=== PATIENT | female | born 1985 | race Caucasian/White ===

== ENCOUNTER → 2019-06-02 12:37 | Outpatient (BNVA) | payer MEDICARE, MEDICAID, SELFPAY | PROVIDERS: Family Provider Nurse Practitioner Family; PCP Nurse Practitioner Family; Visit Provider Psychiatry & Neurology Psychiatry | DX: F31.32 Bipolar disorder, current episode depressed, moderate (principal); F43.12 Post-traumatic stress disorder, chronic; F17.200 Nicotine dependence, unspecified, uncomplicated | CPT/HCPCS: 99213 ==

== ENCOUNTER 2019-06-09 09:36 | Outpatient (CLI) | payer MEDICARE, MEDICAID, SELFPAY ==
--- NOTE | 2019-06-09 09:53 | USCV_ITS ---
Mare Cody Age: 34 Gender: F : 1985 Exam Date: 06/09/2019 10:10 Ordering Phys: Veda Owen MD Technologist: Samson Kumar Exam Location: [facility] – [place] Indication: OBSTRUCTIVE SLEEP APNEA BP: 110 / 73 HR: 85 Rhythm: Sinus Technical Quality: Adequate MEASUREMENTS (Male / Female) Normal Values 2D ECHO LV Diastolic Diameter PLAX 3.9 cm 4.2 - 5.9 / 3.9 - 5.3 cm LV Systolic Diameter PLAX 2.8 cm IVS Diastolic Thickness 0.9 cm 0.6 - 1.0 / 0.6 - 0.9 cm IVS Systolic Thickness 1.5 cm LVPW Diastolic Thickness 0.9 cm 0.6 - 1.0 / 0.6 - 0.9 cm LVPW Systolic Thickness 1.3 cm LVOT Diameter 2.0 cm LV Ejection Fraction 2D Teich 53.7 % LV Ejection Fraction MOD 2C 64.6 % LV Ejection Fraction 2C AL 65.0 % LA Diameter 4.0 cm LA Width 4.0 cm LA Height 4.4 cm RA Width 3.2 cm RA Height 3.8 cm Aorta at Sinotubular Diameter 2.4 cm M-MODE LV Diastolic Diameter MM 3.6 cm 4.2 - 5.9 / 3.9 - 5.3 cm LV Systolic Diameter MM 2.5 cm LV Ejection Fraction MM Teich 59.5 % IVS Diastolic Thickness MM 1.2 cm 0.6 - 1.0 / 0.6 - 0.9 cm IVS Systolic Thickness MM 1.3 cm LVPW Diastolic Thickness MM 1.1 cm 0.6 - 1.0 / 0.6 - 0.9 cm LVPW Systolic Thickness MM 1.6 cm RV Diastolic Diameter MM 1.8 cm Aortic Annulus Diameter 3.0 cm LA Ao Ratio MM 1.4 MV E Point Septal Separation 1.2 cm DOPPLER AV Peak Velocity 95.0 cm/s LVOT Peak Velocity 68.0 cm/s AV Area Cont Eq vti 2.1 cm squared AV Area Cont Eq pk 2.3 cm squared MV Area PHT 5.0 cm squared Mitral E to A Ratio 0.9 MV E' Velocity 8.0 cm/s Mitral E to MV E' Ratio 8.0 Mitral E to LV E' Lateral Ratio 7.7 Mitral E to LV E' Septal Ratio 8.4 TR Peak Velocity 149.0 cm/s TR Peak Gradient 8.8 mmHg TV Peak E Velocity 77.0 cm/s Right Atrial Pressure 3.0 mmHg Pulmonary Artery Systolic Pressu 11.9 mmHg FINDINGS Left Ventricle Normal left ventricular size, systolic function and wall thickness, with no regional wall motion abnormalities. Left ventricular ejection fraction is estimated at 60 %. No diagnostic regional wall motion abnormalities. Normal diastolic function. Right Ventricle Normal right ventricular size and systolic function. Tricuspid valve regurgitant jet is inadequate for estimation of right ventricular systolic pressure. Right Atrium Normal right atrial size. Left Atrium Normal left atrial size. Mitral Valve Structurally normal mitral valve. No mitral valve stenosis. No mitral valve regurgitation. Aortic Valve Aortic valve not well visualized. No aortic valve stenosis. No aortic valve regurgitation. Tricuspid Valve Structurally normal tricuspid valve. Trace tricuspid valve regurgitation. Pulmonic Valve Pulmonic valve not well visualized. No pulmonary valve stenosis. Trace pulmonary valve regurgitation. Pericardium No pericardial effusion. Aorta Normal size aortic root and proximal ascending aorta. CONCLUSIONS 1. Normal left ventricular size, systolic function and wall thickness, with no regional wall motion abnormalities. Left ventricular ejection fraction is estimated at 60 %. No diagnostic regional wall motion abnormalities. 2. Normal right ventricular size and systolic function. 3. No significant valvular abnormality. 4. No prior similar studies to compare. Francia Meneses MD (Electronically Signed) Final Date: 09 June 2019 18:35 S
== END 2019-06-09 09:37 | disposition home or self-care (01) ==
LOC: RAD 09:39
PROVIDERS: Family Provider Nurse Practitioner Family; PCP Nurse Practitioner Family; Visit Provider Internal Medicine Critical Care Medicine
DX: G47.33 Obstructive sleep apnea (adult) (pediatric) (principal); I37.1 Nonrheumatic pulmonary valve insufficiency; I07.1 Rheumatic tricuspid insufficiency
CPT/HCPCS: 93306

== ENCOUNTER 2019-06-17 20:00 | Outpatient (CLI) | payer MEDICARE, MEDICAID, SELFPAY | END 2019-06-17 20:01 | disposition home or self-care (01) | LOC: SLEEP 06-18 11:22 | PROVIDERS: Family Provider Nurse Practitioner Family; PCP Nurse Practitioner Family; Visit Provider Internal Medicine Critical Care Medicine | DX: G47.33 Obstructive sleep apnea (adult) (pediatric) (principal) | CPT/HCPCS: 95811 ==

== ENCOUNTER → 2019-06-24 15:27 | Outpatient (BNVA) | payer MEDICARE, MEDICAID, SELFPAY | PROVIDERS: Family Provider Nurse Practitioner Family; PCP Nurse Practitioner Family; Visit Provider Psychiatry & Neurology Psychiatry | DX: F31.32 Bipolar disorder, current episode depressed, moderate (principal); F43.10 Post-traumatic stress disorder, unspecified; F17.200 Nicotine dependence, unspecified, uncomplicated | CPT/HCPCS: 99213 ==

== ENCOUNTER 2019-06-25 12:59 | Outpatient (CLI) | payer MEDICARE, MEDICAID, SELFPAY ==
[2019-06-25 13:44] VITALS: O2SAT 87
== END 2019-06-25 13:00 | disposition home or self-care (01) ==
LOC: RT 12:59
PROVIDERS: Family Provider Nurse Practitioner Family; PCP Nurse Practitioner Family; Visit Provider Internal Medicine Critical Care Medicine
DX: J45.909 Unspecified asthma, uncomplicated (principal)
CPT/HCPCS: 94060; 99213

== ENCOUNTER → 2019-07-24 09:25 | Outpatient (BNVA) | payer MEDICARE, MEDICAID, SELFPAY | PROVIDERS: Family Provider Nurse Practitioner Family; PCP Nurse Practitioner Family; Visit Provider Social Worker Clinical | DX: F31.32 Bipolar disorder, current episode depressed, moderate (principal); F43.12 Post-traumatic stress disorder, chronic | CPT/HCPCS: 90834 ==

== ENCOUNTER → 2019-08-04 09:44 | Outpatient (BNVA) | payer MEDICARE, MEDICAID, SELFPAY | PROVIDERS: Family Provider Nurse Practitioner Family; PCP Nurse Practitioner Family; Visit Provider Otolaryngology | DX: H60.333 Swimmer's ear, bilateral (principal); J34.2 Deviated nasal septum; R47.02 Dysphasia; K21.9 Gastro-esophageal reflux disease without esophagitis; F17.210 Nicotine dependence, cigarettes, uncomplicated | CPT/HCPCS: 99204; 99214 ==

== ENCOUNTER → 2019-08-14 14:08 | Outpatient (BNVA) | payer MEDICARE, MEDICAID, SELFPAY | PROVIDERS: Family Provider Nurse Practitioner Family; PCP Nurse Practitioner Family; Visit Provider Nurse Practitioner Psychiatric/Mental Health | DX: F31.30 Bipolar disorder, current episode depressed, mild or moderate severity, unspecified; F43.12 Post-traumatic stress disorder, chronic; F17.200 Nicotine dependence, unspecified, uncomplicated; Z51.81 Encounter for therapeutic drug level monitoring | CPT/HCPCS: 80156; 99213 ==

== ENCOUNTER 2019-08-21 08:17 | Outpatient (CLI) | payer MEDICARE, MEDICAID, SELFPAY ==
--- NOTE | 2019-08-21 08:48 | IR_ITS ---
WS: [id number] Lumbar myelogram, 08/21/2019 Clinical Data: Low back pain Comparison: None. Fluoroscopy time: 3.4 minutes. Findings: With the usual technique, a 22 gauge spinal needle was inserted into the lumbar subarachnoid space at L4-L5. The contrast material was hand injected. Approximately 15 mL of 240 mg/mL Omnipaque entered the lumba r subarachnoid space. Some of the contrast was extradural. The patient is had a posterior lumbar fusi on at L5-S1 with bilateral pedicle screws and connecting rods. There is artificial disc material at L 5-S1 and a laminectomy on the left at S1. There are fusion screws of the right and left SI joints. No intramedullary intradural or extradural defects could be seen. Contrast material flowed normally i nto the lower thoracic subarachnoid space. Flexion, extension and neutral lateral views demonstrated no limitations of motion or increase in sub luxation. The lumbar fusion was stable. IR/IR myelogram sp lumbar [id number] Impression: 1. Negative for intramedullary intradural or extradural defects. 2. Intact posterior L5-S1 fusion. 3. Intact fusion of both SI joints. 4. Negative for limitation of motion, subluxation.
--- NOTE | 2019-08-21 08:48 | CT_ITS ---
WS: [id number] CT of the lumbar spine, additional two-dimensional coronal and sagittal imaging post myelogram was ob tained. 08/21/2019 Clinical Data: Low back pain Comparison: CT lumbar spine, 01/31/2019. DLP: 2200.[address] scans at [facility] use at least one of these dose optimization techniques: automat ed exposure control; mA and/or kV adjustment per patient size (includes targeted exams where dose is matched to clinical indication); or iterative reconstruction. Findings: The patient has had a posterior lumbar fusion with bilateral pedicle screws at L5-S1 connec javy with rods. There is also fusion of both SI joints with orthopedic screws. There is a left S1 lami nectomy. No compression fractures are seen. There is an interbody fusion at L5-S1. The transverse pr ocesses are unremarkable. No intramedullary, intradural or extradural defects are seen. T12-L1: No canal stenosis, disc bulge or foraminal narrowing is seen. L1-L2: No canal stenosis, disc bulge or foraminal narrowing is seen. L2-L3: No canal stenosis, disc bulge or foraminal narrowing is seen. L3-L4: No canal stenosis, disc bulge or foraminal narrowing is seen. L4-L5: No canal stenosis, disc bulge or foraminal narrowing is seen. L5-S1: There is an left S1 laminectomy defect with posterior disc bulging and mild left foraminal janak rowing. Impression: 1. Intact posterior lumbar fusion at L5-S1. 2. Intact fusion of both SI joints. 3. Laminectomy defect of the left S1 with foraminal encroachment.
[2019-08-21] MEDS: iohexol 240 mg/mL 50 mL Btl INTRATHECA (10:02)
== END 2019-08-21 08:18 | disposition home or self-care (01) ==
LOC: RADWPI 08:21
PROVIDERS: Family Provider Nurse Practitioner Family; PCP Nurse Practitioner Family; Visit Provider Licensed Practical Nurse
DX: M96.1 Postlaminectomy syndrome, not elsewhere classified (principal); M54.5 Low back pain; Z98.1 Arthrodesis status
CPT/HCPCS: 62304; 72120; 72132; J2001; Q9966

== ENCOUNTER → 2019-08-29 08:30 | Outpatient (BNVA) | payer MEDICARE, MEDICAID, SELFPAY | PROVIDERS: Family Provider Nurse Practitioner Family; PCP Nurse Practitioner Family; Visit Provider Social Worker Clinical | DX: F31.30 Bipolar disorder, current episode depressed, mild or moderate severity, unspecified (principal); F43.12 Post-traumatic stress disorder, chronic | CPT/HCPCS: 90834 ==

== ENCOUNTER → 2019-09-05 08:05 | Outpatient (BNVA) | payer MEDICARE, MEDICAID, SELFPAY | PROVIDERS: Family Provider Nurse Practitioner Family; PCP Nurse Practitioner Family; Visit Provider Social Worker Clinical | DX: F31.30 Bipolar disorder, current episode depressed, mild or moderate severity, unspecified (principal); F43.12 Post-traumatic stress disorder, chronic | CPT/HCPCS: 90834 ==

== ENCOUNTER → 2019-09-08 08:12 | Outpatient (BNVA) | payer MEDICARE, MEDICAID, SELFPAY | PROVIDERS: Family Provider Nurse Practitioner Family; PCP Nurse Practitioner Family; Visit Provider Nurse Practitioner Psychiatric/Mental Health | DX: F31.30 Bipolar disorder, current episode depressed, mild or moderate severity, unspecified (principal); F43.12 Post-traumatic stress disorder, chronic; Z51.81 Encounter for therapeutic drug level monitoring | CPT/HCPCS: 99212 ==

== ENCOUNTER → 2019-09-11 08:37 | Outpatient (BNVA) | payer MEDICAID, SELFPAY | PROVIDERS: Family Provider Nurse Practitioner Family; PCP Nurse Practitioner Family; Visit Provider Social Worker Clinical | DX: F31.30 Bipolar disorder, current episode depressed, mild or moderate severity, unspecified (principal); F43.12 Post-traumatic stress disorder, chronic | CPT/HCPCS: 90834 ==

== ENCOUNTER 2019-09-16 12:59 | Outpatient (CLI) | payer MEDICARE, MEDICAID, SELFPAY ==
--- NOTE | 2019-09-16 13:40 | XR_ITS ---
WS: [id number] THORACIC SPINE TECHNIQUE: AP and lateral views are performed. HISTORY: THORACIC BACK PAIN COMPARISON: None available. Very mild reverse S-shaped curvature thoracic spine. Small endplate osteophytes throughout the thorac ic spine. No fracture. No significant loss of disc. Pedicles are all identified. XR/XR thoracic spine 3V* [id number] IMPRESSION: Very mild thoracic spondylosis. No fracture.
--- NOTE | 2019-09-16 13:45 | MR_ITS ---
WS: [id number] MRI THORACIC SPINE HISTORY: Thoracic back pain COMPARISON: None available. TECHNIQUE: Multiplanar sequences are performed in sagittal and axial planes. Very slight increase in thoracic kyphosis. Benign hemangioma within T10. No marrow edema or fracture. Small endplate osteophytes and hypertrophic bone formation throughout the thoracic spine. Signal wit hin the cord is normal. No atrophy or enlargement of the cord. Cord tapers normally at L1. T1-2: Normal. T2-3: Normal. T3-4: Normal. T4-5: Normal. T5-6: Normal. T6-7: Normal. T7-8: Normal. T8-9: Mild facet arthropathy without stenosis. T9-10: Mild facet arthropathy without stenosis. T10-11: Moderate facet joint arthropathy. Mild narrowing of the foramen. T11-12: Mild facet joint arthritis. Paraspinal soft tissues are normal. MR/MR thoracic spin wo con* [id number] IMPRESSION: 1. No disc protrusions or significant stenosis within the thoracic spine. 2. Facet arthropathy from T9 through T12, most significant at the T10-11 area with only mild foraminal stenosis.
== END 2019-09-16 13:00 | disposition home or self-care (01) ==
LOC: RADWPI 13:04
PROVIDERS: Family Provider Nurse Practitioner Family; PCP Nurse Practitioner Family; Visit Provider Licensed Practical Nurse
DX: M54.6 Pain in thoracic spine (principal); M47.814 Spondylosis without myelopathy or radiculopathy, thoracic region; M48.04 Spinal stenosis, thoracic region
CPT/HCPCS: 72072; 72146; 90834

== ENCOUNTER 2020-03-10 09:45 | Outpatient (CLI) | payer MEDICARE, MEDICAID, SELFPAY ==
--- NOTE | 2020-03-10 09:52 | XRR_ITS ---
PROCEDURE INFORMATION: Exam: XR Chest, 2 Views Exam date and time: 03/10/2020 10:05 AM Age: 34 years old Clinical indication: Pneumonia TECHNIQUE: Imaging protocol: XR of the chest Views: 2 views. COMPARISON: CT CHEST 03/31/2019 9:57 AM FINDINGS: Lungs: Discoid atelectasis in the lingular segment of the left upper lobe. The nodules demonstrated on the prior comparison CT CHEST are not radiographically evident. Follow-up would be best performed with CT scan. Pleural space: No pleural effusion or pneumothorax. Heart/Mediastinum: The cardiac silhouette is not enlarged. The mediastinal contours are normal. Bones/joints: No acute osseous abnormality. XR/XR chest 2V* [id number] IMPRESSION: Lingular atelectasis.
== END 2020-03-10 09:46 | disposition home or self-care (01) ==
LOC: RAD 09:50
PROVIDERS: PCP Nurse Practitioner Family; Visit Provider Internal Medicine Critical Care Medicine
DX: J18.9 Pneumonia, unspecified organism (principal); J98.11 Atelectasis
CPT/HCPCS: 71046

== ENCOUNTER 2020-03-26 07:26 | Outpatient (CLI) | payer MEDICARE, MEDICAID, SELFPAY ==
[2020-03-29 16:24] LABS: Alternaria Alternata (M6) Ige <0.10 kU/L; Alternaria Class 0; Bermuda Class 0; Bermuda Grass (G2) Ige <0.10 kU/L; Cat Dander (E1) Ige <0.10 kU/L; Cat Dander Class 0; Common Ragweed (Short) (W1) Ig <0.10 kU/L; D. Farinae Class 0; Dermatophagoides Class 0; Dermatophagoides Farinae (D2) <0.10 kU/L; Dermatophagoides Pteronyssinus <0.10 kU/L; Dog Dander (E5) Ige <0.10 kU/L; Dog Dander Class 0; Elm (T8) Ige <0.10 kU/L; Elm Class 0; English Plantain (W9) Ige <0.10 kU/L; English Plantain Class 0; House Dust (Greer) (H1) Ige <0.10 kU/L; House Dust (Hollister- Stier) <0.10 kU/L; House Dust Class 0; Immunoglobulin E 47 kU/L (<OR=114); Johnson Grass (G10) Ige <0.10 kU/L; Johnson Grass Cl 0; June Grass Class 0; June Grass(Kentucky Blue) (G8) <0.10 kU/L; Lamb'S Quarters (Goose Foot) <0.10 kU/L; Lamb'S Quarters Class 0; Maple (Box Elder) (T1) Ige <0.10 kU/L; Maple Class 0; Meadow Fescue (G4) Ige <0.10 kU/L; Meadow Fescue Class 0; Mucor Racemosus Class 0; Oak (T7) Ige <0.10 kU/L; Oak Class 0; Orchard Grass (Cocksfoot) (G3) <0.10 kU/L; Penicillium Class 0; Penicillium Notatum (M1) Ige <0.10 kU/L; Perennial Rye Grass (G5) Ige <0.10 kU/L; Perennial Rye Grass Class 0; Ragweeed Class 0; Rough Marsh Elder (W16) Ige <0.10 kU/L; Rough Marsh Elder Class 0; Sweet Vernal Class 0; Sweet Vernal Grass (G1) Ige <0.10 kU/L; Timothy Grass (G6) Ige <0.10 kU/L; Timothy Grass Class 0
[2020-03-29 17:52] LABS: Immunoglobulin E 41 kU/L (<OR=114)
[2020-03-31 15:08] LABS: Aspergillus Fumigatus, Igg Ab, 26.9 mg/L (<=102)
== END 2020-03-26 07:27 | disposition home or self-care (01) ==
LOC: LAB 07:31
PROVIDERS: PCP Nurse Practitioner Family; Visit Provider Internal Medicine Critical Care Medicine
DX: J45.909 Unspecified asthma, uncomplicated (principal)
CPT/HCPCS: 36415; 82785; 86003

== ENCOUNTER 2020-12-05 05:42 | Emergency (ER) | payer MEDICARE, MEDICAID, SELFPAY ==
[2020-12-05 05:49] VITALS: BP 126/78; PULSE 97; RESP 18; TEMP 36.9; O2SAT 96; BMI 38.8
--- NOTE | 2020-12-05 06:31 | W.ED.BACK ---
HPI - Back Pain/Injury General: Chief Complaint: Back Pain/Injury Stated Complaint: r sided abd and back pain Time Seen by Provider: 12/05/20 06:14 Limitations: other History of Present Illness: HPI Narrative: Patient presents with left-sided flank pain. Seen in ER yesterday and noted to have a 4 mm kidney stone. Discharged home with hydrocodone but has not actually had a chance to fill it yet. MD elicited complaint: back pain Location: left flank Associated symptoms: Reports abdominal pain (Left flank pain) and nausea; Deny dysuria Review of Systems General: Reports: 10 or more systems reviewed and unremarkable except in HPI and below Eyes: Denies: change in vision ENMT: Denies: throat pain Card: Denies: chest pain Resp: Denies: dyspnea or productive cough GI: Reports: abdominal pain (Left flank pain) and nausea : Reports: flank pain; Denies: difficulty voiding or dysuria Musc: Denies: neck pain Skin/Breast: Denies: rash PFSH ED PFSH: Medical History Asthmatic bronchitis Back pain Bipolar disorder, most recent episode depressed Chronic bronchitis Chronic otitis externa Chronic post-traumatic stress disorder (PTSD) chronic nightmares; anniversary date of accident coming up; able to wake up and go back to sleep afterward. She expresses no reports of hypervigilance, avoidance behavior, or intrusive thought process. Depression Dysphasia Falls GERD (gastroesophageal reflux disease) Hyperlipemia Lumbar post-laminectomy syndrome Nasal septal deformity Nicotine dependence with current use Obesity Otalgia Otitis externa Right hip joint effusion Sebaceous cyst Sleep apnea Sleep apnea Thoracic degenerative disc disease Tobacco abuse Tobacco abuse Surgical History H/O spinal fusion 07/15/2015 Dr. Kwame Torres [place]: L5-S1 posterior laminectomy/fusion/fixation History of cholecystectomy History of hysterectomy History of tonsillectomy and adenoidectomy Status post arthrodesis 01/18/2019 Dr. Kwame Torres Right SI joint. 05/05/2016 Left SI joint Family History Mother Diabetes Heart attack Lung disease Grandmother Diabetes Hypertension Lung disease Sister Diabetes Hypertension Father Heart attack Family/Other Heart attack Brother Hypertension Social History Smoking and tobacco status: current every day smoker cigarettes Packs smoked per day: 1 Years cigarettes smoked: 25 [ Other cigarette details: Hx of 2.5 PPD x 8 Years ] Quit status (tobacco): considering quitting Second hand smoke exposure: Yes Smoking risk assessment/counseling performed?: Yes Alcohol intake: former Year of sobriety/quit date alcohol: 2018 Counseling given: No Counseling given: No Lives independently: Yes Household members: none Marital status: Single Current occupational status: disabled History of recent travel: No Current gender identity: Female Physical Exam Const: COMMON NORMALS: no acute distress GENERAL APPEARANCE: cooperative Neck/C-Spine: COMMON NORMALS: no JVD Chest: COMMONS NORMALS: normal inspection of the chest and normal palpation of entire chest wall Resp: COMMON NORMALS: normal respiratory effort, No retractions, No use of accessory muscles, clear to auscultation bilaterally and percussion normal AUSCULTATION: clear to auscultation bilaterally PERCUSSION: percussion normal Cardio: COMMON NORMALS: no JVD, regular rate, regular rhythm, S1 normal heart sound present, S2 normal heart sound present, No gallops present (Cardio), No clicks present (Cardio), No murmurs present (Cardio), No rub (Cardio) and Peripheral pulses 2+ throughout RATE: regular rate RHYTHM: regular rhythm HEART SOUNDS: S1 normal heart sound present and S2 normal heart sound present PERIPHERAL PULSES: Peripheral pulses 2+ throughout GI: COMMON NORMALS: Normal to inspection, nondistended, normoactive bowel sounds present, Soft to palpation, non-tender, No hepatosplenomegaly present, no masses and no bruits PALPATION: Yes Soft to palpation and Yes No hepatosplenomegaly present : BLADDER/KIDNEY EXAM: Yes CVA tenderness Back/Pelvis: GENERAL BACK: Yes CVA tenderness CVA tenderness: left Course Vital Signs: Vital signs: Vital Signs Temperature 98.4 F 12/05/20 05:49 Pulse Rate 97 12/05/20 05:49 Respiratory Rate 18 12/05/20 05:49 Blood Pressure 126/78 12/05/20 05:49 Pulse Oximetry 96 12/05/20 05:49 MDM - Back Pain/Injury MDM Narrative: Medical decision making narrative: Patient given IM Toradol and [place] and Zofran. Discussed with patient that she needs to drink lots of fluids. Will give patient referral to see urology if needed. Already has prescription for [place] at home. Discharge Plan Discharge Condition: Stable Prescriptions: No Action Invega Sustenna 234 mg/1.5 mL syringe 234 mg IM Q30D Qty: 1.5 RF: 4 propranolol 20 mg tablet 20 mg PO BID Qty: 60 RF: 2 glyburide 5 mg tablet 10 mg PO DAILY RF: 0 benztropine 0.5 mg tablet 0.5 mg PO BID Qty: 60 RF: 1 bupropion HCl 300 mg tablet extended release 24 hr 300 mg PO QAM Qty: 30 RF: 1 carbamazepine 200 mg capsule, ER multiphase 12 hr 200 mg PO BID Qty: 60 RF: 1 doxepin 50 mg capsule 50 mg PO .qhs PRN (Reason: insomnia) Qty: 30 RF: 1 escitalopram oxalate [Lexapro] 20 mg tablet 20 mg PO ONCE Qty: 30 RF: 1 hydroxyzine HCl 50 mg tablet 50 mg PO BID PRN (Reason: anxiety) Qty: 60 RF: 1 quetiapine [Seroquel XR] 400 mg tablet extended release 24 hr 400 mg PO .qhs Qty: 30 RF: 1 hydrocodone-acetaminophen [[place]] 5-325 mg tablet 1 tab PO Q6H PRNRF: 0 fluticasone propionate [Children's Flonase Allergy Rlf] 50 mcg/actuation spray,suspension 1 spray intranasal BID Qty: 16 RF: 3 Spiriva Respimat 1.25 mcg/actuation mist 2 puff inhalation DAILY Qty: 4 RF: 3 aspirin [Adult Aspirin Regimen] 81 mg tablet,delayed release (DR/EC) 81 mg PO ONCE RF: 0 gabapentin 400 mg capsule 400 mg PO QID RF: 0 sucralfate 1 gram tablet 1 gm PO BID RF: 0 atorvastatin 20 mg tablet 20 mg PO QDAY RF: 0 isosorbide mononitrate 30 mg tablet extended release 24 hr 30 mg PO QAM RF: 0 pantoprazole 40 mg tablet,delayed release (DR/EC) 40 mg PO BID RF: 0 glipizide 10 mg tablet 10 mg PO DAILY RF: 0 Perforomist 20 mcg/2 mL solution for nebulization 2 ml inhalation BID Qty: 120 RF: 3 loratadine [Allergy Relief (loratadine)] 10 mg tablet 10 mg PO DAILY RF: 0 budesonide 0.5 mg/2 mL suspension for nebulization 0.5 mg inhalation BID RF: 0 ipratropium bromide 42 mcg (0.06 %) spray,non-aerosol 2 spray intranasal TID 30 Days Qty: 15 RF: 3 naproxen 500 mg tablet See Rx Instructions .ROUTE .COMPLEX Qty: 10 RF: 0 ipratropium-albuterol 0.5 mg-3 mg(2.5 mg base)/3 mL solution for nebulization 3 ml inhalation DAILY Qty: 360 RF: 3 Referrals: Paul Barriga MD [Physician] - Discharge Diet: Advance as tolerated Discharge Activity: Resume usual activity Activity Restrictions/Additional Instructions: Take medications as prescribed by ER visit yesterday. Coding Level of Care Code ED Load Blocker for Mario Santiago
[2020-12-05 06:33] VITALS: BP 114/64; PULSE 99; RESP 18; O2SAT 96
[2020-12-05] MEDS: HYDROcodone-acetaminophen 10-325 mg Tablet 1 TAB PO (06:40)
[2020-12-05] MEDS: ketorolac 60 mg/2 mL INJ IM (06:41)
[2020-12-05] MEDS: ondansetron 4 MG Tablet PO (06:41)
[2020-12-05 06:51] VITALS: BP 111/57; PULSE 98; RESP 18; O2SAT 94
== END 2020-12-05 06:50 | disposition home or self-care (01) ==
PROVIDERS: Emergency Provider Emergency Medicine
DX: R10.9 Unspecified abdominal pain (principal); Z79.84 Long term (current) use of oral hypoglycemic drugs; Z79.82 Long term (current) use of aspirin; E78.5 Hyperlipidemia, unspecified; F17.210 Nicotine dependence, cigarettes, uncomplicated
CPT/HCPCS: 96372; 99283; J1885; Q0162

== ENCOUNTER 2020-12-07 13:44 | Outpatient (CLI) | payer MEDICARE, MEDICAID, SELFPAY ==
--- NOTE | 2020-12-07 14:30 | XRR_ITS ---
PROCEDURE INFORMATION: Exam: XR Abdomen Exam date and time: 12/07/2020 2:30 PM Age: 35 years old Clinical indication: Ureteral stone. Prior back surgery and pelvic screws. Prior cholecystectomy and hysterectomy. Kidney stone follow up. Right-sided back pain. TECHNIQUE: Imaging protocol: XR of the abdomen. Views: Frontal supine view of the abdomen. 1 View. COMPARISON: CR XR chest 2V* [id number] 03/10/2020 10:02 AM FINDINGS: Possible punctate stones in the right kidney. The left renal shadow is obscured by overlying bowel gas. Bilateral sacroiliac screws are seen. There has been prior posterior lumbosacral fusion extending from L5-S1. Probable phleboliths in the pelvis. Distal ureteral stones are impossible to exclude. Nonobstructive bowel gas pattern. Probable hepatomegaly. Probable splenomegaly. XR/XR KUB [id number] IMPRESSION: 1. Possible punctate stones in the right kidney. 2. Probable hepatosplenomegaly. 3. Probable phleboliths in the pelvis. Distal ureteral stones are impossible to exclude. 4. Consider CT of the abdomen and pelvis to further assess for ureteral stone if clinically warranted.
== END 2020-12-07 13:45 | disposition home or self-care (01) ==
LOC: RAD 13:50
PROVIDERS: PCP Urology; Visit Provider Urology
DX: N20.0 Calculus of kidney (principal); Z20.828 Contact with and (suspected) exposure to other viral communicable diseases
CPT/HCPCS: 74018; 81003; 87635

== ENCOUNTER 2020-12-09 11:18 | Day surgery (SDC) | payer MEDICARE, MEDICAID, SELFPAY ==
[2020-12-08 14:54] VITALS: BMI 38.8
[2020-12-09] VITALS (8 sets, daily range): BP systolic 105–141; BP diastolic 58–87; PULSE 93–110; RESP 16–26; TEMP 36.6–37.5; O2SAT 92–96
--- NOTE | 2020-12-09 | SCC_ITS ---
Procedure Done: 1. Cystoscopy, left retrograde ureteropyelogram 2. LEFT: Ureteroscopy, stone manipulation, stent (6 [place] by 28 cm no string) 22.6 seconds of fluoroscopic guidance, for a cumulative dose of 11.28 mGy, was provided to Dr. Barriga by the radiology department. C-arm images of the abdomen were saved for the patient's permanent record. [facility]
--- NOTE | 2020-12-09 11:25 | XR_ITS ---
WS: [id number] KUB, AP view, 12/09/2020 Clinical Data: Preop left ureteroscopy Comparison: KUB, 12/07/2020. Findings: No abnormal intraabdominal masses or calcifications are seen. There is no dilatated small bowel or ev idence of obstruction. The left kidney is partly obscured by fecal material. There are phleboliths in the true pelvis. There are bilateral sacroiliac orthopedic screws. There are bilateral pedicle screws at L5-S1 with an artificial disc at L5-S1. There is been a L5 laminectomy. XR/XR KUB [id number] Impression: Negative KUB.
--- NOTE | 2020-12-09 11:25 | SC_ITS ---
WS: [id number] C-arm fluoroscopy for ureteral stent placement Clinical Data: Left ureteroscopy Comparison: KUB, 12/09/2020 Findings: The proximal portion of the left ureteral stent is entering the left renal pelvis. SC/C-arm FL for Urology Impression: Left ureteral stent placement.
[2020-12-09 12:01] LABS: Glucose Point of Care 134 mg/dL (70-110)
[2020-12-09] MEDS: sodium chloride 0.9% 1,000 ML 30 ML IV (12:02)
[2020-12-09] MEDS: scopolamine 1.5 Patch 1 PATCH TRANSDERMA (12:02)
--- NOTE | 2020-12-09 13:07 | ANES.PREANE2 ---
Pre-Anesthetic Assessment Pre-Anesthetic Assessment: Height/Weight: Height 1.75 m Weight 119.295 kg Temp Pulse Resp BP Pulse Ox 97.9 F 102 H 20 H 131/87 93 12/09/20 11:35 12/09/20 11:35 12/09/20 11:35 12/09/20 11:35 12/09/20 11:35 Preop Diagnosis: Refractory left distal ureteral stone Proposed Procedure: Operation Date: 12/09/20 13:00 Proposed Procedures p Laser Lithotripsy [id number] n20.1(Not Applicable) - Paul Barriga MD s Retrograde Pyelogram(Left) - Paul Barriga MD s Ureteroscopy(Not Applicable) - MD kane Lopez Cystoscopy(Not Applicable) - Paul Barriga MD s Ureteral Stent Placement(Not Applicable) - Paul Barriga MD Was Beta Lacie taken within 24 hours: N/A Was Clonidine taken within 24 hours: N/A Last intake: Intake Last Liquid Date 12/09/20 Last Liquid Time 05:00 Last Solid Date 12/08/20 Last Solid Time 16:30 Social: Social History: Tobacco and No alcohol Exam: Pre-Anes Outpt Exam: alert, oriented x 3 and regular rate & rhythm Airway: Submandibular: WNL Cervical ROM: WNL MP: 2 Dentition: Full Pulmonary: Pulmonary: Sleep apnea CV/HEM: CV/HEM: HTN GI: GI: GERD Metabolic: Metabolic: DM, Hyperlipidemia and Morbid obesity Musc/skel: Musc/skel: Lower Back Pain Neuropsych: Neuropsych: Anxiety and Depression Anesthetic Plan: ASA status: 3 Anesthesia: General Risk of > 500 ml blood loss (7ml/kg in children): No Meds/Allergies Current Medications: Current Medications Generic Name Dose Route Start Last Admin Trade Name Freq PRN Reason Stop Dose Admin Sodium Chloride 1,000 mls @ 30 ml s/hr 12/09/20 11:30 12/09/20 12:02 Sodium Chloride 0.9% IV 12/10/20 11:29 30 mls/hr .Q24H VA Administration PFSH Anesthesia PFSH: Medical History Asthmatic bronchitis Back pain Bipolar disorder, most recent episode depressed Calculus of distal left ureter Chronic bronchitis Chronic otitis externa Chronic post-traumatic stress disorder (PTSD) chronic nightmares; anniversary date of accident coming up; able to wake up and go back to sleep afterward. She expresses no reports of hypervigilance, avoidance behavior, or intrusive thought process. Depression Dysphasia Falls GERD (gastroesophageal reflux disease) Hyperlipemia Lumbar post-laminectomy syndrome Nasal septal deformity Nicotine dependence with current use Obesity Otalgia Otitis externa Right hip joint effusion Sebaceous cyst Sleep apnea Sleep apnea Thoracic degenerative disc disease Tobacco abuse Tobacco abuse Surgical History H/O spinal fusion 07/15/2015 Dr. Kwame Torres [place]: L5-S1 posterior laminectomy/fusion/fixation History of cholecystectomy History of hysterectomy History of tonsillectomy and adenoidectomy Status post arthrodesis 01/18/2019 Dr. Kwame Torres Right SI joint. 05/05/2016 Left SI joint Family History Mother Diabetes Heart attack Lung disease Grandmother Diabetes Hypertension Lung disease Sister Diabetes Hypertension Father Heart attack Family/Other Heart attack Brother Hypertension Social History Smoking and tobacco status: current every day smoker cigarettes Packs smoked per day: 1 Years cigarettes smoked: 25 [ Other cigarette details: Hx of 2.5 PPD x 8 Years ] Quit status (tobacco): considering quitting Second hand smoke exposure: Yes Smoking risk assessment/counseling performed?: Yes Alcohol intake: former Year of sobriety/quit date alcohol: 2017 Counseling given: No Counseling given: No Lives independently: Yes Household members: none Marital status: Single Current occupational status: disabled History of recent travel: No Current gender identity: Female Data Anesthesia Other Labs: Laboratory Results - last 48 hr 12/09/20 11:57 POC Glucose 134 H Cardiac Studies: No Data to Display
--- NOTE | 2020-12-09 13:12 | P.OP_ITS ---
Operative Report Date of procedure: December 09, 2020 Pre-op Diagnosis: Refractory left distal ureteral stone Post-op diagnosis: same Procedure Done: 1. Cystoscopy, left retrograde ureteropyelogram 2. LEFT: Ureteroscopy, stone manipulation, stent (6 Mauritian by 28 cm no string) Pathology: Stone fragments Anesthesia: General Urine output: Minimal Complications: None Findings: Stone in the expected position Condition: stable Disposition: PACU Brief History: Mare is a very pleasant 35-year-old white female recently diagnosed with a left distal ureteral stone with significant obstructive changes and periureteral/intramural edema associated with the stone. The stone was felt to be small enough to pass. Obviously in the timeframe in which she had symptoms and based on the CT scan findings it was unsuccessful. Most likely related to the distal ureteral edema. She is admitted now for endoscopic treatment of the stone. Procedure: After routine preoperative evaluation examination and obtaining of informed consent she was taken to the operating suite on 12/09/2020 where general anesthesia was administered without difficulty after appropriate timeout was performed, SCDs confirmed to be functioning, preoperative antibiotics administered, beta-brian protocol confirmed. Prepped and draped in usual sterile fashion in dorsolithotomy position paying careful attention to avoiding pressure points. 21 Mauritian cystoscope with 30 degree lens was introduced into the urethra meatus and advanced into the bladder to videoscopy. Bladder was systematically examined. No stone was seen. There was significant edema of the left ureteral orifice and intramural tunnel. An 8 Mauritian cone-tip catheter was intubated to the left ureteral orifice for a left retrograde ureteropyelogram with findings as follows: There was significant narrowing of the distal ureter associated with edema. The filling defect consistent with a stone was identified. The ureter proximal to that was dilated. A flexible tip guidewire was then advanced into the ureteral orifice but could not be easily passed beyond the stone. An open-ended ureteral catheter was then passed over the guidewire which help facilitate passage of the wire beyond the stone and up into the area of the renal pelvis where it curled. The distal ureter was then dilated with a 15 Mauritian 4 cm balloon to a total of 4 rae of pressure with no waist. The balloon was removed bladder drained the wire secured to the drapes as a safety wire. A 7 Mauritian offset semirigid ureteroscope was then advanced into the distal ureter where the stone was encountered about a centimeter proximal to the orifice. It appeared to have been somewhat impacted. Grasping forceps repassed through the scope the stone was secured with grasping forceps and manipulated out of the distal ureter without difficulty. The scope was repassed and additional stone was identified proximal to the first stone. This was also secured in grasping forceps and withdrawn without tension. Scope was then passed proximal to these areas and the ureter proximal to that was very dilated without any additional stones noted. The area where the stones have been located was severely inflamed. It was decided because of that to leave a stent indwelling. These findings were predictable based on the previous CT scan review. The cystoscope was then backloaded over the safety wire and a 6 Mauritian by 28 cm double-pigtail stent was advanced over the guidewire through the cystoscope into appropriate position as confirmed via fluoroscopy and cystoscopy. The bladder was drained. The stent was shown to be draining. She tolerated procedure well without complications and was awakened in the operating room and returned to the recovery room in stable condition. PLANS: 1. Anticipate discharge from outpatient surgery 2. Follow-up in about 2 weeks for cystoscopy and stent removal in the office. Given the degree of inflammatory changes noted I think it would take longer than usual for the distal ureter to heal.
--- NOTE | 2020-12-09 13:18 | P.HPUD_ITS ---
Surgery/Procedure H&P Update DATE OF PROCEDURE: December 09, 2020 DATE H&P PERFORMED: 12/07/20 H&P UPDATE INFORMATION: I have reviewed H&P completed within last 30 days, I have examined patient prior to procedure, No changes to prior documentation and H&P is in [facility] [place] [facility] EMR on date indicated PREOP DIAGNOSIS: Refractory left distal ureteral stone PLANNED PROCEDURE: Operation Date: 12/09/20 13:00 Proposed Procedures p Laser Lithotripsy [id number] n20.1(Not Applicable) - Paul Barriga MD s Retrograde Pyelogram(Left) - Paul Barriga MD s Ureteroscopy(Not Applicable) - MD kane Lopez Cystoscopy(Not Applicable) - Paul Barriga MD s Ureteral Stent Placement(Not Applicable) - Paul Barriga MD
[2020-12-09] MEDS: levofloxacin-dextrose 5 % 500 MG/100 ML PREMIX 100 MG IV (13:27)
[2020-12-09] MEDS: iohexol 300 mg/mL 50 mL Btl (OR ONLY) XX (13:55)
--- NOTE | 2020-12-09 14:32 | SUR.PHASEI ---
PT SLEEPS IF NOT DISTURBED ON 8LMASK. WITH GOOD RESP NOTED, VSS IV PATENT ,
--- NOTE | 2020-12-09 14:58 | SUR.PHASEI ---
1445 PT AWAKE ALERT REQUESTS TO GET UP TO BR, PT TO OPS AND ASSISTED UP PT WALKED TO BR WITH MINIMAL ASSIST, PT AWAKE ALERT DENIES PAIN AND NAUSEA, PT REQUESTS DR SALAZAR TO SIP ON , HANDOFF TO [facility].
--- NOTE | 2020-12-09 16:35 | ANE.PACU2 ---
Inpatient post-anesthesia follow up: Airway intact: Yes Vital signs: Temperature 98.1 F Pulse Rate 98 Respiratory Rate 18 Blood Pressure 141/78 Pulse Oximetry 92 Oxygen Delivery Me thod Room Air Oxygen Flow Rate 8 Fraction of Inspir ed Oxygen Hydration adequate: Yes Nausea and vomiting: No Pain level: 2 Mental status: Baseline
[2020-12-15 15:58] LABS: Stone Source LEFT URETERAL STONE
== END 2020-12-09 15:29 | disposition home or self-care (01) ==
PROVIDERS: Visit Provider Urology
PROC: (CPT 74420; 2020-12-09 12:50)
PROC: 0TJ98ZZ Inspection of Ureter, Via Natural or Artificial Opening Endoscopic (ICD-10-PCS; CPT 52351; 2020-12-09 12:50)
PROC: 0TJB8ZZ Inspection of Bladder, Via Natural or Artificial Opening Endoscopic (ICD-10-PCS; CPT 52000; 2020-12-09 12:50)
PROC: (CPT 50605; 2020-12-09 12:50)
PROC: (CPT 52332; 2020-12-09 12:50)
DX: N20.1 Calculus of ureter (principal); G47.30 Sleep apnea, unspecified; I10 Essential (primary) hypertension; K21.9 Gastro-esophageal reflux disease without esophagitis; E11.9 Type 2 diabetes mellitus without complications; E78.5 Hyperlipidemia, unspecified; E66.01 Morbid (severe) obesity due to excess calories; Z68.38 Body mass index [BMI] 38.0-38.9, adult; F41.9 Anxiety disorder, unspecified; F32.9 Major depressive disorder, single episode, unspecified; F17.210 Nicotine dependence, cigarettes, uncomplicated; Z98.1 Arthrodesis status; Z82.49 Family history of ischemic heart disease and other diseases of the circulatory system; Z83.3 Family history of diabetes mellitus
CPT/HCPCS: 52332; 52352; 36416; 74018; 76000; 82365; 82962; 88300; C2625; J1100; J1956; J2250; J2405; J2550; J2704; J2710; J3010; J3490; J7030

== ENCOUNTER → 2020-12-24 08:23 | Outpatient (BNVA) | payer MEDICARE, MEDICAID, SELFPAY | PROVIDERS: Visit Provider Urology | DX: N20.1 Calculus of ureter (principal); Z96.0 Presence of urogenital implants | CPT/HCPCS: 81003 ==

== ENCOUNTER 2023-03-21 02:34 | Emergency (ER) | payer MEDICARE, MEDICAID, SELFPAY ==
[2023-03-21 02:38] VITALS: BP 140/77; PULSE 108; RESP 18; TEMP 37.1; O2SAT 88; BMI 36.0
--- NOTE | 2023-03-21 02:58 | ED_ITS ---
HPI - Skin/Abscess/Foreign Bdy General: Chief complaint: Skin/Abscess/Foreign Body Stated complaint: abcess on left side under arm Time Seen by Provider: 03/21/23 02:36 History of Present Illness: Patient presents to the ER with complaints of left-sided mid axillary chest wall abscess. This area is red irritated and has intermittent draining purulent fluid. Patient has had multiple ones of these before. Patient has had this 1 approximately 3 days. Patient taking some doxycycline at home for the last 3 days she has had left and it has not done any improvement. Patient has hidradenitis suppurative. She gets these frequent. Review of Systems General: Reports: 10 or more systems reviewed and unremarkable except in HPI and below PFSH ED PFSH: Medical History Asthmatic bronchitis Back pain Bipolar disorder, most recent episode depressed Calculus of distal left ureter November 2020 4 mm stone required endoscopic removal. Temporary stented. Did well Chronic bronchitis Chronic otitis externa Chronic post-traumatic stress disorder (PTSD) chronic nightmares; anniversary date of accident coming up; able to wake up and go back to sleep afterward. She expresses no reports of hypervigilance, avoidance behavior, or intrusive thought process. Depression Dysphasia Falls GERD (gastroesophageal reflux disease) Hyperlipemia Lumbar post-laminectomy syndrome Nasal septal deformity Nicotine dependence with current use Obesity Otalgia Otitis externa Right hip joint effusion Sebaceous cyst Sleep apnea Sleep apnea Thoracic degenerative disc disease Tobacco abuse Tobacco abuse Urolithiasis Small left distal ureteral stone that required endoscopic stone manipulation for removal November 2020. Surgical History H/O spinal fusion 07/15/2015 Dr. Kwame Torres [place]: L5-S1 posterior laminectomy/fusion/fixation History of cholecystectomy History of hysterectomy History of tonsillectomy and adenoidectomy Status post arthrodesis 01/18/2019 Dr. Kwame Torres Right SI joint. 05/05/2016 Left SI joint Family History Mother Diabetes Heart attack Lung disease Grandmother Diabetes Hypertension Lung disease Sister Diabetes Hypertension Father Heart attack Family/Other Heart attack Brother Hypertension Social History Quit status (tobacco/nicotine): considering quitting Second hand smoke exposure: Yes Alcohol intake: former Year of sobriety/quit date alcohol: 2018 Substance/Drug Use: never Lives independently: Yes Household members: none Marital status: Single Current occupational status: disabled Do you think of yourself as: Straight/Heterosexual Current gender identity: Female Physical Exam Const: COMMON NORMALS: no acute distress, average body habitus, patient oriented x3, no limitations, healthy appearing, alert and well nourished HENMT: COMMON NORMALS: normocephalic, atraumatic, hearing grossly normal bilaterally, external ears normal, Normal external nose present and moist oral mucous membranes HEAD & SCALP: normocephalic and atraumatic NOSE: Normal external nose present EXTERNAL EAR: Yes external ears normal Neck/C-Spine: COMMON NORMALS: no JVD Chest: COMMONS NORMALS: negative for normal inspection of the chest (Red raised irritated fluctuant mass on the left lateral chest wall consiste) Resp: COMMON NORMALS: normal respiratory effort, No retractions, No use of accessory muscles and clear to auscultation bilaterally AUSCULTATION: clear to auscultation bilaterally Cardio: COMMON NORMALS: no JVD, regular rate, regular rhythm, S1 normal heart sound present, S2 normal heart sound present, No gallops present (Cardio), No clicks present (Cardio), No murmurs present (Cardio) and No rub (Cardio) RATE: regular rate RHYTHM: regular rhythm HEART SOUNDS: S1 normal heart sound present and S2 normal heart sound present GI: COMMON NORMALS: Normal to inspection, nondistended, normoactive bowel sounds present, Soft to palpation, non-tender and No hepatosplenomegaly present PALPATION: Yes Soft to palpation and Yes No hepatosplenomegaly present Neuro: COMMON NORMALS: patient oriented x3 SENSORIUM/ORIENTATION: Yes alert Procedures Abscess I/D Site: chest (Left lateral chest wall) Side (if applicable): left Local Anesthetic: lidocaine 1% Amount of anesthesia used (mL): 3 Technique: incised with #11 blade Amount of fluid expressed (mL): 1 Irrigation: No Packing used?: none Complications: other (None) Course Vital Signs: Vital signs: Vital Signs Temperature 98.7 F 03/21/23 02:38 Pulse Rate 108 H 03/21/23 02:38 Respiratory Rate 18 03/21/23 02:38 Blood Pressure 140/77 03/21/23 02:38 Pulse Oximetry 88 L 03/21/23 02:38 Oxygen Delivery Me thod Room Air 03/21/23 02:38 MDM - Skin/Abscess/Foreign Bdy Medicial Decision Making Patient wanted her abscess on her left lateral chest wall drained. It was anesthetized with approximately 3 mils 1% lidocaine incised with a stab incision with 11 blade expressed approximately 1 cc of purulent bloody material. 1 Bactrim DS to take nowCulture was obtained and wound was bandaged. Placement was given and a prescription to go home on. Patient should follow-up with her PCP in approximately 7 days or sooner as needed. Differential Diagnosis Likely abscess of skin or subcutaneous tissue; Unlikely viral exanthem, dermatophytosis, urticaria, herpes zoster, allergic reaction to drug, cellulitis, eczema, insect bites, impetigo or contact dermatitis Medical Records I reviewed the patient's medical records. Lab Data I reviewed the patient's lab results. No radiology studies performed this visit Discharge Plan Discharge Patient Disposition: Home Clinical Impression: Abscess Condition: Stable Prescriptions: New Bactrim DS 800-160 mg tablet 1 tab PO DAILY 7 Days Qty: 14 0RF No Action Invega Sustenna 234 mg/1.5 mL syringe 234 mg IM Q30D Qty: 1.5 4RF propranolol 20 mg tablet 20 mg PO BID Qty: 60 2RF glyburide 5 mg tablet 10 mg PO DAILY benztropine 0.5 mg tablet 0.5 mg PO BID Qty: 60 1RF Rx Instructions: take one tablet by mouth twice daily bupropion HCl 300 mg tablet extended release 24 hr 300 mg PO QAM Qty: 30 1RF Rx Instructions: take one tablet by mouth every morning carbamazepine 200 mg capsule, ER multiphase 12 hr 200 mg PO BID Qty: 60 1RF Rx Instructions: take one capsule by mouth twice daily doxepin 50 mg capsule 50 mg PO .qhs PRN (Reason: insomnia) Qty: 30 1RF Rx Instructions: take one capsule daily at bedtime, if needed for insomnia escitalopram oxalate [Lexapro] 20 mg tablet 20 mg PO ONCE Qty: 30 1RF Rx Instructions: take one tablet by mouth every morning hydroxyzine HCl 50 mg tablet 50 mg PO BID PRN (Reason: anxiety) Qty: 60 1RF Rx Instructions: take one tablet twice daily, if needed for anxiety quetiapine [Seroquel XR] 400 mg tablet extended release 24 hr 400 mg PO .qhs Qty: 30 1RF Rx Instructions: take one tablet by mouth daily at bedtime hydrocodone-acetaminophen [[place]] 5-325 mg tablet 1 tab PO Q6H PRN (Reason: Pain) Spiriva Respimat 1.25 mcg/actuation mist 2 puff inhalation DAILY Qty: 4 3RF aspirin [Adult Aspirin Regimen] 81 mg tablet,delayed release (DR/EC) 81 mg PO ONCE gabapentin 400 mg capsule 400 mg PO QID atorvastatin 20 mg tablet 20 mg PO QDAY pantoprazole 40 mg tablet,delayed release (DR/EC) 40 mg PO BID glipizide 10 mg tablet 10 mg PO DAILY Perforomist 20 mcg/2 mL solution for nebulization 2 ml inhalation BID Qty: 120 3RF loratadine [Allergy Relief (loratadine)] 10 mg tablet 10 mg PO DAILY budesonide 0.5 mg/2 mL suspension for nebulization 0.5 mg inhalation BID lisinopril 2.5 mg tablet 2.5 mg PO DAILY naproxen 500 mg tablet See Rx Instructions .ROUTE .COMPLEX Qty: 10 0RF Dose Instruction: Take 1 tablet by mouth twice daily for 5 days Rx Instructions: Take 1 tablet by mouth twice daily for 5 days ipratropium-albuterol 0.5 mg-3 mg(2.5 mg base)/3 mL solution for nebulization 3 ml inhalation DAILY Qty: 360 3RF Discharge Orders: Discharge ED (Routine); Ordered 03/21/23 Ordered By: Handy Patton Referrals: Teddy Regan MD [Primary Care Provider] - 7-10 days Patient Instructions: Abscess (ED), Incision and Drainage (ED) Activity Restrictions/Additional Instructions: Please change dressing as needed. Please keep wound clean and dry. Please take all the antibiotics as directed. Please follow-up with family practice doctor in approximately 7 to 10 days or sooner as needed for further evaluation and treatment. Coding Level of Care Code ED Car Dropper for Mario Santiago
[2023-03-21] MEDS: lidocaine 1% INJ 10 mL (per mL) INJECTION (03:01)
[2023-03-21] MEDS: sulfamethoxazole-trimeth DS 160-800 mg Tablet 1 TAB PO (03:06)
[2023-03-21 03:08] VITALS: BP 140/77; PULSE 108; RESP 18; TEMP 37.1; O2SAT 88
== END 2023-03-21 03:10 | disposition home or self-care (01) ==
PROVIDERS: Emergency Provider Emergency Medicine; PCP Family Medicine
DX: L02.412 Cutaneous abscess of left axilla (principal); Z79.84 Long term (current) use of oral hypoglycemic drugs; E78.5 Hyperlipidemia, unspecified
CPT/HCPCS: 10060; 87070; 87077; 87186; 99283

== ENCOUNTER 2023-04-15 18:38 | Emergency (ER) | payer MEDICARE, MEDICAID, SELFPAY ==
[2023-04-15 18:51] VITALS: BP 119/68; PULSE 95; TEMP 37.3; O2SAT 90; BMI 37.5
--- NOTE | 2023-04-15 18:53 | ECG_ITS ---
[facility] Test Date: 2023-04-15 Pat Name: Mare Cody Department: Room: Gender: Female [employer]: : 1985 Requested By: Ranjan Gallegos Order Number: [id number] Mel[place] MD: Melissa Dunham M.D. Measurements Intervals [place] Rate: 82 P: 44 NH: 172 QRS: -61 QRSD: 88 T: 53 QT: 362 QTc: 424 Interpretive Statements SINUS RHYTHM PATTERN CONSISTENT WITH PULMONARY DISEASE LEFT ANTERIOR FASCICULAR BLOCK [QRS AXIS <= -45, QR IN I, RS IN II] No previous ECG available for comparison Electronically Signed On 04-15-2023 22:11:06 [employer] by Melissa Dunham M.D. [email or web address]
--- NOTE | 2023-04-15 18:53 | XRR_ITS ---
PROCEDURE INFORMATION: Exam: XR Chest Exam date and time: 04/15/2023 6:58 PM Age: 38 years old Clinical indication: Pain; Chest pressure; Additional info: Cp TECHNIQUE: Imaging protocol: Radiologic exam of the chest. Views: 1 view. COMPARISON: CR XR chest 2V* [id number] 03/10/2020 10:02 AM FINDINGS: Lungs: No consolidative pulmonary infiltrate noted. 1.2 cm right upper lobe nodule. This appears new when compared to XR chest dated 03/10/2020. Pleural spaces: No pleural effusion. No pneumothorax. Heart/Mediastinum: No cardiomegaly. Bones/joints: Unremarkable. XR/XR chest 1V portable [id number] IMPRESSION: 1. No consolidative pulmonary infiltrate noted. 2. 1.2 cm right upper lobe nodule. This appears new when compared to XR chest dated 03/10/2020. Consider CT chest to further evaluate.
[2023-04-15 19:17] VITALS: BP 122/68; PULSE 85; RESP 19; O2SAT 93
[2023-04-15 19:24] LABS: Basophils # 0.1 10^3/uL (0.0-0.1); Basophils % 0.6 %; Eosinophils # 0.2 10^3/uL (0.0-0.8); Eosinophils % 1.5 %; Hematocrit 44.1 % (36-47); Lymphocytes # 2.8 10^3/uL (0.8-4.8); Lymphocytes % 25.4 %; Mean Corpuscular HGB Conc 31.7 g/dL (30-55); Mean Corpuscular Volume 88.2 fl (85-98); Monocytes # 0.6 10^3/uL (0.2-0.9); Neutrophils # 7.32 10^3/uL (1.8-7.7); Neutrophils % 66.7 %; Nucleated Red Blood Cells % 0 %; Platelet Count 189 10^3/cmm (157-399); Red Cell Distribution Width 15.4 % (12.1-15.1); White Blood Count 10.99 10^3/uL (3.29-11.43)
[2023-04-15 19:44] LABS: INR 1.01 (0.8-1.2)
[2023-04-15 19:45] LABS: Partial Thromboplastin Time 25.7 SECONDS (23.9-36.7)
[2023-04-15 19:56] LABS: Troponin(5th) Baseline < 6 ng/L (0-10)
[2023-04-15 20:05] LABS: Alanine Aminotransferase 83 U/L (0-33); Albumin Level 4.1 g/dL (3.5-5.2); Alkaline Phosphatase 78 U/L (35-105); Aspartate Amino Transferase 56 U/L (0-32); Blood Urea Nitrogen 11 mg/dL (6-20); Calcium 9.3 mg/dL (8.5-10.5); Carbon Dioxide 25 mmol/L (22-29); Chloride 97 mmol/L (98-107); Glomerular Filtration Rate 111.3 mL/min (90-130); Glucose 166 mg/dL (65-115); NT Pro B Type Natriuretic Pept 48 pg/mL (0-125); Osmolality Calculated 285 mOsm/kg (285-295); Sodium 136 mmol/L (136-145); Total Bilirubin 0.3 mg/dL (0.15-1.2); Total Protein 7.1 g/dL (6.6-8.7)
--- NOTE | 2023-04-15 20:05 | ED_ITS ---
HPI - Chest Pain General: Chief Complaint: Chest Pain Stated Complaint: CHEST PAIN Time Seen by Provider: 04/15/23 18:53 History of Present Illness: 38-year-old female with a history of restrictive airway disease. She tells me she supposed to be on oxygen all the time. She does not wear it as much as she is supposed to. She has had some chest pressure and tightness today, as well as worsening shortness of breath. She states that she went to the urgent care today with the symptoms, and had a low oxygen saturation. She was given nebulizer treatment with some improvement. Ambulance was called from there to bring her here. She notes the pressure in her chest is much less so now. She says that before it was like her 50 pound dog was sitting on her chest, but now may be a smaller dog. Associated symptoms: Reports dyspnea, nausea and vomiting (3 times today); Deny abdominal pain or fever(s) Review of Systems Const: Denies: fever(s) ENMT: Denies: throat pain Card: Reports: chest pain; Denies: irregular heart rhythm or edema Resp: Reports: dyspnea, non-productive cough and wheezing; Denies: productive cough GI: Reports: nausea and vomiting (3 times today); Denies: abdominal pain or diarrhea : Denies: flank pain Skin/Breast: Denies: rash PFSH ED PFSH: Medical History Asthmatic bronchitis Back pain Bipolar disorder, most recent episode depressed Calculus of distal left ureter November 2020 4 mm stone required endoscopic removal. Temporary stented. Did well Chronic bronchitis Chronic otitis externa Chronic post-traumatic stress disorder (PTSD) chronic nightmares; anniversary date of accident coming up; able to wake up and go back to sleep afterward. She expresses no reports of hypervigilance, avoidance behavior, or intrusive thought process. Depression Dysphasia Falls GERD (gastroesophageal reflux disease) Hyperlipemia Lumbar post-laminectomy syndrome Nasal septal deformity Nicotine dependence with current use Obesity Otalgia Otitis externa Right hip joint effusion Sebaceous cyst Sleep apnea Sleep apnea Thoracic degenerative disc disease Tobacco abuse Tobacco abuse Urolithiasis Small left distal ureteral stone that required endoscopic stone manipulation for removal November 2020. Surgical History H/O spinal fusion 07/15/2015 Dr. Kwame Torres [place]: L5-S1 posterior laminectomy/fusion/fixation History of cholecystectomy History of hysterectomy History of tonsillectomy and adenoidectomy Status post arthrodesis 01/18/2019 Dr. Kwame Torres Right SI joint. 05/05/2016 Left SI joint Family History Mother Diabetes Heart attack Lung disease Grandmother Diabetes Hypertension Lung disease Sister Diabetes Hypertension Father Heart attack Family/Other Heart attack Brother Hypertension Social History Quit status (tobacco/nicotine): considering quitting Second hand smoke exposure: Yes Alcohol intake: former Year of sobriety/quit date alcohol: 2017 Substance/Drug Use: never Lives independently: Yes Household members: none Marital status: Single Current occupational status: disabled Do you think of yourself as: Straight/Heterosexual Current gender identity: Female Physical Exam Const: COMMON NORMALS: no acute distress GENERAL APPEARANCE: cooperative; not ill appearing and not frail appearing HENMT: COMMON NORMALS: normocephalic, atraumatic and Normal external nose present HEAD & SCALP: normocephalic and atraumatic FACE & SINUS: normal facial exam and face symmetric NOSE: Normal external nose present Eye: COMMON NORMALS: Equal, round and reactive pupils present and EOMs intact bilaterally PUPIL: Yes Equal, round and reactive pupils present Neck/C-Spine: GENERAL: Yes trachea midline Chest: CHEST: Yes Symmetrical chest wall rise Resp: COMMON NORMALS: normal respiratory effort, No retractions, No use of accessory muscles and clear to auscultation bilaterally AUSCULTATION: clear to auscultation bilaterally Cardio: COMMON NORMALS: regular rate and regular rhythm RATE: regular rate RHYTHM: regular rhythm GI: COMMON NORMALS: Normal to inspection, nondistended, normoactive bowel sounds present Extremity: COMMON NORMALS: no pedal edema Neuro: ROBBIE COMA SCALE: document GCS findings Robbie coma scale eye opening: Spontaneous Jemison coma scale verbal response: Orientated Robbie coma scale motor response: Obey commands Robbie coma scale total score: 15 SENSORY EXAM: Yes extremities (intact) Psych: COMMON NORMALS: speech normal SPEECH: Yes normal speech Skin: COMMON NORMALS: no rashes or lesions noted GENERAL SKIN EXAM: no rashes or lesions noted Course Vital Signs: Vital signs: Vital Signs Temperature 99.2 F 04/15/23 18:51 Pulse Rate 80 04/15/23 21:08 Respiratory Rate 12 04/15/23 20:43 Blood Pressure 136/78 04/15/23 21:08 Pulse Oximetry 90 04/15/23 21:08 Oxygen Delivery Me thod Nasal Cannula 04/15/23 21:08 Oxygen Flow Rate 2 04/15/23 21:08 MDM - Chest Pain Medical Decision Making Patient presents hypoxic. She is placed on oxygen. She is on 2 L of oxygen satting 93% currently. She is comfortable. CBC is normal. BMP shows a mildly elevated blood sugar. Laboratory is otherwise not remarkable including a troponin less than 6 and BNP of 48. Chest x-ray does not reveal infiltrate. EKG shows a sinus rhythm with normal axis. Rate of 80. No acute ST wave changes. The patient has oxygen at home. She will be treated for an exacerbation of asthmatic bronchitis. Lab Data 04/15/23 19:15 04/15/23 19:15 Radiology Impressions Chest X-Ray 04/15/23 18:53 IMPRESSION: 1. No consolidative pulmonary infiltrate noted. 2. 1.2 cm right upper lobe nodule. This appears new when compared to XR chest dated 03/10/2020. Consider CT chest to further evaluate. Laboratory Results WBC 10.99 10^3/uL (3.29-11.43) 04/15/23 19:15 RBC 5.00 10^6/uL (3.85-5.65) 04/15/23 19:15 Hgb 14.00 g/dL (11.27-16.99) 04/15/23 19:15 Hct 44.1 % (36-47) 04/15/23 19:15 MCV 88.2 fl (85-98) 04/15/23 19:15 MCH 28.0 pg (27-33) 04/15/23 19:15 MCHC 31.7 g/dL (30-55) 04/15/23 19:15 RDW 15.4 % (12.1-15.1) H 04/15/23 19:15 Plt Count 189 10^3/cmm (157-399) 04/15/23 19:15 MPV 11.0 fL (7.4-10.4) H 04/15/23 19:15 Neut % (Auto) 66.7 % 04/15/23 19:15 Lymph % (Auto) 25.4 % 04/15/23 19:15 Franklin % (Auto) 5.0 % 04/15/23 19:15 Eos % (Auto) 1.5 % 04/15/23 19:15 Baso % (Auto) 0.6 % 04/15/23 19:15 Neut # (Auto) 7.32 10^3/uL (1.8-7.7) 04/15/23 19:15 Lymph # (Auto) 2.8 10^3/uL (0.8-4.8) 04/15/23 19:15 Franklin # (Auto) 0.6 10^3/uL (0.2-0.9) 04/15/23 19:15 Eos # (Auto) 0.2 10^3/uL (0.0-0.8) 04/15/23 19:15 Baso # (Auto) 0.1 10^3/uL (0.0-0.1) 04/15/23 19:15 Nucleated RBC % (auto) 0 % 04/15/23 19:15 Nucleated RBCs # 0.0 /100WBC 04/15/23 19:15 PT 13.60 SECONDS (12.1-14.9) 04/15/23 19:15 INR 1.01 (0.8-1.2) 04/15/23 19:15 APTT 25.7 SECONDS (23.9-36.7) 04/15/23 19:15 Sodium 136 mmol/L (136-145) 04/15/23 19:15 Potassium 4.0 mmol/L (3.5-5.1) 04/15/23 19:15 Chloride 97 mmol/L (98-107) L 04/15/23 19:15 Carbon Dioxide 25 mmol/L (22-29) 04/15/23 19:15 Anion Gap 18.0 (5-19) 04/15/23 19:15 BUN 11 mg/dL (6-20) 04/15/23 19:15 Creatinine 0.6 mg/dL (0.5-0.9) 04/15/23 19:15 GFR Calculation 111.3 mL/min (90-130) 04/15/23 19:15 Glucose 166 mg/dL (65-115) H 04/15/23 19:15 Calculated Osmolality 285 mOsm/kg (285-295) 04/15/23 19:15 Calcium 9.3 mg/dL (8.5-10.5) 04/15/23 19:15 Total Bilirubin 0.3 mg/dL (0.15-1.2) 04/15/23 19:15 AST 56 U/L (0-32) H 04/15/23 19:15 ALT 83 U/L (0-33) H 04/15/23 19:15 Alkaline Phosphatase 78 U/L (35-105) 04/15/23 19:15 Troponin T Baseline < 6 ng/L (0-10) 04/15/23 19:15 Troponin T 120 Minute 6.00 ng/L (0-10) 04/15/23 21:06 Delta Troponin T 0.46109 ABS# (0-10) 04/15/23 21:06 NT-Pro-B Natriuret Pep 48 pg/mL (0-125) 04/15/23 19:15 Total Protein 7.1 g/dL (6.6-8.7) 04/15/23 19:15 Albumin 4.1 g/dL (3.5-5.2) 04/15/23 19:15 Globulin 3.0 g/dL (1.3-4.6) 04/15/23 19:15 Nasal Influ A H1 2008 PCR Not detected (NOT DETECT) 04/15/23 20:43 Adenovirus (PCR) Not detected (NOT DETECT) 04/15/23 20:43 C. pneumoniae DNA (PCR) Not detected (NOT DETECT) 04/15/23 20:43 Coronavirus 229E (PCR) Not detected (NOT DETECT) 04/15/23 20:43 Human Metapneumovir PCR Not detected (NOT DETECT) 04/15/23 20:43 Influenza A (H1) PCR Not detected (NOT DETECT) 04/15/23 20:43 Influenza A (H3) PCR Not detected (NOT DETECT) 04/15/23 20:43 Influenza Type A (PCR) Not detected (NOT DETECT) 04/15/23 20:43 Influenza Type B (PCR) Not detected (NOT DETECT) 04/15/23 20:43 M. pneumoniae (PCR) Not detected (NOT DETECT) 04/15/23 20:43 Parainfluenza 1 (PCR) Not detected (NOT DETECT) 04/15/23 20:43 Parainfluenza 2 (PCR) Not detected (NOT DETECT) 04/15/23 20:43 Parainfluenza 3 (PCR) Not detected (NOT DETECT) 04/15/23 20:43 Parainfluenza 4 (PCR) Not detected (NOT DETECT) 04/15/23 20:43 RSV Type A (PCR) Not detected (NOT DETECT) 04/15/23 20:43 RSV Type B (PCR) Not detected (NOT DETECT) 04/15/23 20:43 Entero/Rhino (PCR) Not detected (NOT DETECT) 04/15/23 20:43 SARS-CoV-2 (PCR) Not detected (NOT DETECT) 04/15/23 20:43 All radiology interpretation(s) finalized by discharge Discharge Plan Discharge Patient Disposition: Home Clinical Impression: Chest pain, Bronchitis Condition: Stable Prescriptions: New Medrol (Marcelino) 4 mg tablets,dose pack See Rx Instructions .ROUTE .COMPLEX Qty: 21 0RF Rx Instructions: orally per package directions ondansetron 4 mg film 4 mg PO DAILY PRN (Reason: nausea and vomiting) Qty: 10 0RF No Action Invega Sustenna 234 mg/1.5 mL syringe 234 mg IM Q30D Qty: 1.5 4RF propranolol 20 mg tablet 20 mg PO BID Qty: 60 2RF glyburide 5 mg tablet 10 mg PO DAILY benztropine 0.5 mg tablet 0.5 mg PO BID Qty: 60 1RF Rx Instructions: take one tablet by mouth twice daily bupropion HCl 300 mg tablet extended release 24 hr 300 mg PO QAM Qty: 30 1RF Rx Instructions: take one tablet by mouth every morning carbamazepine 200 mg capsule, ER multiphase 12 hr 200 mg PO BID Qty: 60 1RF Rx Instructions: take one capsule by mouth twice daily doxepin 50 mg capsule 50 mg PO .qhs PRN (Reason: insomnia) Qty: 30 1RF Rx Instructions: take one capsule daily at bedtime, if needed for insomnia escitalopram oxalate [Lexapro] 20 mg tablet 20 mg PO ONCE Qty: 30 1RF Rx Instructions: take one tablet by mouth every morning hydroxyzine HCl 50 mg tablet 50 mg PO BID PRN (Reason: anxiety) Qty: 60 1RF Rx Instructions: take one tablet twice daily, if needed for anxiety quetiapine [Seroquel XR] 400 mg tablet extended release 24 hr 400 mg PO .qhs Qty: 30 1RF Rx Instructions: take one tablet by mouth daily at bedtime hydrocodone-acetaminophen [[place]] 5-325 mg tablet 1 tab PO Q6H PRN (Reason: Pain) Spiriva Respimat 1.25 mcg/actuation mist 2 puff inhalation DAILY Qty: 4 3RF aspirin [Adult Aspirin Regimen] 81 mg tablet,delayed release (DR/EC) 81 mg PO ONCE gabapentin 400 mg capsule 400 mg PO QID atorvastatin 20 mg tablet 20 mg PO QDAY pantoprazole 40 mg tablet,delayed release (DR/EC) 40 mg PO BID glipizide 10 mg tablet 10 mg PO DAILY Perforomist 20 mcg/2 mL solution for nebulization 2 ml inhalation BID Qty: 120 3RF loratadine [Allergy Relief (loratadine)] 10 mg tablet 10 mg PO DAILY budesonide 0.5 mg/2 mL suspension for nebulization 0.5 mg inhalation BID lisinopril 2.5 mg tablet 2.5 mg PO DAILY naproxen 500 mg tablet See Rx Instructions .ROUTE .COMPLEX Qty: 10 0RF Dose Instruction: Take 1 tablet by mouth twice daily for 5 days Rx Instructions: Take 1 tablet by mouth twice daily for 5 days ipratropium-albuterol 0.5 mg-3 mg(2.5 mg base)/3 mL solution for nebulization 3 ml inhalation DAILY Qty: 360 3RF Discharge Orders: Discharge ED (Routine); Ordered 04/15/23 Ordered By: Ranjan Gallegos Referrals: Teddy Regan MD [Primary Care Provider] - 4-7 days Patient Instructions: Acute Bronchitis (ED), Opioid Safety, Pain Management Activity Restrictions/Additional Instructions: Medications as directed. Take nausea medication scheduled every 4 hours while awake for the first 24 hours, then as needed following. Use your nebulizer medication and machine every 4 hours while awake for the first 24 hours, then as needed following. Return for new or worsening symptoms. You may call back in the morning for results of your viral panel. 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
[2023-04-15] MEDS: ondansetron 2 mg/ML SDV 2 mL 4 MG IVP (20:40)
[2023-04-15] MEDS: ipratropium-albuterol 3 mL Neb INHALATION (20:40)
[2023-04-15 20:41] VITALS: PULSE 82; RESP 18; O2SAT 92
[2023-04-15 20:43] VITALS: BP 122/73; PULSE 78; RESP 12; O2SAT 92
[2023-04-15 20:47] VITALS: PULSE 83; O2SAT 95
[2023-04-15] MEDS: methylPREDNISolone sod succ 125 MG in water for injection-sterile 2 ML 24 MG IVP (21:04)
[2023-04-15 21:08] VITALS: BP 136/78; PULSE 80; O2SAT 90
--- NOTE | 2023-04-15 21:23 | ECG_ITS ---
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 Measurements Intervals [place] Rate: 77 P: 51 SC: 183 QRS: -5 QRSD: 84 T: 43 QT: 372 QTc: 423 Interpretive Statements SINUS RHYTHM POSSIBLE RIGHT VENTRICULAR CONDUCTION DELAY [RSR (QR) IN V1/V2] Compared to ECG 04/15/2023 19:00:35 Left anterior fascicular block no longer present Electronically Signed On 04-15-2023 22:23:19 [employer] ARCHITECT by Melissa Dunham M.D. [id number]
[2023-04-15 21:38] LABS: Troponin 5 2HR Delta 0.00001 ABS# (0-10)
[2023-04-15] MEDS: metoclopramide 5 mg/mL SDV 2 mL 10 MG IVP (22:18)
[2023-04-15 22:59] LABS: Adenovirus Not Detected (NOT DETECT); Chlamydia Pneumoniae Not Detected (NOT DETECT); Coronavirus 229E,HKU1,NL63,OC4 Not Detected (NOT DETECT); Human Metapneumovirus Not Detected (NOT DETECT); Human Rhinovirus/Enterovirus Not Detected (NOT DETECT); Influenza A Not Detected (NOT DETECT); Influenza A H1 Not Detected (NOT DETECT); Influenza A H1-2009 Not Detected (NOT DETECT); Influenza A H3 Not Detected (NOT DETECT); Influenza B Not Detected (NOT DETECT); Mycoplasma Pneumoniae Not Detected (NOT DETECT); Parainfluenza Virus Type 1 Not Detected (NOT DETECT); Parainfluenza Virus Type 2 Not Detected (NOT DETECT); Parainfluenza Virus Type 3 Not Detected (NOT DETECT); Parainfluenza Virus Type 4 Not Detected (NOT DETECT); Respiratory Syncytial Virus A Not Detected (NOT DETECT); Respiratory Syncytial Virus B Not Detected (NOT DETECT); SARS-COV-2 Not Detected (NOT DETECT)
== END 2023-04-15 22:43 | disposition home or self-care (01) ==
PROVIDERS: Emergency Provider Emergency Medicine; PCP Family Medicine
DX: R07.9 Chest pain, unspecified (principal); J40 Bronchitis, not specified as acute or chronic; Z79.82 Long term (current) use of aspirin; Z79.84 Long term (current) use of oral hypoglycemic drugs; Z11.52 Encounter for screening for COVID-19; Z77.22 Contact with and (suspected) exposure to environmental tobacco smoke (acute) (chronic); E78.5 Hyperlipidemia, unspecified
CPT/HCPCS: 36415; 71045; 80053; 83880; 84484; 85025; 85610; 85730; 87426; 87486; 87581; 87633; 93005; 94640; 96374; 96375; 99285; J2405; J2765; J2930

== ENCOUNTER 2023-06-25 21:54 | Observation (INO) | payer MEDICARE, OTHER, SELFPAY ==
--- NOTE | 2023-06-25 21:55 | XRR_ITS ---
PROCEDURE INFORMATION: Exam: XR Chest Exam date and time: 06/25/2023 10:12 PM Age: 38 years old Clinical indication: Cough and shortness of breath; Additional info: SOB TECHNIQUE: Imaging protocol: Radiologic exam of the chest. Views: 1 view. COMPARISON: CR (CHEST, ) 06/23/2023 11:14 PM FINDINGS: Lungs: Left mid to lower lung field and right hilar to lower lobe airspace infiltrates. Mild pulmonary vascular congestion. Right upper lobe 14 mm nodule demonstrating increased prominence compared to prior exam, dedicated chest CT advised for further evaluation. Pleural spaces: Unremarkable. No pleural effusion. No pneumothorax. Heart/Mediastinum: Cardiomegaly. Bones/joints: Unremarkable. XR/XR chest 1V portable [id number] IMPRESSION: 1. Left mid to lower lung field and right hilar to lower lobe airspace infiltrates. 2. Cardiomegaly. 3. Mild pulmonary vascular congestion. 4. Right upper lobe 14 mm nodule demonstrating increased prominence compared to prior exam, dedicated chest CT advised for further evaluation.
[2023-06-25 22:06] VITALS: BP 129/87; PULSE 76; RESP 20; TEMP 36.3; O2SAT 92
[2023-06-25 22:45] LABS: Glucose Point of Care > 600 mg/dL (70-110)
[2023-06-25 22:52] LABS: Basophils % 0.3 %; Hematocrit 46.4 % (36-47); Lymphocytes # 1.6 10^3/uL (0.8-4.8); Mean Corpuscular HGB Conc 31.7 g/dL (30-55); Mean Corpuscular Hemoglobin 27.6 pg (27-33); Mean Corpuscular Volume 87.2 fl (85-98); Mean Platelet Volume 11.4 fL (7.4-10.4); Monocytes # 0.4 10^3/uL (0.2-0.9); Monocytes % 4.9 %; Neutrophils # 6.45 10^3/uL (1.8-7.7); Neutrophils % 75.1 %; Nucleated Red Blood Cells % 0 %; Platelet Count 221 10^3/cmm (157-399); Red Blood Count 5.32 10^6/uL (3.85-5.65); Red Cell Distribution Width 13.9 % (12.1-15.1)
[2023-06-25 23:00] LABS: Base Excess VBG -0.7 mmol/L (-3.0-3.0); Blood Gas Sample Site Not specified; Blood Gas Sample Type Venous; HCO3 VBG 23.7 mmol/L (24-28); PCO2 VBG 37.7 mmHg (41-51); Venous Blood Gas Hematocrit 46.1 % (37-47); pH VBG 7.41 (7.32-7.42)
[2023-06-25 23:02] LABS: Ketone (Acetest) Serum Negative (Negative)
[2023-06-25 23:09] LABS: Alanine Aminotransferase 40 U/L (0-33); Albumin Level 4.2 g/dL (3.5-5.2); Alkaline Phosphatase 86 U/L (35-105); Anion Gap 20.4 (5-19); Aspartate Amino Transferase 12 U/L (0-32); Blood Urea Nitrogen 17 mg/dL (6-20); Calcium 9.8 mg/dL (8.5-10.5); Carbon Dioxide 22 mmol/L (22-29); Chloride 90 mmol/L (98-107); Globulin 3.5 g/dL (1.3-4.6); Glomerular Filtration Rate 93.2 mL/min (90-130); Osmolality Calculated 298 mOsm/kg (285-295); Potassium 4.4 mmol/L (3.5-5.1); Sodium 128 mmol/L (136-145); Total Bilirubin 0.2 mg/dL (0.15-1.2); Total Protein 7.7 g/dL (6.6-8.7)
[2023-06-25] MEDS: insulin regular-human 100 units/1 mL 15 UNIT IVP (23:13)
[2023-06-25] MEDS: sodium chloride 0.9% 1,000 ML 999 ML IV (23:14)
[2023-06-25 23:20] LABS: Glucose 646 mg/dL (65-115)
[2023-06-25 23:37] VITALS: BP 172/75; O2SAT 95
[2023-06-25 23:39] LABS: Add Urine Microscopic? NO; Charge for UA Resulting for Rev
[2023-06-25 23:42] LABS: Bilirubin Urine Neg (Negative); Blood Urine Neg (Negative); Glucose Urine UA 4+ (Normal); Ketones Urine Negative (Negative); Leukocyte Esterase Urine Negative (Negative); Nitrate Urine Negative (Negative); Protein Urine Neg (Negative); Specific Gravity, Urine 1.005 (1.005-1.030); Urine Appearance Clear (CLEAR); Urine Color Light yellow (Yellow); Urobilinogen Urine Norm (Negative); pH Urine 5 (5-7)
--- NOTE | 2023-06-25 23:42 | W.ED.SOB ---
HPI - SOB/Dyspnea General: Chief Complaint: Shortness of Breath/Dyspnea Stated Complaint: Covid + sob Time Seen by Provider: 06/25/23 23:04 History of Present Illness: HPI Narrative: Patient presents to the ER with complaints of worsening shortness of breath just not feeling well and blood sugar 536 at home. Patient was in ER yesterday for COVID positive cough shortness of breath. Patient required 3 L of oxygen then instead of her normal 2 L at home. Patient was going to be admitted but she decided she wanted to go home. Patient was placed on Paxlovid and dexamethasone. Patient states she just continued to feel worse. Patient saw Dr. Regan today approximately at 4 PM and he told her if she continued to feel worse to go back to the ER to be admitted. Patient is on glyburide and glipizide at home for diabetes control she said her sugar normally runs in the 2-3 100s. Not 5-600. Review of Systems General: Reports: 10 or more systems reviewed and unremarkable except in HPI and below PFSH ED PFSH: Medical History Urolithiasis Small left distal ureteral stone that required endoscopic stone manipulation for removal November 2020. Calculus of distal left ureter November 2020 4 mm stone required endoscopic removal. Temporary stented. Did well Thoracic degenerative disc disease Nicotine dependence with current use Chronic post-traumatic stress disorder (PTSD) chronic nightmares; anniversary date of accident coming up; able to wake up and go back to sleep afterward. She expresses no reports of hypervigilance, avoidance behavior, or intrusive thought process. Bipolar disorder, most recent episode depressed GERD (gastroesophageal reflux disease) Dysphasia Nasal septal deformity Chronic otitis externa Lumbar post-laminectomy syndrome Chronic bronchitis Tobacco abuse Sleep apnea Sebaceous cyst Asthmatic bronchitis Falls Right hip joint effusion Back pain Obesity Depression Otalgia Otitis externa Hyperlipemia Sleep apnea Tobacco abuse Surgical History Status post arthrodesis 01/18/2019 Dr. Kwame Torres Right SI joint. 05/05/2016 Left SI joint History of tonsillectomy and adenoidectomy History of cholecystectomy History of hysterectomy H/O spinal fusion 07/15/2015 Dr. Kwame Torres [place]: L5-S1 posterior laminectomy/fusion/fixation Family History Mother Diabetes Heart attack Lung disease Grandmother Diabetes Hypertension Lung disease Sister Diabetes Hypertension Father Heart attack Family/Other Heart attack Brother Hypertension Social History Quit status (tobacco/nicotine): considering quitting Second hand smoke exposure: Yes Alcohol intake: former Year of sobriety/quit date alcohol: 2018 Substance/Drug Use: never Lives independently: Yes Household members: none Marital status: Single Current occupational status: disabled Do you think of yourself as: Straight/Heterosexual Current gender identity: Female Physical Exam Const: COMMON NORMALS: no acute distress, average body habitus, patient oriented x3, no limitations, healthy appearing, alert and well nourished HENMT: COMMON NORMALS: normocephalic, atraumatic, hearing grossly normal bilaterally, external ears normal, Normal external nose present, moist oral mucous membranes and oropharynx normal HEAD & SCALP: normocephalic and atraumatic NOSE: Normal external nose present EXTERNAL EAR: Yes external ears normal Neck/C-Spine: COMMON NORMALS: full ROM, no lymphadenopathy, supple, no meningeal signs, no JVD and Thyroid normal THYROID: Thyroid normal Chest: COMMONS NORMALS: normal inspection of the chest and normal palpation of entire chest wall Resp: COMMON NORMALS: normal respiratory effort, No retractions and No use of accessory muscles; negative for clear to auscultation bilaterally (Occasional diffuse wheeze) AUSCULTATION: not clear to auscultation bilaterally (Occasional diffuse wheeze) Cardio: COMMON NORMALS: no JVD, regular rate, regular rhythm, S1 normal heart sound present, S2 normal heart sound present, No gallops present (Cardio), No clicks present (Cardio), No murmurs present (Cardio) and No rub (Cardio) RATE: regular rate RHYTHM: regular rhythm HEART SOUNDS: S1 normal heart sound present and S2 normal heart sound present GI: COMMON NORMALS: Normal to inspection, nondistended, normoactive bowel sounds present, Soft to palpation, non-tender and No hepatosplenomegaly present PALPATION: Yes Soft to palpation and Yes No hepatosplenomegaly present Neuro: COMMON NORMALS: patient oriented x3 SENSORIUM/ORIENTATION: Yes alert MENINGEAL SIGNS: Yes no meningeal signs Course Vital Signs: Vital signs: Vital Signs Temperature 97.3 F L 06/25/23 22:06 Pulse Rate 76 06/25/23 22:06 Respiratory Rate 20 H 06/25/23 22:06 Blood Pressure 172/75 06/25/23 23:37 Pulse Oximetry 95 06/25/23 23:37 Oxygen Delivery Me thod Room Air 06/25/23 23:37 MDM - SOB/Dyspnea Medical Decision Making Patient came back today to be admitted secondary to feeling worse with COVID. Patient is been taking Decadron and she said her blood sugar was high. Upon arrival her blood sugar was 646. Patient was given 15 units of IV insulin which lowered her to 500 at the next check. Patient's white count was 14.7, patient's chest x-ray was unchanged showed left mid to lower lobe infiltrate, CTA was obtained which was negative for pulmonary embolus and infiltrate. Showed bibasilar atelectasis. Dr. Earl was again consulted and agreed to place the patient in [facility] [place] [place] secondary to hyperglycemia and COVID. Differential Diagnosis Unlikely acute exacerbation of chronic obstructive airways disease, congestive heart failure, community acquired pneumonia, asthma with exacerbation or pulmonary embolism Medical Records I reviewed the patient's medical records. Lab Data I reviewed the patient's lab results. 06/25/23 22:38 06/25/23 22:38 Labs/Radiology: Radiology Impressions Chest X-Ray 06/25/23 21:55 IMPRESSION: 1. Left mid to lower lung field and right hilar to lower lobe airspace infiltrates. 2. Cardiomegaly. 3. Mild pulmonary vascular congestion. 4. Right upper lobe 14 mm nodule demonstrating increased prominence compared to prior exam, dedicated chest CT advised for further evaluation. Chest CTA 06/25/23 23:43 IMPRESSION: 1. Negative for pulmonary embolus. 2. Minimal coronary artery atherosclerotic calcifications. 3. Several subcentimeter short axis nonspecific mediastinal lymph nodes. 4. Spleen enlarged to 16 cm. 5. Right upper lobe 14 mm pulmonary nodule, increased compared to prior exam when this measured approximately 6.5 mm, series 7, image 155. Consider non-emergent PET/CT, or tissue sampling.(Reference: [place]). Two adjacent right upper lobe pulmonary nodules similar to prior exam measuring 2.3 and 7 mm, series 7, image 250. Right lower lobe 6.8 mm pulmonary nodule, series 7, image 291, similar to prior exam. 6. Bibasilar atelectasis. REFERENCES: [place] Cesar et al. Guidelines for Management of Incidental Pulmonary Nodules Detected on CT Images: From the Fleischner Society 2017. Radiology. 2017;284(1):228-243. Laboratory Results WBC 8.60 10^3/uL (3.29-11.43) 06/25/23 22:38 RBC 5.32 10^6/uL (3.85-5.65) 06/25/23 22:38 Hgb 14.70 g/dL (11.27-16.99) 06/25/23 22:38 Hct 46.4 % (36-47) 06/25/23 22:38 MCV 87.2 fl (85-98) 06/25/23 22:38 MCH 27.6 pg (27-33) 06/25/23 22:38 MCHC 31.7 g/dL (30-55) 06/25/23 22:38 RDW 13.9 % (12.1-15.1) 06/25/23 22:38 Plt Count 221 10^3/cmm (157-399) 06/25/23 22:38 MPV 11.4 fL (7.4-10.4) H 06/25/23 22:38 Neut % (Auto) 75.1 % 06/25/23 22:38 Lymph % (Auto) 18.0 % 06/25/23 22:38 [place] % (Auto) 4.9 % 06/25/23 22:38 Eos % (Auto) 0.0 % 06/25/23 22:38 Baso % (Auto) 0.3 % 06/25/23 22:38 Neut # (Auto) 6.45 10^3/uL (1.8-7.7) 06/25/23 22:38 Lymph # (Auto) 1.6 10^3/uL (0.8-4.8) 06/25/23 22:38 [place] # (Auto) 0.4 10^3/uL (0.2-0.9) 06/25/23 22:38 Eos # (Auto) 0.0 10^3/uL (0.0-0.8) 06/25/23 22:38 Baso # (Auto) 0.0 10^3/uL (0.0-0.1) 06/25/23 22:38 Nucleated RBC % (auto) 0 % 06/25/23 22:38 Nucleated RBCs # 0.0 /100WBC 06/25/23 22:38 Specimen Type Venous 06/25/23 22:38 Sample Site Not specified 06/25/23 22:38 Sunny Test N/a 06/25/23 22:38 VBG pH 7.41 (7.32-7.42) 06/25/23 22:38 VBG pCO2 37.7 mmHg (41-51) L 06/25/23 22:38 VBG pO2 120.0 mmHg (25-40) H 06/25/23 22:38 VBG HCO3 23.7 mmol/L (24-28) L 06/25/23 22:38 VBG Base Excess -0.7 mmol/L (-3.0-3.0) 06/25/23 22:38 VBG Hematocrit 46.1 % (37-47) 06/25/23 22:38 O2 Delivery Device None 06/25/23 22:38 FiO2 21.0 % 06/25/23 22:38 Director [employer] [email or web address] 06/25/23 22:38 Sodium 128 mmol/L (136-145) L 06/25/23 22:38 Potassium 4.4 mmol/L (3.5-5.1) 06/25/23 22:38 Chloride 90 mmol/L (98-107) L 06/25/23 22:38 Carbon Dioxide 22 mmol/L (22-29) 06/25/23 22:38 Anion Gap 20.4 (5-19) H 06/25/23 22:38 BUN 17 mg/dL (6-20) 06/25/23 22:38 Creatinine 0.7 mg/dL (0.5-0.9) 06/25/23 22:38 GFR Calculation 93.2 mL/min (90-130) 06/25/23 22:38 Glucose 646 mg/dL (65-115) H* 06/25/23 22:38 POC Glucose 501 mg/dL (70-110) H 06/26/23 00:33 Calculated Osmolality 298 mOsm/kg (285-295) H 06/25/23 22:38 Lactic Acid 4.7 mmol/L (0.5-2.2) H* 06/25/23 22:38 Calcium 9.8 mg/dL (8.5-10.5) 06/25/23 22:38 Magnesium 1.9 mg/dL (1.7-2.3) 06/25/23 22:38 Total Bilirubin 0.2 mg/dL (0.15-1.2) 06/25/23 22:38 AST 12 U/L (0-32) 06/25/23 22:38 ALT 40 U/L (0-33) H 06/25/23 22:38 Alkaline Phosphatase 86 U/L (35-105) 06/25/23 22:38 C-Reactive Protein 9.2 mg/L (0.0-4.9) H 06/25/23 22:38 Total Protein 7.7 g/dL (6.6-8.7) 06/25/23 22:38 Albumin 4.2 g/dL (3.5-5.2) 06/25/23 22:38 Globulin 3.5 g/dL (1.3-4.6) 06/25/23 22:38 Procalcitonin 0.07 ng/mL (0-0.5) 06/25/23 22:38 Urine Color Light yellow (Yellow) 06/25/23 23:30 Urine Appearance Clear (CLEAR) 06/25/23 23:30 Urine pH 5 (5-7) 06/25/23 23:30 Ur Specific [place] 1.005 (1.005-1.030) 06/25/23 23:30 Urine Protein Neg (Negative) 06/25/23 23:30 Urine Glucose (UA) 4+ (Normal) H 06/25/23 23:30 Urine Ketones Negative (Negative) 06/25/23 23:30 Urine Blood Neg (Negative) 06/25/23 23:30 Urine Nitrate Negative (Negative) 06/25/23 23:30 Urine Bilirubin Neg (Negative) 06/25/23 23:30 Urine Urobilinogen Norm mg/dL (Negative) 06/25/23 23:30 Ur Leukocyte Esterase Negative (Negative) 06/25/23 23:30 Serum Ketones Negative (Negative) 01/29/24 22:38 All radiology interpretation(s) finalized by discharge Discharge Plan Discharge Patient Disposition: Admitted As Inpatient Admit Provider: David Mendes Clinical Impression: Hyperglycemia due to diabetes mellitus, COVID, Elevated lactic acid level Condition: Stable Coding Level of Care Code ED Insurance Processor for Mario Santiago
--- NOTE | 2023-06-25 23:43 | CTR_ITS ---
PROCEDURE INFORMATION: Exam: CTA Chest With Contrast Exam date and time: 06/26/2023 12:14 AM Age: 38 years old Clinical indication: Cough and dyspnea; Patient HX: Iv equipment failure on first attempt; Additional info: Covid positive dyspnea hypoxia, TECHNIQUE: Imaging protocol: Computed tomographic angiography of the chest with contrast. Exam focused on the arteries. 3D rendering (Not supervised by radiologist): MIP and/or 3D reconstructed images were created by the technologist. Radiation optimization: All CT scans at this facility use at least one of these dose optimization techniques: automated exposure control; mA and/or kV adjustment per patient size (includes targeted exams where dose is matched to clinical indication); or iterative reconstruction. Contrast material: OMNI 350; Contrast volume: 100 ml; Contrast route: INTRAVENOUS (IV); COMPARISON: CR (CHEST, ) 06/25/2023 10:12 PM RADIATION DOSE METRICS: Total DLP (mGy-cm): 602.67 FINDINGS: Pulmonary arteries: Normal. No pulmonary emboli. Aorta: Unremarkable. No aortic aneurysm. No aortic dissection. Lungs: Right upper lobe 14 mm pulmonary nodule, increased compared to prior exam when this measured approximately 6.5 mm, series 7, image 155. Two adjacent right upper lobe pulmonary nodules similar to prior exam measuring 2.3 and 7 mm, series 7, image 250. Right lower lobe 6.8 mm pulmonary nodule, series 7, image 291, similar to prior exam. Bibasilar atelectasis. Pleural spaces: Unremarkable. No pneumothorax. No pleural effusion. Heart: Unremarkable. No cardiomegaly. No pericardial effusion. Coronary arteries: Minimal coronary artery atherosclerotic calcifications. Lymph nodes: Several subcentimeter short axis nonspecific mediastinal lymph nodes. Spleen: Spleen enlarged to 16 cm. Bones/joints: Unremarkable. No acute fracture. Soft tissues: Unremarkable. CT/CT angio chest PE protcl [id number] IMPRESSION: 1. Negative for pulmonary embolus. 2. Minimal coronary artery atherosclerotic calcifications. 3. Several subcentimeter short axis nonspecific mediastinal lymph nodes. 4. Spleen enlarged to 16 cm. 5. Right upper lobe 14 mm pulmonary nodule, increased compared to prior exam when this measured approximately 6.5 mm, series 7, image 155. Consider non-emergent PET/CT, or tissue sampling.(Reference: [place]). Two adjacent right upper lobe pulmonary nodules similar to prior exam measuring 2.3 and 7 mm, series 7, image 250. Right lower lobe 6.8 mm pulmonary nodule, series 7, image 291, similar to prior exam. 6. Bibasilar atelectasis. REFERENCES: [place] Cesar, et al. Guidelines for Management of Incidental Pulmonary Nodules Detected on CT Images: From the Fleischner Society 2017. Radiology. 2017;284(1):228-243.
[2023-06-26] VITALS (8 sets, daily range): BP systolic 101–131; BP diastolic 68–84; PULSE 61–92; RESP 16–20; TEMP 36.3–37; O2SAT 90–97; BMI 37.0
[2023-06-26 00:18] LABS: C Reactive Protein 9.2 mg/L (0.0-4.9); Magnesium 1.9 mg/dL (1.7-2.3)
[2023-06-26 00:20] LABS: Lactic Sepsis W/Reflex 4.7 mmol/L (0.5-2.2)
[2023-06-26 00:25] LABS: Procalcitonin 0.07 ng/mL (0-0.5)
[2023-06-26] MEDS: iohexol 350 mg/mL 500 mL Btl (per mL) IV (00:35)
[2023-06-26 00:36] LABS: Glucose Point of Care 501 mg/dL (70-110)
[2023-06-26 01:34] LABS: Reflex Lactate Order REFLEX LACTIC ORDERD
--- NOTE | 2023-06-26 01:54 | P.HP_ITS ---
Providers/Chief Complaint 2 Admitting Physician: David Mendes MD Primary Care Provider: Teddy Regan MD Chief Complaint: Covid + sob History of Present Illness Mare Cody is a 38 year old female active smoker, history of chronic bronchitis, history obstructive sleep apnea, depression, bipolar disorder, obesity, [id number]-rkivtuysz type 2 diabetes mellitus, who presents to [facility] for shortness of breath, fatigue, malaise. 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, she went home she tells me she continues to feel short of breath, with fatigue, malaise, nonproductive cough, she has been using Paxlovid, Decadron, when she checked her blood sugar at home it was over 500 Review of Systems 2 Const: Reports: chills, fatigue and malaise Card: Denies: chest pain Resp: Reports: dyspnea GI: Denies: abdominal pain Medications/Allergies Home Medications Medication Instructions Recorded Confirmed Last Taken Type aspirin 81 mg tablet,delayed 81 mg PO ONCE 05/29/19 06/03/23 12/07/20 08:00 History release (Adult Aspirin Regimen) gabapentin 400 mg capsule 400 mg PO QID 05/29/19 06/03/23 12/08/20 12:00 History paliperidone palmitate 234 mg/1.5 234 mg (1.5 mL) IM Q30D #1.5 mL 06/02/19 06/03/23 12/02/20 Rx mL intramuscular syringe (Invega Sustenna) propranolol 20 mg tablet 20 mg PO BID #60 tabs 06/02/19 06/03/23 12/08/20 08:00 Rx atorvastatin 20 mg tablet 20 mg PO QDAY 06/24/19 06/03/23 12/07/20 22:00 History glyburide 5 mg tablet 10 mg PO DAILY 08/04/19 06/03/23 12/07/20 History glipizide 10 mg tablet 10 mg PO DAILY 08/14/19 06/03/23 12/08/20 08:00 History benztropine 0.5 mg tablet 0.5 mg PO BID #60 tabs 09/08/19 06/03/23 12/08/20 22:00 Rx bupropion HCl 300 mg 24 hr tablet, 300 mg PO QAM #30 tabs 09/08/19 06/03/23 12/08/20 08:00 Rx extended release carbamazepine 200 mg 200 mg PO BID #60 caps 09/08/19 06/03/23 12/08/20 22:00 Rx capsule,extended release [id number] doxepin 50 mg capsule 50 mg PO .qhs PRN insomnia #30 caps 09/08/19 06/03/23 12/07/20 22:00 Rx escitalopram oxalate 20 mg tablet 20 mg PO ONCE #30 tabs 09/08/19 06/03/23 12/08/20 08:00 Rx (Lexapro) hydroxyzine HCl 50 mg tablet 50 mg PO BID PRN anxiety #60 tabs 09/08/19 06/03/23 12/08/20 22:00 Rx quetiapine 400 mg tablet,extended 400 mg PO .qhs #30 tabs 09/08/19 06/03/23 12/07/20 22:00 Rx release 24 hr (Seroquel XR) hydrocodone 5 mg-acetaminophen 325 1 tab PO Q6H PRN Pain 07/08/20 06/03/23 12/08/20 22:00 History mg tablet ([place]) naproxen 500 mg tablet See Rx Instructions .Route 07/08/20 06/03/23 12/08/20 08:00 Rx .COMPLEX #10 tabs tiotropium bromide 1.25 2 puff inhalation DAILY #4 grams 07/08/20 06/03/23 12/07/20 08:00 Rx mcg/actuation mist for inhalation (Spiriva Respimat) budesonide 0.5 mg/2 mL suspension 0.5 mg inhalation BID 09/15/20 06/03/23 Unknown History for nebulization formoterol fumarate 20 mcg/2 mL 2 ml inhalation BID #120 mL 09/15/20 06/03/23 Unknown Rx solution for nebulization (Perforomist) loratadine 10 mg tablet (Allergy 10 mg PO DAILY 09/15/20 06/03/23 12/07/20 22:00 History Relief (loratadine)) pantoprazole 40 mg tablet,delayed 40 mg PO BID 09/15/20 06/03/23 12/08/20 08:00 History release ipratropium 0.5 mg-albuterol 3 mg 3 ml inhalation DAILY wheezing 09/21/20 06/03/23 Unknown Rx (2.5 mg base)/3 mL nebulization #360 mL soln lisinopril 2.5 mg tablet 2.5 mg PO DAILY 12/07/20 06/03/23 12/08/20 History ondansetron 4 mg oral soluble film 4 mg PO DAILY PRN nausea and 04/15/23 06/03/23 Unknown Rx vomiting #10 ea amoxicillin 500 mg capsule 1,000 mg (2 x 500 mg) PO BID 10 06/03/23 06/03/23 Unknown Rx days #40 caps dexamethasone 6 mg tablet 6 mg PO DAILY #5 tabs 06/24/23 Unknown Rx nirmatrelvir 300 mg (150 mg See Rx Instructions PO .COMPLEX 06/24/23 Unknown Rx x2)-ritonavir 100 mg tablet,dose #30 ea pack (Paxlovid) Allergies Allergy/AdvReac Type Severity Reaction Status Date / Time azithromycin Allergy Severe ALGY-Hives Verified 06/25/23 22:12 milk AdvReac Mild ADR-Diarrhe Verified 06/25/23 22:12 a clindamycin AdvReac Unknown ALGY-Hives Verified 06/25/23 22:12 hydromorphone [From Dilaudid] AdvReac Unknown ALGY-Difficulty Verified 06/25/23 22:12 Breathing venom-wasp AdvReac Unknown ALGY-Hives Verified 06/25/23 22:12 PFSH Acute 2 PFSH: Medical History Urolithiasis Small left distal ureteral stone that required endoscopic stone manipulation for removal November 2020. Calculus of distal left ureter November 2020 4 mm stone required endoscopic removal. Temporary stented. Did well Thoracic degenerative disc disease Nicotine dependence with current use Chronic post-traumatic stress disorder (PTSD) chronic nightmares; anniversary date of accident coming up; able to wake up and go back to sleep afterward. She expresses no reports of hypervigilance, avoidance behavior, or intrusive thought process. Bipolar disorder, most recent episode depressed GERD (gastroesophageal reflux disease) Dysphasia Nasal septal deformity Chronic otitis externa Lumbar post-laminectomy syndrome Chronic bronchitis Tobacco abuse Sleep apnea Sebaceous cyst Asthmatic bronchitis Falls Right hip joint effusion Back pain Obesity Depression Otalgia Otitis externa Hyperlipemia Sleep apnea Tobacco abuse Surgical History Status post arthrodesis 01/18/2019 Dr. Kwame Torres Right SI joint. 05/05/2016 Left SI joint History of tonsillectomy and adenoidectomy History of cholecystectomy History of hysterectomy H/O spinal fusion 07/15/2015 Dr. Kwame Torres [place]: L5-S1 posterior laminectomy/fusion/fixation Family History Mother Diabetes Heart attack Lung disease Grandmother Diabetes Hypertension Lung disease Sister Diabetes Hypertension Father Heart attack Family/Other Heart attack Brother Hypertension Social History Quit status (tobacco/nicotine): considering quitting Second hand smoke exposure: Yes Alcohol intake: former Year of sobriety/quit date alcohol: 2018 Substance/Drug Use: never Lives independently: Yes Household members: none Marital status: Single Current occupational status: disabled Do you think of yourself as: Straight/Heterosexual Current gender identity: Female Vitals/I&O/Wt Last Vital Signs Temp 97.3 F L 06/25/23 22:06 Pulse 76 06/25/23 22:06 Resp 20 H 06/25/23 22:06 BP 172/75 06/25/23 23:37 Pulse Ox 95 06/25/23 23:37 O2 Del Method Room Air 06/25/23 23:37 Weight last 48 hrs Weight 111.13 kg Physical Exam 2 Const: COMMON NORMALS: no acute distress and patient oriented x3 HENMT: COMMON NORMALS: normocephalic HEAD & SCALP: normocephalic Eye: COMMON NORMALS: Equal, round and reactive pupils present and EOMs intact bilaterally Neck/C-Spine: COMMON NORMALS: no JVD Lymph: LYMPHATIC: no lymphadenopathy noted Resp: COMMON NORMALS: normal respiratory effort, No retractions and No use of accessory muscles AUSCULTATION: wheezes Cardio: COMMON NORMALS: regular rate, regular rhythm, S1 normal heart sound present and S2 normal heart sound present RATE: regular rate RHYTHM: r egular rhythm HEART SOUNDS: S1 normal heart sound present and S2 normal heart sound present GI: COMMON NORMALS: Normal to inspection, nondistended, normoactive bowel sounds present, Soft to palpation and non-tender PALPATION: Yes No hepatosplenomegaly present Extremity: COMMON NORMALS: no calf tenderness and no pedal edema Neuro: COMMON NORMALS: patient oriented x3, CN's II-XII intact bilaterally, moves all extremities and no focal motor deficits Psych: COMMON NORMALS: mental status grossly normal Data 06/25/23 22:38 06/25/23 22:38 A&P Assessment and plan (1) Hyperglycemia due to diabetes mellitus: (2) 2019 novel coronavirus-infected pneumonia (NCIP): (3) Obstructive Sleep Apnea-Hypopnea Syndrome: (4) Elevated lactic acid level: (5) Tobacco abuse: Plan COVID-19 pneumonia -Failure of outpatient Paxlovid, Decadron Plan -Admit to medical floors -Start remdesivir 200 mg IV every 24 hours started by 100 mg daily -Given her hyperglycemia we will hold off on Decadron, once blood sugars are more controlled will dose steroids -DuoNeb -Budesonide -Monitor respiratory status closely -Full code -Lovenox for DVT prophylaxis Tvf-lbdztme-ahevngitk type 2 diabetes mellitus, with hyperglycemia -Ketones within normal limits, anion gap 20.4, bicarb 22 -Has received IV insulin in the emergency room, will give her 10 units of Lantus -Start her on a moderate dose sliding scale -Acute lower blood sugars -Once blood sugars are reasonable will daily dose Lantus, and insulin sliding scale -Patient takes glipizide and glyburide at home? Will need to clarify Elevated lactic acid -CT angiogram negative for PE -Serial EKGs, serial troponins, telemetry monitoring -Possibly related to hyperglycemia, dehydration -IV fluids Pseudohyponatremia Attestations 2 Medical Necessity Statement*: Patient requires hospitalization, inpatient, greater than 2 midnights, for COVID-19 pneumonia, hyperglycemia, elevated lactic acid Diagnoses Hyperglycemia due to diabetes mellitus E11.65 2019 novel coronavirus-infected pneumonia (NCIP) U07.1; J12.82 Obstructive Sleep Apnea-Hypopnea Syndrome G47.33 Elevated lactic acid level R79.89 Tobacco abuse Z72.0
[2023-06-26 02:18] LABS: Estmated Average Glucose 246; Hemoglobin A1C 10.2 % (4.0-6.0)
[2023-06-26 02:19] LABS: HCG, Serum Qual Negative (Negative); Lactic Acid level (Lactate) 2.4 mmol/L (0.5-2.2)
[2023-06-26 02:21] LABS: Troponin(5th) Baseline 7 ng/L (0-10)
[2023-06-26 02:27] LABS: Glucose Point of Care 455 mg/dL (70-110)
[2023-06-26 02:29] LABS: Thyroid Stimulating Hormone 0.79 uIU/mL (0.27-4.20)
[2023-06-26] MEDS: enoxaparin 40 mg/0.4 mL Syringe SUBCUT (02:35)
[2023-06-26] MEDS: pantoprazole 40 mg SDV IVP (02:35)
[2023-06-26] MEDS: sodium chloride 0.9% 1,000 ML 75 ML IV (02:35)
[2023-06-26 02:49] LABS: NT Pro B Type Natriuretic Pept 577 pg/mL (0-125)
[2023-06-26] MEDS: remdesivir 200 MG in sodium chloride 0.9% (100 ml) 60 ML 100 MG IV (03:13)
[2023-06-26] MEDS: sodium chloride 0.9% 250 ML 100 ML (03:14)
[2023-06-26] MEDS: insulin glargine 100 units/1 mL 10 UNIT SUBCUT (03:15)
[2023-06-26] MEDS: water for injection-sterile SDV 10 mL 20 ML IVP (03:42)
--- NOTE | 2023-06-26 03:47 | ECG_ITS ---
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 Measurements Intervals [place] Rate: 58 P: 51 SC: 179 QRS: 11 QRSD: 94 T: 42 QT: 433 QTc: 427 Interpretive Statements SINUS BRADYCARDIA Compared to ECG 06/23/2023 21:49:28 Sinus rhythm no longer present Right-axis deviation no longer present Electronically Signed On 06-26-2023 18:34:11 TOTER by Naldo Danielle M.D. [id number]
[2023-06-26 05:22] LABS: Glucose Point of Care 446 mg/dL (70-110)
[2023-06-26] MEDS: insulin lispro 100 unit/1 mL SUBCUT ×2 (08:28→12:18)
[2023-06-26] MEDS: gabapentin 400 mg Capsule PO ×2 (08:29→12:18)
[2023-06-26] MEDS: benztropine 1 mg Tablet 0.5 MG PO (08:29)
[2023-06-26] MEDS: buPROPion XL (24 HR) 300 mg Tablet PO (08:29)
[2023-06-26] MEDS: carBAMazepine 200 mg Tablet PO (08:29)
[2023-06-26] MEDS: lisinopril 2.5 mg Tablet PO (08:29)
[2023-06-26] MEDS: atorvastatin 40 mg Tablet 20 MG PO (08:30)
[2023-06-26] MEDS: propranolol 20 mg Tablet PO (08:30)
[2023-06-26] MEDS: escitalopram 10 mg Tablet 20 MG PO (08:30)
[2023-06-26] MEDS: aspirin 81 mg EC Tablet PO (08:30)
[2023-06-26] MEDS: budesonide 0.5 mg/2 mL Neb INHALATION (09:21)
[2023-06-26] MEDS: ipratropium-albuterol 3 mL Neb INHALATION (09:21)
[2023-06-26 09:37] LABS: Glucose Point of Care 434 mg/dL (70-110)
[2023-06-26] MEDS: HYDROcodone-acetaminophen 5-325 mg Tablet 1 TAB PO (10:56)
[2023-06-26 11:16] LABS: Glucose Point of Care 338 mg/dL (70-110)
--- NOTE | 2023-06-26 12:01 | PM.DCS ---
Discharge Providers Date of Admission: 06/26/23 01:39 Date of Discharge: June 26, 2023 Attending Provider at Admission: David Mendes MD Attending Provider at Discharge: Xiomara Kellogg MD Primary Care Provider: Teddy Regan MD Diagnoses at Discharge Discharge Diagnosis (1) Hyperglycemia due to diabetes mellitus: Status: Acute (2) 2018 novel coronavirus-infected pneumonia (NCIP): Status: Acute (3) Obstructive Sleep Apnea-Hypopnea Syndrome: Status: Acute (4) Elevated lactic acid level: Status: Acute (5) Tobacco abuse: Status: Acute Reason for Visit Reason for Visit: Covid + sob Hospital Course Hospital Course 38 female who was diagnosed with COVID-19 pneumonia 06/23, presented to hospital for chief plaint of worsening of hypoxia and hyperglycemia. Patient has not taken insulin, her hemoglobin A1c is 10.2 and now she will be starting insulin Lantus 25 units along sliding scale moderate intensity, on CTA chest there is no PE but she does have splenomegaly with mediastinal lymphadenopathy, 14 mm right upper lobe she does have history of COPD uses 2 L of oxygen at baseline no active chest pain or shortness of breath, patient is stating that she would not do well in the hospital wanted to go home it is best interest the patient that I discharged her with appropriate medications at this point Her oxygen requirement has not worsened significantly. Patient is an active smoker, lung imaging consistent with pneumonia. Physical Exam Narrative: Currently on 2 to 3 L Awake and alert Coughing History of Nonfocal neuroexam Pleasant and cooperative Discharge Data Studies Completed and Pending Completed Studies During Hospitalization Category Date Time Status CTA chest [CT angio chest PE protcl [id number]] Stat Cat Scan 06/25/23 23:43 Completed CXRP [XR chest 1V portable 12520] Stat Exams 06/25/23 21:55 Completed Radiology Impressions Chest X-Ray 06/25/23 21:55 IMPRESSION: 1. Left mid to lower lung field and right hilar to lower lobe airspace infiltrates. 2. Cardiomegaly. 3. Mild pulmonary vascular congestion. 4. Right upper lobe 14 mm nodule demonstrating increased prominence compared to prior exam, dedicated chest CT advised for further evaluation. Chest CTA 06/25/23 23:43 IMPRESSION: 1. Negative for pulmonary embolus. 2. Minimal coronary artery atherosclerotic calcifications. 3. Several subcentimeter short axis nonspecific mediastinal lymph nodes. 4. Spleen enlarged to 16 cm. 5. Right upper lobe 14 mm pulmonary nodule, increased compared to prior exam when this measured approximately 6.5 mm, series 7, image 155. Consider non-emergent PET/CT, or tissue sampling.(Reference: [place]). Two adjacent right upper lobe pulmonary nodules similar to prior exam measuring 2.3 and 7 mm, series 7, image 250. Right lower lobe 6.8 mm pulmonary nodule, series 7, image 291, similar to prior exam. 6. Bibasilar atelectasis. REFERENCES: [place] Cesar et al. Guidelines for Management of Incidental Pulmonary Nodules Detected on CT Images: From the Fleischner Society 2017. Radiology. 2017;284(1):228-243. Laboratory Results WBC 8.60 10^3/uL (3.29-11.43) 06/25/23 22:38 RBC 5.32 10^6/uL (3.85-5.65) 06/25/23 22:38 Hgb 14.70 g/dL (11.27-16.99) 06/25/23 22:38 Hct 46.4 % (36-47) 06/25/23 22:38 MCV 87.2 fl (85-98) 06/25/23 22:38 MCH 27.6 pg (27-33) 06/25/23 22:38 MCHC 31.7 g/dL (30-55) 06/25/23 22:38 RDW 13.9 % (12.1-15.1) 06/25/23 22:38 Plt Count 221 10^3/cmm (157-399) 06/25/23 22:38 MPV 11.4 fL (7.4-10.4) H 06/25/23 22:38 Neut % (Auto) 75.1 % 06/25/23 22:38 Lymph % (Auto) 18.0 % 06/25/23 22:38 [place] % (Auto) 4.9 % 06/25/23 22:38 Eos % (Auto) 0.0 % 06/25/23 22:38 Baso % (Auto) 0.3 % 06/25/23 22:38 Neut # (Auto) 6.45 10^3/uL (1.8-7.7) 06/25/23 22:38 Lymph # (Auto) 1.6 10^3/uL (0.8-4.8) 06/25/23 22:38 [place] # (Auto) 0.4 10^3/uL (0.2-0.9) 06/25/23 22:38 Eos # (Auto) 0.0 10^3/uL (0.0-0.8) 06/25/23 22:38 Baso # (Auto) 0.0 10^3/uL (0.0-0.1) 06/25/23 22:38 Nucleated RBC % (auto) 0 % 06/25/23 22:38 Nucleated RBCs # 0.0 /100WBC 06/25/23 22:38 Specimen Type Venous 06/25/23 22:38 Sample Site Not specified 06/25/23 22:38 Sunny Test N/a 06/25/23 22:38 VBG pH 7.41 (7.32-7.42) 06/25/23 22:38 VBG pCO2 37.7 mmHg (41-51) L 06/25/23 22:38 VBG pO2 120.0 mmHg (25-40) H 06/25/23 22:38 VBG HCO3 23.7 mmol/L (24-28) L 06/25/23 22:38 VBG Base Excess -0.7 mmol/L (-3.0-3.0) 06/25/23 22:38 VBG Hematocrit 46.1 % (37-47) 06/25/23 22:38 O2 Delivery Device None 06/25/23 22:38 FiO2 21.0 % 06/25/23 22:38 Pediatrician Managing Partner ID [email or web address] 06/25/23 22:38 Sodium 128 mmol/L (136-145) L 06/25/23 22:38 Potassium 4.4 mmol/L (3.5-5.1) 06/25/23 22:38 Chloride 90 mmol/L (98-107) L 06/25/23 22:38 Carbon Dioxide 22 mmol/L (22-29) 06/25/23 22:38 Anion Gap 20.4 (5-19) H 06/25/23 22:38 BUN 17 mg/dL (6-20) 06/25/23 22:38 Creatinine 0.7 mg/dL (0.5-0.9) 06/25/23 22:38 GFR Calculation 93.2 mL/min (90-130) 06/25/23 22:38 Glucose 646 mg/dL (65-115) H* 06/25/23 22:38 POC Glucose 338 mg/dL (70-110) H 06/26/23 11:11 Estimat Average Glucose 246 06/26/23 01:58 Hemoglobin A1c 10.2 % (4.0-6.0) H 06/26/23 01:58 Calculated Osmolality 298 mOsm/kg (285-295) H 06/25/23 22:38 Lactic Acid 4.7 mmol/L (0.5-2.2) H* 06/25/23 22:38 Lactic Acid (Sepsis) 2.4 mmol/L (0.5-2.2) H 06/26/23 01:58 Calcium 9.8 mg/dL (8.5-10.5) 06/25/23 22:38 Magnesium 1.9 mg/dL (1.7-2.3) 06/25/23 22:38 Total Bilirubin 0.2 mg/dL (0.15-1.2) 06/25/23 22:38 AST 12 U/L (0-32) 06/25/23 22:38 ALT 40 U/L (0-33) H 06/25/23 22:38 Alkaline Phosphatase 86 U/L (35-105) 06/25/23 22:38 Troponin T Baseline 7 ng/L (0-10) 06/26/23 01:58 Troponin T 120 Minute 6.00 ng/L (0-10) 06/26/23 03:55 Delta Troponin T -1.00 ABS# (0-10) L 06/26/23 03:55 Troponin T Hi Sens 6Hr 6.0 ng/L (0-10) 06/26/23 08:07 Troponin T Hi Sens 6Hr Delta -1.0 ng/L (0-12) L 06/26/23 08:07 C-Reactive Protein 9.2 mg/L (0.0-4.9) H 06/25/23 22:38 NT-Pro-B Natriuret Pep 577 pg/mL (0-125) H 06/26/23 01:58 Total Protein 7.7 g/dL (6.6-8.7) 06/25/23 22:38 Albumin 4.2 g/dL (3.5-5.2) 06/25/23 22:38 Globulin 3.5 g/dL (1.3-4.6) 06/25/23 22:38 Procalcitonin 0.07 ng/mL (0-0.5) 06/25/23 22:38 TSH 0.79 uIU/mL (0.27-4.20) 06/26/23 01:58 HCG, Qual Negative (Negative) 06/26/23 01:58 Urine Color Light yellow (Yellow) 06/25/23 23:30 Urine Appearance Clear (CLEAR) 06/25/23 23:30 Urine pH 5 (5-7) 06/25/23 23:30 Ur Specific [place] 1.005 (1.005-1.030) 06/25/23 23:30 Urine Protein Neg (Negative) 06/25/23 23:30 Urine Glucose (UA) 4+ (Normal) H 06/25/23 23:30 Urine Ketones Negative (Negative) 06/25/23 23:30 Urine Blood Neg (Negative) 06/25/23 23:30 Urine Nitrate Negative (Negative) 06/25/23 23:30 Urine Bilirubin Neg (Negative) 06/25/23 23:30 Urine Urobilinogen Norm mg/dL (Negative) 06/25/23 23:30 Ur Leukocyte Esterase Negative (Negative) 06/25/23 23:30 Serum Ketones Negative (Negative) 06/25/23 22:38 Vitals Last Vital Signs Temp 98.6 F 06/26/23 08:53 Pulse 69 06/26/23 09:15 Resp 18 06/26/23 09:15 BP 131/84 06/26/23 08:53 Pulse Ox 97 06/26/23 09:15 O2 Del Method Nasal Cannula 06/26/23 09:15 O2 Flow Rate 2 06/26/23 09:15 Discharge Plan Discharge Patient Disposition: Home Condition: Stable Prescriptions: New insulin lispro [Humalog KwikPen Insulin] 100 unit/mL insulin pen See Rx Instructions .ROUTE .COMPLEX Qty: 15 6RF Rx Instructions: Blood sugar 1 41-180 please take 4 units Blood sugar 181 220 please take 6 units Blood sugar 221-260 please take 8 units 261-300 please take 10 units 301-350 please take 12 units 350-400 please take 14units Greater 400 than 16 units doxycycline hyclate 100 mg tablet 100 mg PO BID 3 Days Qty: 6 0RF insulin glargine [Lantus Solostar U-100 Insulin] 100 unit/mL (3 mL) insulin pen 25 unit SUBCUT QPM Qty: 15 6RF metformin 1,000 mg tablet 500 mg PO BID Qty: 60 3RF Continued Invega Sustenna 234 mg/1.5 mL syringe 234 mg IM Q30D Qty: 1.5 4RF propranolol 20 mg tablet 20 mg PO BID Qty: 60 2RF glyburide 5 mg tablet 10 mg PO DAILY bupropion HCl 300 mg tablet extended release 24 hr 300 mg PO QAM Qty: 30 1RF carbamazepine 200 mg capsule, ER multiphase 12 hr 200 mg PO BID Qty: 60 1RF hydroxyzine HCl 50 mg tablet 50 mg PO BID PRN (Reason: anxiety) Qty: 60 1RF aspirin [Adult Aspirin Regimen] 81 mg tablet,delayed release (DR/EC) 81 mg PO ONCE gabapentin 400 mg capsule 400 mg PO QID atorvastatin 20 mg tablet 20 mg PO QDAY pantoprazole 40 mg tablet,delayed release (DR/EC) 40 mg PO BID glipizide 10 mg tablet 10 mg PO DAILY loratadine [Allergy Relief (loratadine)] 10 mg tablet 10 mg PO DAILY budesonide 0.5 mg/2 mL suspension for nebulization 0.5 mg inhalation BID lisinopril 2.5 mg tablet 2.5 mg PO DAILY ipratropium-albuterol 0.5 mg-3 mg(2.5 mg base)/3 mL solution for nebulization 3 ml inhalation DAILY Qty: 360 3RF dexamethasone 6 mg tablet 6 mg PO DAILY Qty: 5 0RF Paxlovid 300 mg (150 mg x 2)-100 mg tablets,dose pack See Rx Instructions .ROUTE .COMPLEX Qty: 30 0RF Rx Instructions: take TWO 150 mg tablets of nirmatrelvir with ONE 100 mg tablet of ritonavir twice daily for 5 days doxepin 50 mg capsule 50 mg PO QPM benztropine 0.5 mg tablet 0.5 mg PO BID hydrocodone-acetaminophen 7.5-325 mg tablet 1 tab PO Q6H PRN (Reason: Pain) montelukast 10 mg tablet 10 mg PO QPM ondansetron 4 mg tablet,disintegrating 4 mg PO DAILY PRN (Reason: Nausea And Vomiting) escitalopram oxalate 20 mg tablet 20 mg PO DAILY quetiapine 400 mg tablet 400 mg PO QPM Linzess 145 mcg capsule 145 mcg PO EVERY OTHER DAY Breztri Aerosphere 160-9-4.8 mcg/actuation HFA aerosol inhaler 2 inh INHALATION BID Discontinued amoxicillin 500 mg capsule 1,000 mg PO BID 10 Days Qty: 40 0RF Discharge Orders: Discharge Order (Routine); Ordered 06/26/23 Ordered By: Xiomara Kellogg Referrals: Teddy Regan MD [Primary Care Provider] - 07/03/23 1:30 pm Patient Instructions: Opioid Safety Activity Restrictions/Additional Instructions: Blood sugar 1 41-180 please take 4 units Blood sugar 181 220 please take 6 units Blood sugar 221-260 please take 8 units 261-300 please take 10 units 301-350 please take 12 units 350-400 please take 14units Greater 400 than 16 units You will need Lantus 25 units daily ,......for hemoglobin A1c 10.2 now you will need insulin Discharge Attestations Time Spent in Discharge Care*: greater than 30 min Quality Metrics Clinical Quality Measures [ No reported AMI, CVA or VTE this stay] Coding Level of Care Code Acute Code for Chg Fwd Diagnoses Hyperglycemia due to diabetes mellitus E11.65 2019 novel coronavirus-infected pneumonia (NCIP) U07.1; J12.82 Obstructive Sleep Apnea-Hypopnea Syndrome G47.33 Elevated lactic acid level R79.89 Tobacco abuse Z72.0
== END 2023-06-26 13:44 | disposition home or self-care (01) ==
LOC: ER 06-26 01:36 → ER IP 06-26 02:08 → MEDSURG 06-26 08:00
PROVIDERS: Physician Assistant; Admitting Provider Family Medicine; Emergency Provider Emergency Medicine; PCP Family Medicine; Visit Provider Internal Medicine
DX: U07.1 COVID-19 (principal); J12.82 Pneumonia due to coronavirus disease 2019; E11.65 Type 2 diabetes mellitus with hyperglycemia; Z79.4 Long term (current) use of insulin; Z91.148 Patient's other noncompliance with medication regimen for other reason; J44.9 Chronic obstructive pulmonary disease, unspecified; Z99.81 Dependence on supplemental oxygen; G47.33 Obstructive sleep apnea (adult) (pediatric); R79.89 Other specified abnormal findings of blood chemistry; Z72.0 Tobacco use; Z79.82 Long term (current) use of aspirin; K21.9 Gastro-esophageal reflux disease without esophagitis; E66.9 Obesity, unspecified; Z68.37 Body mass index [BMI] 37.0-37.9, adult
CPT/HCPCS: 36415; 36416; 71045; 71275; 80053; 81003; 82009; 82803; 82962; 83036; 83605; 83735; 83880; 84145; 84443; 84484; 84703; 85025; 86140; 87040; 93005; 94640; 94664; 96361; 96365; 96372; 96374; 96375; 99285; C9113; G0378; J0248; J1100; J1650; J1815; J7030; J7040; J7050; J7626; Q9967

== ENCOUNTER 2023-08-03 16:01 | Outpatient (CLI) | payer MEDICARE, OTHER, SELFPAY ==
--- NOTE | 2023-08-03 16:07 | XRR_ITS ---
PROCEDURE INFORMATION: Exam: XR Left Hip Exam date and time: 08/03/2023 4:09 PM Age: 38 years old Clinical indication: Hip pain; Left hip; Additional info: Left hip pain TECHNIQUE: Imaging protocol: Radiologic exam of the left hip. Views: 2 or 3 views hip with pelvis when performed. COMPARISON: CT pelvis wo con [id number] 01/31/2019 3:20 PM FINDINGS: Bones/joints: No acute fracture or dislocation. Mineralization is normal. Joint spacing and alignment are maintained. Lower lumbar spine and bilateral sacroiliac joint postsurgical hardware. Soft tissues: Unremarkable. XR/XR hip LT 2-3V wo/w pel* [id number] IMPRESSION: No acute findings.
== END 2023-08-03 16:02 | disposition home or self-care (01) ==
LOC: RAD 16:04
PROVIDERS: PCP Family Medicine; Visit Provider Nurse Practitioner Family
DX: M25.552 Pain in left hip (principal)
CPT/HCPCS: 73502

== ENCOUNTER 2023-09-21 09:50 | Emergency (ER) | payer MEDICARE, SELFPAY ==
--- NOTE | 2023-09-21 09:51 | ECG_ITS ---
[facility] Test Date: 2023-09-21 Pat Name: Mare Cody Department: Room: Gender: [facility] Director: : 1985 Requested By: Jackie Marshall Order Number: [id number] Mel[place] MD: Melissa Dunham M.D. Measurements Intervals [place] Rate: 91 P: 52 VT: 160 QRS: -76 QRSD: 89 T: 59 QT: 352 QTc: 433 Interpretive Statements SINUS RHYTHM PATTERN CONSISTENT WITH PULMONARY DISEASE LEFT ANTERIOR FASCICULAR BLOCK [QRS AXIS <= -45, QR IN I, RS IN II] Compared to ECG 06/26/2023 03:50:46 Left anterior fascicular block now present Sinus bradycardia no longer present Electronically Signed On 09-22-2023 19:21:50 CDT by Melissa Dunham M.D. [email or web address]
--- NOTE | 2023-09-21 09:51 | XRR_ITS ---
PROCEDURE INFORMATION: Exam: XR Chest Exam date and time: 09/21/2023 10:17 AM Age: 38 years old Clinical indication: Pain; Angina pectoris; Additional info: Chest pain TECHNIQUE: Imaging protocol: Radiologic exam of the chest. Views: 1 view. COMPARISON: CT angio chest PE protcl [id number] 06/26/2023 12:14 AM FINDINGS: Lungs: Unchanged right upper lobe nodule. Otherwise, unremarkable. Pleural spaces: Unremarkable. No pleural effusion. No pneumothorax. Heart/Mediastinum: Unremarkable. No cardiomegaly. Bones/joints: Unremarkable. XR/XR chest 1V portable [id number] IMPRESSION: Unchanged right upper lobe nodule. No superimposed acute disease.
[2023-09-21 09:57] VITALS: BP 116/68; PULSE 96; RESP 17; TEMP 36.7; O2SAT 91
--- NOTE | 2023-09-21 10:07 | W.ED.CHESTPA ---
HPI - Chest Pain General: Chief Complaint: Chest Pain Stated Complaint: Chest pains Time Seen by Provider: 09/21/23 09:50 Source: patient Mode of arrival: ambulatory Limitations: no limitations History of Present Illness: Patient is a 38-year-old female presents to ED today with a complaint of chest pain that began yesterday. She states most of her pain seems to be brought on with deep inhalation. She does feel like her pain radiates into her back. Patient states she does not feel short of breath. She reports a chronic cough that she relates to her smoker's cough . She has not noticed any lower extremity swelling or calf pain. Patient has a quite extensive PMH given her age including chronic smoking, obesity, COPD, PTSD/depression/anxiety, diabetes, hypertension, hyperlipidemia. She states over the past three days she has felt very fatigued. She reports a known lung nodule that is reportedly growing in size and states her PCP has recommended a PET/CT for further evaluation. MD complaint: chest pain Onset (ago): day(s) (yesterday) Timing of current episode: episodic Prior episodes: No Onset: during rest Pain location: substernal Pain radiation: back Relieving factors: nothing Exacerbating factors: inspiration Associated symptoms: Deny abdominal pain, dyspnea, fever(s), nausea, palpitations, syncope or vomiting Treatment prior to arrival: none Risk Factors: Coronary artery disease risk factors: diabetes, smoking history, hyperlipidemia and hypertension Thoracic aortic dissection risk factors: none Related Data: On Oral Contraceptives: No Review of Systems Const: Reports: fatigue; Denies: fever(s), chills, body aches or malaise Eyes: Denies: change in vision, blurry vision, photophobia, floaters or seeing flashes ENMT: Denies: throat pain, odynophagia, nasal discharge, nasal congestion or sinus pain Card: Reports: chest pain and dyspnea on exertion (chronic with her COPD); Denies: palpitations, irregular heart rhythm, edema, swelling of feet/ankles, lightheadedness, syncope, pre-syncope, orthopnea, leg pain with exertion or acrocyanosis Resp: Reports: productive cough (chronic-states her normal smoker's cough ); Denies: dyspnea, wheezing, change in phlegm color or hemoptysis GI: Denies: abdominal pain, nausea, vomiting or diarrhea : Denies: flank pain, difficulty voiding, dysuria, urinary frequency, urinary urgency or urinary hesitancy Musc: Reports: back pain (states pain radiates to her back); Denies: neck pain, extremity pain, extremity swelling, joint pain, joint swelling, joint redness, joint warmth or limited range of motion Skin/Breast: Denies: rash Neuro: Denies: headache(s), numbness in extremities, weakness in extremities or sensory changes PFSH ED PFSH: Medical History Elevated lactic acid level COVID Hyperglycemia due to diabetes mellitus 2018 novel coronavirus-infected pneumonia (NCIP) Obstructive Sleep Apnea-Hypopnea Syndrome Urolithiasis Small left distal ureteral stone that required endoscopic stone manipulation for removal November 2020. Calculus of distal left ureter November 2020 4 mm stone required endoscopic removal. Temporary stented. Did well Thoracic degenerative disc disease Nicotine dependence with current use Chronic post-traumatic stress disorder (PTSD) chronic nightmares; anniversary date of accident coming up; able to wake up and go back to sleep afterward. She expresses no reports of hypervigilance, avoidance behavior, or intrusive thought process. Bipolar disorder, most recent episode depressed GERD (gastroesophageal reflux disease) Dysphasia Nasal septal deformity Chronic otitis externa Lumbar post-laminectomy syndrome Chronic bronchitis Tobacco abuse Sleep apnea Sebaceous cyst Asthmatic bronchitis [place] Right hip joint effusion Back pain Obesity Depression Otalgia Otitis externa Hyperlipemia Sleep apnea Tobacco abuse Surgical History Status post arthrodesis 01/18/2019 Dr. Kwame Torres Right SI joint. 05/05/2016 Left SI joint History of tonsillectomy and adenoidectomy History of cholecystectomy History of hysterectomy H/O spinal fusion 07/15/2015 Dr. Kwame Torres [place]: L5-S1 posterior laminectomy/fusion/fixation Family History Mother Diabetes Heart attack Lung disease Grandmother Diabetes Hypertension Lung disease Sister Diabetes Hypertension Father Heart attack Family/Other Heart attack Brother Hypertension Social History Quit status (tobacco/nicotine): considering quitting Second hand smoke exposure: Yes Alcohol intake: former Year of sobriety/quit date alcohol: 2018 Substance/Drug Use: never Lives independently: Yes Household members: none Marital status: Single Current occupational status: disabled Do you think of yourself as: Straight/Heterosexual Current gender identity: Female Physical Exam Const: COMMON NORMALS: no acute distress, patient oriented x3, no limitations, alert and well nourished GENERAL APPEARANCE: cooperative NUTRITIONAL APPEARANCE: obese ORIENTATION/CONSCIOUSNESS: Yes awake, Yes oriented to person, Yes oriented to place and Yes oriented to time HENMT: COMMON NORMALS: normocephalic and atraumatic HEAD & SCALP: normal to inspection, normocephalic and atraumatic FACE & SINUS: normal facial exam Neck/C-Spine: COMMON NORMALS: full ROM, no lymphadenopathy, no meningeal signs, no JVD and No carotid bruits GENERAL: Yes normal visual inspection Chest: COMMONS NORMALS: normal inspection of the chest and normal palpation of entire chest wall Resp: COMMON NORMALS: normal respiratory effort and clear to auscultation bilaterally AUSCULTATION: clear to auscultation bilaterally Cardio: COMMON NORMALS: no JVD, regular rate and regular rhythm RATE: regular rate RHYTHM: regular rhythm GI: INSPECTION: No Anasarca : COMMON NORMALS: Yes no CVA tenderness BLADDER/KIDNEY EXAM: Yes no CVA tenderness Back/Pelvis: COMMON NORMALS: no CVA tenderness, thoracic and lumbar spine normal to inspection and no thoracic nor lumbar tenderness Extremity: COMMON NORMALS: no clubbing, cyanosis or edema, no calf tenderness and no pedal edema GENERAL: Yes normal exam except as noted Neuro: ROBBIE COMA SCALE: document GCS findings Robbie coma scale eye opening: Spontaneous [place] coma scale verbal response: Orientated [place] coma scale motor response: Obey commands Robbie coma scale total score: 15 COMMON NORMALS: patient oriented x3, moves all extremities, no focal motor deficits, no sensory deficits noted and gait normal SENSORIUM/ORIENTATION: Yes alert, Yes oriented to person, Yes oriented to place and Yes oriented to time MENINGEAL SIGNS: Yes no meningeal signs Skin: COMMON NORMALS: no rashes or lesions noted GENERAL SKIN EXAM: no rashes or lesions noted Course Vital Signs: Vital signs: Vital Signs Temperature 98.0 F 09/21/23 09:57 Pulse Rate 96 09/21/23 09:57 Respiratory Rate 17 09/21/23 09:57 Blood Pressure 116/68 04/26/24 09:57 Pulse Oximetry 91 09/21/23 09:57 Oxygen Delivery Me thod Room Air 09/21/23 09:57 MDM - Chest Pain Medical Decision Making Patient is a 38-year-old female here for complaints of chest pain. She arrives in no acute distress with stable vital signs. Her workup today including a troponin, ddimer, EKG, and CXR unremarkable. Her baseline troponin is normal. Chest pain starting yesterday so we do not need to obtain delta. Her EKG is nonischemic. CXR showing an unchanged right upper lobe nodule that she is aware of and has plans to obtain further imaging with PET/CT through her primary care provider. Ddimer normal. Patient feels better upon reassessment. HEART score is 2 for her risk factor/comorbidities. Recommend follow-up with her primary care provider. If chest pain persists would recommend outpatient stress test. Return to ED precautions given. Lab Data 09/21/23 10:18 09/21/23 10:18 Radiology Impressions Chest X-Ray 09/21/23 09:51 IMPRESSION: Unchanged right upper lobe nodule. No superimposed acute disease. Laboratory Results WBC 10.43 10^3/uL (3.29-11.43) 09/21/23 10:18 RBC 5.97 10^6/uL (3.85-5.65) H 09/21/23 10:18 Hgb 15.20 g/dL (11.27-16.99) 09/21/23 10:18 Hct 50.4 % (36-47) H 09/21/23 10:18 MCV 84.4 fl (85-98) L 09/21/23 10:18 MCH 25.5 pg (27-33) L 09/21/23 10:18 MCHC 30.2 g/dL (30-55) 09/21/23 10:18 RDW 15.9 % (12.1-15.1) H 09/21/23 10:18 Plt Count 186 10^3/cmm (157-399) 09/21/23 10:18 MPV 11.8 fL (7.4-10.4) H 09/21/23 10:18 Neut % (Auto) 72.1 % 09/21/23 10:18 Lymph % (Auto) 21.4 % 09/21/23 10:18 [place] % (Auto) 3.6 % 09/21/23 10:18 Eos % (Auto) 1.6 % 09/21/23 10:18 Baso % (Auto) 0.5 % 09/21/23 10:18 Neut # (Auto) 7.52 10^3/uL (1.8-7.7) 09/21/23 10:18 Lymph # (Auto) 2.2 10^3/uL (0.8-4.8) 09/21/23 10:18 [place] # (Auto) 0.4 10^3/uL (0.2-0.9) 09/21/23 10:18 Eos # (Auto) 0.2 10^3/uL (0.0-0.8) 09/21/23 10:18 Baso # (Auto) 0.1 10^3/uL (0.0-0.1) 09/21/23 10:18 Nucleated RBC % (auto) 0 % 09/21/23 10:18 Nucleated RBCs # 0.0 /100WBC 09/21/23 10:18 D-Dimer 0.48 ug/mLFEU (0-0.59) 09/21/23 10:18 Sodium 134 mmol/L (136-145) L 09/21/23 10:18 Potassium 4.4 mmol/L (3.5-5.1) 09/21/23 10:18 Chloride 95 mmol/L (98-107) L 09/21/23 10:18 Carbon Dioxide 22 mmol/L (22-29) 09/21/23 10:18 Anion Gap 21.4 (5-19) H 09/21/23 10:18 BUN 10 mg/dL (6-20) 09/21/23 10:18 Creatinine 0.6 mg/dL (0.5-0.9) 09/21/23 10:18 GFR Calculation 111.3 mL/min (90-130) 09/21/23 10:18 Glucose 414 mg/dL (65-115) H 09/21/23 10:18 Calculated Osmolality 295 mOsm/kg (285-295) 09/21/23 10:18 Calcium 9.5 mg/dL (8.5-10.5) 09/21/23 10:18 Total Bilirubin 0.3 mg/dL (0.15-1.2) 09/21/23 10:18 AST 35 U/L (0-32) H 09/21/23 10:18 ALT 48 U/L (0-33) H 09/21/23 10:18 Alkaline Phosphatase 95 U/L (35-105) 09/21/23 10:18 Troponin T Baseline < 6 ng/L (0-10) 09/21/23 10:18 Total Protein 7.1 g/dL (6.6-8.7) 09/21/23 10:18 Albumin 4.2 g/dL (3.5-5.2) 09/21/23 10:18 Globulin 2.9 g/dL (1.3-4.6) 09/21/23 10:18 HCG, Qual Negative (Negative) 09/21/23 10:18 All radiology interpretation(s) finalized by discharge Discharge Plan Discharge Patient Disposition: Home Clinical Impression: Atypical chest pain Condition: Stable Prescriptions: No Action Invega Sustenna 234 mg/1.5 mL syringe 234 mg IM Q30D Qty: 1.5 4RF bupropion HCl 300 mg tablet extended release 24 hr 300 mg PO QAM Qty: 30 1RF carbamazepine 200 mg capsule, ER multiphase 12 hr 200 mg PO BID Qty: 60 1RF hydroxyzine HCl 50 mg tablet 50 mg PO BID PRN (Reason: anxiety) Qty: 60 1RF glipizide 10 mg tablet 10 mg PO DAILY lisinopril 2.5 mg tablet 2.5 mg PO DAILY cyclobenzaprine 5 mg tablet 5 mg PO TID PRN (Reason: muscle spasm) Qty: 20 0RF doxepin 50 mg capsule 50 mg PO QPM benztropine 0.5 mg tablet 0.5 mg PO BID montelukast 10 mg tablet 10 mg PO QPM ondansetron 4 mg tablet,disintegrating 4 mg PO DAILY PRN (Reason: Nausea And Vomiting) escitalopram oxalate 20 mg tablet 20 mg PO DAILY quetiapine 400 mg tablet 400 mg PO QPM Linzess 145 mcg capsule 145 mcg PO EVERY OTHER DAY Breztri Aerosphere 160-9-4.8 mcg/actuation HFA aerosol inhaler 2 inh INHALATION BID insulin lispro [Humalog KwikPen Insulin] 100 unit/mL insulin pen See Rx Instructions .ROUTE .COMPLEX Qty: 15 6RF Rx Instructions: Blood sugar 1 41-180 please take 4 units Blood sugar 181 220 please take 6 units Blood sugar 221-260 please take 8 units 261-300 please take 10 units 301-350 please take 12 units 350-400 please take 14units Greater 400 than 16 units atorvastatin 40 mg tablet 40 mg PO DAILY gabapentin 800 mg tablet 800 mg PO TID metformin 1,000 mg tablet 1,000 mg PO BID Lantus Solostar U-100 Insulin 100 unit/mL (3 mL) insulin pen 35 unit SUBCUT QPM propranolol 20 mg tablet 20 mg PO BID levocetirizine 5 mg tablet 5 mg PO DAILY Ozempic 2 mg/dose (8 mg/3 mL) pen injector 2 mg SUBCUT Q7D Discharge Orders: Discharge ED (Routine); Ordered 09/21/23 Ordered By: Jackie Marshall Referrals: Teddy Regan MD [Primary Care Provider] - Activity Restrictions/Additional Instructions: As we discussed please follow-up with your primary care provider. You may return to the emergency department for worsening or severe chest pain, lightheadedness, dizziness, passing out episodes, severe shortness of breath or difficulty breathing, or any other concerns you may have. Coding Level of Care Code ED Accounts Payable Payroll Coordinator for Mario Santiago
[2023-09-21 10:25] LABS: Basophils # 0.1 10^3/uL (0.0-0.1); Basophils % 0.5 %; Eosinophils # 0.2 10^3/uL (0.0-0.8); Eosinophils % 1.6 %; Hematocrit 50.4 % (36-47); Lymphocytes # 2.2 10^3/uL (0.8-4.8); Lymphocytes % 21.4 %; Mean Corpuscular HGB Conc 30.2 g/dL (30-55); Mean Corpuscular Hemoglobin 25.5 pg (27-33); Mean Corpuscular Volume 84.4 fl (85-98); Mean Platelet Volume 11.8 fL (7.4-10.4); Monocytes # 0.4 10^3/uL (0.2-0.9); Monocytes % 3.6 %; Neutrophils # 7.52 10^3/uL (1.8-7.7); Neutrophils % 72.1 %; Nucleated Red Blood Cells % 0 %; Platelet Count 186 10^3/cmm (157-399); Red Blood Count 5.97 10^6/uL (3.85-5.65); Red Cell Distribution Width 15.9 % (12.1-15.1); White Blood Count 10.43 10^3/uL (3.29-11.43)
[2023-09-21 10:41] LABS: D Dimer 0.48 ug/mLFEU (0-0.59)
[2023-09-21 10:42] LABS: Alanine Aminotransferase 48 U/L (0-33); Albumin Level 4.2 g/dL (3.5-5.2); Alkaline Phosphatase 95 U/L (35-105); Anion Gap 21.4 (5-19); Aspartate Amino Transferase 35 U/L (0-32); Blood Urea Nitrogen 10 mg/dL (6-20); Calcium 9.5 mg/dL (8.5-10.5); Carbon Dioxide 22 mmol/L (22-29); Chloride 95 mmol/L (98-107); Creatinine Clr Calc Pharmacy 160.2033; Globulin 2.9 g/dL (1.3-4.6); Glomerular Filtration Rate 111.3 mL/min (90-130); Glucose 414 mg/dL (65-115); Osmolality Calculated 295 mOsm/kg (285-295); Potassium 4.4 mmol/L (3.5-5.1); Sodium 134 mmol/L (136-145); Total Bilirubin 0.3 mg/dL (0.15-1.2); Total Protein 7.1 g/dL (6.6-8.7)
[2023-09-21 10:44] LABS: Troponin(5th) Baseline < 6 ng/L (0-10)
[2023-09-21 10:54] LABS: HCG, Serum Qual Negative (Negative)
== END 2023-09-21 11:27 | disposition home or self-care (01) ==
PROVIDERS: Emergency Provider Physician Assistant; PCP Family Medicine
DX: R07.89 Other chest pain (principal); Z79.84 Long term (current) use of oral hypoglycemic drugs; Z79.4 Long term (current) use of insulin; Z77.22 Contact with and (suspected) exposure to environmental tobacco smoke (acute) (chronic); E78.5 Hyperlipidemia, unspecified; E11.9 Type 2 diabetes mellitus without complications
CPT/HCPCS: 36415; 71045; 80053; 84484; 84703; 85025; 85378; 93005; 99285

== ENCOUNTER 2023-10-04 20:00 | Outpatient (CLI) | payer MEDICARE, OTHER, SELFPAY | END 2023-10-04 20:01 | disposition home or self-care (01) | LOC: SLEEP 10-05 05:48 | PROVIDERS: PCP Family Medicine; Visit Provider Family Medicine | DX: G47.33 Obstructive sleep apnea (adult) (pediatric) (principal) | CPT/HCPCS: 95810 ==

== ENCOUNTER 2023-10-09 14:57 | Outpatient (CLI) | payer MEDICARE, OTHER, SELFPAY ==
--- NOTE | 2023-10-09 | PETR_ITS ---
PROCEDURE INFORMATION: Exam: PET/CT Skull Base to Mid-thigh Exam date and time: 10/09/2023 3:53 PM Age: 38 years old Clinical indication: Abnormal findings; 5. Right upper lobe 14 mm pulmonary nodule, increased compared to prior exam when this measured approximately 6.5 mm, series 7, image 155. Consider non-emergent pet/ct, or tissue sampling. (reference: Malgorzata). Two adjacent right upper lobe pulmonary nodules similar to prior exam measuring 2.3 and 7 mm, series 7, image 250. Right lower lobe 6.8 mm pulmonary nodule, series 7, image 291, similar to prior exam. ; Additional info: Lung nodule LABS AND CLINICAL REPORTS: Glucose: 136 mg/dl Treatment strategy for malignancy (PET staging): Initial Staging (PI) TECHNIQUE: Imaging protocol: Following at least four-hour fasting and following the injection of radiopharmaceutical, low dose CT images were obtained. Then, PET images were obtained. Attenuation corrected images were constructed using the CT scan. Fused images of PET and CT were reviewed. The standardized uptake values (SUV) reported below are maximum values within a region of interest, expressed in gm/ml. Exam includes orbital meatal line to mid-thigh. Radiopharmaceutical: 13.78 mCi F-18 FDG (Fluorodeoxyglucose), IV. Time of imaging post radiopharmaceutical administration: 1 hour Injection site: Left antecubital COMPARISON: CT angio chest PE protcl [id number] 06/26/2023 12:14 AM, CT chest 03/31/2019 FINDINGS: Brain: Visualized brain has normal physiologic uptake. Pharynx: No abnormal uptake. Larynx: No abnormal uptake. Lungs, pleura and trachea: A solid right upper lobe nodule measures 1.1 x 1.0 cm on series 3, image 78, SUV max 0.8. Additional smaller non radiotracer avid right lung nodules are identified, for example in the posterior right lower lobe measuring 7 mm on series 3, image 101 and in the region of the minor fissure with there is a 5 mm pleural based nodule on series 3, image 96. A solid left lower lobe nodule near the hemidiaphragm measures 0.8 cm on series 3, image 109. These nodules are similar compared with 09/21/2023. These nodules were present on the CT of 03/31/2019 and appears similar in size with exception of an increase in size of the right upper lobe dominant nodule which previously measured 0.7 x 0.6 cm. Heart: Normal physiologic uptake. Mediastinal space: No abnormal uptake. Liver: No abnormal uptake. Gallbladder and bile ducts: No abnormal uptake. Pancreas: No abnormal uptake. Spleen: No abnormal uptake. Mild splenomegaly. Adrenal glands: No abnormal uptake. Kidneys and ureters: Normal physiologic uptake. Stomach and bowel: Mild uptake in the region of the rectum is noted, SUV max 6.8 without definitive evidence of wall thickening or discrete lesion on the CT images. Vasculature: No abnormal uptake. Lymph nodes: No abnormal uptake. Mildly prominent mediastinal lymph nodes are noted without significant uptake, for example along the left lateral aspect of the aortic arch measuring 1.7 x 0.8 cm, SUV max 1.5. Skeleton: No abnormal uptake in the visualized axial and appendicular skeleton. There are postoperative changes involving the bilateral sacroiliac joints. Posterior metallic fusion at L5-S1 is noted.There is mild diffuse vertebral body spondylosis. Soft tissues: Several small subcutaneous soft tissue nodules in the proximal arms are noted, some which are calcified, without elevated uptake compatible with a benign etiology. Asymmetric focal bilateral posterior deltoid muscle uptake is likely physiologic or inflammatory, SUV max 3.4 on the left and SUV max 2.7 on the right, without evidence of correlating lesions on the CT images in these regions. METRICS: Mediastinal blood pool: SUV max 2.0 PET/PET [facility] INITIAL [id number] IMPRESSION: 1. No evidence of radiotracer avid malignancy. 2. Right-sided pulmonary nodules are noted without elevated uptake. The smaller nodules are similar in size and number compared with at least 03/31/2019 consistent with a benign etiology for which no follow-up is necessary. The dominant right upper lobe nodule was also present in 2019 but has increased in size. Lack of uptake in this nodule favors a benign etiology, however assessment of small nodules can be limited by PET-CT. Consider 3 month follow-up chest CT surveillance or biopsy of this nodule for more definitive assessment. 3. Mildly prominent mediastinal lymph nodes are noted with uptake less than mediastinal blood pool activity, likely benign. 4. Mild splenomegaly without elevated uptake. 5. Probable physiologic or inflammatory uptake in the rectum. A malignant etiology is less likely. 6. Additional nonurgent findings as detailed above.
== END 2023-10-09 14:58 | disposition home or self-care (01) ==
PROVIDERS: PCP Family Medicine; Visit Provider Family Medicine
DX: R91.8 Other nonspecific abnormal finding of lung field (principal); M43.26 Fusion of spine, lumbar region; R22.33 Localized swelling, mass and lump, upper limb, bilateral
CPT/HCPCS: 78815; A9552

== ENCOUNTER 2023-10-23 07:40 | Outpatient (CLI) | payer MEDICARE, OTHER, SELFPAY ==
[2023-10-23 10:33] LABS: ABG PCO2 41.7 mmHg (35-45); ABG PH Result 7.41 (7.35-7.45); Alveolar-Arterial Oxygen Gradi 7.2 mmHg (5-10); Arterial Blood Gas Hematocrit 46.5 % (37-47); Base Excess ABG 1.2 mmol/L (-2.0-2.0); Blood Gas Allen Test Pos; Blood Gas Operator Identificat MONRO; Blood Gas Sample Site Radial, left; Blood Gas Sample Type Arterial; Carboxyhemoglobin 19.4 %THgb (0.4-20.1); HCO3 ABG 26.1 mmol/L (22-26); HGB O2 Sat 71.6 % (95-100); Ionized Calcium Level - ABG 1.2 mmol/L (1.1-1.4); Methemoglobin 0.4 % (0.4-1.5); Oxygen Device ROOM AIR; Oxygen Saturation ABG 89.3; PO2 ABG 43.4 mmHg (80.0-100.0); PO2 FiO2 Ratio Arterial Blood 0; Potassium Level - ABG 3.7 mmol/L (3.5-5.0); Total Hemoglobin 15.2 g/dL (12-16)
== END 2023-10-23 07:41 | disposition home or self-care (01) ==
PROVIDERS: PCP Family Medicine; Visit Provider Family Medicine
DX: G47.33 Obstructive sleep apnea (adult) (pediatric) (principal)
CPT/HCPCS: 36600; 80051; 82330; 82805

== ENCOUNTER 2023-10-23 22:34 | Emergency (ER) | payer MEDICARE, OTHER, SELFPAY ==
[2023-10-23 22:45] VITALS: BP 107/73; PULSE 100; RESP 20; TEMP 36.7; O2SAT 92; BMI 34.3
--- NOTE | 2023-10-24 00:08 | XRR_ITS ---
PROCEDURE INFORMATION: Exam: XR Chest Exam date and time: 10/24/2023 12:20 AM Age: 38 years old Clinical indication: Shortness of breath; Additional info: low o2 TECHNIQUE: Imaging protocol: Radiologic exam of the chest. Views: 1 view. COMPARISON: CR XR chest 1V portable [id number] 09/21/2023 10:17 AM FINDINGS: Lungs: Subtle opacities in the lung bases. Pleural spaces: Unremarkable. No pleural effusion. No pneumothorax. Heart/Mediastinum: Unremarkable. No cardiomegaly. Bones/joints: Unremarkable. XR/XR chest 1V portable [id number] IMPRESSION: Subtle opacities in the lung bases.
--- NOTE | 2023-10-24 00:14 | ED_ITS ---
Documented by User: STEPHANIE Patel 10/24/23 00:49 HPI - Abdominal Pain 2 General: Chief Complaint: Abdominal Pain Stated Complaint: ABD Pain O2 Dropping Time Seen by Provider: 10/23/23 23:14 Source: patient Mode of arrival: ambulatory Limitations: no limitations History of Present Illness: Patient is a 38-year-old female presents the emergency department complaining of left upper quadrant pain onset today. Patient is reporting some associated nausea, and states that when she took her O2 saturation at home prior to sleep, it read 87% which is low for her. She does note a history of obstructive sleep apnea and wears CPAP at night. She is denying any blood in her urine or painful urination, but does states she has a history of kidney stones. The pain is localized to the left upper quadrant, though sometimes she states it feels like it is also in the center. It does not migrate to her back and she does note that she has had her gallbladder removed. There are no specific exacerbating factors, but she does state that it is alleviated by holding a deep breath in. Pain has been constant since onset and is a sharpness. She denies any changes in bowel, fevers, chills, chest pain, shortness of breath, cough, or other symptoms at this time. She has not taken anything for her symptoms. MD elicited complaint: abdominal pain Onset (ago): hour(s) Pain Consistency: constant Location: LUQ Quality: sharp Radiation: epigastric Exacerbating factors: nothing Relieving factors: other (Holding in a deep breath) Associated Symptoms: Reports nausea; Denies bloating, change in stool character, chills, constipation, diarrhea, dysuria, fever(s), hematochezia and vomiting Review of Systems 2 General: Reports: 10 or more systems reviewed and unremarkable except in HPI and below Const: Denies: fever(s), chills, change in appetite, change in weight or diaphoresis ENMT: Denies: throat pain or hoarseness Card: Denies: chest pain, palpitations or lightheadedness Resp: Denies: dyspnea, productive cough or wheezing GI: Reports: abdominal pain and nausea; Denies: vomiting, diarrhea, constipation, bloating, change in stool character or hematochezia : Denies: flank pain, difficulty voiding, dysuria, urinary frequency or urinary urgency Musc: Denies: neck pain or back pain Skin/Breast: Denies: rash or new lesions Neuro: Denies: headache(s) or dizziness PFSH ED 2 PFSH: Medical History Elevated lactic acid level COVID Hyperglycemia due to diabetes mellitus 2018 novel coronavirus-infected pneumoni a (NCIP) Obstructive Sleep Apnea-Hypopnea Syndrome Urolithiasis Small left distal ureteral stone that required endoscopic stone manipulation for removal November 2020. Calculus of distal left ureter November 2020 4 mm stone required endoscopic removal. Temporary stented. Did well Thoracic degenerative disc disease Nicotine dependence with current use Chronic post-traumatic stress disorder (PTSD) chronic nightmares; anniversary date of accident coming up; able to wake up and go back to sleep afterward. She expresses no reports of hypervigilance, avoidance behavior, or intrusive thought process. Bipolar disorder, most recent episode depressed GERD (gastroesophageal reflux disease) Dysphasia Nasal septal deformity Chronic otitis externa Lumbar post-laminectomy syndrome Chronic bronchitis Tobacco abuse Sleep apnea Sebaceous cyst Asthmatic bronchitis Falls Right hip joint effusion Back pain Obesity Depression Otalgia Otitis externa Hyperlipemia Sleep apnea Tobacco abuse Surgical History Status post arthrodesis 01/18/2019 Dr. Kwame Torres Right SI joint. 05/05/2016 Left SI joint History of tonsillectomy and adenoidectomy History of cholecystectomy History of hysterectomy H/O spinal fusion 07/15/2015 Dr. Kwame Torres [place]: L5-S1 posterior laminectomy/fusion/fixation Family History Mother Diabetes Heart attack Lung disease Grandmother Diabetes Hypertension Lung disease Sister Diabetes Hypertension Father Heart attack Family/Other Heart attack Brother Hypertension Social History Quit status (tobacco/nicotine): considering quitting Second hand smoke exposure: Yes Alcohol intake: former Year of sobriety/quit date alcohol: 2018 Substance/Drug Use: never Lives independently: Yes Household members: none Marital status: Single Current occupational status: disabled Do you think of yourself as: Straight/Heterosexual Current gender identity: Female Physical Exam 2 Const: COMMON NORMALS: no acute distress, patient oriented x3, no limitations, healthy appearing, alert and well nourished GENERAL APPEARANCE: cooperative and in distress (From pain) NUTRITIONAL APPEARANCE: obese O RIENTATION/CONSCIOUSNESS: Yes awake HENMT: COMMON NORMALS: normocephalic, atraumatic, hearing grossly normal bilaterally, external ears normal, Normal external nose present, Normal nasal mucous membranes and turbinates present and moist oral mucous membranes HEAD & SCALP: normocephalic and atraumatic NOSE: Normal external nose present and Normal nasal mucous membranes and turbinates present EXTERNAL EAR: Yes external ears normal Eye: COMMON NORMALS: Equal, round and reactive pupils present, EOMs intact bilaterally, conjunctivae normal and normal visual shafer by confrontation C ONJUNCTIVA: Yes conjunctivae normal PUPIL: Yes Equal, round and reactive pupils present Neck/C-Spine: COMMON NORMALS: full ROM, supple, no meningeal signs and no JVD Resp: COMMON NORMALS: normal respiratory effort, No retractions, No use of accessory muscles and clear to auscultation bilaterally AUSCULTATION: clear to auscultation bilaterally, no crackles, no rales, no rhonchi and no wheezes Cardio: COMMON NORMALS: no JVD, regular rate, regular rhythm, S1 normal heart sound present, S2 normal heart sound present, No gallops present (Cardio), No clicks present (Cardio), No murmurs present (Cardio), No rub (Cardio) and Peripheral pulses 2+ throughout RATE: regular rate RHYTHM: regular rhythm HEART SOUNDS: S1 normal heart sound present and S2 normal heart sound present PERIPHERAL PULSES: Peripheral pulses 2+ throughout GI: COMMON NORMALS: Normal to inspection, nondistended, normoactive bowel sounds present, Soft to palpation, No hepatosplenomegaly present and no masses AUSCULTATION: Yes normoactive bowel sounds PALPATION: Yes Soft to palpation, Yes Tenderness to palpation present (GI) Details: LUQ, No Guarding due to palpation present (GI), No Rigid due to palpation and Yes No hepatosplenomegaly present RECTAL EXAM: deferred : COMMON NORMALS: Yes no CVA tenderness BLADDER/KIDNEY EXAM: Yes no CVA tenderness Back/Pelvis: COMMON NORMALS: no CVA tenderness Extremity: COMMON NORMALS: normal to inspection and full ROM Neuro: COMMON NORMALS: patient oriented x3, moves all extremities, no focal motor deficits and no sensory deficits noted SENSORIUM/ORIENTATION: Yes alert MENINGEAL SIGNS: Yes no meningeal signs Psych: COMMON NORMALS: mental status grossly normal, cooperative and speech normal SPEECH: Yes normal speech Skin: COMMON NORMALS: no rashes or lesions noted GENERAL SKIN EXAM: no rashes or lesions noted Course 2 Vital Signs: Vital signs: Vital Signs Temperature 98.1 F 10/23/23 22:45 Pulse Rate 89 10/24/23 02:50 Respiratory Rate 18 10/24/23 02:50 Blood Pressure 110/62 10/24/23 02:50 Pulse Oximetry 90 10/24/23 02:50 Oxygen Delivery Me thod Nasal Cannula 10/24/23 01:38 Oxygen Flow Rate 4 10/24/23 01:38 MDM - Abdominal Pain Medical Decision Making Patient presented for evaluation of left upper quadrant pain beginning today. Vitals on arrival unremarkable she was afebrile, though 92% on room air. She also states that she presented due to an O2 reading of 87% at home, history of obstructive sleep apnea on CPAP at night. Examination revealed she was mildly tender to palpation of the left upper quadrant, no CVA tenderness noted and clear to cardiopulmonary auscultation. Labs and imaging pending on transfer to ED physician, Dr. Alba, who kindly assumes care of patient. Lab Data 10/24/23 00:43 10/24/23 00:43 Labs/Radiology: Radiology Impressions Chest X-Ray 10/24/23 00:08 IMPRESSION: Subtle opacities in the lung bases. Abdomen/Pelvis CT 10/24/23 00:41 IMPRESSION: 1. No bowel obstruction or inflammatory process associated with the bowel. 2. No free air or significant free fluid in the abdomen or pelvis. 3. No evidence of appendicitis. Laboratory Results WBC 10.72 10^3/uL (3.29-11.43) 10/24/23 00:43 RBC 5.76 10^6/uL (3.85-5.65) H 10/24/23 00:43 Hgb 15.20 g/dL (11.27-16.99) 10/24/23 00:43 Hct 47.9 % (36-47) H 10/24/23 00:43 MCV 83.2 fl (85-98) L 10/24/23 00:43 MCH 26.4 pg (27-33) L 10/24/23 00:43 MCHC 31.7 g/dL (30-55) 10/24/23 00:43 RDW 16.6 % (12.1-15.1) H 10/24/23 00:43 Plt Count 195 10^3/cmm (157-399) 10/24/23 00:43 MPV 11.4 fL (7.4-10.4) H 10/24/23 00:43 Neut % (Auto) 70.6 % 10/24/23 00:43 Lymph % (Auto) 21.5 % 10/24/23 00:43 [place] % (Auto) 4.7 % 10/24/23 00:43 Eos % (Auto) 2.2 % 10/24/23 00:43 Baso % (Auto) 0.5 % 10/24/23 00:43 Neut # (Auto) 7.58 10^3/uL (1.8-7.7) 10/24/23 00:43 Lymph # (Auto) 2.3 10^3/uL (0.8-4.8) 10/24/23 00:43 [place] # (Auto) 0.5 10^3/uL (0.2-0.9) 10/24/23 00:43 Eos # (Auto) 0.2 10^3/uL (0.0-0.8) 10/24/23 00:43 Baso # (Auto) 0.1 10^3/uL (0.0-0.1) 10/24/23 00:43 Nucleated RBC % (auto) 0 % 10/24/23 00:43 Nucleated RBCs # 0.0 /100WBC 10/24/23 00:43 Sodium 136 mmol/L (136-145) 10/24/23 00:43 Potassium 4.0 mmol/L (3.5-5.1) 10/24/23 00:43 Chloride 100 mmol/L (98-107) 10/24/23 00:43 Carbon Dioxide 22 mmol/L (22-29) 10/24/23 00:43 Anion Gap 18.0 (5-19) 10/24/23 00:43 BUN 10 mg/dL (6-20) 10/24/23 00:43 Creatinine 0.7 mg/dL (0.5-0.9) 10/24/23 00:43 GFR Calculation 93.2 mL/min (90-130) 10/24/23 00:43 Glucose 241 mg/dL (65-115) H 10/24/23 00:43 Calculated Osmolality 289 mOsm/kg (285-295) 10/24/23 00:43 Calcium 9.5 mg/dL (8.5-10.5) 10/24/23 00:43 Total Bilirubin 0.2 mg/dL (0.15-1.2) 10/24/23 00:43 AST 16 U/L (0-32) 10/24/23:43 ALT 29 U/L (0-33) 10/24/23:43 Alkaline Phosphatase 89 U/L (35-105) 10/24/23 00:43 Total Protein 7.4 g/dL (6.6-8.7) 10/24/23 00:43 Albumin 3.9 g/dL (3.5-5.2) 10/24/23:43 Globulin 3.5 g/dL (1.3-4.6) 10/24/23 00:43 Lipase 28 U/L (13-60) 10/24/23 00:43 HCG, Qual Negative (Negative) 10/24/23 00:43 Urine Color Yellow (Yellow) 10/24/23 00:43 Urine Appearance Clear (CLEAR) 10/24/23 00:43 Urine pH 5 (5-7) 10/24/23 00:43 Ur Specific [place] 1.020 (1.005-1.030) 10/24/23 00:43 Urine Protein Neg (Negative) 10/24/23 00:43 Urine Glucose (UA) Norm (Normal) 10/24/23 00:43 Urine Ketones Negative (Negative) 10/24/23 00:43 Urine Blood Neg (Negative) 10/24/23 00:43 Urine Nitrate Negative (Negative) 10/24/23 00:43 Urine Bilirubin Neg (Negative) 10/24/23 00:43 Urine Urobilinogen Neg mg/dL (Negative) 10/24/23 00:43 Ur Leukocyte Esterase Negative (Negative) 10/24/23 00:43 All radiology interpretation(s) finalized by discharge Discharge Plan Discharge Patient Disposition: Home Clinical Impression: Abdominal pain Condition: Stable Prescriptions: No Action Invega Sustenna 234 mg/1.5 mL syringe 234 mg IM Q30D Qty: 1.5 4RF bupropion HCl 300 mg tablet extended release 24 hr 300 mg PO QAM Qty: 30 1RF carbamazepine 200 mg capsule, ER multiphase 12 hr 200 mg PO BID Qty: 60 1RF hydroxyzine HCl 50 mg tablet 50 mg PO BID PRN (Reason: anxiety) Qty: 60 1RF glipizide 10 mg tablet 10 mg PO DAILY lisinopril 2.5 mg tablet 2.5 mg PO DAILY cyclobenzaprine 5 mg tablet 5 mg PO TID PRN (Reason: muscle spasm) Qty: 20 0RF doxepin 50 mg capsule 50 mg PO QPM benztropine 0.5 mg tablet 0.5 mg PO BID montelukast 10 mg tablet 10 mg PO QPM ondansetron 4 mg tablet,disintegrating 4 mg PO DAILY PRN (Reason: Nausea And Vomiting) escitalopram oxalate 20 mg tablet 20 mg PO DAILY quetiapine 400 mg tablet 400 mg PO QPM Linzess 145 mcg capsule 145 mcg PO EVERY OTHER DAY Breztri Aerosphere 160-9-4.8 mcg/actuation HFA aerosol inhaler 2 inh INHALATION BID insulin lispro [Humalog KwikPen Insulin] 100 unit/mL insulin pen See Rx Instructions .ROUTE .COMPLEX Qty: 15 6RF Rx Instructions: Blood sugar 1 41-180 please take 4 units Blood sugar 181 220 please take 6 units Blood sugar 221-260 please take 8 units 261-300 please take 10 units 301-350 please take 12 units 350-400 please take 14units Greater 400 than 16 units atorvastatin 40 mg tablet 40 mg PO DAILY gabapentin 800 mg tablet 800 mg PO TID metformin 1,000 mg tablet 1,000 mg PO BID Lantus Solostar U-100 Insulin 100 unit/mL (3 mL) insulin pen 35 unit SUBCUT QPM propranolol 20 mg tablet 20 mg PO BID levocetirizine 5 mg tablet 5 mg PO DAILY Ozempic 2 mg/dose (8 mg/3 mL) pen injector 2 mg SUBCUT Q7D Discharge Orders: Discharge ED (Routine); Ordered 10/24/23 Ordered By: Hina Alba Referrals: Teddy Regan MD [Primary Care Provider] - Discharge Diet: Usual diet Discharge Activity: Increase activity as tolerated Patient Instructions: Abdominal Pain (ED), Opioid Safety, Pain Management Activity Restrictions/Additional Instructions: Thank you for choosing [facility] for your healthcare needs today. Please realize this is an emergency room and that we are providing you with a medical screening exam and this may not be complete and all inclusive of all the testing and or work up that you may need to determine your ailment or severity of your illness. You have been screened and evaluated and felt safe for discharge. Health conditions do change or evolve sometimes and as such it is important that you follow up with your Primary Doctor to be re checked, 3-5 days is a general good time frame for follow up. You are always welcome to return to the ED for re assessment if your symptoms are worsening or you have new concerns Coding Level of Care Code ED Outdoor Pursuits Instructor for Chg Fwd Documented by User: Hina Alba MD 10/24/23 18:50 HPI - Abdominal Pain 2 General: Chief Complaint: Abdominal Pain Stated Complaint: ABD Pain O2 Dropping Time Seen by Provider: 10/23/23 23:14 [facility] 2 PFSH: Medical History Elevated lactic acid level COVID Hyperglycemia due to diabetes mellitus 2018 novel coronavirus-infected pneumoni a (NCIP) Obstructive Sleep Apnea-Hypopnea Syndrome Urolithiasis Small left distal ureteral stone that required endoscopic stone manipulation for removal November 2020. Calculus of distal left ureter November 2020 4 mm stone required endoscopic removal. Temporary stented. Did well Thoracic degenerative disc disease Nicotine dependence with current use Chronic post-traumatic stress disorder (PTSD) chronic nightmares; anniversary date of accident coming up; able to wake up and go back to sleep afterward. She expresses no reports of hypervigilance, avoidance behavior, or intrusive thought process. Bipolar disorder, most recent episode depressed GERD (gastroesophageal reflux disease) Dysphasia Nasal septal deformity Chronic otitis externa Lumbar post-laminectomy syndrome Chronic bronchitis Tobacco abuse Sleep apnea Sebaceous cyst Asthmatic bronchitis Falls Right hip joint effusion Back pain Obesity Depression Otalgia Otitis externa Hyperlipemia Sleep apnea Tobacco abuse Surgical History Status post arthrodesis 01/18/2019 Dr. Kwame Torres Right SI joint. 05/05/2016 Left SI joint History of tonsillectomy and adenoidectomy History of cholecystectomy History of hysterectomy H/O spinal fusion 07/15/2015 Dr. Kwame Torres [place]: L5-S1 posterior laminectomy/fusion/fixation Family History Mother Diabetes Heart attack Lung disease Grandmother Diabetes Hypertension Lung disease Sister Diabetes Hypertension Father Heart attack Family/Other Heart attack Brother Hypertension Social History Quit status (tobacco/nicotine): considering quitting Second hand smoke exposure: Yes Alcohol intake: former Year of sobriety/quit date alcohol: 2017 Substance/Drug Use: never Lives independently: Yes Household members: none Marital status: Single Current occupational status: disabled Do you think of yourself as: Straight/Heterosexual Current gender identity: Female Course 2 Vital Signs: Vital signs: Vital Signs Temperature 98.1 F 10/23/23 22:45 Pulse Rate 89 10/24/23 02:50 Respiratory Rate 18 10/24/23 02:50 Blood Pressure 110/62 10/24/23 02:50 Pulse Oximetry 90 10/24/23 02:50 Oxygen Delivery Me thod Nasal Cannula 10/24/23 01:38 Oxygen Flow Rate 4 10/24/23 01:38 MDM - Abdominal Pain Medical Decision Making Patient presented for evaluation of left upper quadrant pain beginning today. Vitals on arrival unremarkable she was afebrile, though 92% on room air. She also states that she presented due to an O2 reading of 87% at home, history of obstructive sleep apnea on CPAP at night. Examination revealed she was mildly tender to palpation of the left upper quadrant, no CVA tenderness noted and clear to cardiopulmonary auscultation. Labs and imaging pending on transfer to ED physician, Dr. Alba, who kindly assumes care of patient. CT of the abdomen pelvis were negative. Patient is being discharged home Lab Data 10/24/23 00:43 10/24/23 00:43 Labs/Radiology: Radiology Impressions Chest X-Ray 10/24/23 00:08 IMPRESSION: Subtle opacities in the lung bases. Abdomen/Pelvis CT 10/24/23 00:41 IMPRESSION: 1. No bowel obstruction or inflammatory process associated with the bowel. 2. No free air or significant free fluid in the abdomen or pelvis. 3. No evidence of appendicitis. Laboratory Results WBC 10.72 10^3/uL (3.29-11.43) 10/24/23 00:43 RBC 5.76 10^6/uL (3.85-5.65) H 10/24/23 00:43 Hgb 15.20 g/dL (11.27-16.99) 10/24/23 00:43 Hct 47.9 % (36-47) H 10/24/23 00:43 MCV 83.2 fl (85-98) L 10/24/23 00:43 MCH 26.4 pg (27-33) L 10/24/23 00:43 MCHC 31.7 g/dL (30-55) 10/24/23 00:43 RDW 16.6 % (12.1-15.1) H 10/24/23 00:43 Plt Count 195 10^3/cmm (157-399) 10/24/23 00:43 MPV 11.4 fL (7.4-10.4) H 10/24/23 00:43 Neut % (Auto) 70.6 % 10/24/23 00:43 Lymph % (Auto) 21.5 % 10/24/23 00:43 [place] % (Auto) 4.7 % 10/24/23 00:43 Eos % (Auto) 2.2 % 10/24/23 00:43 Baso % (Auto) 0.5 % 10/24/23 00:43 Neut # (Auto) 7.58 10^3/uL (1.8-7.7) 10/24/23 00:43 Lymph # (Auto) 2.3 10^3/uL (0.8-4.8) 10/24/23 00:43 [place] # (Auto) 0.5 10^3/uL (0.2-0.9) 10/24/23 00:43 Eos # (Auto) 0.2 10^3/uL (0.0-0.8) 10/24/23 00:43 Baso # (Auto) 0.1 10^3/uL (0.0-0.1) 10/24/23 00:43 Nucleated RBC % (auto) 0 % 10/24/23 00:43 Nucleated RBCs # 0.0 /100WBC 10/24/23 00:43 Sodium 136 mmol/L (136-145) 10/24/23 00:43 Potassium 4.0 mmol/L (3.5-5.1) 10/24/23 00:43 Chloride 100 mmol/L (98-107) 10/24/23 00:43 Carbon Dioxide 22 mmol/L (22-29) 10/24/23 00:43 Anion Gap 18.0 (5-19) 10/24/23 00:43 BUN 10 mg/dL (6-20) 10/24/23 00:43 Creatinine 0.7 mg/dL (0.5-0.9) 10/24/23 00:43 GFR Calculation 93.2 mL/min (90-130) 10/24/23 00:43 Glucose 241 mg/dL (65-115) H 10/24/23 00:43 Calculated Osmolality 289 mOsm/kg (285-295) 10/24/23 00:43 Calcium 9.5 mg/dL (8.5-10.5) 10/24/23 00:43 Total Bilirubin 0.2 mg/dL (0.15-1.2) 10/24/23 00:43 AST 16 U/L (0-32) 10/24/23 00:43 ALT 29 U/L (0-33) 10/24/23 00:43 Alkaline Phosphatase 89 U/L (35-105) 10/24/23 00:43 Total Protein 7.4 g/dL (6.6-8.7) 10/24/23 00:43 Albumin 3.9 g/dL (3.5-5.2) 10/24/23 00:43 Globulin 3.5 g/dL (1.3-4.6) 10/24/23 00:43 Lipase 28 U/L (13-60) 10/24/23 00:43 HCG, Qual Negative (Negative) 10/24/23 00:43 Urine Color Yellow (Yellow) 10/24/23 00:43 Urine Appearance Clear (CLEAR) 10/24/23 00:43 Urine pH 5 (5-7) 10/24/23 00:43 Ur Specific [place] 1.020 (1.005-1.030) 10/24/23 00:43 Urine Protein Neg (Negative) 10/24/23 00:43 Urine Glucose (UA) Norm (Normal) 10/24/23 00:43 Urine Ketones Negative (Negative) 10/24/23 00:43 Urine Blood Neg (Negative) 10/24/23 00:43 Urine Nitrate Negative (Negative) 10/24/23 00:43 Urine Bilirubin Neg (Negative) 10/24/23 00:43 Urine Urobilinogen Neg mg/dL (Negative) 10/24/23 00:43 Ur Leukocyte Esterase Negative (Negative) 10/24/23 00:43 Discharge Plan Discharge Patient Disposition: Home Clinical Impression: Abdominal pain Condition: Stable Prescriptions: No Action Invega Sustenna 234 mg/1.5 mL syringe 234 mg IM Q30D Qty: 1.5 4RF bupropion HCl 300 mg tablet extended release 24 hr 300 mg PO QAM Qty: 30 1RF carbamazepine 200 mg capsule, ER multiphase 12 hr 200 mg PO BID Qty: 60 1RF hydroxyzine HCl 50 mg tablet 50 mg PO BID PRN (Reason: anxiety) Qty: 60 1RF glipizide 10 mg tablet 10 mg PO DAILY lisinopril 2.5 mg tablet 2.5 mg PO DAILY cyclobenzaprine 5 mg tablet 5 mg PO TID PRN (Reason: muscle spasm) Qty: 20 0RF doxepin 50 mg capsule 50 mg PO QPM benztropine 0.5 mg tablet 0.5 mg PO BID montelukast 10 mg tablet 10 mg PO QPM ondansetron 4 mg tablet,disintegrating 4 mg PO DAILY PRN (Reason: Nausea And Vomiting) escitalopram oxalate 20 mg tablet 20 mg PO DAILY quetiapine 400 mg tablet 400 mg PO QPM Linzess 145 mcg capsule 145 mcg PO EVERY OTHER DAY Breztri Aerosphere 160-9-4.8 mcg/actuation HFA aerosol inhaler 2 inh INHALATION BID insulin lispro [Humalog KwikPen Insulin] 100 unit/mL insulin pen See Rx Instructions .ROUTE .COMPLEX Qty: 15 6RF Rx Instructions: Blood sugar 1 41-180 please take 4 units Blood sugar 181 220 please take 6 units Blood sugar 221-260 please take 8 units 261-300 please take 10 units 301-350 please take 12 units 350-400 please take 14units Greater 400 than 16 units atorvastatin 40 mg tablet 40 mg PO DAILY gabapentin 800 mg tablet 800 mg PO TID metformin 1,000 mg tablet 1,000 mg PO BID Lantus Solostar U-100 Insulin 100 unit/mL (3 mL) insulin pen 35 unit SUBCUT QPM propranolol 20 mg tablet 20 mg PO BID levocetirizine 5 mg tablet 5 mg PO DAILY Ozempic 2 mg/dose (8 mg/3 mL) pen injector 2 mg SUBCUT Q7D Discharge Orders: Discharge ED (Routine); Ordered 10/24/23 Ordered By: Hina Alba Referrals: Teddy Regan MD [Primary Care Provider] - Discharge Diet: Usual diet Discharge Activity: Increase activity as tolerated Patient Instructions: Abdominal Pain (ED), Opioid Safety, Pain Management Activity Restrictions/Additional Instructions: Thank you for choosing [facility] for your healthcare needs today. Please realize this is an emergency room and that we are providing you with a medical screening exam and this may not be complete and all inclusive of all the testing and or work up that you may need to determine your ailment or severity of your illness. You have been screened and evaluated and felt safe for discharge. Health conditions do change or evolve sometimes and as such it is important that you follow up with your Primary Doctor to be re checked, 3-5 days is a general good time frame for follow up. You are always welcome to return to the ED for re assessment if your symptoms are worsening or you have new concerns Coding Level of Care Code ED Outdoor Pursuits Instructor for Mario Santiago
[2023-10-24] MEDS: ketorolac 60 mg/2 mL INJ 30 MG IVP (00:38)
[2023-10-24] MEDS: sodium chloride 0.9% 1,000 ML 999 ML IV (00:38)
[2023-10-24] MEDS: metoclopramide 5 mg/mL SDV 2 mL 10 MG IVP (00:38)
--- NOTE | 2023-10-24 00:41 | CTR_ITS ---
PROCEDURE INFORMATION: Exam: CT Abdomen And Pelvis With Contrast Exam date and time: 10/24/2023 1:00 AM Age: 38 years old Clinical indication: Abdominal pain; Prior surgery; Surgery date: 6+ months; Surgery type: Gb, hyst, spinal fusion; Additional info: Luq pain TECHNIQUE: Imaging protocol: Computed tomography of the abdomen and pelvis with contrast. Radiation optimization: All CT scans at this facility use at least one of these dose optimization techniques: automated exposure control; mA and/or kV adjustment per patient size (includes targeted exams where dose is matched to clinical indication); or iterative reconstruction. Contrast material: OMNI 350; Contrast volume: 100 ml; Contrast route: INTRAVENOUS (IV); COMPARISON: [facility] INITIAL [id number] 10/09/2023 3:53 PM RADIATION DOSE METRICS: Total DLP (mGy-cm): 1061.3 FINDINGS: Liver: Normal. No mass. Gallbladder and bile ducts: The gallbladder is not visualized. Pancreas: Normal. No ductal dilation. Spleen: Normal. No splenomegaly. Adrenal glands: Normal. No mass. Kidneys and ureters: Normal. No hydronephrosis. Stomach and bowel: Unremarkable. No obstruction. No mucosal thickening. Appendix: No evidence of appendicitis. Intraperitoneal space: Unremarkable. No free air. No significant fluid collection. Vasculature: Unremarkable. No abdominal aortic aneurysm. Lymph nodes: Unremarkable. No enlarged lymph nodes. Urinary bladder: Unremarkable as visualized. Reproductive: Unremarkable as visualized. Bones/joints: Posterior fusion at L5-S1 without evidence of hardware failure or loosening. Soft tissues: Unremarkable. CT/CT abdomen pelvis w con* [id number] IMPRESSION: 1. No bowel obstruction or inflammatory process associated with the bowel. 2. No free air or significant free fluid in the abdomen or pelvis. 3. No evidence of appendicitis.
[2023-10-24 00:48] LABS: Add Urine Microscopic? NO; Charge for UA Resulting for Rev
[2023-10-24 00:51] LABS: Basophils # 0.1 10^3/uL (0.0-0.1); Basophils % 0.5 %; Eosinophils # 0.2 10^3/uL (0.0-0.8); Eosinophils % 2.2 %; Hematocrit 47.9 % (36-47); Lymphocytes # 2.3 10^3/uL (0.8-4.8); Lymphocytes % 21.5 %; Mean Corpuscular HGB Conc 31.7 g/dL (30-55); Mean Corpuscular Hemoglobin 26.4 pg (27-33); Mean Corpuscular Volume 83.2 fl (85-98); Mean Platelet Volume 11.4 fL (7.4-10.4); Monocytes # 0.5 10^3/uL (0.2-0.9); Monocytes % 4.7 %; Neutrophils # 7.58 10^3/uL (1.8-7.7); Neutrophils % 70.6 %; Nucleated Red Blood Cells % 0 %; Platelet Count 195 10^3/cmm (157-399); Red Blood Count 5.76 10^6/uL (3.85-5.65); Red Cell Distribution Width 16.6 % (12.1-15.1); White Blood Count 10.72 10^3/uL (3.29-11.43)
[2023-10-24 01:00] LABS: Blood Urine Neg (Negative); Glucose Urine UA Norm (Normal); HCG, Serum Qual Negative (Negative); Ketones Urine Negative (Negative); Protein Urine Neg (Negative); Urine Appearance Clear (CLEAR); Urine Color Yellow (Yellow); pH Urine 5 (5-7)
[2023-10-24 01:01] LABS: Bilirubin Urine Neg (Negative); Leukocyte Esterase Urine Negative (Negative); Nitrate Urine Negative (Negative); Urobilinogen Urine Neg (Negative)
[2023-10-24] MEDS: iohexol 350 mg/mL 500 mL Btl (per mL) IV (01:03)
[2023-10-24 01:05] LABS: Alanine Aminotransferase 29 U/L (0-33); Albumin Level 3.9 g/dL (3.5-5.2); Alkaline Phosphatase 89 U/L (35-105); Aspartate Amino Transferase 16 U/L (0-32); Blood Urea Nitrogen 10 mg/dL (6-20); Calcium 9.5 mg/dL (8.5-10.5); Carbon Dioxide 22 mmol/L (22-29); Chloride 100 mmol/L (98-107); Creatinine Clr Calc Pharmacy 135.1538; Globulin 3.5 g/dL (1.3-4.6); Glomerular Filtration Rate 93.2 mL/min (90-130); Glucose 241 mg/dL (65-115); Lipase 28 U/L (13-60); Osmolality Calculated 289 mOsm/kg (285-295); Sodium 136 mmol/L (136-145); Total Bilirubin 0.2 mg/dL (0.15-1.2); Total Protein 7.4 g/dL (6.6-8.7)
[2023-10-24 01:38] VITALS: BP 112/62; PULSE 99; RESP 16; O2SAT 87
--- NOTE | 2023-10-24 01:51 | PC.NURSE ---
Upon patient resting, vitals were obtained and O2 was found in the mid 80s. Patient does report being a smoker, as well as having sleep apnea. Patient was placed on nasal cannula and O2 saturations increased.
[2023-10-24 02:50] VITALS: BP 110/62; PULSE 89; RESP 18; O2SAT 90
== END 2023-10-24 02:46 | disposition home or self-care (01) ==
PROVIDERS: Physician Assistant; Emergency Provider Emergency Medicine; PCP Family Medicine
DX: R10.12 Left upper quadrant pain (principal); Z79.84 Long term (current) use of oral hypoglycemic drugs; Z79.4 Long term (current) use of insulin; Z79.85 Long-term (current) use of injectable non-insulin antidiabetic drugs; E11.9 Type 2 diabetes mellitus without complications; E78.5 Hyperlipidemia, unspecified; Z77.22 Contact with and (suspected) exposure to environmental tobacco smoke (acute) (chronic)
CPT/HCPCS: 71045; 74177; 80053; 81003; 83690; 84703; 85025; 96361; 96374; 96375; 99285; J1885; J2765; J7030; Q9967

== ENCOUNTER 2023-10-25 07:37 | Outpatient (CLI) | payer MEDICARE, OTHER, SELFPAY ==
[2023-10-25 08:00] VITALS: PULSE 91; RESP 18; O2SAT 93
[2023-10-25] MEDS: albuterol 2.5 mg/3 mL Neb INHALATION (08:00)
[2023-10-25 08:05] VITALS: PULSE 95
== END 2023-10-25 07:38 | disposition home or self-care (01) ==
LOC: RT 07:38
PROVIDERS: PCP Family Medicine; Visit Provider Family Medicine
DX: G47.33 Obstructive sleep apnea (adult) (pediatric) (principal)
CPT/HCPCS: 94060; J7613

== ENCOUNTER 2023-12-29 23:25 | Emergency (ER) | payer MEDICARE, OTHER, SELFPAY ==
[2023-12-29 23:42] VITALS: BP 118/78; PULSE 112; RESP 17; TEMP 36.8; O2SAT 88; BMI 34.0
--- NOTE | 2023-12-30 00:23 | W.ED.NAVMDI ---
HPI - Nausea/Vomiting/Diarrhea General: Chief complaint: Nausea/Vomiting/Diarrhea Stated complaint: n/v 3 days+ jaw pain seizures Time Seen by Provider: 12/29/23 23:50 History of Present Illness: Patient presents emerged part with complaint of nausea and vomiting and diarrhea x 3 days after starting Ozempic. She had been on Ozempic before and it stopped it for 4 months and then started again on Sunday. She took a 2 mg dose. She states that about 10 minutes afterwards she started to have symptoms. She states that she has had the nausea and vomiting and diarrhea and abdominal cramping since then. She has had 2 seizures which she has had since 2018. PFS ED PFSH: Medical History Elevated lactic acid level COVID Hyperglycemia due to diabetes mellitus 2018 novel coronavirus-infected pneumonia (NCIP) Obstructive Sleep Apnea-Hypopnea Syndrome Urolithiasis Small left distal ureteral stone that required endoscopic stone manipulation for removal November 2020. Calculus of distal left ureter November 2020 4 mm stone required endoscopic removal. Temporary stented. Did well Thoracic degenerative disc disease Nicotine dependence with current use Chronic post-traumatic stress disorder (PTSD) chronic nightmares; anniversary date of accident coming up; able to wake up and go back to sleep afterward. She expresses no reports of hypervigilance, avoidance behavior, or intrusive thought process. Bipolar disorder, most recent episode depressed GERD (gastroesophageal reflux disease) Dysphasia Nasal septal deformity Chronic otitis externa Lumbar post-laminectomy syndrome Chronic bronchitis Tobacco abuse Sleep apnea Sebaceous cyst Asthmatic bronchitis Falls Right hip joint effusion Back pain Obesity Depression Otalgia Otitis externa Hyperlipemia Sleep apnea Tobacco abuse Surgical History Status post arthrodesis 01/18/2019 Dr. Kwame Torres Right SI joint. 05/05/2016 Left SI joint History of tonsillectomy and adenoidectomy History of cholecystectomy History of hysterectomy H/O spinal fusion 07/15/2015 Dr. Kwame Torres [place]: L5-S1 posterior laminectomy/fusion/fixation Family History Mother Diabetes Heart attack Lung disease Grandmother Diabetes Hypertension Lung disease Sister Diabetes Hypertension Father Heart attack Family/Other Heart attack Brother Hypertension Social History Quit status (tobacco/nicotine): considering quitting Second hand smoke exposure: Yes Alcohol intake: former Year of sobriety/quit date alcohol: 2018 Substance/Drug Use: never Lives independently: Yes Household members: none Marital status: Single Current occupational status: disabled Do you think of yourself as: Straight/Heterosexual Current gender identity: Female Physical Exam Const: COMMON NORMALS: no acute distress Eye: COMMON NORMALS: Equal, round and reactive pupils present and EOMs intact bilaterally PUPIL: Yes Equal, round and reactive pupils present Resp: COMMON NORMALS: normal respiratory effort Cardio: COMMON NORMALS: regular rate and regular rhythm RATE: regular rate RHYTHM: regular rhythm GI: COMMON NORMALS: Soft to palpation; negative for non-tender (Mild tenderness to the midepigastric region) PALPATION: Yes Soft to palpation Course Vital Signs: Vital signs: Vital Signs Temperature 98.3 F 12/29/23 23:42 Pulse Rate 112 H 12/29/23 23:42 Respiratory Rate 17 12/29/23 23:42 Blood Pressure 118/78 12/29/23 23:42 Pulse Oximetry 88 L 12/29/23 23:42 Oxygen Delivery Me thod Room Air 12/29/23 23:42 MDM - Nausea/Vomiting/Diarrhea Medical Decision Making Patient presents emerged part with complaint of nausea vomiting and diarrhea that started after taking 2 mg of Ozempic. Discussed with the patient that this is most likely her symptoms. Typically we would not start the 2 mg dose and this can cause a lot of GI upset. Patient states she is feeling much better after IV fluids and Zofran. Patient is able to tolerate p.o. intake here in the emergency department. Patient with some mild midepigastric tenderness but no right lower quadrant or right upper quadrant pain. Denies any indication for further imaging or workup at this time. Patient discharged home with Zofran ODT. Lab Data 12/30/23 00:15 12/30/23 00:15 Laboratory Results WBC 13.93 10^3/uL (3.29-11.43) H 12/30/23 00:15 RBC 5.66 10^6/uL (3.85-5.65) H 12/30/23 00:15 Hgb 15.00 g/dL (11.27-16.99) 12/30/23 00:15 Hct 47.7 % (36-47) H 12/30/23 00:15 MCV 84.3 fl (85-98) L 12/30/23 00:15 MCH 26.5 pg (27-33) L 12/30/23 00:15 MCHC 31.4 g/dL (30-55) 12/30/23 00:15 RDW 15.5 % (12.1-15.1) H 12/30/23 00:15 Plt Count 205 10^3/cmm (157-399) 12/30/23 00:15 MPV 11.2 fL (7.4-10.4) H 12/30/23 00:15 Neut % (Auto) 73.1 % 12/30/23 00:15 Lymph % (Auto) 18.8 % 12/30/23 00:15 [place] % (Auto) 4.6 % 12/30/23 00:15 Eos % (Auto) 2.3 % 12/30/23 00:15 Baso % (Auto) 0.6 % 12/30/23 00:15 Neut # (Auto) 10.18 10^3/uL (1.8-7.7) H 12/30/23 00:15 Lymph # (Auto) 2.6 10^3/uL (0.8-4.8) 12/30/23 00:15 [place] # (Auto) 0.6 10^3/uL (0.2-0.9) 12/30/23 00:15 Eos # (Auto) 0.3 10^3/uL (0.0-0.8) 12/30/23 00:15 Baso # (Auto) 0.1 10^3/uL (0.0-0.1) 12/30/23 00:15 Nucleated RBC % (auto) 0 % 12/30/23 00:15 Nucleated RBCs # 0.0 /100WBC 12/30/23 00:15 Sodium 135 mmol/L (136-145) L 12/30/23 00:15 Potassium 3.6 mmol/L (3.5-5.1) 12/30/23 00:15 Chloride 94 mmol/L (98-107) L 12/30/23 00:15 Carbon Dioxide 25 mmol/L (22-29) 12/30/23 00:15 Anion Gap 19.6 (5-19) H 12/30/23 00:15 BUN 7 mg/dL (6-20) 12/30/23 00:15 Creatinine 0.5 mg/dL (0.5-0.9) 12/30/23 00:15 GFR Calculation 137.4 mL/min (90-130) H 12/30/23 00:15 Glucose 196 mg/dL (65-115) H 12/30/23 00:15 Calculated Osmolality 283 mOsm/kg (285-295) L 12/30/23 00:15 Calcium 9.6 mg/dL (8.5-10.5) 12/30/23 00:15 Total Bilirubin 0.4 mg/dL (0.15-1.2) 12/30/23 00:15 AST 69 U/L (0-32) H 12/30/23 00:15 ALT 67 U/L (0-33) H 12/30/23 00:15 Alkaline Phosphatase 82 U/L (35-105) 12/30/23 00:15 Total Protein 7.6 g/dL (6.6-8.7) 12/30/23 00:15 Albumin 4.3 g/dL (3.5-5.2) 12/30/23 00:15 Globulin 3.3 g/dL (1.3-4.6) 12/30/23 00:15 Lipase 25 U/L (13-60) 12/30/23 00:15 No radiology studies performed this visit Discharge Plan Discharge Patient Disposition: Home Clinical Impression: Drug-induced nausea and vomiting Condition: Stable Prescriptions: New ondansetron 4 mg tablet,disintegrating 4 mg PO Q8H 5 Days Qty: 15 0RF No Action Invega Sustenna 234 mg/1.5 mL syringe 234 mg IM Q30D Qty: 1.5 4RF bupropion HCl 300 mg tablet extended release 24 hr 300 mg PO QAM Qty: 30 1RF carbamazepine 200 mg capsule, ER multiphase 12 hr 200 mg PO BID Qty: 60 1RF hydroxyzine HCl 50 mg tablet 50 mg PO BID PRN (Reason: anxiety) Qty: 60 1RF glipizide 10 mg tablet 10 mg PO DAILY lisinopril 2.5 mg tablet 2.5 mg PO DAILY cyclobenzaprine 5 mg tablet 5 mg PO TID PRN (Reason: muscle spasm) Qty: 20 0RF doxepin 50 mg capsule 50 mg PO QPM benztropine 0.5 mg tablet 0.5 mg PO BID montelukast 10 mg tablet 10 mg PO QPM ondansetron 4 mg tablet,disintegrating 4 mg PO DAILY PRN (Reason: Nausea And Vomiting) escitalopram oxalate 20 mg tablet 20 mg PO DAILY quetiapine 400 mg tablet 400 mg PO QPM Linzess 145 mcg capsule 145 mcg PO EVERY OTHER DAY Breztri Aerosphere 160-9-4.8 mcg/actuation HFA aerosol inhaler 2 inh INHALATION BID insulin lispro [Humalog KwikPen Insulin] 100 unit/mL insulin pen See Rx Instructions .ROUTE .COMPLEX Qty: 15 6RF Rx Instructions: Blood sugar 1 41-180 please take 4 units Blood sugar 181 220 please take 6 units Blood sugar 221-260 please take 8 units 261-300 please take 10 units 301-350 please take 12 units 350-400 please take 14units Greater 400 than 16 units atorvastatin 40 mg tablet 40 mg PO DAILY gabapentin 800 mg tablet 800 mg PO TID metformin 1,000 mg tablet 1,000 mg PO BID Lantus Solostar U-100 Insulin 100 unit/mL (3 mL) insulin pen 35 unit SUBCUT QPM propranolol 20 mg tablet 20 mg PO BID levocetirizine 5 mg tablet 5 mg PO DAILY Ozempic 2 mg/dose (8 mg/3 mL) pen injector 2 mg SUBCUT Q7D Discharge Orders: Discharge ED (Routine); Ordered 12/30/23 Ordered By: Kurt Turner Referrals: Teddy Rgean MD [Primary Care Provider] - Discharge Diet: Advance as tolerated Discharge Activity: Resume usual activity Patient Instructions: Opioid Safety, Pain Management Activity Restrictions/Additional Instructions: Drink plenty of fluids. Wait a least 1 week before starting Ozempic again and this time started 0.25 mg weekly for 4 weeks and double every 4 weeks from there until you reach your desired dosage. Coding Level of Care Code ED Care Information Associate for Mario Santiago
[2023-12-30 00:28] LABS: Basophils # 0.1 10^3/uL (0.0-0.1); Basophils % 0.6 %; Eosinophils # 0.3 10^3/uL (0.0-0.8); Eosinophils % 2.3 %; Hematocrit 47.7 % (36-47); Lymphocytes # 2.6 10^3/uL (0.8-4.8); Lymphocytes % 18.8 %; Mean Corpuscular HGB Conc 31.4 g/dL (30-55); Mean Corpuscular Hemoglobin 26.5 pg (27-33); Mean Corpuscular Volume 84.3 fl (85-98); Mean Platelet Volume 11.2 fL (7.4-10.4); Monocytes # 0.6 10^3/uL (0.2-0.9); Monocytes % 4.6 %; Neutrophils # 10.18 10^3/uL (1.8-7.7); Neutrophils % 73.1 %; Nucleated Red Blood Cells % 0 %; Platelet Count 205 10^3/cmm (157-399); Red Blood Count 5.66 10^6/uL (3.85-5.65); Red Cell Distribution Width 15.5 % (12.1-15.1); White Blood Count 13.93 10^3/uL (3.29-11.43)
[2023-12-30 00:31] VITALS: BP 110/76; PULSE 103; O2SAT 100
[2023-12-30 00:39] LABS: Alanine Aminotransferase 67 U/L (0-33); Albumin Level 4.3 g/dL (3.5-5.2); Alkaline Phosphatase 82 U/L (35-105); Aspartate Amino Transferase 69 U/L (0-32); Blood Urea Nitrogen 7 mg/dL (6-20); Calcium 9.6 mg/dL (8.5-10.5); Carbon Dioxide 25 mmol/L (22-29); Chloride 94 mmol/L (98-107); Creatinine Clr Calc Pharmacy 188.3501; Globulin 3.3 g/dL (1.3-4.6); Glomerular Filtration Rate 137.4 mL/min (90-130); Glucose 196 mg/dL (65-115); Osmolality Calculated 283 mOsm/kg (285-295); Sodium 135 mmol/L (136-145); Total Bilirubin 0.4 mg/dL (0.15-1.2); Total Protein 7.6 g/dL (6.6-8.7)
[2023-12-30 00:46] LABS: Lipase 25 U/L (13-60)
[2023-12-30 00:47] LABS: Anion Gap 19.6 (5-19); Potassium 3.6 mmol/L (3.5-5.1)
[2023-12-30] MEDS: ondansetron 2 mg/ML SDV 2 mL 4 MG IVP (00:48)
[2023-12-30] MEDS: ketorolac 30 mg/mL INJ 15 MG IVP (00:48)
[2023-12-30] MEDS: sodium chloride 0.9% 1,000 ML 999 ML IV (00:48)
[2023-12-30 01:01] VITALS: BP 117/69; PULSE 108; O2SAT 92
[2023-12-30 01:31] VITALS: BP 115/67; PULSE 106; O2SAT 100
== END 2023-12-30 01:49 | disposition home or self-care (01) ==
PROVIDERS: Emergency Provider Emergency Medicine; PCP Family Medicine
DX: R11.2 Nausea with vomiting, unspecified (principal); Z79.84 Long term (current) use of oral hypoglycemic drugs; Z79.4 Long term (current) use of insulin; Z79.85 Long-term (current) use of injectable non-insulin antidiabetic drugs; Z77.22 Contact with and (suspected) exposure to environmental tobacco smoke (acute) (chronic); E11.9 Type 2 diabetes mellitus without complications; E78.5 Hyperlipidemia, unspecified
CPT/HCPCS: 80053; 83690; 85025; 96374; 96375; 99284; J1885; J2405; J7030

== ENCOUNTER 2024-01-17 13:08 | Outpatient (CLI) | payer MEDICARE, OTHER, SELFPAY ==
--- NOTE | 2024-01-17 13:12 | USCV_ITS ---
Mare Cody Age: 38 Gender: F : 1985 Exam Date: 01/17/2024 13:47 Ordering Phys: Teddy Regan MD Technologist: LEAH Exam Location: [facility] [place] Indication: Suspected PHTN BP: / HR: 84 Rhythm: Sinus Technical Quality: Adequate MEASUREMENTS (Male / Female) Normal Values 2D ECHO LV Diastolic Diameter PLAX 4.2 cm 4.2 - 5.9 / 3.9 - 5.3 cm LV Systolic Diameter PLAX 3.2 cm IVS Diastolic Thickness 0.8 cm 0.6 - 1.0 / 0.6 - 0.9 cm IVS Systolic Thickness 1.6 cm LVPW Diastolic Thickness 1.2 cm 0.6 - 1.0 / 0.6 - 0.9 cm LVPW Systolic Thickness 1.7 cm LVOT Diameter 2.1 cm LV Ejection Fraction 2D Teich 48.6 % LV Ejection Fraction MOD 4C 66.7 % LV Ejection Fraction MOD 2C 44.6 % LV Ejection Fraction 2C AL 48.7 % LA Diameter 3.6 cm RA Systolic Volume 4C AL 22.2 ml RA Systolic Volume 4C MOD 21.5 ml LA Sys Volume AL 31.6 cm cubed LA Sys Volume Index AL 14.0 cm cubed/m squared Aorta at Sinotubular Diameter 2.6 cm IVC Diameter 1.9 cm M-MODE LA Ao Ratio MM 1.5 AV Cusp Separation MM 2.0 cm DOPPLER AV Peak Velocity 154.0 cm/s LVOT Peak Velocity 93.0 cm/s AV Area Cont Eq vti 2.7 cm squared AV Area Cont Eq pk 2.1 cm squared MV Area PHT 6.4 cm squared Mitral E to A Ratio 1.0 TV Peak Velocity 105.5 cm/s TR Peak Velocity 124.0 cm/s TR Peak Gradient 6.2 mmHg TR Mean Velocity 81.0 cm/s TR Mean Gradient 3.2 mmHg TR Velocity Time Integral 28.2 cm TV Peak E Velocity 76.0 cm/s PV Peak Velocity 110.0 cm/s FINDINGS Left Ventricle Left ventricle is normal in size. LV systolic function is normal with EF 55 to 60%. No regional wall motion abnormalities are seen. Right Ventricle Normal in size and function Right Atrium Normal in size Left Atrium Normal in size Mitral Valve Structurally normal mitral valve. Aortic Valve Structurally normal aortic valve. No significant stenosis or regurgitation. Tricuspid Valve Mild tricuspid regurgitation. Insufficient TR jet to calculate RVSP. Pulmonic Valve Mild pulmonic regurgitation. Pericardium Normal Aorta Normal IVC Appears to be normal. CONCLUSIONS LV systolic function is normal with EF of 55-60% Mild tricuspid regurgitation Mild pulmonic regurgitation Compared to prior echocardiogram from 2019, no significant changes are seen. Naldo Danielle MD (Electronically Signed) Final Date: 19 January 2024 18:22 S
== END 2024-01-17 13:09 | disposition home or self-care (01) ==
LOC: RAD 13:09
PROVIDERS: PCP Family Medicine; Visit Provider Family Medicine
DX: I07.1 Rheumatic tricuspid insufficiency (principal); I37.1 Nonrheumatic pulmonary valve insufficiency; R23.8 Other skin changes; J43.9 Emphysema, unspecified
CPT/HCPCS: 93306

== ENCOUNTER 2024-09-04 10:37 | Outpatient (CLI) | payer OTHER, SELFPAY ==
--- NOTE | 2024-09-04 10:45 | XR_ITS ---
WS: [id number] Exam: XR hip RT 2-3V wo/w pel* [id number] Date/Time of Exam: 09/04/2024 11:04 AM Reason For Exam: R HIP PAIN Comparison 08/03/2023. No fracture. Minimal DJD of the acetabulum. The joint compartment is relatively well-maintained. Unremarkable soft tissues. Fusion hardware at the L5-S1 level and screws bridge of the RIGHT SI joint. XR/XR hip RT 2-3V wo/w pel* [id number] IMPRESSION: 1. Minimal DJD of the RIGHT hip. No fracture or other significant finding.
== END 2024-09-04 10:38 | disposition home or self-care (01) ==
PROVIDERS: PCP Family Medicine; Visit Provider Family Medicine
DX: M25.551 Pain in right hip (principal); Z98.1 Arthrodesis status
CPT/HCPCS: 73502

== ENCOUNTER 2024-09-08 10:52 | Outpatient (CLI) | payer OTHER, SELFPAY ==
--- NOTE | 2024-09-08 10:55 | MM_ITS ---
WS: [id number] BILATERAL SCREENING DIGITAL TOMOSYNTHESIS MAMMOGRAM WITH CAD HISTORY: SCREENING COMPARISON: None. Bilateral CC and MLO views with tomosynthesis and synthetic mammography submitted. Computer aided detection analyzed. Breast composition: There are scattered areas of fibroglandular density. No suspicious masses, microcalcifications or architectural distortion. MM/MM scr BI tomosynthesis [id number] IMPRESSION: BI-RADS: 1 - Negative. FOLLOW UP: 1 Year Follow-up
== END 2024-09-08 10:53 | disposition home or self-care (01) ==
PROVIDERS: PCP Family Medicine; Visit Provider Family Medicine
DX: Z12.31 Encounter for screening mammogram for malignant neoplasm of breast (principal); R92.323 Mammographic fibroglandular density, bilateral breasts
CPT/HCPCS: 77063; 77067

== ENCOUNTER 2024-09-16 22:25 | Emergency (ER) | payer OTHER, SELFPAY ==
[2024-09-16 22:28] VITALS: BP 120/70; PULSE 106; RESP 20; TEMP 36.6; BMI 34.7
--- NOTE | 2024-09-16 22:45 | CTR_ITS ---
PROCEDURE INFORMATION: Exam: CT Abdomen With Contrast Exam date and time: 09/16/2024 11:18 PM Age: 39 years old Clinical indication: Abdominal tenderness; Prior surgery; Surgery date: 6+ months; Surgery type: Lumbar fusion; Additional info: Rlq abd pain TECHNIQUE: Imaging protocol: Computed tomography of the abdomen with contrast. Radiation optimization: All CT scans at this facility use at least one of these dose optimization techniques: automated exposure control; mA and/or kV adjustment per patient size (includes targeted exams where dose is matched to clinical indication); or iterative reconstruction. Contrast material: OMNI 350; Contrast volume: 100 ml; Contrast route: INTRAVENOUS (IV); COMPARISON: CT abdomen pelvis w con* [id number] 10/24/2023 1:00 AM RADIATION DOSE METRICS: Total DLP (mGy-cm): 1064.43 FINDINGS: Lungs: Multiple bilateral lower lobe lung nodules for example right lower lobe 8 mm. These are similar to September 2023. Liver: 25.6 cm hepatomegaly. Gallbladder and biliary ducts: Absent gallbladder. Pancreas: Normal. No ductal dilation. Spleen: 17.1 cm splenomegaly. Adrenal glands: Normal. No mass. Kidneys: Normal. No hydronephrosis. Stomach and bowel: Small fecal load. Questionable mild wall thickening of the distal colon including the sigmoid and rectum, with mild surrounding fat stranding. No bowel obstruction. Appendix: Normal appendix. Intraperitoneal space: Unremarkable. No free air. No significant fluid collection. Vasculature: Unremarkable. No abdominal aortic aneurysm. Lymph nodes: Mildly enlarged left inguinal lymph nodes measuring up to 1.8 cm, new from September 2023. Bones/joints: Lumbosacral and pelvic hardware. T10 lytic bone lesion most suggestive of a hemangioma. Soft tissues: Unremarkable. CT/CT abdomen w con* [id number] IMPRESSION: 1. Findings suggestive of distal colitis. Correlate clinically. 2. Hepatosplenomegaly. 3. Mildly enlarged left inguinal lymph nodes. These could be inflammatory or malignant. 4. Bilateral lower lung nodules similar to prior exams. Recommend follow-up CT in 12 months as per Fleischner society guidelines.
--- NOTE | 2024-09-16 22:46 | W.ED.ABDPA2 ---
HPI - Abdominal Pain General: Chief Complaint: Abdominal Pain Stated Complaint: ABD Pain\V Time Seen by Provider: 09/16/24 22:37 Source: patient Mode of arrival: ambulatory Limitations: no limitations History of Present Illness: 39yo female presents with family for evaluation of right lower quadrant abdominal pain that started yesterday and has worsened significantly since 1600 today. Patient reports she thought she was constipated, so took one of her mother's Linzess. States the pain is worse when she is moving or standing, decreased when she is bent over. Patient reports she attempted to eat at approximately 1400 this afternoon, but vomited all of the food. She also tried to drink a soda this evening, but vomited it as well. States that she did take some ibuprofen around 1415 due to to feeling as if she had a fever. Patient reports previous abdominal surgeries of cholecystectomy and hysterectomy. She is unsure if she still has an ovary. She denies cough, congestion, difficulty breathing, shortness of breath, chest pain, dysuria. Associated Symptoms: Reports chills, fever(s) (Subjective), nausea and vomiting Related Data Home Medications ?Medication ?Instructions ?Recorded ?Confirmed glipizide 10 mg tablet 10 mg PO DAILY 08/14/19 02/16/24 lisinopril 2.5 mg tablet 2.5 mg PO DAILY 12/07/20 02/16/24 doxepin 50 mg capsule 50 mg PO QPM 06/26/23 02/16/24 escitalopram oxalate 20 mg tablet 20 mg PO DAILY 06/26/23 02/16/24 linaclotide 145 mcg capsule 145 mcg PO EVERY OTHER DAY 06/26/23 02/16/24 (Linzess) montelukast 10 mg tablet 10 mg PO QPM 06/26/23 02/16/24 ondansetron 4 mg disintegrating 4 mg PO DAILY PRN Nausea And 06/26/23 02/16/24 tablet Vomiting quetiapine 400 mg tablet 400 mg PO QPM 06/26/23 02/16/24 atorvastatin 40 mg tablet 40 mg PO DAILY 09/21/23 02/16/24 gabapentin 800 mg tablet 800 mg PO TID 09/21/23 02/16/24 insulin glargine 100 unit/mL (3 35 unit SUBCUT QPM 09/21/23 02/16/24 mL) subcutaneous pen (Lantus Solostar U-100 Insulin) levocetirizine 5 mg tablet 5 mg PO DAILY 09/21/23 02/16/24 metformin 1,000 mg tablet 1,000 mg PO BID 09/21/23 02/16/24 propranolol 20 mg tablet 20 mg PO BID 09/21/23 02/16/24 semaglutide 2 mg/dose (8 mg/3 mL) 2 mg SUBCUT Q7D 09/21/23 02/16/24 subcutaneous pen injector (Ozempic) Previous Rx's ?Medication ?Instructions ?Recorded paliperidone palmitate 234 mg/1.5 234 mg (1.5 mL) IM Q30D #1.5 mL 06/02/19 mL intramuscular syringe (Care at [facility]) bupropion HCl 300 mg 24 hr tablet, 300 mg PO QAM #30 tabs 09/08/19 extended release carbamazepine 200 mg 200 mg PO BID #60 caps 09/08/19 capsule,extended release [id number] hydroxyzine HCl 50 mg tablet 50 mg PO BID PRN anxiety #60 tabs 09/08/19 insulin lispro 100 unit/mL See Rx Instructions .Route 06/26/23 subcutaneous pen (Humalog KwikPen .COMPLEX #15 mL (U-100) Insulin) cyclobenzaprine 5 mg tablet 5 mg PO TID PRN muscle spasm #20 07/11/23 tabs amoxicillin 875 mg-potassium 1 tab PO BID #20 tabs 09/17/24 clavulanate 125 mg tablet ketorolac 10 mg tablet 10 mg PO Q6H PRN pain 5 days #20 09/17/24 tabs ondansetron 4 mg disintegrating 4 mg PO Q8H PRN nausea and 09/17/24 tablet vomiting #20 tabs Allergies Allergy/AdvReac Type Severity Reaction Status Date / Time azithromycin Allergy Severe ALGY-Hives Verified 09/16/24 22:37 milk AdvReac Mild ADR-Diarrhe Verified 09/16/24 22:37 a clindamycin AdvReac Unknown ALGY-Hives Verified 09/16/24 22:37 hydromorphone (From Dilaudid) AdvReac Unknown ALGY-Difficulty Verified 09/16/24 22:37 Breathing venom-wasp AdvReac Unknown ALGY-Hives Verified 09/16/24 22:37 Review of Systems Const: Reports: fever(s) (Subjective) and chills Card: Denies: chest pain Resp: Denies: dyspnea GI: Reports: abdominal pain, nausea and vomiting : Denies: difficulty voiding PFSH ED PFSH: Medical History Elevated lactic acid level COVID Hyperglycemia due to diabetes mellitus 2018 novel coronavirus-infected pneumonia (NCIP) Obstructive Sleep Apnea-Hypopnea Syndrome Urolithiasis Small left distal ureteral stone that required endoscopic stone manipulation for removal November 2020. Calculus of distal left ureter November 2020 4 mm stone required endoscopic removal. Temporary stented. Did well Thoracic degenerative disc disease Nicotine dependence with current use Chronic post-traumatic stress disorder (PTSD) chronic nightmares; anniversary date of accident coming up; able to wake up and go back to sleep afterward. She expresses no reports of hypervigilance, avoidance behavior, or intrusive thought process. Bipolar disorder, most recent episode depressed GERD (gastroesophageal reflux disease) Dysphasia Nasal septal deformity Chronic otitis externa Lumbar post-laminectomy syndrome Chronic bronchitis Tobacco abuse Sleep apnea Sebaceous cyst Asthmatic bronchitis Falls Right hip joint effusion Back pain Obesity Depression Otalgia Otitis externa Hyperlipemia Sleep apnea Tobacco abuse Surgical History Status post arthrodesis 01/18/2019 Dr. Kwame Torres Right SI joint. 05/05/2016 Left SI joint History of tonsillectomy and adenoidectomy History of cholecystectomy History of hysterectomy H/O spinal fusion 07/15/2015 Dr. Kwame Torres [place]: L5-S1 posterior laminectomy/fusion/fixation Family History Mother Diabetes Heart attack Lung disease Grandmother Diabetes Hypertension Lung disease Sister Diabetes Hypertension Father Heart attack Family/Other Heart attack Brother Hypertension Social History Smoking and tobacco/nicotine status: never used tobacco/nicotine Quit status (tobacco/nicotine): considering quitting Second hand smoke exposure: Yes Alcohol intake: former Year of sobriety/quit date alcohol: 2018 Substance/Drug Use: never Lives independently: Yes Household members: none Marital status: Single Current occupational status: disabled Do you think of yourself as: Straight/Heterosexual Current gender identity: Female Physical Exam Const: COMMON NORMALS: no acute distress, patient oriented x3 and alert GENERAL APPEARANCE: cooperative OTHER: Patient is sitting upright on the stretcher sitting upright, but hunched over with her arm on her abdomen. She is in no acute distress. She is able to give history with no difficulty. Family is at bedside HENMT: COMMON NORMALS: normocephalic HEAD & SCALP: normocephalic Eye: COMMON NORMALS: conjunctivae normal CONJUNCTIVA: Yes conjunctivae normal Chest: CHEST: Yes Symmetrical chest wall rise Resp: COMMON NORMALS: normal respiratory effort EFFORT & INSPECTION: Yes able to speak in complete sentences AUSCULTATION: wheezes expiratory wheezes (few) Cardio: COMMON NORMALS: regular rhythm RHYTHM: regular rhythm GI: COMMON NORMALS: Soft to palpation PALPATION: Yes Soft to palpation, Yes Tenderness to palpation present (GI) Details: RLQ, No Guarding due to palpation present (GI) and No Rigid due to palpation : COMMON NORMALS: No no CVA tenderness BLADDER/KIDNEY EXAM: No no CVA tenderness Back/Pelvis: COMMON NORMALS: negative for no CVA tenderness Extremity: COMMON NORMALS: full ROM Neuro: COMMON NORMALS: patient oriented x3 SENSORIUM/ORIENTATION: Yes alert Psych: COMMON NORMALS: cooperative Course Vital Signs: Vital signs: Vital Signs Temperature 97.9 F 09/16/24 22:28 Pulse Rate 103 H 09/16/24 23:59 Respiratory Rate 18 09/16/24 22:55 Blood Pressure 125/74 09/16/24 23:59 Pulse Oximetry 91 09/16/24 23:59 Oxygen Delivery Me thod Room Air 09/16/24 23:59 MDM - Abdominal Pain Medical Decision Making 39yo female presents with family for evaluation of right lower quadrant abdominal pain that started yesterday and has worsened significantly since 1600 today. Patient reports she thought she was constipated, so took one of her mother's Linzess. States the pain is worse when she is moving or standing, decreased when she is bent over. Patient reports she attempted to eat at approximately 1400 this afternoon, but vomited all of the food. She also tried to drink a soda this evening, but vomited it as well. States that she did take some ibuprofen around 1415 due to to feeling as if she had a fever. Patient reports previous abdominal surgeries of cholecystectomy and hysterectomy. She is unsure if she still has an ovary. She denies cough, congestion, difficulty breathing, shortness of breath, chest pain, dysuria. Patient does appear to be in pain, but is nontoxic. Tachycardia noted on triage vitals with a heart rate of 106, otherwise stable. No leukocytosis, white blood cell count noted to be 10.55. No indication of anemia, hemoglobin is 15.6. No electrolyte, renal, or significant hepatic abnormalities noted. Glucose is noted to be 125. UA is grossly unremarkable, 0-4 hyaline casts noted. Contrasted CTAP reveals findings suggestive of distal colitis. Incidental finding of hepatosplenomegaly and bilateral lower lung nodule similar to prior exams. Discussed distal colitis with patient. We will proceed with Augmentin and ketorolac, first dose provided in the emergency department. Ondansetron sent to patient's pharmacy for nausea. Strongly encourage patient to follow-up with primary care, call in 2 to 3 days with an update of symptoms and to discuss a recheck. Return precautions provided. Patient states understanding and has no further questions or concerns at this time. Differential Diagnosis Likely abdominal pain, acute appendicitis, calculus of kidney, constipation and small bowel obstruction Lab Data I reviewed the patient's lab results. 09/16/24 22:48 09/16/24 22:48 Labs/Radiology: Radiology Impressions Abdomen CT 09/16/24 22:45 IMPRESSION: 1. Findings suggestive of distal colitis. Correlate clinically. 2. Hepatosplenomegaly. 3. Mildly enlarged left inguinal lymph nodes. These could be inflammatory or malignant. 4. Bilateral lower lung nodules similar to prior exams. Recommend follow-up CT in 12 months as per Fleischner society guidelines. Laboratory Results WBC 10.55 10^3/uL (3.29-11.43) 09/16/24 22:48 RBC 5.70 10^6/uL (3.85-5.65) H 09/16/24 22:48 Hgb 15.60 g/dL (11.27-16.99) 09/16/24 22:48 Hct 49.1 % (36-47) H 09/16/24 22:48 MCV 86.1 fl (85-98) 09/16/24 22:48 MCH 27.4 pg (27-33) 09/16/24 22:48 MCHC 31.8 g/dL (30-55) 09/16/24 22:48 RDW 16.2 % (12.1-15.1) H 09/16/24 22:48 Plt Count 199 10^3/cmm (157-399) 09/16/24 22:48 MPV 11.1 fL (7.4-10.4) H 09/16/24 22:48 Neut % (Auto) 65.6 % 09/16/24 22:48 Lymph % (Auto) 26.3 % 09/16/24 22:48 Darke % (Auto) 5.2 % 09/16/24 22:48 Eos % (Auto) 1.5 % 09/16/24 22:48 Baso % (Auto) 0.8 % 09/16/24 22:48 Neut # (Auto) 6.93 10^3/uL (1.8-7.7) 09/16/24 22:48 Lymph # (Auto) 2.8 10^3/uL (0.8-4.8) 09/16/24 22:48 Darke # (Auto) 0.6 10^3/uL (0.2-0.9) 09/16/24 22:48 Eos # (Auto) 0.2 10^3/uL (0.0-0.8) 09/16/24 22:48 Baso # (Auto) 0.1 10^3/uL (0.0-0.1) 09/16/24 22:48 Nucleated RBC % (auto) 0 % 09/16/24 22:48 Nucleated RBCs # 0.0 /100WBC 09/16/24 22:48 Sodium 137 mmol/L (136-145) 09/16/24 22:48 Potassium 4.4 mmol/L (3.5-5.1) 09/16/24 22:48 Chloride 99 mmol/L (98-107) 09/16/24 22:48 Carbon Dioxide 24 mmol/L (22-29) 09/16/24 22:48 Anion Gap 18.4 (5-19) 09/16/24 22:48 BUN 9 mg/dL (6-20) 09/16/24 22:48 Creatinine 0.5 mg/dL (0.5-0.9) 09/16/24 22:48 GFR Calculation 136.6 mL/min (90-130) H 09/16/24 22:48 Glucose 125 mg/dL (65-115) H 09/16/24 22:48 Calculated Osmolality 284 mOsm/kg (285-295) L 09/16/24 22:48 Calcium 9.7 mg/dL (8.5-10.5) 09/16/24 22:48 Total Bilirubin 0.3 mg/dL (0.15-1.2) 09/16/24 22:48 AST 65 U/L (0-32) H 09/16/24 22:48 ALT 71 U/L (0-33) H 09/16/24 22:48 Alkaline Phosphatase 85 U/L (35-105) 09/16/24 22:48 Total Protein 7.8 g/dL (6.6-8.7) 09/16/24 22:48 Albumin 4.5 g/dL (3.5-5.2) 09/16/24 22:48 Globulin 3.3 g/dL (1.3-4.6) 09/16/24 22:48 Lipase 24 U/L (13-60) 09/16/24 22:48 Urine Color Yellow (Yellow) 09/16/24 22:57 Urine Appearance Clear (CLEAR) 09/16/24 22:57 Urine pH 6.0 (5-7) 09/16/24 22:57 Ur Specific [place] 1.005 (1.005-1.030) 09/16/24 22:57 Urine Protein Negative (Negative) 09/16/24 22:57 Urine Glucose (UA) Negative (Normal) 09/16/24 22:57 Urine Ketones Negative (Negative) 09/16/24 22:57 Urine Blood Negative (Negative) 09/16/24 22:57 Urine Nitrate Negative (Negative) 09/16/24 22:57 Urine Bilirubin Negative (Negative) 09/16/24 22:57 Urine Urobilinogen 0.2 mg/dL (Negative) 09/16/24 22:57 Ur Leukocyte Esterase Negative (Negative) 09/16/24 22:57 Urine RBC 0-2 /hpf (0-2) 09/16/24 22:57 Urine WBC 0-5 /hpf (0-5) 09/16/24 22:57 Ur Squamous Epith Cells 0-5 /hpf (0-5) 09/16/24 22:57 Amorphous Sediment Not Reportable 09/16/24 22:57 Urine Bacteria None seen /hpf (NONE) 09/16/24 22:57 Hyaline Casts 0-4 /lpf H 09/16/24 22:57 All radiology interpretation(s) finalized by discharge Discharge Plan Discharge Patient Disposition: Home Clinical Impression: Colitis Condition: Stable Prescriptions: New amoxicillin-pot clavulanate 875-125 mg tablet 1 tab PO BID Qty: 20 0RF ketorolac 10 mg tablet 10 mg PO Q6H PRN (Reason: pain) 5 Days Qty: 20 0RF ondansetron 4 mg tablet,disintegrating 4 mg PO Q8H PRN (Reason: nausea and vomiting) Qty: 20 0RF Discontinued amoxicillin-pot clavulanate [Augmentin] 500-125 mg tablet 1 tab PO TID Qty: 30 0RF No Action Invega Sustenna 234 mg/1.5 mL syringe 234 mg IM Q30D Qty: 1.5 4RF bupropion HCl 300 mg tablet extended release 24 hr 300 mg PO QAM Qty: 30 1RF carbamazepine 200 mg capsule, ER multiphase 12 hr 200 mg PO BID Qty: 60 1RF hydroxyzine HCl 50 mg tablet 50 mg PO BID PRN (Reason: anxiety) Qty: 60 1RF glipizide 10 mg tablet 10 mg PO DAILY lisinopril 2.5 mg tablet 2.5 mg PO DAILY cyclobenzaprine 5 mg tablet 5 mg PO TID PRN (Reason: muscle spasm) Qty: 20 0RF doxepin 50 mg capsule 50 mg PO QPM montelukast 10 mg tablet 10 mg PO QPM ondansetron 4 mg tablet,disintegrating 4 mg PO DAILY PRN (Reason: Nausea And Vomiting) escitalopram oxalate 20 mg tablet 20 mg PO DAILY quetiapine 400 mg tablet 400 mg PO QPM Linzess 145 mcg capsule 145 mcg PO EVERY OTHER DAY insulin lispro [Humalog KwikPen Insulin] 100 unit/mL insulin pen See Rx Instructions .ROUTE .COMPLEX Qty: 15 6RF Rx Instructions: Blood sugar 1 41-180 please take 4 units Blood sugar 181 220 please take 6 units Blood sugar 221-260 please take 8 units 261-300 please take 10 units 301-350 please take 12 units 350-400 please take 14units Greater 400 than 16 units atorvastatin 40 mg tablet 40 mg PO DAILY gabapentin 800 mg tablet 800 mg PO TID metformin 1,000 mg tablet 1,000 mg PO BID Lantus Solostar U-100 Insulin 100 unit/mL (3 mL) insulin pen 35 unit SUBCUT QPM propranolol 20 mg tablet 20 mg PO BID levocetirizine 5 mg tablet 5 mg PO DAILY Ozempic 2 mg/dose (8 mg/3 mL) pen injector 2 mg SUBCUT Q7D Discharge Orders: Discharge ED (Routine); Ordered 09/17/24 Ordered By: Samuel Da Silva Referrals: Teddy Regan MD [Primary Care Provider] - Discharge Diet: Advance as tolerated Discharge Activity: Increase activity as tolerated Patient Instructions: Colitis (ED) Activity Restrictions/Additional Instructions: The CT scan did show that you had inflammation of the end of your colon, which is likely causing the pain. Augmentin has been sent to the pharmacy to begin treatment of the inflammation/possible infection of the area Ketorolac has been sent to the pharmacy to help with pain. Do not take ibuprofen, naproxen, or diclofenac while taking this medication Ondansetron has been sent to the pharmacy for nausea/vomiting Incidental finding on your CT scan of lung nodules were similar to your previous exam. They do recommend follow-up CT in 12 months. This can be made through your primary care. Follow-up with primary care, call in 2 to 3 days with an update of symptoms and to discuss a recheck. Return to the emergency department if any rapid worsening symptoms, onset of fever associated with worsening, significant increase in pain, and as needed Print Language: Honduran Coding Level of Care Code ED Supervisor Alteration Workroom for Mario Santiago
[2024-09-16 22:54] VITALS: BP 133/90; PULSE 107; RESP 18; O2SAT 93
[2024-09-16 22:55] VITALS: RESP 18; O2SAT 92
[2024-09-16] MEDS: morphine 4 mg/mL SDV 1 mL IVP (22:55)
[2024-09-16] MEDS: ondansetron 2 mg/ML SDV 2 mL 4 MG IVP (22:55)
[2024-09-16 22:57] LABS: Basophils # 0.1 10^3/uL (0.0-0.1); Basophils % 0.8 %; Eosinophils # 0.2 10^3/uL (0.0-0.8); Eosinophils % 1.5 %; Hematocrit 49.1 % (36-47); Lymphocytes # 2.8 10^3/uL (0.8-4.8); Lymphocytes % 26.3 %; Mean Corpuscular HGB Conc 31.8 g/dL (30-55); Mean Corpuscular Hemoglobin 27.4 pg (27-33); Mean Corpuscular Volume 86.1 fl (85-98); Mean Platelet Volume 11.1 fL (7.4-10.4); Monocytes # 0.6 10^3/uL (0.2-0.9); Monocytes % 5.2 %; Neutrophils # 6.93 10^3/uL (1.8-7.7); Neutrophils % 65.6 %; Nucleated Red Blood Cells % 0 %; Platelet Count 199 10^3/cmm (157-399); Red Cell Distribution Width 16.2 % (12.1-15.1); White Blood Count 10.55 10^3/uL (3.29-11.43)
[2024-09-16 23:13] LABS: Alanine Aminotransferase 71 U/L (0-33); Albumin Level 4.5 g/dL (3.5-5.2); Alkaline Phosphatase 85 U/L (35-105); Anion Gap 18.4 (5-19); Aspartate Amino Transferase 65 U/L (0-32); Blood Urea Nitrogen 9 mg/dL (6-20); Calcium 9.7 mg/dL (8.5-10.5); Carbon Dioxide 24 mmol/L (22-29); Chloride 99 mmol/L (98-107); Creatinine Clr Calc Pharmacy 188.1985; Globulin 3.3 g/dL (1.3-4.6); Glomerular Filtration Rate 136.6 mL/min (90-130); Glucose 125 mg/dL (65-115); Lipase 24 U/L (13-60); Osmolality Calculated 284 mOsm/kg (285-295); Potassium 4.4 mmol/L (3.5-5.1); Sodium 137 mmol/L (136-145); Total Bilirubin 0.3 mg/dL (0.15-1.2); Total Protein 7.8 g/dL (6.6-8.7)
[2024-09-16 23:13] LABS: Bilirubin Urine Negative (Negative); Blood Urine Negative (Negative); Glucose Urine UA Negative (Normal); Ketones Urine Negative (Negative); Leukocyte Esterase Urine Negative (Negative); Nitrate Urine Negative (Negative); Protein Urine Negative (Negative); Specific Gravity, Urine 1.005 (1.005-1.030); Urine Appearance Clear (CLEAR); Urine Color Yellow (Yellow); Urobilinogen Urine 0.2 mg/dL (Negative)
[2024-09-16 23:18] LABS: Add Urine Microscopic? YES; Bacteria Urine None Seen /hpf; Hyaline Casts Urine 0-4 /lpf; RBC Urine 0-2 /hpf (0-2); Squamous Epithelial Cell Urine 0-5 /hpf (0-5); WBC Urine 0-5 /hpf (0-5)
[2024-09-16] MEDS: iohexol 350 mg/mL 500 mL Btl (per mL) IV (23:23)
[2024-09-16 23:59] VITALS: BP 125/74; PULSE 103; O2SAT 91
[2024-09-17] MEDS: ondansetron 2 mg/ML SDV 2 mL 4 MG IVP (00:36)
[2024-09-17] MEDS: ketorolac 30 mg/mL INJ IVP (00:36)
[2024-09-17] MEDS: amoxicillin-clav 875-125 mg Tablet 1 TAB PO (00:36)
[2024-09-17 00:39] VITALS: BP 118/72; PULSE 101; RESP 16; O2SAT 91
[2024-09-17 01:18] VITALS: BP 107/66; PULSE 100; RESP 16; O2SAT 98
== END 2024-09-17 01:19 | disposition home or self-care (01) ==
PROVIDERS: Emergency Provider Nurse Practitioner; PCP Family Medicine
DX: K52.9 Noninfective gastroenteritis and colitis, unspecified (principal); Z79.4 Long term (current) use of insulin; Z79.84 Long term (current) use of oral hypoglycemic drugs; E78.5 Hyperlipidemia, unspecified
CPT/HCPCS: 74160; 80053; 81001; 83690; 85025; 96374; 96375; 96376; 99285; J1885; J2270; J2405; J9999

== ENCOUNTER 2024-11-21 20:41 | Emergency (ER) | payer BC, SELFPAY ==
[2024-11-21 20:50] VITALS: BP 134/78; PULSE 101; RESP 18; TEMP 36.6; O2SAT 95; BMI 34.2
--- OUTSIDE RECORDS SUMMARY | 2024-11-21 20:51 | XMS_ITS | Patient Health Record ---
Author Organization [facility] Address [address] [place], [place] [id number] Care Team Providers Care Second Rigger Name Role Phone Luis Fernando ARELLANO, Ermias Unavailable [phone] Luís Angel Unavailable Unavailab le Allergies Allergen (clinical drug ingredient) Drug/Non Drug Allergy documented on EMR Reaction Allergy Type Onset Date Status Wasp venom wasp venom (uncoded) anaphylaxis Allergy Active hydromorphone HYDROmorphone hives Drug Allergy Active clindamycin clindamycin anaphylaxis Drug Allergy A ctive fentanyl fentaNYL Unknown Drug Allergy Active hydromorphone Dilaudid Unknown Drug Allergy Act pia Reason For Referral No Information Medications Medication SIG (Take, Route, Frequency, Duration) Notes Start Date End Date Status Linzess 145 mcg 1 cap orally once a day Active hydrOXYzine hydrochloride 50 mg 1 tab orally 2 times a day, as needed for anxiety Active M-Zhanna Plus Multivitamins with Folic Acid 1 mg 1 tab orally once a day Acti ve doxepin 50 mg 1-2 caps orally once a day (at bedtime), as needed for sleep / itching Active docusate sodium 100 mg 1 tab orally once a day Active QUEtiapine 400 mg 1 tab orally once a day (in the evening) Active gabapentin 400 mg 1 cap po orally QID Active escitalopram 20 mg 1 tab orally once a day Active buPROPion 200 mg/12 hours 1 tab orally 2 times a day Active naproxen 500 mg 1 tab orally 2 times a day Active benztropine 1 mg 1 tab orally 2 times a day Active methocarbamol 500 mg 1 tab orally prn spasm Active disulfiram 250 mg 1 tab orally once a day for alcohol cravings Active propranolol 10 mg 1 tab orally 2 times a day Active carBAMazepine 200 mg 3 tabs orally daily , as directed Active pantoprazole 40 mg 1 tab orally once a day Active ibuprofen 600 mg 1 tab orally every 6 hours, as needed Active Geoff Low Dose 81 mg 1 tab orally once a day Active atorvastatin 40 mg 1 tab orally once a day Active Social History Tobacco Use: Social History Observation Description Date Details (start date - stop date) Current Smoker 05/28/1993 - NA alcohol Question Answer Notes Did you have a drink containing alcohol in the p ast year? No Points 0 Interpretation Negative Tobacco use: Question Answer Notes : current smoker Are you interested in quitting? Thinking about q uitting How many cigarettes a day do you smoke? 11-20 How often do you smoke cigarettes? every day How soon after you wake up d o you smoke your first cigarette? 6-30 min When did you start smoking? 05/28/1993 Problems Problem Type SNOMED Code ICD Code Onset Dates Problem Status W/U Status Risk Notes Problem Solitary sacroiliitis (968611580) Sacroiliitis, not elsewhere classified (M46.1) Active confirmed Problem Low back pain (003912229) Low back pain (M54.5) Active confirmed Problem Anxiety disorder (047746728) Other specified anxiety disorders (F41.8) Active confirmed Problem Obstructive sleep apnea syndrome (70208604) Obstructive sleep apnea (adult) (pediatric) (G47.33) Active confirmed Problem Pain in thoracic spine (140526648) Pain in thoracic spine (M54.6) Active confirmed Problem Post-laminectomy syndrome (52843907) Postlaminectomy syndrome, not elsewhere classified (M96.1) Active confirmed Problem Long-term current use of drug therapy (737034939) Other long term care administrator (current) drug therapy (Z79.899) Active confirmed Plan Of Treatment No Information Insurance Providers Payer Name Payer Address Payer Phone Subscriber Number Group Number Insured Name Patient Relationship to Insured Coverage Start Date Coverage End Date [facility] [address] [address] [place] [address] [id number] Mare Cody Self - patient is the insured [place] [employer] [address] [place] [address] [id number] Mare Cody Self - patient is the insured Medical (General) History Medical History History ICD Code Sacroiliitis Anxiety and depression Chronic pain Degenerative disc disease Asthma GERD Hyperlipidemia PTSD Hypertension Sleep apnea Vitamin D deficiency Severe mixed bipolar disorder Amphetamine dependence (in remission) Primary insomnia Sinus tachycardia Chronic thoracic back pain COPD Anaphylaxis (history of Vitamin B12 deficiency Diabetes mellitus type 2 Surgical History Surgery Date(Month/Year) Cholecystectomy Tonsillectomy, 1987 L5-S1 fusion / fixation, per formed at [facility] in [place], [place] by Dr. Omar Torres, 07/15/15 Abscess drainage, performed at [place], [place] 07/15/15 EGD, 08/28/13 Hysterectomy, performed in [place], [place] by Dr. Deena Leblanc, 10/13/14 Left SI joint fusion / fixat ion, performed at [place], [place] by Dr. Omar Torres, 05/05/16 Right SI fusion, performed a t [facility] in [place], [place] by Dr. Omar Torres, 01/17/19 Hospitalization History Reason Date(Month/Year) Mental Health, treated at [facility] in [place], [place], 03/12/18
--- OUTSIDE RECORDS SUMMARY | 2024-11-21 20:51 | XMS_ITS | Clinical Summary ---
Author Organization [facility] Address [address] [place] [address] Care Team Providers Care Manager Domestic Name Role Phone Conversion, History Primary Care Provider Unavai lable Allergies Active Allergy Reactions Criticality Noted Date Comments Azithromycin Hives,Dizziness High 12/09/2020 She notes my throat acts like it wants to close up Clindamycin Hives,Rash,Swelling High 08/23/2020 Fentanyl Rash Low 07/22/2020 Hydromorphone Anaphylaxis High 12/09/2020 Meloxicam Rash Low 09/11/2023 Milk Diarrhea Low 12/09/2020 Venom-Wasp Anaphylaxis,Rash,Swe lling ,Other (See Comments) High 10/26/2017 Hives Medications albuterol (PROVENTIL,MAURICIO DON) 2.5 mg /3 mL (0.083 %) Solution for Nebulization albuterol sulfate 2.5 mg/3 mL (0.083 %) solution for nebulization 01/20/20 21 Active albuterol sulfate HFA 90 mcg/actuation aerosol inhaler Take 2 Puffs by inhalation. Active aspirin (SHA CHEWABLE) 81 mg Tablet, Chewable Take 81 mg by mouth daily. Active atorvastatin (LIPITOR) 40 mg tablet Take 40 mg by mouth daily. Active benzonatate (TESSALON) 100 mg capsule Take 100 mg by mouth. Active benztropine (COGENTIN) 0.5 mg tablet TAKE ONE TABLET BY MOUTH TWICE DAILY FOR side effects Active Breztri Aerosphere 160 mcg-9mcg-4.8mcg/ actuation HFA aerosol inhaler Breztri Aerosphere 160 mcg-9mcg-4.8mcg/ac tuation HFA aerosol inhaler 02/15/20 23 Active buPROPion HCL (WELLBUTRIN XL) 300 mg Extended Release 24 hour tablet TAKE ONE TABLET BY MOUTH EVERY MORNING FOR anxiety/depression Active carBAMazepine (TEGretol) 200 mg tablet TAKE ONE TABLET BY MOUTH TWICE DAILY FOR mood Active cyclobenzaprine (FLEXERIL) 10 mg tablet Take 10 mg by mouth daily. 02/15/20 23 Active docusate sodium (COLACE) 100 mg capsule Take 100 mg by mouth daily. Active doxepin (SINEquan) 50 mg capsule TAKE ONE CAPSULE BY MOUTH AT BEDTIME NEEDED SLEEP Active EPINEPHrine (EPIPEN) 0.3 mg/0.3 mL Auto-Injector epinephrine 0.3 mg/0.3 mL auto-injector 02/15/20 23 Active EPINEPHrine (EPIPEN) 0.3 mg/0.3 mL Auto-Injector Inject 1 Syringe by intramuscular injection. Active ergocalciferol (VITAMIN D2) 50,000 unit capsule Take 1 Capsule by mouth every 7 days. 01/29/20 21 Active escitalopram oxalate (LEXAPRO) 10 mg tablet escitalopram oxalate 10 mg tablet 02/15/20 23 Active escitalopram oxalate (LEXAPRO) 20 mg tablet TAKE ONE TABLET BY MOUTH EVERY DAY FOR anxiety/depression Active fluconazole (DIFLUCAN) 150 mg tablet fluconazole 150 mg tablet 07/16/19 24 Active gabapentin (NEURONTIN) 800 mg tablet Take 800 mg by mouth 3 times daily. Active guaiFENesin (Mucinex) Tablet Extended Release 12hr Take 1 Tablet by mouth 2 times daily. 01/18/20 21 Active glipiZIDE (GLUCOTROL) 10 mg tablet Take 10 mg by mouth daily. Active hydrOXYzine HCL (ATARAX) 50 mg tablet hydroxyzine HCl 50 mg tablet 04/24/20 23 Active ibuprofen (MOTRIN) 600 mg tablet Take 600 mg by mouth. Active Lantus Solostar U-100 Insulin 100 unit/mL (3 mL) solution for injection inject 25 units subcutaneously EVERY EVENING Active insulin lispro (HumaLOG KwikPen Insulin) 100 unit/mL pen syringe Humalog KwikPen (U-100) Insulin 100 unit/mL subcutaneous 08/10/19 24 Active levocetirizine (XYZAL) 5 mg tablet Take 5 mg by mouth daily. Active linaCLOtide (LINZESS) 145 mcg capsule Take 145 mcg by mouth daily. Active lisinopriL (PRINIVIL) 2.5 mg tablet Take 2.5 mg by mouth daily. Active loratadine (CLARITIN) 10 mg tablet loratadine 10 mg tablet 02/15/20 23 Active metFORMIN (GLUCOPHAGE) 1,000 mg tablet Take 1,000 mg by mouth 2 times daily. Active montelukast (SINGULAIR) 10 mg tablet Take 10 mg by mouth daily. Active mupirocin (BACTROBAN) 2 % Ointment APPLY A SMALL AMOUNT TO THE AFFECTED AREA TOPICALLY 3 TIMES PER DAY 12/02/19 Active naproxen (NAPROSYN) 500 mg tablet Take 500 mg by mouth 2 times daily. Active ondansetron (ZOFRAN ODT) 8 mg Tablet, Rapid Dissolve ondansetron 8 mg tablet,disintegrat ing 02/15/20 23 Active Invega Sustenna 234 mg/1.5 mL Syringe INJECT 1.5 ML (234 MG TOTAL) INTO THE SHOULDER, THIGH, OR BUTTOCKS EVERY 28 DAYS. 02/15/20 23 Active pantoprazole (PROTONIX) 40 mg Tablet, Delayed Release (E.C.) Take 40 mg by mouth 2 times daily. Active QUEtiapine (SEROquel) 400 mg tablet Take 1 tablet PO QHS for better mood/sleep (with XR) 02/15/20 Active semaglutide (Ozempic) 2 mg/dose (8 mg/3 mL) Pen Injector Ozempic 2 mg/dose (8 mg/3 mL) subcutaneous pen injector 04/17/20 23 Active Active Problems Problem Noted Date Diagnosed Date Shortness of breath 11/25/2023 Lung nodule 11/25/2023 Chronic respiratory failure with hypoxia 024 Nicotine dependence, cigarettes, uncomplicated 0 11/25/2023 Encounters Date Type Department Care Team Description 11/12/2024 External Device Data [facility] Provider, Abstract 11/11/2024 External Device Data [facility] Provider, Abstract 10/28/2024 External Device Data [facility] Provider, Abstract 10/21/2024 External Device Data [facility] Provider, Abstract 10/16/2024 External Device Data [facility] Provider, Abstract 10/16/2024 External Device Data [facility] Provider, Abstract 10/15/2024 External Device Data [facility] Provider, Abstract 10/14/2024 External Device Data [facility] Provider, Abstract 08/26/2024 External Device Data [facility] Provider, Abstract from Last 3 Months Social History Tobacco Use Types Packs/Day Years Used Date Smoking Tobacco: Every Day Cigarettes 1 31.7 Started: 03/27/1993 Tobacco Cessation:Ready to Q uit: Not Asked; Counseling Given: Not Answered Comments:There was a point where pt smoked 2.5 packs a day Alcohol Use Standard Drinks/Week Comments Not Currently 0 (1 standard drink = 0.6 oz pur e alcohol) Comments Unknown Sex and Gender Information Value Date Recorded Sex Assigned at Not on file Legal Sex Female 2:23 PM CLAIMS AGENT RIGHT OF WAY Gender Identity Not on file Sexual Orientation Not on file Last Filed Vital Signs Vital Sign Reading Time Taken Comments Blood Pressure 138/80 11/12/2023 11:23 AM CDT Pulse 92 11/12/2023 11:23 AM CDT Temperature - - Respiratory Rate - - Oxygen Saturation 88% 11/12/2023 11: 23 AM CDT suppose to be on 2 L but says it doesnt help. Inhaled Oxygen Concentration - - Weight 101.8 kg (224 lb 6.4 oz) 11/12/2023 11:23 AM CDT Height 175.3 cm (5' 9 ) 11/12/2023 11:2 3 AM CDT Body Mass Index 33.14 11/12/2023 11:23 AM CDT Plan of Treatment Health Maintenance Due Date Last Done Comments DIABETES ANNUAL FOOT EXAM 2002 DIABETES ANNUAL RETINAL EXAM 2002 DIABETES HBA1C Q 6 MONTHS 2002 DIABETES MICROALBUMIN ANNUAL SCREEN 2002 LDL CHOLESTEROL ANNUAL 2002 HEPATITIS B VACCINES (1 of 3 - 19+ 3-dose series) 2003 HPV/Cotest (21-29) 2005 CERVICAL CANCER SCREENING 2014 HPV/Cotest (30-65) 2014 PAP SMEAR 2014 INFLUENZA VACCINE (#1) 2023 BREAST CANCER SCREENING 2024 DTAP/TDAP/TD VACCINES (2 - T d or Tdap) 09/29/2026 09/29/2016 HPV VACCINES Aged Out No longer eligi ble based on patient's age to complete this topic Insurance [facility] [employer] [facility] Care Teams Manager Domestic Relationship Specialty Start Date End Date Conversion, History NO ADDRESS ON FILE PCP - General 12/27/07
== END 2024-11-21 22:10 | disposition left against medical advice (07) ==
LOC: ER 20:49
PROVIDERS: Emergency Provider Family Medicine; PCP Family Medicine
DX: Z53.21 Procedure and treatment not carried out due to patient leaving prior to being seen by health care provider (principal)

== ENCOUNTER 2025-03-21 10:57 | Emergency (ER) | payer BC, SELFPAY ==
[2025-03-21 11:03] VITALS: BP 140/84; PULSE 95; RESP 18; TEMP 36.6; O2SAT 95; BMI 31.9
--- OUTSIDE RECORDS SUMMARY | 2025-03-21 11:03 | XMS_ITS | Encounter Summary ---
Author Organization [facility] Address [address] [place] [address] Care Team Providers Care Renewable Energy Division Manager Name Role Phone Shereen Teddy Alan Primary Care Provider [phone] Reason for Visit * Reason Comments Med Refill Encounter Details Date Type Department Care Team (Late st Contact Info) Description 12/25/2022 Refill [facility] - Behavioral Health [address] [place] [address] Baylee Herring APRN [address] [place] [address] Bipolar disorder, current episode mixed, severe, with psychotic features (HCC) Social History Tobacco Use Types Packs/Day Years Used Date Smoking Tobacco: Every Day Cigarettes 0.5 20 Smokeless Tobacco: Never Alcohol Use Standard Drinks/Week Comments No 0 (1 standard drink = 0.6 oz pure alcohol) chronic alcoholism is in remission PHQ-2 Answer Date Recorded PHQ-2 Score 0 06/20/2021 Comments No Sex and Gender Information Value Date Recorded Sex Assigned at Not on file Legal Sex Female 8:12 PM CDT Gender Identity Not on file Sexual Orientation Not on file documented as of this encounter Miscellaneous Notes * Telephone Encounter - Rachel Khan CMA - 12/25/2022 5:32 PM CDT appt in 3 days documented in this encounter Plan of Treatment Not on file documented as of this encounter Visit Diagnoses Diagnosis Bipolar disorder, current episode mixed, severe, with psychotic features (HCC) documented in this encounter Additional Health Concerns Health Status Noted Date Alive and well 11/25/2020 Assessment Noted Time A fall risk assessment has been complete d for the patient 02/13/2022 8:15 AM CDT documented as of this encounter Care Teams Renewable Energy Division Manager Relationship Specialty Start Date End Date Teddy Regan [address] [place] [id number] PCP - General 01/31/24 documented as of this encounter
--- OUTSIDE RECORDS SUMMARY | 2025-03-21 11:03 | XMS_ITS | Encounter Summary ---
Author Organization [facility] Address [address] [place] [address] Care Team Providers Care Biochemist Name Role Phone Shereen Teddy Alan Primary Care Provider [phone] Reason for Visit * Reason Comments Med Refill Encounter Details Date Type Department Care Team (Late st Contact Info) Description 10/03/2024 Refill [facility] - Behavioral Health [address] [place] [address] Baylee Herring APRN [address] [facility] [facility] [address] [place] [address] Bipolar disorder, current episode mixed, severe, with psychotic features (HCC) Social History Tobacco Use Types Packs/Day Years Used Date Smoking Tobacco: Every Day Cigarettes 0.5 20 Smokeless Tobacco: Never Alcohol Use Standard Drinks/Week Comments No 0 (1 standard drink = 0.6 oz pure alcohol) chronic alcoholism is in remission PHQ-2 Answer Date Recorded PHQ-2 Score 0 09/09/2024 Comments No Sex and Gender Information Value Date Recorded Sex Assigned at Not on file Legal Sex Female 8:12 PM CDT Gender Identity Not on file Sexual Orientation Not on file documented as of this encounter Miscellaneous Notes * Telephone Encounter - Maxine Siddiqui - 10/03/2024 10:27 AM CDT Refill not appropriate. Confirmed with pharmacy that they have the 3 refills on file. QUEtiapine (SEROQUEL) 400 mg tablet last ordered 09/09/24 (3 refills) last filled 08/28/24 documented in this encounter Plan of Treatment Not on file documented as of this encounter Visit Diagnoses Diagnosis Bipolar disorder, current episode mixed, severe, with psychotic features (HCC) documented in this encounter Additional Health Concerns Health Status Noted Date Alive and well 01/31/2024 Assessment Noted Time PHQ-9 Depression Total Score: 0 09/10/19 3:00 PM CDT A fall risk assessment has been complete d for the patient 09/09/2024 3:07 PM CDT documented as of this encounter Care Teams Biochemist Relationship Specialty Start Date End Date Teddy Regan [address] [place] [address] PCP - General 01/31/24 documented as of this encounter
--- OUTSIDE RECORDS SUMMARY | 2025-03-21 11:03 | XMS_ITS | Encounter Summary ---
Author Organization [facility] Address [address] [place] [address] Care Team Providers Care Mainframe Developer Name Role Phone Shereen, Teddy Alan Primary Care Provider [phone] Encounter Details Date Type Department Care Team (Late st Contact Info) Description 10/02/2017 Orders Only [facility] Radiology [address] [place] [address] System, Provider Not In, [address] [place] [address] Social History Tobacco Use Types Packs/Day Years Used Date Smoking Tobacco: Every Day Cigarettes 0.5 20 Smokeless Tobacco: Never Alcohol Use Standard Drinks/Week Comments No 0 (1 standard drink = 0.6 oz pur e alcohol) Comments No Sex and Gender Information Value Date Recorded Sex Assigned at Not on file Legal Sex Female 8:12 PM CDT Gender Identity Not on file Sexual Orientation Not on file documented as of this encounter Plan of Treatment Not on file documented as of this encounter Procedures Procedure Name Priority Date/Time Associated Diagnosis Comments OUTSIDE IMAGES 10/02/2017 12:00 AM CDT documented in this encounter Results * Outside Images (10/02/2017 12:00 AM CDT) Anatomical Region Laterality Modality N/A Radiographic Chelsea ging 10/02/2017 Narrative 10/02/2017 12:00 AM CDT Image aquired from external facility for exam: MRI THORACIC SPINE WO Procedure Note System, Provider Not In, - 10/30/2017 Image aquired from external facility for exam: MRI THORACIC SPINE WO us Provider Not In System MD [facility] Final Result documented in this encounter Visit Diagnoses Not on filedocumented in this encounter Additional Health Concerns Health Status Noted Date Alive and well 10/01/2017 documented as of this encounter Care Teams Mainframe Developer Relationship Specialty Start Date End Date Teddy Regan [address] [place] [address] PCP - General 01/31/24 documented as of this encounter
--- OUTSIDE RECORDS SUMMARY | 2025-03-21 11:03 | XMS_ITS | Encounter Summary ---
Author Organization [facility] Address [address] [place] [address] Care Team Providers Care Employee Development Director Name Role Phone Teddy Regan Primary Care Provider [phone] Encounter Details Date Type Department Care Team (Late st Contact Info) Description 01/18/2016 Orders Only [facility] Radiology [address] [place] [address] System, Provider Not In, [address] [place] [address] Social History Tobacco Use Types Packs/Day Years Used Date Smoking Tobacco: Every Day Smokeless Tobacco: Never Alcohol Use Standard Drinks/Week [...] Priority Date/Time Associated Diagnosis Comments OUTSIDE IMAGES 01/18/2016 11:13 AM CDT documented in this encounter Results * Outside Images (01/18/2016 11:13 AM CDT) Anatomical Region Laterality Modality N/A Radiographic Chelsea ging 01/18/2016 11:1 3 AM CDT Narrative 01/18/2016 11:13 AM CDT Historic images from [facility] exist and can be viewed by using the hyperlink to access [employer] pacs: LUMBAR SPINE 4V Procedure Note System, Provider Not In, - 06/23/2020 Historic images from [facility] exist and can be viewed byusing the hyperlink to access [employer] pacs: LUMBAR SPINE 4V us Provider Not In System MD [facility] Final Result documented in this encounter Visit Diagnoses Not on filedocumented in this encounter Care Teams Employee Development Director Relationship Specialty Start Date End Date Teddy Regan [address] [place] [phone] PCP - General 01/31/24 documented as of this encounter
--- OUTSIDE RECORDS SUMMARY | 2025-03-21 11:03 | XMS_ITS | Encounter Summary ---
Author Organization [facility] Address [address] [place] [address] Care Team Providers Care Occupational Safety Specialist Name Role Phone Teddy Regan Primary Care Provider [phone] Encounter Details Date Type Department Care Team (Late st Contact Info) Description 10/28/2020 Orders Only [facility] [address] [facility] [facility] [place], [place] [address] Denisa Birch, LABORATORY SAMPLER Gastroesophageal reflux disease, unspecified whether esophagitis present (Primary Dx); Dysphagia, unspecified type; Laryngeal candidiasis Social History Tobacco Use Types Packs/Day Years Used Date Smoking Tobacco: Every Day Cigarettes 0.5 20 Smokeless Tobacco: Never Alcohol Use Standard Drinks/Week Comments No 0 (1 standard drink = 0.6 oz pure alcohol) chronic alcoholism is in remission PHQ-2 Answer Date Recorded PHQ-2 Score 0 07/14/2020 Comments No Sex and Gender Information Value Date Recorded Sex Assigned at Not on file Legal Sex Female 8:12 PM CDT Gender Identity Not on file Sexual Orientation Not on file documented as of this encounter Plan of Treatment Not on file documented as of this encounter Visit Diagnoses Diagnosis Gastroesophageal reflux disease, unspecified whether esophagitis present- Primary Dysphagia, unspecified type Laryngeal candidiasis Other candidiasis of other specified sites documented in this encounter Additional Health Concerns Health Status Noted Date Alive and well 08/13/2020 Assessment Noted Time A fall risk assessment has been complete d for the patient 08/13/2020 9:50 AM CDT documented as of this encounter Care Teams Occupational Safety Specialist Relationship Specialty Start Date End Date Teddy Regan [address] [place] [address] PCP - General 01/31/24 documented as of this encounter
--- OUTSIDE RECORDS SUMMARY | 2025-03-21 11:03 | XMS_ITS | Patient Health Record ---
Author Organization [facility] Address [address] [address] Care Team Providers Care Rn Night Name Role Phone No, PCP Primary Care Provider UnavailMichael Ring Unavailable [phone] Darlin Chavarria Unavailable [phone] Allergies Allergen (clinical drug ingredient) Drug/Non Drug Allergy documented on EMR Reaction Allergy Type Onset Date Status hydromorphone Dilaudid Unknown Drug Allergy Act pia azithromycin Zithromax Z-Marcelino Unknown Drug Allergy Active clindamycin Clindamycin Unknown Drug Allergy Act pia Results Component Value Reference Range Notes X ray : Wrist, right Reviewed date:01/28/2025 02:38:36 PM Interpretation: Performing Lab: Notes/Report: X ray : Humerus, right Reviewed date:01/28/2025 02:38:45 PM Interpretation: Performing Lab: Notes/Report: Reason For Referral Reason ortho Diagnosis 1 Right wrist pain (M2 5.531) Diagnosis 2 Contusion of right u pper arm, initial encounter (S40.021A) Referral Organization [facility] Referring Provider First Name Darlin Referring Provider Last Name Aura Referring Provider Speciality Family Pra ctice Referred Provider Azael Kahn Referred Provider Specialty Orthopedic S urgery Referral Priority Routine Medications Medication SIG (Take, Route, Fr equency, Duration) Notes Start Date End Date Status tiZANidine HCl 4 MG Oral; Duration: 15 Days Active Gabapentin 800 MG TAKE 1 TABLET BY MARINO THREE TIMES DAILY Oral; Duration: 90 Days Active Social History Tobacco Use: Social History Observation Description Date Details (start date - stop date) Current Smoker NA - NA Tobacco Control (Standard) Question Answer Notes Tobacco use: Current smoker How often do you smoke cigarettes? Every day How many cigarettes a day do you smoke? 6-10 How soon after you wake up d o you smoke your first cigarette? 31-60 minutes Additional Findings: Tobacco user Light cigarett e smoker (1-9 cigs/day) Vital Signs Heart Rate 87 /min 01/28/2025 Temperature 97.5 degrees Fahrenheit 01/28/2025 Respiratory Rate 18 /min 01/28/2025 Height-cm 167.64 cm 01/28/2025 Oximetry 95 % 01/28/2025 Blood pressure diastolic 76 mm Hg 01/28/2025 Weight-kg 102.06 kg 01/28/2025 Height 66 in 01/28/2025 Blood pressure systolic 100 mm Hg 01/28/2025 Weight 225 lbs 01/28/2025 BMI 36.31 kg/m2 01/28/2025 Encounters Encounter Location Date Provider Diagnosis [facility] [place] [address] 01/28/2025 Darlin Aura Contusion of right upper arm, initial encounter S40.021A and Right wrist pain M25.531 Assessments Encounter Date Diagnosis (ICD Code) Assessment Notes Treatment Notes Treatment Clinical Notes Section Notes 01/28/2025 Contusion of right upper arm, initial encounter (ICD-10 - S40.021A) 01/28/2025 Right wrist pain (ICD-10 - M25.531) Velcro wrist splint applied to right wrist. Patient advised to ice and elevate as often as possible. Take ibuprofen as directed for pain. I will send in a referral to [facility] [place] [address] [place] [address] [address] Report Submission Date: Jan 28, 2025, 12:38:16 PM EDT Name: MARE CODY Exam Date: Jan 28, 2025, 11:21:56 AM EDT Modality Type: DX Body part: wrist Gender: F Laterality: Right : 83 Referring Physician: EXAM: CR right Wrist, 3 View. CLINICAL HISTORY: fall (DICOM Hx) (DICOM Hx) COMPARISON: None provided. FINDINGS: BONES: No acute fracture or aggressive appearing osseous lesion. JOINTS: No dislocation. The carpal bones demonstrate normal alignment. SOFT TISSUES: The soft tissues are unremarkable. IMPRESSION: No acute osseous abnormality. No acute fracture or dislocation. Electronically signed on Jan 28, 2025, 12:38:16 PM EDT by: Timbo Teran M.D., Certified by ABR, Neuroradiology [place] [address] [place] [address] Report Submission Date: Jan 28, 2025, 12:38:25 PM EDT Name: MARE CODY Exam Date: Jan 28, 2025, 11:19:50 AM EDT Modality Type: DX Body part: humerus Gender: F Laterality: Right : 84 Referring Physician: EXAM: CR right Humerus, 2 View. CLINICAL HISTORY: fall (DICOM Hx) (DICOM Hx) COMPARISON: None provided. FINDINGS: BONES: No acute fracture or aggressive appearing osseous lesion. JOINTS: No dislocation. The joint spaces are normal. SOFT TISSUES: The soft tissues are unremarkable. IMPRESSION: No acute osseous abnormality. Electronically signed on Jan 28, 2025, 12:38:25 PM EDT by: Timbo Teran M.D., Certified by ABR, Neuroradiology Plan Of Treatment No Information Insurance Providers Payer Name Payer Address Payer Phone Subscriber Number Group Number Insured Name Patient Relationship to Insured Coverage Start Date Coverage End Date [facility] [address] [place], [place] [id number] Mare Cody Self - patient is the insured Medical (General) History Medical History History ICD Code DM Surgical History Surgery Date(Month/Year) hysterectomy cholecystectomy lumbar/SI fusion
--- OUTSIDE RECORDS SUMMARY | 2025-03-21 11:03 | XMS_ITS | Encounter Summary ---
Author Organization [facility] Address [address] [place] [address] Care Team Providers Care Shift Supervisor Film Processing Name Role Phone Teddy Regan Primary Care Provider [phone] Reason for Visit * Reason Comments Med Refill Encounter Details Date Type Department Care Team (Late st Contact Info) Description 02/27/2023 Refill [facility] [address] [place] [address] Baylee Herring APRN [address] [place] [address] Side effects of treatment, initial encounter; Bipolar disorder, current episode mixed, severe, with [...] as of this encounter Visit Diagnoses Diagnosis Side effects of treatment, initial encounter Bipolar disorder, current episode mixed, severe, with psychotic features (HCC) documented in this encounter Additional Health Concerns Health Status Noted Date Alive and well 11/25/2020 Assessment Noted Time A fall risk assessment has been complete d for the patient 02/13/2022 8:15 AM CDT documented as of this encounter Care Teams Shift Supervisor Film Processing Relationship Specialty Start Date End Date Teddy Regan [address] [place] [id number] PCP - General 01/31/24 documented as of this encounter
--- OUTSIDE RECORDS SUMMARY | 2025-03-21 11:03 | XMS_ITS | Encounter Summary ---
Author Organization [facility] Address [address] [facility] [place] [address] Care Team Providers Care Tire Wrapper Name Role Phone Teddy Regan Primary Care Provider [phone] Encounter Details Date Type Department Care Team (Late st Contact Info) Description 03/23/2016 Orders Only [facility] [address] [place] [address] [place] [id number] Teddy Nolen MD Social History Tobacco Use Types Packs/Day Years [...] documented as of this encounter Visit Diagnoses Not on filedocumented in this encounter Care Teams Tire Wrapper Relationship Specialty Start Date End Date Teddy Regan [address] [place] [address] [phone] PCP - General 01/31/24 documented as of this encounter
--- OUTSIDE RECORDS SUMMARY | 2025-03-21 11:03 | XMS_ITS | Encounter Summary ---
Author Organization [facility] Address [address] [place] [address] Care Team Providers Care Internal Specialist Name Role Phone Shereen Teddy Alan Primary Care Provider [phone] Encounter Details Date Type Department Care Team (Late st Contact Info) Description 08/25/2011 Orders Only [facility] [address] [place] [address] System, Provider Not In, [address] [place] [address] Social History Tobacco Use Types Packs/Day Years Used Date Smoking Tobacco: Never Assessed Comments Unknown Sex and Gender Information Value Date Recorded Sex Assigned at Not on file Legal Sex Female 8:12 PM CDT Gender Identity Not on file Sexual Orientation Not on file documented as of this encounter Plan of Treatment Not on file documented as of this encounter Procedures Procedure Name Priority Date/Time Associated Diagnosis Comments OUTSIDE IMAGES 08/25/2011 3:36 PM CDT documented in this encounter Results * Outside Images (08/25/2011 3:36 PM CDT) Anatomical Region Laterality Modality N/A Radiographic Chelsea ging 08/25/2011 3:36 PM CDT Narrative 08/25/2011 3:36 PM CDT Historic images from [facility] exist and can be viewed by using the hyperlink to access MiniTime pacs: X-Ray, Chest, PA & Lateral Procedure Note System, Provider Not In - 05/13/2018 Historic images from [facility] exist and can be viewed by using theFincolink to access MiniTime pacs: X-Ray, Chest, PA & Lateral us Provider Not In System MD [facility] Final Result documented in this encounter Visit Diagnoses Not on filedocumented in this encounter Care Teams Internal Specialist Relationship Specialty Start Date End Date Teddy Regan [address] [place] [address] [phone] PCP - General 01/31/24 documented as of this encounter
--- OUTSIDE RECORDS SUMMARY | 2025-03-21 11:03 | XMS_ITS | Encounter Summary ---
Author Organization [facility] Address [address] [place] [address] Care Team Providers Care Code Enforcement Inspector Name Role Phone Shereen Teddy Alan Primary Care Provider [phone] Encounter Details Date Type Department Care Team (Late st Contact Info) Description 08/31/2015 Orders Only [facility] [address] [place] [address] System, Provider Not In, [address] [place] [address] Social History Tobacco Use Types Packs/Day Years [...] Priority Date/Time Associated Diagnosis Comments OUTSIDE IMAGES 08/31/2015 8:51 AM CDT documented in this encounter Results * Outside Images (08/31/2015 8:51 AM CDT) Anatomical Region Laterality Modality N/A Radiographic Chelsea ging 08/31/2015 8:51 AM CDT Narrative 08/31/2015 8:51 AM CDT Historic images from [facility] exist and can be viewed by using the hyperlink to access Aveillant pacs: LUMBAR SPINE 2/3V Procedure Note System, Provider Not In, - 06/25/2020 Historic images from [facility] exist and can be viewed byusing the hyperlink to access Aveillant pacs: LUMBAR SPINE 2/3V us Provider Not In System MD [facility] Final Result documented in this encounter Visit Diagnoses Not on filedocumented in this encounter Care Teams Code Enforcement Inspector Relationship Specialty Start Date End Date Teddy Regan [address] [place] [phone] PCP - General 01/31/24 documented as of this encounter
--- OUTSIDE RECORDS SUMMARY | 2025-03-21 11:03 | XMS_ITS | Encounter Summary ---
Author Organization [facility] Address [address] [place] [address] Care Team Providers Care Appeals Analyst Name Role Phone Teddy Regan Primary Care Provider [phone] Encounter Details Date Type Department Care Team (Late st Contact Info) Description 07/23/2013 Orders Only [facility] [address] [place] [address] System, Provider Not In, [address] [place] [address] Social History Tobacco Use Types Packs/Day Years [...] Priority Date/Time Associated Diagnosis Comments OUTSIDE IMAGES 07/23/2013 1:10 PM MUSIC PUBLISHER documented in this encounter Results * Outside Images (07/23/2013 1:10 PM MUSIC PUBLISHER) Anatomical Region Laterality Modality N/A Radiographic Chelsea ging 07/23/2013 1:10 PM MUSIC PUBLISHER Narrative 07/23/2013 1:10 PM MUSIC PUBLISHER Historic images from [facility] exist and can be viewed by using the hyperlink to access [email or web address] pacs: MRI LUMBAR SPINE NO CONTRAST Procedure Note System, Provider Not In - 06/23/2020 Historic images from [facility] exist and can be viewed byusing the hyperlink to access [email or web address] pacs: MRI LUMBAR SPINE NOCONTRAST us Provider Not In System MD [facility] Final Result documented in this encounter Visit Diagnoses Not on filedocumented in this encounter Care Teams Appeals Analyst Relationship Specialty Start Date End Date Teddy Regan [address] [place] [phone] PCP - General 01/31/24 documented as of this encounter
--- OUTSIDE RECORDS SUMMARY | 2025-03-21 11:03 | XMS_ITS | Clinical Summary ---
Author Organization [facility] Address [address] [place] [address] Care Team Providers Care Puncher And Fastener Name Role Phone Teddy Regan Alan Primary Care Provider [phone] Allergies Active Allergy Reactions Criticality Noted Date Comments Azithromycin Lightheadedness,Hive s,Ra sh High 12/09/2020 She notes my throat acts like it wants to close up Clindamycin Hives,Anaphylaxis,Un know n,Rash,Shortness Of Breath,Swelling High 10/12/2015 Fentanyl Rash Low 07/22/2020 Hydromorphone Anaphylaxis,Shortnes s Of Breath,Hives,Unknown High 12/09/2020 Meloxicam Rash Low 09/11/2023 Milk Abdominal Pain,Diarrhea Medium 12/09/2020 Venom-Wasp Rash,Hives,Anaphylax is,U nknown,Other (See Comments),Swelling High 10/26/2017 Hives Wasp Venom Anaphylaxis,Swelling High 10/26/2017 Medications * This document contains information received from the source organization and may not represent a complete record from that organization. estradiol (ESTRACE) 0.5 MG tablet Take 0.5 mg by mouth daily. 11/24/19 16 Active linaclotide (LINZESS) 145 mcg capsule Take 145 mcg by mouth daily. Active docusate sodium (COLACE) 100 MG capsule Take 100 mg by mouth daily. Active EPINEPHrine (EPIPEN) 0.3 mg/0.3 mL injection syringe 1 Syringe by Intramuscular- Thigh route once. Active Accu-Chek Jamila Plus test strp test strip USE 1 STRIP TO CHECK GLUCOSE ONCE DAILY 09/04/19 20 Active Symbicort 160-4.5 mcg/actuation inhaler 08/26/19 20 Active glipiZIDE (GLUCOTROL) 10 MG tablet 10/22/19 20 Active montelukast (SINGULAIR) 10 mg tablet 10/29/19 20 Active proMETHazine (PHENERGAN) 25 MG tablet 10/21/19 20 Active promethazine-DM (PROMETHAZINE-DM) 6.25-15 mg/5 mL syrup TAKE 10 ML BY MOUTH EVERY 8 HOURS NEEDED 07/13/19 21 Active levocetirizine (XYZAL) 5 MG tablet levocetirizine 5 mg tablet Active fluticasone propionate (FLONASE) 50 mcg/actuation nasal spray USE 1 SPRAY(S) IN EACH NOSTRIL TWICE DAILY 07/08/19 21 Active pantoprazole (PROTONIX) 40 MG EC tabletIndications: Gastroesophageal reflux disease, unspecified whether esophagitis present Take 1 tablet (40 mg total) by mouth 2 (two) times a day with breakfast and supper. 60 tablet 1 07/22/19 21 Active cyclobenzaprine (FLEXERIL) 10 MG tablet 07/31/19 21 Active ergocalciferol (ERGOCALCIFEROL) 50,000 unit capsule Take 1 capsule by mouth once a week. 01/29/20 21 Active Mucinex 1,200 mg tablet Take 1 tablet by mouth 2 (two) times a day. 01/18/20 21 Active ibuprofen (ADVIL) 600 MG tablet Take 600 mg by mouth. Active lisinopriL (PRINIVIL) 2.5 MG tablet 02/04/20 21 Active mupirocin (BACTROBAN) 2 % ointment APPLY A SMALL AMOUNT TO THE AFFECTED AREA TOPICALLY 3 TIMES PER DAY 12/02/19 21 Active ondansetron (ZOFRAN-ODT) 4 MG oral disintegrating tablet 12/07/19 21 Active hydrOXYzine (ATARAX) 50 MG tabletIndications: Anxiety Take 1 tablet (50 mg total) by mouth 3 (three) times a day as needed for anxiety. 90 tablet 2 04/24/20 23 Active Trulicity 0.75 mg/0.5 mL pen injector INJECT 0.75MG SUBCUTANEOUSLY WEEKLY 01/01/20 24 Active metFORMIN (GLUCOPHAGE) 1000 MG tablet Take 1,000 mg by mouth in the morning and 1,000 mg in the evening. Active propranoloL (INDERAL) 20 MG tablet 05/23/20 Active atorvastatin (LIPITOR) 80 MG tablet Take 80 mg by mouth in the morning. 05/23/20 24 Active gabapentin (NEURONTIN) 800 MG tablet 05/27/20 24 Active paliperidone palmitate (Invega Sustenna) 234 mg/1.5 mL injectionIndicatio ns:Bipolar disorder, current episode mixed, severe, with psychotic features (HCC) INJECT 1.5 ML (234 MG TOTAL) INTO THE SHOULDER, THIGH, OR BUTTOCKS EVERY 28 DAYS. 1.5 mL 5 06/05/19 25 Active tiZANidine (ZANAFLEX) 4 mg tablet TAKE 1 TABLET BY MOUTH EVERY 12 HOURS NEEDED FOR SPASM 09/04/19 25 Active doxepin (SINEquan) 75 mg capsuleIndications :Insomnia, unspecified type TAKE 1 to 2 CAPSULE BY MOUTH AT BEDTIME NEEDED FOR SLEEP 60 capsule 3 09/10/19 25 Active buPROPion (WELLBUTRIN XL) 300 mg 24 hr tabletIndications: Anxiety TAKE 1 TABLET BY MOUTH EVERY MORNING FOR ANXIETY/DEPRESSIO N 30 tablet 3 09/10/19 25 Active QUEtiapine (SEROQUEL) 400 mg tabletIndications: Bipolar disorder, current episode mixed, severe, with psychotic features (HCC) Take 1 tablet PO QHS for better mood/sleep (with XR) 30 tablet 3 09/10/19 25 Active escitalopram (LEXAPRO) 20 mg tabletIndications: Anxiety,Bipolar disorder, current episode mixed, severe, with psychotic features (HCC) TAKE 1 TABLET BY MOUTH DAILY FOR ANXIETY AND DEPRESSION WITH 10 MG 30 tablet 2 09/11/19 25 Active escitalopram (LEXAPRO) 10 mg tabletIndications: Anxiety Take 1 tablet (10 mg total) by mouth in the morning. WITH 20 MG. 30 tablet 2 09/11/19 25 Active Trulicity 1.5 mg/0.5 mL pen injector 10/06/19 25 Active Hospital, Clinic, or Other Facility Administered Medication Ordered Dose Route Frequency Start Date End Date Status paliperidone palmitate syringeIndications:Bipola r disorder, current episode mixed, severe, with psychotic features (HCC) 234 mg IM Every 30 days 10/10/2019 Active Active Problems Problem Noted Date Diagnosed Date Complication of surgical procedure 07/22/2024 Obstructive sleep apnea syndrome 06/08/2024 Lung nodule 11/25/2023 Chronic respiratory failure with hypoxia 024 Affective psychosis, bipolar 02/27/2023 Anxiety 02/27/2023 Insomnia 02/27/2023 Side effects of treatment 02/27/2023 Bipolar affective disorder, mixed, severe, with psychotic behavior 06/13/2022 History of anaphylaxis 12/31/2020 Hydradenitis 11/25/2020 Assessment & Plan (11/25/2020 12:53 PM CDT): Follow up with Dr. France for care of Hydradenitis Abdominal wall abscess 11/18/2020 Assessment & Plan (11/25/2020 12:54 PM CDT): Healing well. Follow up with Dr. France Assessment & Plan (11/18/2020 2:37 PM CDT): I and D today x3. Possible Hydradenitis Supprativa will await culture. Culture sent out today. Follow up in 1 week. Type 2 diabetes mellitus without complication Chronic obstructive lung disease 07/12/2020 Hypercholesterolemia 06/17/2020 Diabetes mellitus 06/17/2020 Asthma 06/17/2020 Thoracic back pain 10/26/2017 Tachycardia 10/09/2016 Palpitations 10/09/2016 Pain 05/05/2016 Sacroiliitis 02/22/2016 Degeneration of intervertebral disc of lumbar re gion 01/18/2016 Nicotine dependence, cigarettes, uncomplicated 0 09/13/2015 Vitamin D deficiency 07/05/2015 Immunizations Immunization Administration Dates Next Due Influenza, injectable, MDCK, preservative free, quadrivalent (FLUCELVAX) 02/12/2020 Influenza, injectable, MDCK, quadrivalent, preservative (FLUCELVAX MDV) 04/01/2018 Influenza, injectable, quadr ivalent, preservative free, pediatric (AFLURIA) 03/28/2021 Tdap (BOOSTRIX, ADACEL) 10/02/2016 influenza, injectable, quadr ivalent, preservative free (AFLURIA/FLUARIX/FLULAVAL/FLUZONE) 02/23/2023 influenza, injectable, trivalent (AFLURIA/FLUZON E MDV) 02/05/2008 influenza, injectable, triva lent, preservative free (AFLURIA/FLUARIX/FLULAVAL/FLUZONE) 03/12/2024 influenza, unspecified 02/26/2020 pneumococcal conjugate PCV 13 (PREVNAR 13) 04/01 pneumococcal conjugate PCV 20 (PREVNAR 20) 03/12 pneumococcal polysaccharide PPV 23 (PNEUMOVAX 23 ) 02/12/2020 Family History Medical History Relation Name Comments Alcohol abuse Father Alcohol abuse Mother Bipolar disorder Mother Diabetes Mother Relation Name Status Comments Father Mother Alive Social History Tobacco Use Types Packs/Day Years Used Date Smoking Tobacco: Every Day Cigarettes 0.5 20 Smokeless Tobacco: Never Tobacco Cessation:Ready to Q uit: No; Counseling Given: No Alcohol Use Standard Drinks/Week Comments No 0 [...] Sign Reading Time Taken Comments Blood Pressure 140/93 02/13/2022 8:02 AM CDT Pulse 82 02/13/2022 8:02 AM CDT Temperature 35.1 C (95.2 F) 02/13/2022 8:02 AM CDT Respiratory Rate 18 11/25/2020 10:11 AM CDT Oxygen Saturation 95% 02/22/2021 8:28 AM CDT Inhaled Oxygen Concentration - - Weight 118 kg (259 lb 9.6 oz) 02/13/2022 8:02 AM CDT Height 175.3 cm (5' 9 ) 02/13/2022 8:02 AM CDT Body Mass Index 38.34 02/13/2022 8:02 AM CDT Plan of Treatment Health Maintenance Due Date Last Done Comments Foot Exam 1984 Hemoglobin A1C 1984 Medicare Annual Wellness 1984 Ophthalmology Exam 1994 Urine Microalbumin 1994 Varicella Vaccines (1 of 2 - 13+ 2-dose series) 1997 Hepatitis B Vaccines (1 of 3 - 19+ 3-dose series) 2003 Pap Smear 2005 HPV Vaccines (1 - 3-dose SCDM series) 2011 Mammogram 2024 Influenza Vaccination (#1) 12/26/202403/12, 02/23/2023, 03/28/2021, Additional history exists COVID-19 Vaccine (3 - 2024- season) 2025 06/25/2021, 01/14/2021 Td, Tdap Vaccines Adult 10/02/2026 10/02/2016 Pneumococcal Vaccine: Pediatrics (0 to 5 Years) and At-Risk Patients (6 to 49 Years) (3 of 3 - PCV20 or PCV21) 2034 03/12/2024, 02/12/2020, 04/01/2018 HIB Vaccines Aged Out No longer eligi ble based on patient's age to complete this topic Hepatitis A Vaccines Aged Out No long er eligible based on patient's age to complete this topic IPV Vaccines Aged Out No longer eligi ble based on patient's age to complete this topic Meningococcal Vaccines Aged Out No lo nger eligible based on patient's age to complete this topic RSV Mab Nirsevimab (Beyfortus) <20 months Aged Out No longer eligibl e based on patient's age to complete this topic Rotavirus Vaccines Aged Out No longer eligible based on patient's age to complete this topic Medical Devices Implanted Type Area Glycerin Operator Device Identifier Shelf Expiration Date Model / Serial / Lot Bn Andria Carmona Large (Human) - [id number] - [id number] Implanted:Qty : 1 on 05/05/2016 by Omar Torres DO at [facility] IMPLANT Left: Hip MUSCULOSKELETAL TRANSPLANT FOUND 04/19/2017 [id number] / [id number] / Implant Dual Thread Sacro 12.5x35mm - [id number] Implanted:Qty : 1 on 05/05/2016 by Omar Torres DO at [facility] IMPLANT Left: Hip UNKNOWN [id number] -[id number] / / Implant Dual Thread Sacro 12.5x40mm - [id number] Implanted:Qty : 1 on 05/05/2016 by Omar Torres DO at [facility] IMPLANT Left: Hip UNKNOWN [id number] -DT / / Implant Dual Thread Sacro Lck 7x35mm - [id number] Implanted:Qty : 1 on 05/05/2016 by Omar Torres DO at [facility] IMPLANT Left: Hip UNKNOWN [id number] / / Bn Andria Carmona Large (Human) - [id number] - [id number] Implanted:Qty : 1 on 01/17/2019 by Omar Torres DO at [facility] IMPLANT MUSCULOSKELETAL TRANSPLANT FOUND 10/09/2020 [id number] / [id number] / Implant Relive Allograft 9x25mm - [id number] - [id number] Implanted:Qty : 1 on 01/17/2019 by Omar Torres DO at [facility] IMPLANT UNKNOWN 11/06/2023 [id number] / [id number] / Implant Si [id number] Sicure - [id number] Implanted:Qty : 1 on 01/17/2019 by Omar Torres DO at [facility] IMPLANT UNKNOWN 900.11.45 / / Implant Si [id number] Sicure - [id number] Implanted:Qty : 1 on 01/17/2019 by Omar Torres DO at [facility] IMPLANT UNKNOWN 900.11.50 / / Insurance MEDICARE Advance Directives * Code Blue and Intubation (Latest Code Status on File) Date Activated Date Inactivated Comments 01/17/2019 6:14 PM 01/18/2019 1:58 PM * Code Blue and Intubation Date Activated Date Inactivated Comments 05/05/2016 12:46 PM 05/06/2016 5:03 PM * Code Blue and Intubation Date Activated Date Inactivated Comments 05/05/2016 9:35 AM 05/05/2016 12:46 PM Care Teams Puncher And Fastener Relationship Specialty Start Date End Date Teddy Regan [address] [place] [phone] PCP - General 01/31/24
--- OUTSIDE RECORDS SUMMARY | 2025-03-21 11:03 | XMS_ITS | Encounter Summary ---
Author Organization [facility] Address [address] [place] [address] Care Team Providers Care Microfilm Mounter Name Role Phone Teddy Regan Primary Care Provider [phone] Encounter Details Date Type Department Care Team (Late st Contact Info) Description 08/27/[address] [facility] Radiology [address] [place] [address] System, Provider Not In, [address] [place] [address] Social History Tobacco Use Types Packs/Day Years [...] Priority Date/Time Associated Diagnosis Comments OUTSIDE IMAGES 08/27/2012 2:34 PM CDT documented in this encounter Results * Outside Images (08/27/2012 2:34 PM CDT) Anatomical Region Laterality Modality N/A Radiographic Chelsea ging 08/27/2012 2:34 PM CDT Narrative 08/27/2012 2:34 PM CDT Historic images from [facility] exist and can be viewed by using the hyperlink to access Clipboard pacs: Adult Chest - 2 Views Procedure Note System, Provider Not In - 09/26/2016 Historic images from [facility] exist and can be viewedby using the hyperlink to access Clipboard pacs: Adult Chest - 2 Views us Provider Not In System MD [facility] Final Result documented in this encounter Visit Diagnoses Not on filedocumented in this encounter Care Teams Microfilm Mounter Relationship Specialty Start Date End Date Teddy Regan [address] [place] [phone] PCP - General 01/31/24 documented as of this encounter
--- OUTSIDE RECORDS SUMMARY | 2025-03-21 11:03 | XMS_ITS | Encounter Summary ---
Author Organization [facility] Address [address] [place] [address] Care Team Providers Care Outside Solar Sales Consultant Name Role Phone Teddy Regan Primary Care Provider [phone] Encounter Details Date Type Department Care Team (Late st Contact Info) Description 11/12/2010 Orders Only [facility] Radiology [address] [place] [address] System, Provider Not In, [address] [place] [address] Social History Tobacco Use Types Packs/Day Years [...] Priority Date/Time Associated Diagnosis Comments OUTSIDE IMAGES 11/12/2010 11:31 AM CDT documented in this encounter Results * Outside Images (11/12/2010 11:31 AM CDT) Anatomical Region Laterality Modality N/A Radiographic Chelsea ging 11/12/2010 11:3 1 AM CDT Narrative 11/12/2010 11:31 AM CDT Historic images from [facility] exist and can be viewed by using the hyperlink to access Kirusa pacs: X-Ray, Hand Procedure Note System, Provider Not In - 05/15/[address] [facility] exist and can be viewed by using theFraudwall Technologieslink to access Kirusa pacs: X-Ray, Hand us Provider Not In System MD [facility] Final Result documented in this encounter Visit Diagnoses Not on filedocumented in this encounter Care Teams Outside Solar Sales Consultant Relationship Specialty Start Date End Date Teddy Regan [address] [place] [phone] PCP - General 01/31/24 documented as of this encounter
--- OUTSIDE RECORDS SUMMARY | 2025-03-21 11:03 | XMS_ITS | Encounter Summary ---
Author Organization [facility] Address [address] [place] [address] Care Team Providers Care Esl Tutor Name Role Phone Teddy Regan Primary Care Provider [phone] Reason for Visit * Reason Comments Med Refill Encounter Details Date Type Department Care Team (Late st Contact Info) Description [facility] [address] [place] [address] Baylee Herring APRN [address] [place] [address] Bipolar disorder, current episode mixed, severe, with [...] documented as of this encounter Care Teams Esl Tutor Relationship Specialty Start Date End Date Teddy Regan [address] [place] [address] [phone] PCP - General 01/31/24 documented as of this encounter
--- OUTSIDE RECORDS SUMMARY | 2025-03-21 11:03 | XMS_ITS | Encounter Summary ---
Author Organization [facility] Address [address] [place] [address] Care Team Providers Care Sales Promotion Representative Name Role Phone Teddy Regan Primary Care Provider [phone] Encounter Details Date Type Department Care Team (Late st Contact Info) Description 12/24/2010 Orders Only [facility] Radiology [address] [place] [address] System, Provider Not In, [address] [place] [address] Social History Tobacco Use Types Packs/Day Years [...] Priority Date/Time Associated Diagnosis Comments OUTSIDE IMAGES 12/24/2010 12:13 PM CDT documented in this encounter Results * Outside Images (12/24/2010 12:13 PM CDT) Anatomical Region Laterality Modality N/A Radiographic Chelsea ging 12/24/2010 12:1 3 PM CDT Narrative 12/24/2010 12:13 PM CDT Historic images from [facility] exist and can be viewed by using the hyperlink to access Exegy pacs: X-Ray, Knee Procedure Note System, Provider Not In - 05/15/2018 Historic images from [facility] exist and can be viewed by using theWorkMeInlink to access Exegy pacs: X-Ray, Knee us Provider Not In System MD [facility] Final Result documented in this encounter Visit Diagnoses Not on filedocumented in this encounter Care Teams Sales Promotion Representative Relationship Specialty Start Date End Date Teddy Regan [address] [place] [phone] PCP - General 01/31/24 documented as of this encounter
--- OUTSIDE RECORDS SUMMARY | 2025-03-21 11:03 | XMS_ITS | Encounter Summary ---
Author Organization [facility] Address [address] [place] [address] Care Team Providers Care Technical Operator Name Role Phone Teddy Regan Primary Care Provider [phone] Encounter Details Date Type Department Care Team (Late st Contact Info) Description 09/24/2018 Orders Only [facility] Radiology [address] [place] [address] System, Provider Not In, [address] [place] [address] Social History Tobacco Use Types Packs/Day Years Used Date Smoking Tobacco: Every Day Cigarettes 0.5 20 Smokeless Tobacco: Never Alcohol Use Standard Drinks/Week Comments No 0 (1 standard drink = 0.6 oz pure alcohol) chronic alcoholism is in remission Comments No Sex and Gender Information Value Date Recorded Sex Assigned at Not on file Legal Sex Female 8:12 PM CDT Gender Identity Not on file Sexual Orientation Not on file documented as of this encounter Plan of Treatment Not on file documented as of this encounter Procedures Procedure Name Priority Date/Time Associated Diagnosis Comments OUTSIDE IMAGES 09/24/2018 3:40 PM CDT documented in this encounter Results * Outside Images (09/24/2018 3:40 PM CDT) Anatomical Region Laterality Modality N/A Radiographic Chelsea ging 09/24/2018 3:40 PM CDT Narrative 09/24/2018 3:40 PM CDT Image aquired from external facility for exam: MRI Lumbar Spine [id number] Procedure Note System, Provider Not In, - 01/07/2019 Image aquired from external facility for exam: MRI Lumbar Spine [id number] us Provider Not In System MD [facility] Final Result documented in this encounter Visit Diagnoses Not on filedocumented in this encounter Additional Health Concerns Health Status Noted Date Alive and well 08/09/2018 documented as of this encounter Care Teams Technical Operator Relationship Specialty Start Date End Date Teddy Regan [address] [place] [id number] PCP - General 01/31/24 documented as of this encounter
--- OUTSIDE RECORDS SUMMARY | 2025-03-21 11:03 | XMS_ITS | Encounter Summary ---
Author Organization [facility] Address [address] [place] [address] Care Team Providers Care Sales Representative [employer] Name Role Phone Shereen Teddy Alan Primary Care Provider [phone] Encounter Details Date Type Department Care Team (Late st Contact Info) Description 10/12/2015 Orders Only [facility] Radiology [address] [place] [address] System, Provider Not In, [address] [place] [address] Social History Tobacco Use Types Packs/Day Years [...] Priority Date/Time Associated Diagnosis Comments OUTSIDE IMAGES 10/12/2015 1:49 PM CDT documented in this encounter Results * Outside Images (10/12/2015 1:49 PM CDT) Anatomical Region Laterality Modality N/A Radiographic Chelsea ging 10/12/2015 1:49 PM CDT Narrative 10/12/2015 1:49 PM CDT Historic images from [facility] exist and can be viewed by using the hyperlink to access [facility] p[facility]: LUMBAR SPINE 2/3V Procedure Note System, Provider Not In, - 06/24/2020 Historic images from [facility] exist and can be viewed byusing the hyperlink to access [facility]: LUMBAR SPINE 2/3V us Provider Not In System MD [facility] Final Result documented in this encounter Visit Diagnoses Not on filedocumented in this encounter Care Teams Sales Representative [employer] Relationship Specialty Start Date End Date Teddy Regan [address] [place] [id number] PCP - General 01/31/24 documented as of this encounter
--- OUTSIDE RECORDS SUMMARY | 2025-03-21 11:03 | XMS_ITS | Clinical Summary ---
Author Organization [facility] Address [address] [place] [address] Care Team Providers Care Sewing Machinist Name Role Phone Kay Da Silva NP Primary Care Provider Allergies Active Allergy Reactions Criticality Noted Date Comments Clindamycin Swelling Medium 08/23/2020 Medications albuterol HFA (PROVENTIL HFA,VENTOLIN HFA,PROAIR HFA) 90 mcg/actuation inhaler Inhale 2 puffs every 4 (four) hours as needed for wheezing Active albuterol HFA (PROVENTIL HFA,VENTOLIN HFA,PROAIR HFA) 90 mcg/actuation inhaler Inhale 2 puffs every 6 (six) hours as needed for wheezing Active aspirin 81 mg chewable tablet Take 81 mg by mouth daily Active atorvastatin (LIPITOR) 40 mg tablet Take 40 mg by mouth daily Active benzonatate (TESSALON) 100 mg capsuleIndicati ons:Cough Take 100 mg by mouth every 8 (eight) hours as needed for cough Active benztropine (COGENTIN) 0.5 mg tablet Take 0.5 mg by mouth 2 (two) times a day Active ergocalciferol (VITAMIN D) 50,000 unit capsule Take 50,000 Units by mouth once a week Active cyclobenzaprine (FLEXERIL) 10 mg tablet Take 10 mg by mouth daily Active carBAMazepine (TEGretol) 200 mg tablet Take 200 mg by mouth 2 (two) times a day Active docusate sodium (COLACE) 100 mg capsuleIndicati ons:constipatio n Take 100 mg by mouth daily Active doxepin (SINEquan) 50 mg capsule Take 50 mg by mouth nightly as needed for sleep Active EPINEPHrine 0.3 mg/0.3 mL auto-injection syringeIndicati ons:Anaphylaxis Inject 1 Syringe into the muscle as instructed as needed for anaphylaxis Active buPROPion XL (WELLBUTRIN XL) 300 mg 24 hr tablet Take 300 mg by mouth daily Active budesonide-form oteroL (SYMBICORT) 160-4.5 mcg/actuation inhaler Inhale 2 puffs every 12 (twelve) hours Rinse mouth with water after use. Do not swallow. Active promethazine-DM (PROMETHAZINE-D M) 1.25-3 mg/mL syrup Take 10 mL by mouth every 8 (eight) hours as needed for cough Active propranoloL (INDERAL) 10 mg tablet Take 10 mg by mouth every 12 (twelve) hours Active QUEtiapine (SEROquel) 400 mg tablet Take 400 mg by mouth nightly Active tiotropium bromide (SPIRIVA RESPIMAT) 2.5 mcg/actuation inhaler Inhale 2 puffs daily Active escitalopram (LEXAPRO) 20 mg tablet Take 20 mg by mouth daily Active gabapentin (NEURONTIN) 800 mg tablet Take 800 mg by mouth Active glipiZIDE (GLUCOTROL) 10 mg tabletIndicatio ns:type 2 diabetes mellitus Take 10 mg by mouth daily Active ibuprofen (ADVIL,MOTRIN) 600 mg tablet Take 600 mg by mouth every 6 (six) hours as needed for pain Active levocetirizine (XYZAL) 5 mg tablet Take 5 mg by mouth daily Active naproxen (NAPROSYN) 500 mg tablet Take 500 mg by mouth 2 (two) times a day with meals Active pantoprazole DR (PROTONIX) 40 mg EC tablet Take 40 mg by mouth daily Active montelukast (SINGULAIR) 10 mg tablet Take 10 mg by mouth daily Active linaCLOtide (LINZESS) 145 mcg capsule Take 145 mcg by mouth daily Active ofloxacin (FLOXIN) 0.3 % otic solution Administer 10 drops into each ear daily Active paliperidone (INVEGA SUSTENNA) 234 mg/1.5 mL syringe Inject 234 mg into the muscle as instructed every 30 (thirty) days Active HYDROcodone-paola taminophen (NORCO) 5-325 mg per tabletIndicatio ns:Pain Take 1 tablet by mouth 4 (four) times a day as needed Active hydrOXYzine (ATARAX) 50 mg tablet Take 50 mg by mouth 3 (three) times a day as needed for itching Active fluticasone propionate (FLOVENT DISKUS) 50 mcg/actuation diskus inhaler Inhale 1 puff 2 (two) times a day Rinse mouth with water after use. Do not swallow. Active nicotine (NICODERM CQ) [address] 1 patch on the skin daily Active paliperidone ER (INVEGA) 6 mg 24 hr tablet Take 6 mg by mouth every morning Active Active Problems No known active problems Immunizations Immunization Administration Dates Next Due Influenza, Unspecified 02/26/2020 Pneumococcal Conjugate PCV 13 04/01/2018 Tdap 09/29/2016 Surgical History Surgery Date Site/Laterality Comments TONSILLECTOMY CHOLECYSTECTOMY 05/28/2012 - 05/27/2013 HYSTERECTOMY 05/28/2014 - 05/27/2015 LUMBAR FUSION 05/28/2015 - 05/27/2016 [id number] OTHER SURGICAL HISTORY 05/28/2015 - 05/27/2016 Left SI fusion OTHER SURGICAL HISTORY 05/28/2018 - 05/27/2019 Right SI fusion OTHER SURGICAL HISTORY 05/28/2019 - 05/27/2020 Bilateral bilateral RFA Medical History Medical History Date Comments Alcoholism (HCC) Anxiety Asthma Bipolar disorder Cancer (HCC) Ear problems Depression Type 2 diabetes mellitus Gastric reflux Kidney infection Disc disorder of lumbar region Psychosis (HCC) GERD (gastroesophageal reflux disease) Sleep apnea Family History Medical History Relation Name Comments Early Father Heart disease Father Early Maternal Grandfather Diabetes Maternal Grandmother Heart disease Maternal Grandmother Hypertension Maternal Grandmother Stroke Maternal Grandmother Diabetes Mother Heart disease Mother Hypertension Mother Heart disease Paternal Grandmother Hypertension Paternal Grandmother Stroke Paternal Grandmother Early Son Relation Name Status Comments Father Maternal Grandfather Maternal Grandmother Mother Paternal Grandmother Son Social History Tobacco Use Types Packs/Day Years Used Date Smoking Tobacco: Every Day Cigarettes 1 30.8 Started: 1995 Smokeless Tobacco: Never Tobacco Cessation:Ready to Q uit: No; Counseling Given: Yes Personal Safety Answer Date Recorded Getting School Help Needed Not on file 07/28 Comments Unknown Sex and Gender Information Value Date Recorded Sex Assigned at Not on file 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 Gender Identity Female 08/02/2020 3:27 PM 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 Sexual Orientation Not on file Obstetrics History Last Filed Vital Signs Vital Sign Reading Time Taken Comments Blood Pressure 123/78 08/23/2020 11:51 AM CDT Pulse 90 08/23/2020 11:51 AM CDT Temperature - - Respiratory Rate - - Oxygen Saturation - - Inhaled Oxygen Concentration - - Weight 124.4 kg (274 lb 3.2 oz) 021 11:51 AM CDT Height 172.7 cm (5' 8 ) 08/23/2020 11:5 1 AM CDT Body Mass Index 41.69 08/23/2020 11:51 AM CDT Plan of Treatment Not on file Insurance MEDICARE [facility] Address: [address] [address] [place] [address] [place] [facility] Care Teams Sewing Machinist Relationship Specialty Start Date End Date Kay Da Silva NP [address] [place] [address] PCP - General Nurse Practitioner 08/02/20
--- OUTSIDE RECORDS SUMMARY | 2025-03-21 11:03 | XMS_ITS | Data Portability ---
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 We spent approximately 30 minutes before the evaluation today with the patient and then another 35-45 minutes for the actual exam. 25 minutes was used postprocedure today per documentation and Placing orders. unfortunately, we do not have imaging results at this time to help us thoroughly evaluate the next step of therapy. If we see significant pathology when we finally achieve these records, we will contact her for more urgent re-evaluation; and possible therapy. Additionally, her marked elevation in the SOAPP Score 24 of 27, ( were 18 or below is considered normal ) suggests a very high risk of substance abuse if prescribed opioids etc. [email or web address] Not available 06/18/2020 14:14:57 06/30/2020 06/30/2020 unfortunately, this patient has several issues that are contributing to pain. It appears obvious that she has a coccygeal fracture, with the focused views of that region. Changes adjacent to the fusion also contribute to recess stenosis, primarily on the right. We perform the injection today under fluoroscopy, with good placement of steroid. There was improvement of her back pain, but not in the coccygeal region. Additionally, her marked elevation in the SOAPP Score 24 of 27, ( were 18 or below is considered normal ) suggests a very high risk of substance abuse if prescribed opioids etc. haily Not available 06/30/2020 12:40:48 03/11/2025 03/11/2025 X-rays performed today of the right wrist reveal small avulsion type fracture of the distal pole of the scaphoid. The fracture appears to be subacute. No significant displacement noted. The joints of the wrist and the carpal bones are intact. I reviewed imaging with the patient today. She does have a distal pole scaphoid avulsion type fracture. Thankfully the fracture is nondisplaced and is not something that would require operative intervention. I discussed with her that she is likely continuing to have pain and swelling because she did not immobilize and allow the fracture to heal. I recommended that we place her in a short arm cast today. A short arm cast was applied by me to the RIGHT arm with 2 rolls of fiberglass and neurovascular check was performed by me prior to discharge. She is to be strict nonweightbearing on the arm and keep cast clean, dry and intact. She is to regularly elevate. She is to take anti-inflammatorie s as needed. No increased activity with the right arm. I have given her a work letter explaining her restrictions. I am going to see her back in 3 weeks for repeat x-rays and likely transition her to a brace at that time. She was advised to call sooner with any issues or concerns. [email or web address] Not available 03/11/2025 15:50:53 Plan of Treatment Reminders Order Date Submit Date Provider Last Modified By Organization Details Last Modified Time Details Appointments Establish ed Patient 2024 10:45A M Hayden CERVANTES. Not available Not available Not available Lab None recorded. Referral None recorded. Procedures None recorded. Surgeries None recorded. Imaging XR, wrist, 3 or more view 2024 025 KITA [facility] (Radiology), [address], [place], [address], 03/16/2025 09:54:49 Medication Orders gabapenti n 800 mg tablet 2020 021 [facility], [facility] [place], [place], [id number], 06/18/2020 11:38:55 Patient TargetsNo targets recorded. Patient Instructions Encounter Date Encounter Id Patient Instructions Last Modified By Organization Details Last Modified Time 03/11/2025 [id number] work status report* - patient may work with cast. May NOT lift, push or pull while cast is on until further notice. [email or web address] Not available 03/11/2025 16:38:36 Reason for Referral None Reported. Results Created Date Observation Date Name Description Value Unit Range Abnormal Flag Note LastModifiedBy Organization Detail LastModifiedTime 07/30/19 21 06/30/2020 x-ray in [facility] M54.5 PAIN CL[facility]IC . EPIDUR AL Proced ure Acknow ledge Date: 2020 10:34 AM Flouro scopy provid ed for intrap rocedu ral purpos es. No radiol ogist interp retati on or superv ision provid ed. Please see perfor vinayak physic yanelis's proced ure notes for result s. DT: 2020 12:56 PM Dictat ed By: JOHNY SHELDON RAD DIRECT OR 886Ove rsight Rad Dir DF: 2020 11:19 AM Signed By: JOHNY SHELDON RAD DIRECT OR 886Ove rsight Rad Dir Isidro gallego Provid er(s): Deepthi priest Provid er: Result Copies To: Attend ing Doctor : ETTA CELIS Referr ing Doctor : Caio gallego Doctor : Dane bronson Doctor : Other Health care Provid er: haily [facility] (Radiology) [address], [place], [address], 08/02/2020 08:55:48 03/16/20 25 03/11/2025 XR, wrist , 3 or more view [facility] [address] [place] [address]- [phone] Patien t: REGGIE HACKETT [id number] : 1984 Sex:Fe male Locati on: [facility] Deepthi priest Physic yanelis: JAKE OTOOLEo stic Radiol ogy Access ion Exam Date/T eddie [id number] 2024 13:05 CDT Reason for Exam pain and swelli ng from a fall Report EXAM: RIGHT WRIST. THREE- VIEW. HISTOR Y: Right wrist pain. Fall. COMPAR WILD: 2024 TECHNI QUE: AP, latera l obliqu e views of the right wrist. FINDIN GS: There is a small fragme nt of bone adjace nt to the distal scapho id which is not seen on the previo us study. There are no lytic or blasti c lesion s. Soft tissue s are normal . Bone minera lizati on is normal . No signif icant degene rative change s. IMPRES ALIZA: Nondis placed fractu re of the distal right scapho id. The scapho id waist appear s intact . UNEXPE CTED FINDIN GS: Distal right scapho id fractu re. Final Signed by: LONA PETERS MD Signed (Elect malinda Signat ure): 2024 08:54 am CDT [email or web address] [facility] (Radiology) [address] [facility], [place], [address], 03/16/2025 10:11:26 Result Notes Documentation Provider Name and Address Organization Details Recorded Time Xr, Wrist, 3 Or More View : [facility] [address] [place] [address]- Patient: REGGIE CODY : 1985 Sex:Female Location: [facility] Ordering Physician: JAKE OTOOLE Diagnostic Radiology Accession Exam Date/Time [id number] 03/11/2025 13:05 CDT Reason for Exam pain and swelling from a fall Report EXAM: RIGHT WRIST. THREE-VIEW. HISTORY: Right wrist pain. Fall. COMPARISON: 11/21/2024 TECHNIQUE: AP, lateral oblique views of the right wrist. FINDINGS: There is a small fragment of bone adjacent to the distal scaphoid which is not seen on the previous study. There are no lytic or blastic lesions. Soft tissues are normal. Bone mineralization is normal. No significant degenerative changes. IMPRESSION: Nondisplaced fracture of the distal right scaphoid. The scaphoid waist appears intact. UNEXPECTED FINDINGS: Distal right scaphoid fracture. Final Signed by: LONA MONTOYA MD Signed (Electronic Signature): 03/16/2025 08:54 am CDT STEPHANIE CERVANTES [address] [place] [address], [id number], [place] [facility] [place] 03/16/2025 10:11:26 Problems Name Problem SNOMED Code Status Onset Date Resolution Date Notes Provider Name and Address Organization Details Recorded Time Chronic pain 53793039 Active 2020 Danni RN null, [place] [facility] [place] 10:47:49 Hypercholester olemia 11692599 Active 2020 Danni RN null, [place] [facility] [place] 10:47:57 Diabetes mellitus 20913675 Active 2020 Danni RN null, [place] [facility] [place] 10:48:05 Depressive disorder 15268054 Active 2020 Danni RN null, [place] [facility] [place] 10:48:19 Bipolar disorder 87900392 Active 2020 Danni RN null, [place] [facility] [place] 10:48:33 Asthma 233133265 Active 2020 Danni RN null, [place] [facility] [place] 10:49:03 Problem Notes None recorded. Procedures Surgical History Date Name Laterality Status Provider Name and Address Organization Details Recorded Time 06/30/19 21 Lumbar Interlaminar Epidural Steroid Injection completed Etta Mancia MD [address] [place] [address], [id number], [place] [facility] [place] 06/30/2020 12:35:00 Back Surgery completed [place] Jeronimo [place] [facility] [place] 03/26/2020 14:55:18 Tonsillectomy completed Hermila Emmanuel LP N [place] [facility] [place] 03/26/2020 14:55:33 Cholecystectomy completed Hermila Emmanuel LP N MD - [address] 03/26/2020 14:55:45 Hysterectomy completed Hermila Emmanuel LP N [address] 03/26/2020 14:55:55 Imaging Results None recorded. Procedure Notes None recorded. Medical Equipment None Reported. Allergies Allergen ID Allergen Name Allergen Category Reaction Reaction Severity Criticality Documentation Date Start Date Code Code System Note Provider Name and Address Organization Details Recorded Time [address] clindamyc in Not available Not available Not available Not available 03/26/2020 2582 RxNorm EMMA Jeronimo, [address] 0 14:53:53 [address]203 wasp venoms environme nt Not available Not available Not available 03/26/2020 87894 RxNorm Hermila Emmanuel LPN eric, [address] 0 14:54:06 [address] Dilaudid medicatio n Not available Not available Not available 06/18/2020 34799 3 RxNorm Kelly Danni PEACOCK null, [address] 1 10:38:20 [address] fentanyl medicatio n Not available Not available Not available 06/18/2020 4337 RxNorm Kelly Danni RN eric, [address] 1 10:38:29 Medications Name Sig Start Date Stop Date Status Note LastModified by Organization Details LastModified Time cyclobenzap rine 10 mg tablet TAKE 1 TABLET BY MOUTH ONCE DAILY active Not Available Not Available No t Available amoxicillin 500 mg capsule TAKE 1 CAPSULE BY MOUTH TWICE DAILY FOR 10 DAYS 06/18 completed Not Available Not Available Not Available atorvastati n 40 mg tablet TAKE 1 TABLET BY MOUTH DAILY active Not Available Not Available No t Available methocarbam ol 500 mg tablet active Not Available Not Available Not Available doxepin 50 mg capsule TAKE 1 CAPSULE BY MOUTH AT BEDTIME NEEDED FOR SLEEP active Not Available Not Available No t Available promethazin e-DM 6.25 mg-15 mg/5 mL oral syrup TAKE 10 ML BY MOUTH EVERY 8 HOURS NEEDED active Not Available Not Available No t Available atorvastati n 80 mg tablet TAKE 1 TABLET BY MOUTH DAILY active Not Available Not Available No t Available nystatin 100,000 unit/mL oral suspension active Not Available Not Available N ot Available prednisone 10 mg tablet TAKE 4 TABLETS BY MOUTH ON DAYS 1-3, TAKE 3 TABLETS ON DAYS 4-6, TAKE 2 TABLETS ON DAYS 7-9, TAKE 1 TABLET ON DAYS 10-12 06/30 completed Not Available Not Available Not Available doxycycline hyclate 100 mg capsule active Not Available Not Available N ot Available benztropine 0.5 mg tablet TAKE 1 TABLET BY MOUTH TWICE DAILY FOR SIDE EFFECTS active Not Available Not Available No t Available nicotine 14 mg/24 hr daily transdermal patch APPLY 1 PATCH TOPICALLY ONCE DAILY 06/30 completed Not Available Not Available Not Available albuterol sulfate 2.5 mg/3 mL (0.083 %) solution for nebulizatio n INHALE CONTENTS OF 1 VIAL VIA NEBULIZER THREE TIMES DAILY active Not Available Not Available No t Available trazodone 50 mg tablet TAKE 1 TABLET BY MOUTH AT BEDTIME active Not Available Not Available No t Available atorvastati n 10 mg tablet TAKE 1 TABLET BY MOUTH EVERY EVENING active Not Available Not Available No t Available azithromyci n 250 mg tablet TAKE 2 TABLETS BY MOUTH ON DAY 1 AND THEN TAKE 1 TABLET BY MOUTH ONCE A DAY ON DAY 2 THROUGH DAY 5 06/18 completed Not Available Not Available Not Available ofloxacin 0.3 % eye drops INSTILL 5 TO 10 DROPS INTO EACH EAR TWICE DAILY FOR 7 DAYS 06/18 completed Not Available Not Available Not Available tizanidine 4 mg tablet TAKE 1 TABLET BY MOUTH EVERY 12 HOURS NEEDED FOR SPASM active Not Available Not Available No t Available diclofenac ER 100 mg tablet,exte nded release 24 hr active Not Available Not Available Not Available hydrocodone 5 mg-acetamin ophen 325 mg tablet TAKE 1/2-1 TABLET BY MOUTH EVERY 6 HOURS NEEDED FOR PAIN active Not Available Not Available No t Available glipizide 10 mg tablet TAKE 1 TABLET BY MOUTH DAILY active Not Available Not Available No t Available prednisone 20 mg tablet TAKE 1 TABLET BY MOUTH TWICE DAILY active Not Available Not Available No t Available doxepin 75 mg capsule TAKE 1-2 CAPSULES BY MOUTH EVERY EVENING NEEDED FOR SLEEP active Not Available Not Available No t Available gabapentin 400 mg capsule TAKE 1 CAPSULE FOUR TIMES DAILY 06/30 completed Not Available Not Available Not Available quetiapine 200 mg tablet TAKE 1 TABLET BY MOUTH AT BEDTIME active Not Available Not Available No t Available Accu-Chek Softclix Lancets USE 1 LANCET DIRECTED TO CHECK GLUCOSE ONCE DAILY active Not Available Not Available No t Available penicillin V potassium 500 mg tablet active Not Available Not Available Not Available metronidazo le 500 mg tablet TAKE 1 TABLET BY MOUTH TWICE DAILY FOR 7 DAYS 03/08 completed Not Available Not Available Not Available hydroxyzine HCl 50 mg tablet TAKE 1 TABLET BY MOUTH 3 TIMES A DAY NEEDED FOR ANXIETY. active Not Available Not Available No t Available acetaminoph en 300 mg-codeine 30 mg tablet TAKE 2 TABLETS BY MOUTH EVERY SIX HOURS NEEDED active Not Available Not Available No t Available acyclovir 400 mg tablet active Not Available Not Available Not Available sulfamethox azole 800 mg-trimetho prim 160 mg tablet TAKE 1 TABLET BY MOUTH TWICE DAILY FOR 7 DAYS 03/08 completed Not Available Not Available Not Available aspirin 81 mg tablet,heydi yed release TAKE 1 TABLET BY MOUTH ONCE DAILY active Not Available Not Available No t Available triamcinolo ne acetonide 0.1 % topical cream APPLY A THIN LAYER TO THE AFFECTED AREA(S) TOPICALLY 2 TIMES PER DAY active Not Available Not Available No t Available ketorolac 10 mg tablet TAKE 1 TABLET BY MOUTH EVERY FOUR HOURS NEEDED NOT TO EXCEED 40MG (4 TABLETS) IN 24HRS FOR UP TO 5 DAYS TOTAL USE active Not Available Not Available No t Available carbamazepi ne 200 mg tablet TAKE 1 TABLET BY MOUTH TWICE DAILY FOR MOOD active Not Available Not Available No t Available terbinafine HCl 250 mg tablet TAKE 1 TABLET BY MOUTH ONCE DAILY active Not Available Not Available No t Available propranolol 10 mg tablet TAKE 1 TABLET BY MOUTH EVERY 12 HOURS active Not Available Not Available No t Available ofloxacin 0.3 % ear drops INSTILL 10 DROPS INTO AFFECTED EAR(S) ONCE DAILY 06/18 completed Not Available Not Available Not Available methocarbam ol 750 mg tablet TAKE 1 TABLET BY MOUTH THREE TIMES DAILY NEEDED active Not Available Not Available No t Available DOK 100 mg capsule TAKE 1 CAPSULE BY MOUTH ONCE DAILY active Not Available Not Available No t Available gabapentin 800 mg tablet TAKE 1 TABLET BY MOUTH THREE TIMES DAILY active Not Available Not Available No t Available meclizine 25 mg tablet active Not Available Not Available Not Available benzonatate 100 mg capsule TK 1 C PO Q 8 H PRN active Not Available Not Available No t Available hydrocodone 7.5 mg-acetamin ophen 325 mg tablet TAKE 1 TABLET BY MOUTH EVERY SIX HOURS active Not Available Not Available No t Available pantoprazol e 40 mg tablet,heydi yed release TAKE 1 TABLET BY MOUTH TWICE DAILY active Not Available Not Available No t Available oseltamivir 75 mg capsule TAKE 1 CAPSULE BY MOUTH TWICE DAILY FOR 5 DAYS 06/18 completed Not Available Not Available Not Available metformin 1,000 mg tablet TAKE 1 TABLET BY MOUTH TWICE DAILY active Not Available Not Available No t Available promethazin e 25 mg tablet TAKE 1 TABLET BY MOUTH EVERY 4 TO 6 HOURS NEEDED active Not Available Not Available No t Available montelukast 10 mg tablet TAKE 1 TABLET BY MOUTH DAILY active Not Available Not Available No t Available mupirocin 2 % topical ointment APPLY A SMALL AMOUNT TO THE AFFECTED AREA TOPICALLY 3 TIMES PER DAY active Not Available Not Available No t Available gabapentin 100 mg capsule TAKE 1 CAPSULE BY MOUTH FIVE TIMES DAILY OR DIRECTED 06/18 completed Not Available Not Available Not Available ergocalcife rol (vitamin D2) 1,250 mcg (50,000 unit) capsule TAKE ONE CAPSULE BY MOUTH ONCE WEEKLY ON FRIDAYS active Not Available Not Available No t Available Promethegan 25 mg rectal suppository active Not Available Not Available Not Available epinephrine 0.3 mg/0.3 mL injection, auto-inject or USE PER PACKAGE INSTRUCTI ONS active Not Available Not Available No t Available ibuprofen 600 mg tablet active Not Available Not Available Not Available levofloxaci n 500 mg tablet TAKE 1 TABLET BY MOUTH ONCE DAILY FOR 5 DAYS 06/18 completed Not Available Not Available Not Available levofloxaci n 750 mg tablet TAKE 1 TABLET BY MOUTH ONCE DAILY FOR 5 DAYS 06/18 completed Not Available Not Available Not Available methylpredn isolone 4 mg tablets in a dose pack TAKE DIRECTED PER PACKAGE DIRECTION S active Not Available Not Available No t Available albuterol sulfate HFA 90 mcg/actuati on aerosol inhaler Inhale 2 puffs every 4 hours by inhalatio n route. active Not Available Not Available No t Available ipratropium bromide 42 mcg (0.06 %) nasal spray active Not Available Not Available Not Available propranolol 20 mg tablet TAKE 1 TABLET BY MOUTH TWICE DAILY active Not Available Not Available No t Available fluticasone propionate 50 mcg/actuati on nasal spray,suspe nsion INSTILL 1 SPRAY INTO EACH NOSTRIL ONCE DAILY active Not Available Not Available No t Available lisinopril 2.5 mg tablet TAKE 1 TABLET BY MOUTH DAILY active Not Available Not Available No t Available doxycycline hyclate 100 mg tablet TAKE 1 TABLET BY MOUTH TWICE DAILY FOR 10 DAYS 06/18 completed Not Available Not Available Not Available loratadine 10 mg tablet active Not Available Not Available Not Available naproxen 500 mg tablet TAKE 1 TABLET BY MOUTH TWICE DAILY WITH FOOD FOR 7 DAYS NEEDED FOR PAIN active Not Available Not Available No t Available amoxicillin 875 mg-potassiu m clavulanate 125 mg tablet TAKE 1 TABLET BY MOUTH TWICE DAILY 03/08 completed Not Available Not Available Not Available bupropion HCl SR 200 mg tablet,12 hr sustained-r elease TAKE 1 TABLET BY MOUTH TWICE DAILY 06/18 completed Not Available Not Available Not Available Mucinex 600 mg tablet, extended release TAKE 1 TABLET BY MOUTH EVERY 12 HOURS FOR 5 DAYS 06/18 completed Not Available Not Available Not Available azithromyci n 500 mg tablet TK 1 T PO QD 06/18 completed Not Available Not Available Not Available escitalopra m 10 mg tablet TAKE 1 TABLET BY MOUTH ONCE DAILY (WITH 20 MG) FOR ANXIETY/D EPRESSION active Not Available Not Available No t Available escitalopra m 20 mg tablet TAKE 1 TABLET BY MOUTH DAILY FOR ANXIETY OR DEPRESSIO N active Not Available Not Available No t Available Allergy Relief (diphenhydr amine) 25 mg capsule active Not Available Not Available N ot Available bupropion HCl XL 300 mg 24 hr tablet, extended release TAKE 1 TABLET BY MOUTH EVERY MORNING FOR ANXIETY OR DEPRESSIO N active Not Available Not Available No t Available Spiriva with HandiHaler 18 mcg and inhalation capsules INHALE CONTENTS OF 1 CAPSULE BY MOUTH VIA HANDIHALE R ONCE DAILY active Not Available Not Available No t Available nitrofurant oin monohydrate /macrocryst als 100 mg capsule active Not Available Not Available Not Available carbamazepi ne ER 200 mg capsule,ext ended release [id number] TAKE 1 CAPSULE BY MOUTH TWICE DAILY 06/18 completed Not Available Not Available Not Available aspirin 81mg 06/30 completed Not Available Not Available Not Available bupropion HCl 300mg 06/30 completed Not Available Not Available Not Available gabapentin 400mg 06/18 completed Not Available Not Available Not Available Spiriva with HandiHaler 06/18 completed Not Available Not Available Not Available BD Ultra-Fine Short Pen Needle 31 gauge x 5/16 USE DIRECTED WITH VICTOZA INJECTION S active Not Available Not Available No t Available Chantix 1 mg tablet TAKE 1 TABLET BY MOUTH TWICE DAILY 06/18 completed Not Available Not Available Not Available quetiapine 400 mg tablet TAKE 1 TABLET BY MOUTH EVERY NIGHT AT BEDTIME active Not Available Not Available No t Available Januvia 100 mg tablet TAKE 1 TABLET BY MOUTH ONCE DAILY active Not Available Not Available No t Available paliperidon e ER 6 mg tablet,exte nded release 24 hr TAKE 1 TABLET BY MOUTH ONCE DAILY (UNTIL ABLE TO OBTAIN NEXT INJECTION ) active Not Available Not Available No t Available budesonide- formoterol HFA 160 mcg-4.5 mcg/actuati on aerosol inhaler INHALE 2 PUFFS BY MOUTH EVERY 12 HOURS FOR 30 DAYS active Not Available Not Available No t Available quetiapine ER 400 mg tablet,exte nded release 24 hr TAKE 1 TABLET BY MOUTH EVERY EVENING FOR MOOD/SLEE P active Not Available Not Available No t Available Lantus Solostar U-100 Insulin 100 unit/mL (3 mL) subcutaneou s pen INJECT 25 UNITS SUBCUTANE OUSLY EVERY EVENING active Not Available Not Available No t Available quetiapine ER 200 mg tablet,exte nded release 24 hr TAKE 1 TABLET BY MOUTH ONCE DAILY active Not Available Not Available No t Available levocetiriz ine 5 mg tablet TAKE 1 TABLET BY MOUTH ONCE DAILY active Not Available Not Available No t Available Invega Sustenna 234 mg/1.5 mL intramuscul ar syringe INJECT 1.5 ML (234 MG TOTAL) INTO THE SHOULDER, THIGH, OR BUTTOCKS EVERY 28 DAYS. active Not Available Not Available No t Available OneTouch Verio test strips USE TO TEST BLOOD GLUCOSE ONCE DAILY active Not Available Not Available No t Available Linzess 145 mcg capsule Take 1 capsule every day by oral route. active Not Available Not Available No t Available Victoza 3-Marcelino 0.6 mg/0.1 mL (18 mg/3 mL) subcutaneou s pen injector active Not Available Not Available Not Available Anoro Ellipta 62.5 mcg-25 mcg/actuati on powder for inhalation Inhale 1 puff every day by inhalatio n route. active Not Available Not Available No t Available Trulicity 0.75 mg/0.5 mL subcutaneou s pen injector ADMINISTE R 0.75 MG UNDER THE SKIN 1 TIME WEEKLY active Not Available Not Available No t Available Spiriva Respimat 2.5 mcg/actuati on solution for inhalation INHALE 2 SPRAY(S) BY MOUTH ONCE DAILY FOR 30 DAYS active Not Available Not Available No t Available Spiriva Respimat 1.25 mcg/actuati on solution for inhalation INHALE 2 PUFFS BY MOUTH ONCE DAILY active Not Available Not Available No t Available OneTouch Verio Flex Meter USE TO TEST BLOOD SUGAR ONCE DAILY active Not Available Not Available No t Available Ozempic 0.25 mg or 0.5 mg (2 mg/1.5 mL) subcutaneou s pen injector active Not Available Not Available Not Available OneTouch Delica Plus Lancet 30 gauge USE TO CHECK BLOOD GLUCOSE ONCE DAILY. active Not Available Not Available No t Available albuterol sulf 90 mcg/actuati on breath activated powder inhaler,sen sor Inhale 2 puffs every 4 hours by inhalatio n route. active Not Available Not Available No t Available Vitals Date Recorded Heart rate Body height Heart rate Respiratory rate Oxygen saturation Oxygen saturation in Arterial blood by Pulse oximetry Pain severity - 0-10 verbal numeric rating [Score] - Reported Body temperature Body mass index (BMI) Body weight Systolic And Diastolic Provider Name and Address Organization Details Last Updated DateTime 1 86 /min 172.72 cm 86 /min 18 /min 94 % 94 % 9 97 [degF] 41.5 kg/m2 156630. 72 g 140/77 mm[Hg] Kelly Razo RN [place] [facility] [place] 1 10:36:43 Date Recorded Body height Heart rate Oxygen saturation Oxygen saturation in Arterial blood by Pulse oximetry Respiratory rate Body temperature Body mass index (BMI) Body weight Systolic And Diastolic Provider Name and Address Organization Details Last Updated DateTime 1 172.72 cm 93 /min 94 % 94 % 14 /min 97.7 [degF] 40.6 kg/m2 470546. 16 g 131/81 mm[Hg] Vanita Burrell RN [place] [facility] [place] 1 10:17:48 Date Recorded Body height Heart rate Oxygen saturation Oxygen saturation in Arterial blood by Pulse oximetry Respiratory rate Body temperature Body mass index (BMI) Body weight Systolic And Diastolic Provider Name and Address Organization Details Last Updated DateTime 1 172.72 cm 88 /min 92 % 92 % 12 /min 97.7 [degF] 25.4 kg/m2 71359.9 3 g 154/82 mm[Hg] Vanita Burrell RN [address] 1 15:23:33 Date Recorded Body height Body mass index (BMI) Body weight Body temperature Heart rate Systolic And Diastolic Provider Name and Address Organization Details Last Updated DateTime 1 172.72 cm 40 kg/m2 652309. 79 g 98 [degF] 88 /min 121/85 mm[Hg] Antonietta John LPN [address] 1 10:55:05 Date Recorded Body height Heart rate Body mass index (BMI) Body weight Pain severity - 0-10 verbal numeric rating [Score] - Reported Systolic And Diastolic Provider Name and Address Organization Details Last Updated DateTime 5 167.64 cm 93 /min 34.2 kg/m2 51295.5 8 g 7 105/67 mm[Hg] Alejandrina Pelayo CMA [address] 5 14:15:09 Social History Question Answer Notes LastModified by Organizat ion Details LastModified Time Tobacco Smoking Status Current Every Day Smoker Hermila Emmanuel LPN [address] 03/26/2020 14:57:41 How Much Tobacco Do You Smoke? 1 PPD Information not available 03/26/2020 How Many Years Have You Smoked Tobacco? 25 Information not available 03/26/2020 Sex: Unknown Functional Status None recorded. Mental Status None recorded. Family History Relationship Description Onset Age of this Age Resolved Age Notes LastModified by Organization Details LastModified Time Father Myocardial infarction [email or web address] Not available 06/18 10:49:42 Father Diabetes mellitus [email or web address] Not available 2020 10:50:21 Father Hypertensive disorder [email or web address] Not available 2020 10:50:40 Father Chronic obstructive pulmonary disease [email or web address] Not available 2020 10:51:25 Mother Myocardial infarction [email or web address] Not available 06/18 10:49:42 Mother Diabetes mellitus [email or web address] Not available 2020 10:50:21 Mother Chronic obstructive pulmonary disease [email or web address] Not available 2020 10:51:25 Sister Diabetes mellitus [email or web address] Not available 2020 10:50:21 Paternal Grandfather Diabetes mellitus [email or web address] Not available 2020 10:50:21 Medical History Condition Response ANXIETY DISORDER Y ASTHMA Y PULMONARY DISEASE Y HIGH CHOLESTEROL Y SLEEP DISORDER Y BACK / NECK PROBLEMS Y HAVE YOU BEEN HOSPITALIZED OR SEEN IN [facility] ER IN THE PAST YEAR ? Y HYPERTENSION Y Gynecological HistoryNo gynecological history recorded. Obstetrics History GPAL:G 0 P 0 0 0 0 Past Encounters Encounter ID Performer Location Encounter Start Date Encounter Closed Date Diagnosis/Indication Diagnosis SNOMED-CT Code Diagnosis ICD10 Code Diagnosis IMO Codes Diagnosis Note [id number] Etta Mancia MD [facility] [address] [facility] [place] [address] 06/18/2020 09:27:50 06/18/2020 11:56:40 Chronic low back pain 331978841 M54.5 Her history of prior fusion surgery to both the L-spine and the SI joints, suggests considerab le pathology of the skeletal system that can promote her pain. There are several postural issues that contribute to the pain as well. Myofascial contributo rs would be expected in the low back , gluteals, as well as upper back and shoulders. physical therapy may be considered in the near future as well. Long-term current use of anxiolytic medication 8129986019 7256674 Z79.899 Unfortunat sanaz, she has a considerab le psychiatri c/behavior al history, and has been on anxiolytic s long-term. Just as with opioids, there can be a paradoxica l hyper response to chronic benzodiaze pines. Additional ly, benzodiaze pines contraindi ariadna opioids if co administer ed. Long-term current use of antidepressant medication 9800263166 5964533 Z79.899 Her depression unfortunat sanaz increases the subjective sensation of pain. Doxepin may help block pain as well, while S Citalopram generally has no impact on pain. Chronic anxiety 88696144 9 F41.9 At the time of this evaluation , her anxiety appeared to be reasonably well controlled . She denied significan t depression , or thoughts of self injury or suicide. Meralgia p aresthetica of right leg 0693424273 78933 G57.11 The decreased sensation over the anterior and lateral thigh, as well as the considerab le tenderness at the ASIS raise the question of possible meralgia parestheti ca to explain her right thigh numbness and burning pain. We will increase her gabapentin to 800 t.i.d., as this will hopefully reduce the neuropathi c qualities of this pain. We may eventually consider a steroid injection to the lateral cutaneous nerve of the thigh. Lumbar post-laminectomy syndrome 188213199 M96.1 erasmojl yo, the prior surgery, including laminectom y and fusion increase the risk for adjacent segment degenerati on and nociceptiv e. We will evaluate images when they are available, and this could lead to possible facet injections , or epidural steroid injections . Worse case scenario, a spinal cord stimulator may be required. [id number] Etta Mancia MD [facility] [address] [place] [address] 06/30/2020 10:00:19 06/30/2020 12:30:24 Chronic low back pain 146534035 M54.5 Depending on the results of the epidural, we may consider adding evaluation of the myofascial components .There are several postural issues that contribute to the pain as well. Myofascial contributo rs would be expected in the low back , gluteals, as well as upper back and shoulders. physical therapy may be considered in the near future as well. Chronic anxiety 14176276 9 F41.9 At the time of this evaluation , her anxiety appeared to be reasonably well controlled . She denied significan t depression , or thoughts of self injury or suicide. Long-term current use of anxiolytic medication 1472032382 3008931 Z79.899 Priscabrittany yo, she has a considerab le psychiatri c/behavior al history, and has been on anxiolytic s long-term. Just as with opioids, there can be a paradoxica l hyper response to chronic benzodiaze pines. Additional ly, benzodiaze pines contraindi ariadna opioids if co administer ed. Long-term current use of antidepressant medication 6236764643 6325481 Z79.899 Her depression unfortunat sanaz increases the subjective sensation of pain. Doxepin may help block pain as well, while S Citalopram generally has no impact on pain. Meralgia p aresthetica of right leg 9512692318 91834 G57.11 The decreased sensation over the anterior and lateral thigh, as well as the considerab le tenderness at the ASIS raise the question of possible meralgia parestheti ca to explain her right thigh numbness and burning pain. We will increase her gabapentin to 800 t.i.d., as this will hopefully reduce the neuropathi c qualities of this pain. We may eventually consider a steroid injection to the lateral cutaneous nerve of the thigh. Lumbar post-laminectomy syndrome 814056136 M96.1 unfortunajl yo, the prior surgery, including laminectom y and fusion increase the risk for adjacent segment degenerati on and nociceptiv e. We will evaluate images when they are available, and this could lead to possible facet injections , or epidural steroid injections . Worse case scenario, a spinal cord stimulator may be required. Closed tra umatic dislocation of coccyx 77374774 S33.2XXS this is evident based on the fluoroscop y views as well as physical exam. We will have her return in [facility] 1 week, and if she continues to have pain in that region, we will perform a ganglion impar block, which should reduce pain in that area. Considerab le additional time was required today to more thoroughly evaluate the coccygeal dislocatio n/fracture . The radiology interpreta tion did not include that finding, but on further review of the images itself, we could definitely see the dislocatio n of the last to segments. Physical exam confirmed that marked sensitivit y to the area. [id number] Etta Mancia MD [facility] [address] [facility] [place] [address] 07/01/2020 15:03:17 07/01/2020 17:36:47 Chronic low back pain 516278149 M54.5 Depending on the results of the epidural, we may consider adding evaluation of the myofascial components .There are several postural issues that contribute to the pain as well. Myofascial contributo rs would be expected in the low back , gluteals, as well as upper back and shoulders. physical therapy may be considered in the near future as well. Well over an hour today was required to explore the events of last night that she failed to reveal to us. Additional ly, more than 30 minutes was spent with her for the interview, which purposeful ly and repeatedly asked questions for the truth. Another 20 minutes was spent for documentat ion and planning. This is a highly complex and time intensive visit with the patient with considerab le Behavioral overlay. Lumbago with sciatica 20 6280946 M54.41 while the imaging suggests the possibilit y of a radiculopa thy, her symptom magnificat ion as well as multiple attempts to miss lead us argue against a true illness. It appears that she was actually attempting to seek opioids. Long-term current use of opiate analgesic drug 5441414095 00837 Z79.891 we have had concerns that she is dependent on opioids, and has been inappropri ate with her attempts to obtain opioids. We are aware that she has a fractured coccyx, but if she has such unusual side effects to any form of interventi on, we will not follow through with interventi onal approaches . This is 1 of the guidelines for somatoform pain disorder. 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 It was explained to her that a treatment [facility] ip is heavily dependent on honesty Malingering 47660677 Z76 .5 Falsifying symptoms in order to obtain medication s or compensati on appears to be an issue for this patient. Given this in [place] min, we may not have anything else to offer her. [id number] Karthik Sheldon MD [facility] [address] [facility] [place] [address] 11/10/2020 10:42:15 11/10/2020 15:28:48 Hidradenitis suppurativa 80645071 L73.2 35y/o female with extensive hidradenit is suppurativ a [id number] STEPHANIE CERVANTES [facility] [address] [facility] [place] [address] 03/11/2025 13:29:42 03/11/2025 14:54:03 Pain of right wrist 3298151273 31789 M25.531 687626 Closed fra cture of scaphoid bone 16083712 S62.014A [id number] Health Concerns Section Related Observation LastModified by Organization Detai ls LastModified Time None Recorded Concern Status LastModified by Organization Details LastModified Time None Recorded Advance Directives Directive None Recorded Payers Insurance Date Sequence Insurance Name Policy Number Policy [place] Covered Member ID [place] Member ID Guarantor Name 03/11/2025 1 [place] S Reggie C Cody [id number] Reggie C Cody 03/11/2025 1 [place] Reggie C Cody [id number] Reggie C Cody 03/16/2025 1 [place] [id number] Reggie C Cody [id number] Reggie C Cody 03/11/2025 1 [facility] (MEDICARE REPLACEMENT/A DVANTAGE - HMO) MOD[employer] Reggie C Cody [id number] Reggie C Cody 03/11/2025 1 [place] [facility] Reggie C Cody [id number] Reggie Kelseyins Notes Date Note Type Note Provider Name and Address Organization Details Recorded Time 06/18/2020 text/html This 35-year-old woman is kindly referred by Kay Da Silva -[facility] for evaluation and treatment of chronic low back pain. 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 Her medication regimen is also quite complex, including doxepin, quetiapine, trazodone, hydrocodone 5-10/325, sucralfate, hydroxyzine, meloxicam, Latuda, Invega Sustenna and gabapentin. she notes that she has had back pain for approximately 10 years. In the past, she had facet ablation, which gave her transient relief, but she proceeded with a fusion, which had limited benefit. On June 09, she fell in her bathroom, and fractured her coccyx. Unfortunately, we do not have any of the imaging or their reports. She notes pain in the right anterolateral thigh that will burn considerably, and also very with periods of numbness. lumbar fusion 2015, left SI joint fusion April of 2016, then right side 2018.the pain generally radiates across the back, but more recently the pain has radiated into the right anterolateral thigh, with a burning sensation periodically. much of the time the anterolateral thigh is numb. The pain may reach an 8 to 9/10 at the most severe, but typically averages 8/10. She has never completely pain-free, with lowest being a 6 to 7/10. Leaning backwards worsens the pain in the back, and sitting in a recliner will worsened pain after several minutes. Her SOAPP Score 24 was at 27, where 18 or below is considered high risk for substance abuse and dependence. Etta Mancia MD [address] [place], [address], [place] [facility] [place] 06/18/2020 14:15:05 06/30/2020 text/html This 35-year-old woman, with a complex medical history returns today for the 1st time since her initial evaluation on June 18, 2020. her pain generally radiates across the back, into the right anterolateral thigh, with a burning sensation, concurrent with a numbness. The pain today continues to be fairly severe at an 8/10, both in the low back, and also in the coccyx region. The coccygeal pain began after she fell shortly after having the MRI. She continues to have difficulty sitting without increased pain. Her UDS was positive for hydrocodone, as well as the other multiple medications, including doxepin, carbamazepine, methocarbamol, quetiapine, and Propranolol. She has been receiving hydrocodone, with the last prescription of 120 tablets of 5/325, filled on June 15, 2020. 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 Her medication regimen is also quite complex, including doxepin, quetiapine, trazodone, hydrocodone 5-10/325, sucralfate, hydroxyzine, meloxicam, Latuda, Invega Sustenna and gabapentin. she notes that she has had back pain for approximately 10 years. In the past, she had facet ablation, which gave her transient relief, but she proceeded with a fusion, which had limited benefit. On June 09, she fell in her bathroom, and fractured her coccyx. Unfortunately, we do not have any of the imaging or their reports. She notes pain in the right anterolateral thigh that will burn considerably, and also very with periods of numbness. lumbar fusion 2015, left SI joint fusion April of 2016, then right side 2018.the pain generally radiates across the back, but more recently the pain has radiated into the right anterolateral thigh, with a burning sensation periodically. much of the time the anterolateral thigh is numb. Her SOAPP Score 24 was at 27, where 18 or below is considered high risk for substance abuse and dependence. Etta Mancia MD [address] [place], [address], [facility] [place] 06/30/2020 12:45:39 07/01/2020 text/html This patient called the office earlier this morning, reporting that her leg pain had worsened, and she was feeling burning down the right thigh. She described as being intense and on fire . she reported being compliant with her gabapentin. She was brought in for an earlier evaluation, because it would be an atypical response to a non complicated trans laminar epidural steroid injection.She recalls going to bed about 3, then waking up at 5 with burning pain in her thigh. The pain did not cross below the knee by more than 2 in. If she stood, there would be some numbness and tingling in her feet. Heat and Ice offered no benefit. No other symptoms. Awake most of night, without changes.We specifically asked if there were other symptoms, and if she was able to sleep during the night etc. She was given an opportunity to be forthright on her trip to the emergency department last night. The emergency report was reviewed, and she had reported to that facility that she began to have nausea, vomiting, and headache, in addition to low back and right lower extremity pain several hours after the uncomplicated procedure. She did not report this during our interview, despite opportunities for her to report the issues. Moreover, the pharmacy was contacted, and they reported that she had not filled up the gabapentin, 800 t.i.d.. In fact, her last Gabapentin was filled June 01, with 120 tablets. She reported that she had doubled up on the gabapentin, and that is how she was able to continue with 800 mg t.i.d.. It was explained to her that she would have run out in late May if she was actually using the gabapentin as she described. Etta Mancia MD [address] [place] [address], [phone], [facility] [place] 07/01/2020 20:15:27 11/10/2020 text/html ROS as noted in the HPI Reggie Cody is a very pleasant 35y/o female that presents to clinic today as a self referral for suspected cysts to the abdomen. Ms. Cody reports she has a significant history of hidradenitis suppurativa involving the groin, axilla, and pannus. She recently went to an urgent care center for evaluation of painful lesions to the pannus. She was told these were likely further manifestations of her hidradenitis and she should see a surgeon. She has chosen to come here for this. She reports her hidradenitis is normally managed by Dr. France with Dermatology. In regards to the lesions along her pannus, she reports they have been there for an extended period of time. She notes they are painful to palpation and she is worried they will require incision and drainage. PMH: Asthma, Anxiety, Back pain, High cholesterol, COPD, insomnia, hidradenitis suppurativaPSH: Back surgery, hysterectomy, cholecystectomy, tonsillectomy, excision of hidradenitis to the groinSH: 1ppd smoker, no EtOH/illicit substancesFH: Diabetes, HTN, IA, COPD Karthik Sheldon MD [address] [place] [address], [address], [place] [facility] [place] 11/10/2020 12:14:09 03/11/2025 text/html 39-year-old female seen in office today for evaluation treatment of right wrist injury. Patient states that on 01/21/2025 she fell and caught herself with her right hand. She states she had a lot of swelling and pain in the wrist after the fall. She was seen at [facility] urgent care and had x-rays performed. She states she was told that the radiologist read the x-rays as no fracture. She was given a removable wrist brace and told to wear it for couple weeks. Patient states that she did this but has continued to use the hand like normal. She continues to report significant discomfort along the radial side of the wrist joint. She states that with any lifting or using the hand her pain increases. She does continue to report swelling in the wrist. She is right-hand dominant. She is been taking ibuprofen with minimal relief in her discomfort. She rates her pain today 7/10 but states with use it is a 10/10. She denies any numbness or tingling in the right hand. STEPHANIE CERVANTES [address] [facility], [place], [address], [facility] [place] 03/11/2025 15:51:08 OBGyn Episode No OBEpisode recorded.
--- OUTSIDE RECORDS SUMMARY | 2025-03-21 11:03 | XMS_ITS | Encounter Summary ---
Author Organization [facility] Address [address] [address] Care Team Providers Care Field Cane Scaler Name Role Phone Teddy Regan Primary Care Provider [phone] Encounter Details Date Type Department Care Team (Late st Contact Info) Description 04/03/2011 Orders Only [facility] Radiology [address] [place] [address] System, Provider Not In, [address] [place] [address] Social History Tobacco Use Types Packs/Day Years [...] Priority Date/Time Associated Diagnosis Comments OUTSIDE IMAGES 04/03/2011 12:56 PM CASE FILLER documented in this encounter Results * Outside Images (04/03/2011 12:56 PM CASE FILLER) Anatomical Region Laterality Modality N/A Radiographic Chelsea ging 04/03/2011 12:5 6 PM CASE FILLER Narrative 04/03/2011 12:56 PM CASE FILLER Historic images from [facility] exist and can be viewed by using the hyperlink to access [facility] pacs: Procedure Note System, Provider Not In - 05/14/2018 Historic images from [facility] exist and can be viewed by using theSigma Forcelink to access [facility] pacs: us Provider Not In System MD [facility] Final Result documented in this encounter Visit Diagnoses Not on filedocumented in this encounter Care Teams Field Cane Scaler Relationship Specialty Start Date End Date Teddy Regan [address] [place] [address] [id number] PCP - General 01/31/24 documented as of this encounter
--- NOTE | 2025-03-21 11:07 | XRR_ITS ---
PROCEDURE INFORMATION: Exam: XR Right Scapula Exam date and time: 03/21/2025 11:42 AM Age: 40 years old Clinical indication: Pain; Shoulder; Right; Additional info: Posterior RT shoulder/upper back pain post fall TECHNIQUE: Imaging protocol: Radiologic exam of the right scapula. Complete exam. COMPARISON: PT PET skull to thigh INIT [id number] 10/09/2023 3:53 PM FINDINGS: Bones/joints: Normal. Soft tissues: Normal. XR/[place] [id number] IMPRESSION: No acute findings.
--- NOTE | 2025-03-21 11:08 | CTR_ITS ---
PROCEDURE INFORMATION: Exam: CT Head Without Contrast Exam date and time: 03/21/2025 11:32 AM Age: 40 years old Clinical indication: Injury or trauma; Fall; Blunt trauma (contusions or hematomas); Additional info: Pain, fall, hit head TECHNIQUE: Imaging protocol: Computed tomography of the head without contrast. Radiation optimization: All CT scans at this facility use at least one of these dose optimization techniques: automated exposure control; mA and/or kV adjustment per patient size (includes targeted exams where dose is matched to clinical indication); or iterative reconstruction. COMPARISON: PT PET skull to thigh INIT [id number] 10/09/2023 3:53 PM RADIATION DOSE METRICS: Total DLP (mGy-cm): 1065.08 FINDINGS: Brain: Normal. No hemorrhage. Unremarkable white matter. No mass effect. Cerebral ventricles: No ventriculomegaly. Paranasal sinuses: Visualized sinuses are unremarkable. No fluid levels. Mastoid air cells: Visualized mastoid air cells are well aerated. Bones: Unremarkable. No acute fracture. Soft tissues: Unremarkable. CT/CT head wo con* [id number] IMPRESSION: No acute intracranial abnormality.
--- NOTE | 2025-03-21 11:39 | XRR_ITS ---
PROCEDURE INFORMATION: Exam: XR Right Shoulder Exam date and time: 03/21/2025 11:42 AM Age: 40 years old Clinical indication: Pain; Shoulder; Right; Additional info: RT upper back/posterior shoulder pain post fall TECHNIQUE: Imaging protocol: Radiologic exam of the right shoulder. Views: 2 or more views. COMPARISON: [place] [id number] 03/21/2025 11:42 AM FINDINGS: Bones/joints: No acute fracture or dislocation. Soft tissues: Normal. XR/XR shoulder RT min 2V* [id number] IMPRESSION: No acute osseous findings.
--- NOTE | 2025-03-21 11:39 | XRR_ITS ---
PROCEDURE INFORMATION: Exam: XR Thoracic Spine Exam date and time: 03/21/2025 11:42 AM Age: 40 years old Clinical indication: Pain in thoracic spine; Additional info: Upper back/rt posterior shoulder pain post fall TECHNIQUE: Imaging protocol: Radiologic exam of the thoracic spine. Views: 3 views. COMPARISON: CR XR thoracic spine 3V* [id number] 09/16/2019 2:11 PM FINDINGS: Bones/joints: Mild anterior compression deformity at T11 is similar to prior. No acute fracture. Normal alignment. Soft tissues: Unremarkable. XR/XR thoracic spine 3V* [id number] IMPRESSION: No acute findings.
[2025-03-21 12:16] VITALS: BP 116/74; PULSE 88; O2SAT 95
--- NOTE | 2025-03-21 13:02 | W.ED.FALL ---
HPI - Fall General: Chief Complaint: Fall Stated Complaint: Fell hit head R shoulder, back N Time Seen by Provider: 03/21/25 11:27 History of Present Illness: 40-year-old female presents emergency room after ground-level mechanical fall last evening. She had fallen recently and broke her right forearm. Last night she slipped while she was in the bathtub fell hit the back of her head there is no loss consciousness she is very sore this morning but denies any other injuries. Associated symptoms-after fall: Denies abdominal pain, chest pain or neck pain Related Data Home Medications ?Medication ?Instructions ?Recorded ?Confirmed glipizide 10 mg tablet 10 mg PO DAILY 08/14/19 02/16/24 lisinopril 2.5 mg tablet 2.5 mg PO DAILY 12/07/20 02/16/24 doxepin 50 mg capsule 50 mg PO QPM 06/26/23 02/16/24 escitalopram oxalate 20 mg tablet 20 mg PO DAILY 06/26/23 02/16/24 linaclotide 145 mcg capsule 145 mcg PO EVERY OTHER DAY 06/26/23 02/16/24 (Linzess) montelukast 10 mg tablet 10 mg PO QPM 06/26/23 02/16/24 ondansetron 4 mg disintegrating 4 mg PO DAILY PRN Nausea And 06/26/23 02/16/24 tablet Vomiting quetiapine 400 mg tablet 400 mg PO QPM 06/26/23 02/16/24 atorvastatin 40 mg tablet 40 mg PO DAILY 09/21/23 02/16/24 gabapentin 800 mg tablet 800 mg PO TID 09/21/23 02/16/24 insulin glargine 100 unit/mL (3 35 unit SUBCUT QPM 09/21/23 02/16/24 mL) subcutaneous pen (Lantus Solostar U-100 Insulin) levocetirizine 5 mg tablet 5 mg PO DAILY 09/21/23 02/16/24 metformin 1,000 mg tablet 1,000 mg PO BID 09/21/23 02/16/24 propranolol 20 mg tablet 20 mg PO BID 09/21/23 02/16/24 semaglutide 2 mg/dose (8 mg/3 mL) 2 mg SUBCUT Q7D 09/21/23 02/16/24 subcutaneous pen injector (Ozempic) Previous Rx's ?Medication ?Instructions ?Recorded paliperidone palmitate 234 mg/1.5 234 mg (1.5 mL) IM Q30D #1.5 mL 06/02/19 mL intramuscular syringe (Invega Sustenna) bupropion HCl 300 mg 24 hr tablet, 300 mg PO QAM #30 tabs 09/08/19 extended release carbamazepine 200 mg 200 mg PO BID #60 caps 09/08/19 capsule,extended release vwudic20il hydroxyzine HCl 50 mg tablet 50 mg PO BID PRN anxiety #60 tabs 09/08/19 insulin lispro 100 unit/mL See Rx Instructions .Route 06/26/23 subcutaneous pen (Humalog KwikPen .COMPLEX #15 mL (U-100) Insulin) cyclobenzaprine 5 mg tablet 5 mg PO TID PRN muscle spasm #20 07/11/23 tabs amoxicillin 875 mg-potassium 1 tab PO BID #20 tabs 09/17/24 clavulanate 125 mg tablet ondansetron 4 mg disintegrating 4 mg PO Q8H PRN nausea and 09/17/24 tablet vomiting #20 tabs tizanidine 4 mg tablet 4 mg PO Q6H PRN muscle spasticity 03/21/25 #20 tabs Allergies Allergy/AdvReac Type Severity Reaction Status Date / Time azithromycin Allergy Severe ALGY-Hives Verified 09/16/24 22:37 milk AdvReac Mild ADR-Diarrhe Verified 09/16/24 22:37 a clindamycin AdvReac Unknown ALGY-Hives Verified 09/16/24 22:37 hydromorphone (From Dilaudid) AdvReac Unknown ALGY-Difficulty Verified 09/16/24 22:37 Breathing venom-wasp AdvReac Unknown ALGY-Hives Verified 09/16/24 22:37 Review of Systems Const: Denies: fever(s) or chills Card: Denies: chest pain Resp: Denies: dyspnea GI: Denies: abdominal pain : Denies: dysuria, urinary frequency or urinary urgency Musc: Denies: neck pain or back pain Skin/Breast: Denies: rash PFSH ED PFSH: Medical History Elevated lactic acid level COVID Hyperglycemia due to diabetes mellitus 2019 novel coronavirus-infected pneumonia (NCIP) Obstructive Sleep Apnea-Hypopnea Syndrome Urolithiasis Small left distal ureteral stone that required endoscopic stone manipulation for removal November 2020. Calculus of distal left ureter November 2020 4 mm stone required endoscopic removal. Temporary stented. Did well Thoracic degenerative disc disease Nicotine dependence with current use Chronic post-traumatic stress disorder (PTSD) chronic nightmares; anniversary date of accident coming up; able to wake up and go back to sleep afterward. She expresses no reports of hypervigilance, avoidance behavior, or intrusive thought process. Bipolar disorder, most recent episode depressed GERD (gastroesophageal reflux disease) Dysphasia Nasal septal deformity Chronic otitis externa Lumbar post-laminectomy syndrome Chronic bronchitis Tobacco abuse Sleep apnea Sebaceous cyst Asthmatic bronchitis Falls Right hip joint effusion Back pain Obesity Depression Otalgia Otitis externa Hyperlipemia Sleep apnea Tobacco abuse Surgical History Status post arthrodesis 01/18/2019 Dr. Kwame Torres Right SI joint. 05/05/2016 Left SI joint History of tonsillectomy and adenoidectomy History of cholecystectomy History of hysterectomy H/O spinal fusion 07/15/2015 Dr. Kwame Torres [place]: L5-S1 posterior laminectomy/fusion/fixation Family History Mother Diabetes Heart attack Lung disease Grandmother Diabetes Hypertension Lung disease Sister Diabetes Hypertension Father Heart attack Family/Other Heart attack Brother Hypertension Social History Smoking and tobacco/nicotine status: never used tobacco/nicotine Quit status (tobacco/nicotine): considering quitting Second hand smoke exposure: Yes Alcohol intake: former Year of sobriety/quit date alcohol: 2018 Substance/Drug Use: never Lives independently: Yes Household members: none Marital status: Single Current occupational status: disabled Do you think of yourself as: Straight/Heterosexual Current gender identity: Female Physical Exam Const: COMMON NORMALS: no acute distress GENERAL APPEARANCE: cooperative and comfortable ORIENTATION/CONSCIOUSNESS: Yes awake, Yes oriented to person, Yes oriented to place and Yes oriented to time HENMT: COMMON NORMALS: normocephalic, atraumatic and hearing grossly normal bilaterally HEAD & SCALP: normocephalic and atraumatic Resp: COMMON NORMALS: normal respiratory effort, No retractions, No use of accessory muscles and clear to auscultation bilaterally AUSCULTATION: clear to auscultation bilaterally Cardio: COMMON NORMALS: regular rate, regular rhythm and No murmurs present (Cardio) RATE: regular rate RHYTHM: regular rhythm GI: COMMON NORMALS: Soft to palpation and No hepatosplenomegaly present AUSCULTATION: Yes normoactive bowel sounds PALPATION: Yes Soft to palpation, No Tenderness to palpation present (GI), No Guarding due to palpation present (GI) and Yes No hepatosplenomegaly present Extremity: COMMON NORMALS: normal to inspection, capillary refill normal, no clubbing, cyanosis or edema, no calf tenderness and no pedal edema Neuro: SENSORIUM/ORIENTATION: Yes oriented to person, Yes oriented to place and Yes oriented to time Skin: COMMON NORMALS: no rashes or lesions noted GENERAL SKIN EXAM: no rashes or lesions noted Course Vital Signs: Vital signs: Vital Signs Temperature 97.9 F 03/21/25 11:03 Pulse Rate 85 03/21/25 13:22 Respiratory Rate 18 03/21/25 11:03 Blood Pressure 120/74 03/21/25 13:22 Pulse Oximetry 90 03/21/25 13:22 Oxygen Delivery Me thod Room Air 03/21/25 12:16 MDM - Fall Medical Decision Making CT head negative. Patient denies any denied any neck pain but complained of left shoulder and upper back pain no acute findings on any of the plain film imagings including the left scapula left shoulder and thoracic spine. Discharge patient home have her follow-up with primary care anti-inflammatories as needed. Medical Records I reviewed the patient's medical records. Lab Data I reviewed the patient's lab results. Radiology Impressions Scapula X-Ray 03/21/25 11:07 IMPRESSION: No acute findings. Head CT 03/21/25 11:08 IMPRESSION: No acute intracranial abnormality. Shoulder X-Ray 03/21/25 11:39 IMPRESSION: No acute osseous findings. Thoracic Spine X-Ray 03/21/25 11:39 IMPRESSION: No acute findings. All radiology interpretation(s) finalized by discharge Discharge Plan Discharge Patient Disposition: Home Clinical Impression: Fall, Back pain, thoracic Condition: Stable Prescriptions: New tizanidine 4 mg tablet 4 mg PO Q6H PRN (Reason: muscle spasticity) Qty: 20 0RF Rx Instructions: do not exceed 3 doses per 24 hrs No Action Invega Sustenna 234 mg/1.5 mL syringe 234 mg IM Q30D Qty: 1.5 4RF bupropion HCl 300 mg tablet extended release 24 hr 300 mg PO QAM Qty: 30 1RF carbamazepine 200 mg capsule, ER multiphase 12 hr 200 mg PO BID Qty: 60 1RF hydroxyzine HCl 50 mg tablet 50 mg PO BID PRN (Reason: anxiety) Qty: 60 1RF glipizide 10 mg tablet 10 mg PO DAILY lisinopril 2.5 mg tablet 2.5 mg PO DAILY cyclobenzaprine 5 mg tablet 5 mg PO TID PRN (Reason: muscle spasm) Qty: 20 0RF doxepin 50 mg capsule 50 mg PO QPM montelukast 10 mg tablet 10 mg PO QPM ondansetron 4 mg tablet,disintegrating 4 mg PO DAILY PRN (Reason: Nausea And Vomiting) escitalopram oxalate 20 mg tablet 20 mg PO DAILY quetiapine 400 mg tablet 400 mg PO QPM Linzess 145 mcg capsule 145 mcg PO EVERY OTHER DAY insulin lispro [Humalog KwikPen Insulin] 100 unit/mL insulin pen See Rx Instructions .ROUTE .COMPLEX Qty: 15 6RF Rx Instructions: Blood sugar 1 41-180 please take 4 units Blood sugar 181 220 please take 6 units Blood sugar 221-260 please take 8 units 261-300 please take 10 units 301-350 please take 12 units 350-400 please take 14units Greater 400 than 16 units amoxicillin-pot clavulanate 875-125 mg tablet 1 tab PO BID Qty: 20 0RF ondansetron 4 mg tablet,disintegrating 4 mg PO Q8H PRN (Reason: nausea and vomiting) Qty: 20 0RF atorvastatin 40 mg tablet 40 mg PO DAILY gabapentin 800 mg tablet 800 mg PO TID metformin 1,000 mg tablet 1,000 mg PO BID Lantus Solostar U-100 Insulin 100 unit/mL (3 mL) insulin pen 35 unit SUBCUT QPM propranolol 20 mg tablet 20 mg PO BID levocetirizine 5 mg tablet 5 mg PO DAILY Ozempic 2 mg/dose (8 mg/3 mL) pen injector 2 mg SUBCUT Q7D Discharge Orders: Discharge ED (Routine); Ordered 03/21/25 Ordered By: Rober Hickman Referrals: Teddy Regan MD [Primary Care Provider, Family Practice] Discharge Diet: Usual diet Discharge Activity: Increase activity as tolerated Patient Instructions: Opioid Safety, Pain Management, Patient Portal & Trudy Instructions Activity Restrictions/Additional Instructions: [facility]. It is very important that you follow up as instructed or that you return to the Emergency Department should you have concerns or if your condition changes or worsens in any way. Emergency department visits are focused on emergent conditions, in some cases you may require further evaluation on an outpatient basis. You were seen in the emergency room after a fall x-rays of your shoulder back and scan of your head were all negative for any acute injury. You will likely be very sore for the next several days. (Please note that included in your discharge packet is information concerning opioid safety and pain management. This information is given to all patients were discharged from the ER regardless of their discharge diagnosis or the medicines they usually take or are prescribed.) Print Language: Kyrgyz Coding Level of Care Code ED Spice Blender for Mario Santiago
[2025-03-21 13:22] VITALS: BP 120/74; PULSE 85; O2SAT 90
== END 2025-03-21 13:24 | disposition home or self-care (01) ==
PROVIDERS: Emergency Provider Family Medicine; PCP Family Medicine
DX: M54.6 Pain in thoracic spine (principal); Z79.4 Long term (current) use of insulin; Z79.84 Long term (current) use of oral hypoglycemic drugs; E78.5 Hyperlipidemia, unspecified
CPT/HCPCS: 70450; 72072; 73010; 73030; 99284

== ENCOUNTER 2025-04-06 06:05 | Emergency (ER) | payer BC, SELFPAY ==
--- OUTSIDE RECORDS SUMMARY | 2025-04-03 23:59 | XMS_ITS | Continuity of Care Document ---
Author Organization [facility] Address [address] [place] [id number] Support Name Relationship Address Phone JOEL ARANA Unknown Unavailable Encounter [facility] [id number] Date(s): 04/03/25 - 04/03/25 [facility] - [address] [address]- Discharge Disposition: Home or Self Care Attending Physician: JAKE OTOOLE Encounter Type: Outpatient Allergies, Adverse Reactions, Alerts Substance Criticality Severity Reaction Reaction Severity Status CLINDAMYCIN Unable to assess criticality Unknown Active AZITHROMYCIN Unable to assess criticality Unknown Active HYDROMORPHONE Unable to assess criticality Unknown Active FENTANYL Unable to assess criticality Unknown Active Medications Atorvastatin Tablet 40 mg, ORAL, Daily Start Date: 07/05/22 Status: Ordered Repeat number: 1 Doxepin Capsule 50 mg, ORAL, Daily Start Date: 07/05/22 Status: Ordered Repeat number: 1 Gabapentin Capsule 400 mg, ORAL, QID Start Date: 07/05/22 Status: Ordered Repeat number: 1 Glipizide Tablet 10 mg, ORAL, Daily Start Date: 07/05/22 Status: Ordered Repeat number: 1 Levofloxacin Tablet 750 mg, ORAL, Daily Start Date: 07/05/22 Status: Ordered Repeat number: 1 Lexapro Tablet 20 mg, ORAL, Daily Start Date: 07/05/22 Status: Ordered Repeat number: 1 Protonix Delayed Release Tabl 40 mg, ORAL, Daily Start Date: 07/05/22 Status: Ordered Repeat number: 1 Seroquel Tablet 400 mg, ORAL, Daily at Bedtime Start Date: 07/05/22 Status: Ordered Repeat number: 1 Singulair Tablet 10 mg, ORAL, Daily Start Date: 07/05/22 Status: Ordered Repeat number: 1 Wellbutrin SR tablet sustained-rel 300 mg, ORAL, Daily Start Date: 07/05/22 Status: Ordered Repeat number: 1 Problem List Condition Confirmation Course Effective Dates Status Health St atus Informant Acute respiratory failure Confirmed 02/18/20 Active Social History Social History Type Response Sex Female Sex Representation Female (finding) Patient Care team information Care Team Related Persons Name: JOEL ARANA Insurance Providers Guarantor name: REGGIE C RAMOS mymission2 [facility] Information #: 1 Payer: [facility] Member Number: [id number] Policy Number: NA Group Number: [id number] Payer Identifier: NA Health Plan Information #: 2 Payer: [facility] Member Number: [id number] Policy Number: NA Group Number: NA Payer Identifier: NA
[2025-04-06] VITALS (8 sets, daily range): BP systolic 96–124; BP diastolic 64–79; PULSE 72–92; RESP 13–24; TEMP 36.6; O2SAT 88–96; BMI 31.9
--- OUTSIDE RECORDS SUMMARY | 2025-04-06 06:09 | XMS_ITS | Clinical Summary ---
Author Organization [facility] Address [address] [place] [address] Care Team Providers Care Car Painter Name Role Phone Kay Da Silva NP Primary Care Provider [phone] Allergies Active Allergy Reactions Criticality Noted Date [...] Date Smoking Tobacco: Every Day Cigarettes 1 30.9 Started: 1994 Smokeless Tobacco: Never Tobacco Cessation:Ready to Q uit: No; Counseling Given: Yes Personal Safety Answer Date Recorded Getting School Help Needed Not on file 07/28 Comments Unknown Sex and Gender Information Value Date Recorded Sex Assigned at Not on file Legal Sex Female 3:02 PM EARTH SCIENCE PROFESSOR Gender Identity Female 08/02/2020 3:27 PM EARTH SCIENCE PROFESSOR Sexual Orientation Not on file Last Filed [...] of Treatment Not on file Insurance MEDICARE [facility] Care Teams Car Painter Relationship Specialty Start Date End Date Kay Da Sivla NP [address] [place] [id number] PCP - General Nurse Practitioner 08/02/20
--- OUTSIDE RECORDS SUMMARY | 2025-04-06 06:09 | XMS_ITS | Patient Health Record ---
Author Organization [facility] Address [address] [address] Care Team Providers Care Heading Pinner Name Role Phone No, PCP Primary Care Provider UnavailMichael Ring Unavailable [phone] Darlin Chavarria Unavailable [phone] Allergies Allergen (clinical drug ingredient) Drug/Non Drug [...] 01/28/2025 Encounters Encounter Location Date Provider Diagnosis [facility] [place] [address] 01/28/2025 Darlin Turney Contusion of right upper arm, initial encounter [...] will send in a referral to [facility] [address] [place] [address] [address] Report Submission Date: Jan 28, 2025, 12:38:16 [...] Timbo Teran M.D., Certified by [facility], Neuroradiology [place] [address] [place] [address] Report Submission Date: Jan 28, 2025, 12:38:25 [...] Insured Coverage Start Date Coverage End Date [facility] [address] [place], [place] [id number] 01 Mare Cody Self - patient is the insured Medical (General) History Medical History History ICD Code DM Surgical History Surgery Date(Month/Year) hysterectomy cholecystectomy lumbar/SI fusion
--- OUTSIDE RECORDS SUMMARY | 2025-04-06 06:10 | XMS_ITS | Encounter Summary ---
Author Organization [facility] Address [address] [place] [address] Care Team Providers Care Red Hat Engineer Name Role Phone Teddy Regan Primary Care Provider [phone] Encounter Details Date Type Department Care Team (Late st Contact Info) Description 04/03/2011 Orders Only [facility] Radiology [address] [place] [address] System, Provider Not In, [address] [place] [address] Social History Tobacco Use Types Packs/Day Years [...] Diagnosis Comments OUTSIDE IMAGES 04/03/2011 12:56 PM NEWCOMER HOSTESS documented in this encounter Results * Outside Images (04/03/2011 12:56 PM NEWCOMER HOSTESS) Anatomical Region Laterality Modality N/A Radiographic Chelsea ging 04/03/2011 12:5 6 PM NEWCOMER HOSTESS Narrative 04/03/2011 12:56 PM NEWCOMER HOSTESS Historic images from [facility] exist and can be viewed by using the hyperlink to access [employer] pacs: Procedure Note System, Provider Not In - 05/14/2018 Historic images from [facility] exist and can be viewed by using thePomme de Terralink to access [employer] pacs: us Provider Not In System MD [facility] Final Result documented in this encounter Visit Diagnoses Not on filedocumented in this encounter Care Teams Red Hat Engineer Relationship Specialty Start Date End Date Teddy Regan [address] [place] [phone] PCP - General 01/31/24 documented as of this encounter
--- OUTSIDE RECORDS SUMMARY | 2025-04-06 06:10 | XMS_ITS | Encounter Summary ---
Author Organization [facility] Address [address] [place] [address] Care Team Providers Care Case Finishing Machine Adjuster Name Role Phone Teddy Regan Primary Care Provider [phone] Reason for Visit * Reason Comments Med Refill Encounter Details Date Type Department Care Team (Late st Contact Info) Description 02/09/2023 [facility]ill [facility] Behavior[facility] [address] [place] [address] Baylee Herring APRN [address] [place] [address] Bipolar disorder, current episode mixed, severe, with [...] documented as of this encounter Care Teams Case Finishing Machine Adjuster Relationship Specialty Start Date End Date Teddy Regan [address] [place] [phone] PCP - General 01/31/24 documented as of this encounter
--- OUTSIDE RECORDS SUMMARY | 2025-04-06 06:10 | XMS_ITS | Encounter Summary ---
Author Organization [facility] Address [address] [place] [address] Care Team Providers Care Foreign Exchange Services Manager Name Role Phone Shereen Teddy Alan Primary Care Provider [phone] Encounter Details Date Type Department Care Team (Late st Contact Info) Description 08/25/2011 Orders Only [facility] Radiology [address] [place] [address] System, Provider Not In, [address] [place] [address] Social History Tobacco Use Types Packs/Day Years [...] 08/25/2011 3:36 PM CDT Historic images from [facility] exist and can be viewed by using the hyperlink to access [employer] pacs: X-Ray, Chest, PA & Lateral Procedure Note System, Provider Not In - 05/13/2018 Historic images from [facility] exist and can be viewed by using theAnghamilink to access [employer] pacs: X-Ray, Chest, PA & Lateral us Provider Not In System MD [facility] Final Result documented in this encounter Visit Diagnoses Not on filedocumented in this encounter Care Teams Foreign Exchange Services Manager Relationship Specialty Start Date End Date Teddy Regan [address] [place] [phone] PCP - General 01/31/24 documented as of this encounter
--- OUTSIDE RECORDS SUMMARY | 2025-04-06 06:10 | XMS_ITS | Encounter Summary ---
Author Organization [facility] Address [address] [place] [address] Care Team Providers Care Inspector Filter Tip Name Role Phone Shereen Teddy Alan Primary Care Provider [phone] Encounter Details Date Type Department Care Team (Late st Contact Info) Description 10/02/2017 Orders Only [facility] Radiology [address] [place] [address] System, Provider Not In, [address] [place] [address] Social History Tobacco Use Types Packs/Day Years [...] documented as of this encounter Care Teams Inspector Filter Tip Relationship Specialty Start Date End Date Teddy Regan [address] [place] [phone] PCP - General 01/31/24 documented as of this encounter
--- OUTSIDE RECORDS SUMMARY | 2025-04-06 06:10 | XMS_ITS | Encounter Summary ---
Author Organization [facility] Address [address] [place] [address] Care Team Providers Care Piano Accompanist Name Role Phone Teddy Regan Primary Care Provider [phone] Reason for Visit * Reason Comments Med Refill Encounter Details Date Type Department Care Team (Late st Contact Info) Description 02/27/2023 Refill [facility] - Behavioral Health [address] [place] [address] Baylee Herring APRN [address] [place] [address] Side effects of treatment, initial encounter; Bipolar [...] documented as of this encounter Care Teams Piano Accompanist Relationship Specialty Start Date End Date Teddy Regan [address] [place] [phone] PCP - General 01/31/24 documented as of this encounter
--- OUTSIDE RECORDS SUMMARY | 2025-04-06 06:10 | XMS_ITS | Encounter Summary ---
Author Organization [facility] Address [address] [place] [address] Care Team Providers Care Mirror Maker Name Role Phone Teddy Regan Primary Care Provider [phone] Encounter Details Date Type Department Care Team (Late st Contact Info) Description 03/23/2016 Orders Only [facility] [address] [place] [address] [place] [id number] Teddy Nolen MD Social History Tobacco Use [...] on filedocumented in this encounter Care Teams Mirror Maker Relationship Specialty Start Date End Date Teddy Regan [address] [place] [phone] PCP - General 01/31/24 documented as of this encounter
--- OUTSIDE RECORDS SUMMARY | 2025-04-06 06:10 | XMS_ITS | Encounter Summary ---
Author Organization [facility] Address [address] [address] Care Team Providers Care Broom Worker Name Role Phone Teddy Regan Primary Care Provider [phone] Encounter Details Date Type Department Care Team (Late st Contact Info) Description 09/24/2018 Orders Only [facility] Radiology [address] [place] [address] System, Provider Not In, [address] [place] [address] Social History Tobacco Use Types Packs/Day Years [...] facility for exam: MRI Lumbar Spine w/o [id number] Procedure Note System, Provider Not In, - 01/07/2019 Image aquired from external facility for exam: MRI Lumbar Spine [id number] us Provider Not In System MD [facility] Final Result documented in this encounter Visit Diagnoses Not on filedocumented in this encounter Additional Health Concerns Health Status Noted Date Alive and well 08/09/2018 documented as of this encounter Care Teams Broom Worker Relationship Specialty Start Date End Date Teddy Regan [address] [place] [phone] PCP - General 01/31/24 documented as of this encounter
--- OUTSIDE RECORDS SUMMARY | 2025-04-06 06:10 | XMS_ITS | Encounter Summary ---
Author Organization [facility] Address [address] [place] [address] Care Team Providers Care After School Driver Name Role Phone Teddy Regan Primary Care Provider [phone] Encounter Details Date Type Department Care Team (Late st Contact Info) Description 12/24/2010 Orders Only [facility] Radiology [address] [place] [address] System, Provider Not In, [address] [place] [address] Social History Tobacco Use Types Packs/Day Years [...] 12/24/2010 12:13 PM CDT Historic images from [facility] exist and can be viewed by using the hyperlink to access [employer] pacs: X-Ray, Knee Procedure Note System, Provider Not In - 05/15/2018 Historic images from [facility] exist and can be viewed by using theGlory Medicallink to access [employer] pacs: X-Ray, Knee us Provider Not In System MD [facility] Final Result documented in this encounter Visit Diagnoses Not on filedocumented in this encounter Care Teams After School Driver Relationship Specialty Start Date End Date Teddy Regan [address] [place] [address] PCP - General 01/31/24 documented as of this encounter
--- OUTSIDE RECORDS SUMMARY | 2025-04-06 06:10 | XMS_ITS | Encounter Summary ---
Author Organization [facility] Address [address] [place] [address] Care Team Providers Care Entry Specialist Name Role Phone Teddy Regan Primary Care Provider [phone] Encounter Details Date Type Department Care Team (Late st Contact Info) Description 08/27/2012 Orders Only [facility] Radiology [address] [place] [address] System, Provider Not In, [address] [place] [address] Social History Tobacco Use Types Packs/Day Years [...] 2:34 PM CDT Historic images from [facility] exist and can be viewed by using the hyperlink to access [employer] pacs: Adult Chest - 2 Views Procedure Note System, Provider Not In - 09/26/2016 Historic images from [facility] exist and can be viewedby using the hyperlink to access [employer] pacs: Adult Chest - 2 Views us Provider Not In System MD [facility] Final Result documented in this encounter Visit Diagnoses Not on filedocumented in this encounter Care Teams Entry Specialist Relationship Specialty Start Date End Date Teddy Regan [address] [place] [address] PCP - General 01/31/24 documented as of this encounter
--- OUTSIDE RECORDS SUMMARY | 2025-04-06 06:10 | XMS_ITS | Encounter Summary ---
Author Organization [facility] Address [address] [place] [address] Care Team Providers Care Finish Mill Operator Name Role Phone Teddy Regan Primary Care Provider [phone] Encounter Details Date Type Department Care Team (Late st Contact Info) Description 07/23/2013 Orders Only [facility] Radiology [address] [place] [address] System, Provider Not In, [address] [place] [address] Social History Tobacco Use Types Packs/Day Years [...] Diagnosis Comments OUTSIDE IMAGES 07/23/2013 1:10 PM WORKERS COMPENSATION ADMINISTRATOR documented in this encounter Results * Outside Images (07/23/2013 1:10 PM WORKERS COMPENSATION ADMINISTRATOR) Anatomical Region Laterality Modality N/A Radiographic Chelsea ging 07/23/2013 1:10 PM WORKERS COMPENSATION ADMINISTRATOR Narrative 07/23/2013 1:10 PM WORKERS COMPENSATION ADMINISTRATOR Historic images from [facility] exist and can be viewed by using the hyperlink to access [employer] pacs: MRI LUMBAR SPINE NO CONTRAST Procedure Note System, Provider Not In - 06/23/2020 Historic images from [facility] exist and can be viewed byusing the hyperlink to access [employer] pacs: MRI LUMBAR SPINE NOCONTRAST us Provider Not In System MD [facility] Final Result documented in this encounter Visit Diagnoses Not on filedocumented in this encounter Care Teams Finish Mill Operator Relationship Specialty Start Date End Date Teddy Regan [address] [place] [address] PCP - General 01/31/24 documented as of this encounter
--- OUTSIDE RECORDS SUMMARY | 2025-04-06 06:10 | XMS_ITS | Encounter Summary ---
Author Organization [facility] Address [address] [place] [address] Care Team Providers Care Plastic Fixture Builder Name Role Phone Teddy Regan Primary Care Provider [phone] Encounter Details Date Type Department Care Team (Late st Contact Info) Description 08/31/2015 Orders Only [facility] Radiology [address] [place] [address] System, Provider Not In, [address] [place] [address] Social History Tobacco Use Types Packs/Day Years [...] 08/31/2015 8:51 AM CDT Historic images from [facility] exist and can be viewed by using the hyperlink to access [employer] pacs: LUMBAR SPINE 2/3V Procedure Note System, Provider Not In, - 06/25/2020 Historic images from [facility] exist and can be viewed byusing the hyperlink to access [employer] pacs: LUMBAR SPINE 2/3V us Provider Not In System MD [facility] Final Result documented in this encounter Visit Diagnoses Not on filedocumented in this encounter Care Teams Plastic Fixture Builder Relationship Specialty Start Date End Date Teddy Regan [address] [place] [address] PCP - General 01/31/24 documented as of this encounter
--- OUTSIDE RECORDS SUMMARY | 2025-04-06 06:10 | XMS_ITS | Encounter Summary ---
Author Organization [facility] Address [address] [place] [address] Care Team Providers Care Lockstitch Sleeve Setter Name Role Phone Teddy Regan Primary Care Provider [phone] Reason for Visit * Reason Comments Med Refill Encounter Details Date Type Department Care Team (Late st Contact Info) Description 10/03/2024 Refill [facility] - Behavioral Health [address] [facility] [address] [place] [address] Baylee Herring APRN [address] [facility] [address] [place] [address] Bipolar disorder, current episode mixed, severe, with [...] encounter Miscellaneous Notes * Telephone Encounter - aMxine Siddiqui - 10/03/2024 10:27 AM CDT Refill [...] documented as of this encounter Care Teams Lockstitch Sleeve Setter Relationship Specialty Start Date End Date Teddy Regan [address] [place] [address] PCP - General 01/31/24 documented as of this encounter
--- OUTSIDE RECORDS SUMMARY | 2025-04-06 06:10 | XMS_ITS | Encounter Summary ---
Author Organization [facility] Address [address] [place] [address] Care Team Providers Care Leather Heel Breaster Name Role Phone Teddy Regan Primary Care Provider [phone] Encounter Details Date Type Department Care Team (Late st Contact Info) Description 01/18/2016 Orders Only [facility] [address] [place] [address] System, Provider Not In, [address] [place] [address] Social History Tobacco Use Types Packs/Day Years [...] 01/18/2016 11:13 AM CDT Historic images from [facility] exist and can be viewed by using the hyperlink to access [employer] pacs: LUMBAR SPINE 4V Procedure Note System, Provider Not In, - 06/23/2020 Historic images from [facility] exist and can be viewed byusing the hyperlink to access [employer] pacs: LUMBAR SPINE 4V us Provider Not In System MD [facility] Final Result documented in this encounter Visit Diagnoses Not on filedocumented in this encounter Care Teams Leather Heel Breaster Relationship Specialty Start Date End Date Teddy Regan [address] [place] [address] PCP - General 01/31/24 documented as of this encounter
--- OUTSIDE RECORDS SUMMARY | 2025-04-06 06:10 | XMS_ITS | Clinical Summary ---
Author Organization [facility] Address [address] [place] [address] Care Team Providers Care Development Scientist Name Role Phone Teddy Regan Alan Primary Care Provider [phone] Allergies Active Allergy Reactions Criticality Noted Date [...] this topic Medical Devices Implanted Type Area Can Solderer Device Identifier Shelf Expiration Date Model / Serial / Lot Bn Andria Carmona Large (Human) - [id number] - [id number] Implanted:Qty : 1 on 05/05/2016 by Omar Torres DO at [facility] IMPLANT Left: Hip MUSCULOSKELETAL TRANSPLANT FOUND 04/19/2017 [id number] / [id number] / Implant Dual Thread Sacro 12.5x35mm - [id number] Implanted:Qty : 1 on 05/05/2016 by Omar Torres DO at [facility] IMPLANT Left: Hip UNKNOWN [id number] -[id number] / / Implant Dual Thread Sacro 12.5x40mm - [id number] Implanted:Qty : 1 on 05/05/2016 by Omar Torres DO at [facility] IMPLANT Left: Hip UNKNOWN [id number] -[id number] / / Implant Dual Thread Sacro Lck 7x35mm - [id number] Implanted:Qty : 1 on 05/05/2016 by Omar Torres DO at [facility] IMPLANT Left: Hip UNKNOWN [id number] / / Bn Andria Carmona Large (Human) - [id number] - [id number] Implanted:Qty : 1 on 01/17/2019 by Omar Torres DO at [facility] IMPLANT MUSCULOSKELETAL TRANSPLANT FOUND 10/09/2020 [id number] / [id number] / Implant Relive Allograft 9x25mm - [id number] - [id number] Implanted:Qty : 1 on 01/17/2019 by Omar Torres DO at [facility] IMPLANT UNKNOWN 11/06/2023 [id number] / [id number] / Implant Si [id number] Sicure - [id number] Implanted:Qty : 1 on 01/17/2019 by Omar Torres DO at [facility] IMPLANT UNKNOWN 900.11.45 / / Implant Si [id number] Sicure - [id number] Implanted:Qty : 1 on 01/17/2019 by Omar Torres DO at [facility] IMPLANT UNKNOWN 900.11.50 / / Insurance [...] 9:35 AM 05/05/2016 12:46 PM Care Teams Development Scientist Relationship Specialty Start Date End Date Teddy Regan [address] [place] [address] PCP - General 01/31/24
--- OUTSIDE RECORDS SUMMARY | 2025-04-06 06:10 | XMS_ITS | Encounter Summary ---
Author Organization [facility] Address [address] [place] [address] Care Team Providers Care Laborer Vineyard Name Role Phone Teddy Regan Primary Care Provider [phone] Encounter Details Date Type Department Care Team (Late st Contact Info) Description 11/12/2010 Orders Only [facility] Radiology [address] [place] [address] System, Provider Not In, [address] [place] [address] Social History Tobacco Use Types Packs/Day Years [...] 11/12/2010 11:31 AM CDT Historic images from [facility] exist and can be viewed by using the hyperlink to access [employer] pacs: X-Ray, Hand Procedure Note System, Provider Not In - 05/15/2018 Historic images from [facility] exist and can be viewed by using theBlueWarelink to access [employer] pacs: X-Ray, Hand us Provider Not In System MD [facility] Final Result documented in this encounter Visit Diagnoses Not on filedocumented in this encounter Care Teams Laborer Vineyard Relationship Specialty Start Date End Date Teddy Regan [address] [place] [address] PCP - General 01/31/24 documented as of this encounter
--- OUTSIDE RECORDS SUMMARY | 2025-04-06 06:10 | XMS_ITS | Encounter Summary ---
Author Organization [facility] Address [address] [place] [address] Care Team Providers Care Tube Molder Fiberglass Name Role Phone Shereen Teddy Alan Primary Care Provider [phone] Encounter Details Date Type Department Care Team (Late st Contact Info) Description 10/12/2015 Orders Only [facility] Radiology [address] [place] [address] System, Provider Not In, [address] [place] [address] Social History Tobacco Use Types Packs/Day Years [...] PM CDT Historic images from [facility] exist and can be viewed by using the hyperlink to access [employer] pacs: LUMBAR SPINE 2/3V Procedure Note System, Provider Not In, - 06/24/2020 Historic images from [facility] exist and can be viewed byusing the hyperlink to access [employer] pacs: LUMBAR SPINE 2/3V us Provider Not In System MD [facility] Final Result documented in this encounter Visit Diagnoses Not on filedocumented in this encounter Care Teams Tube Molder Fiberglass Relationship Specialty Start Date End Date Teddy Regan [address] [place] [address] PCP - General 01/31/24 documented as of this encounter
--- OUTSIDE RECORDS SUMMARY | 2025-04-06 06:10 | XMS_ITS | Continuity of Care Document ---
Author Organization [place] [facility] [place] Address [address] [facility] [place] [address] Care Team Providers Care Fiberglass Grinder Name Role Phone [facility] MCCRAY Primary Care Provider Assessment Encounter Date Assessment Date Assessment LastModified by Organization Details LastModified Time 04/03/2025 04/03/2025 X-rays performed today of the right wrist reveal continued fracture of distal pole of the scaphoid with progressive healing noted. No displacement of the fracture noted since previous imaging. Overall wrist joint is congruent. Patient is healing the fracture well. I am going to transition her back to a removable wrist brace at this point. I recommended she wear it with activity but remove it for hygiene and to work on mobility of the wrist. I offered PT/OT for the hand and she was agreeable. Patient is to continue no heavy lifting, pushing or pulling with the hand and no increased activity for one more month. I am going to see her back in office in 4 weeks for final recheck and xrays. [email or web address] Not available 04/03/2025 16:24:48 Plan of Treatment Reminders Order Date Submit Date Provider Last Modified By Organization Details Last Modified Time Details Appointments Establish ed Patient 2024 03:30P M Radha CERVANTES Not available Not available Not available Lab None recorded. Referral None recorded. Procedures None recorded. Surgeries None recorded. Imaging XR, wrist, 3 or more view 2024 025 [facility] (Radiology), [address], [place], [address], 04/03/2025 16:28:09 Medication Orders None recorded. Patient TargetsNo targets recorded. Patient InstructionsNo instructions recorded. Reason for Referral None Reported. Results Created Date Observation Date Name Description Value Unit Range Abnormal Flag Note LastModifiedBy Organization Detail LastModifiedTime 03/16/2003/11/2025 XR, wrist , 3 or more view [facility] [address] [place], [place] [address]- Patien t: REGGIE HACKETT [id number] : 1984 Sex:Fe male Locati on: [facility] Orderi ng Physic yanelis: [facility] Radiol ogy Access ion Exam Date/T [...] malinda Signat ure): 2024 08:54 am CDT [id number] [facility] (Radiology) [address], [place], [address], 03/16/2025 10:11:26 Result Notes None recorded. Problems Name Problem SNOMED Code Status Onset Date Resolution Date Notes Provider Name and Address Organization Details Recorded Time Chronic pain 33832190 Active 2020 Danni RN null, [place] [facility] [place] 10:47:49 Hypercholester olemia 97778161 Active 2020 Danni RN [place], [place] [facility] [place] 10:47:57 Diabetes mellitus 30006320 Active 2020 Danni RN [place], [place] [facility] [place] 10:48:05 Depressive disorder 85781393 Active 2020 Danni RN [place], [place] [facility] [place] 10:48:19 Bipolar disorder 62652288 Active 2020 Danni RN [place], [place] [facility] [place] 10:48:33 Asthma 558260039 Active 2020 Danni RN null, [place] [facility] [place] 10:49:03 Problem Notes None recorded. Procedures Surgical History Date Name Laterality Status Provider Name and Address Organization Details Recorded Time 06/30/19 21 Lumbar Interlaminar Epidural Steroid Injection completed Arnaldo Mancia MD [address] [place], [address], [place] [facility] [place] 06/30/2020 12:35:00 Back Surgery completed Hermilaalicia Mcdonaldve,LP N [place] [facility] [place] 03/26/2020 14:55:18 Tonsillectomy completed Hermila VanCleve,LP N [place] [facility] [place] 03/26/2020 14:55:33 Cholecystectomy completed Hermila VanCleve,LP N [place] [facility] [place] 03/26/2020 14:55:45 Hysterectomy completed Hermila VanCleve,LP N [place] [facility] [place] 03/26/2020 14:55:55 Imaging Results None recorded. Procedure Notes None recorded. Medical Equipment None Reported. Allergies Allergen ID Allergen Name Allergen Category Reaction Reaction Severity Criticality Documentation Date Start Date Code Code System Note Provider Name and Address Organization Details Recorded Time 29673 clindamyc in Not available Not available Not available Not available 03/26/2020 0822 RxNorm Hermilamoris Emmanuel, BEAN SORTER null, [place] [facility] [place] 0 14:53:53 36340 wasp venoms environme nt Not available Not available Not available 03/26/2020 42377 RxNorm Hermila EmmanuelEMMA null, [address] 0 14:54:06 [address] Dilaudid medicatio n Not available Not available Not available 06/18/2020 21601 3 RxNorm Kelly Altamiranodor RN null, [address] 1 10:38:20 14833 fentanyl medicatio n Not available Not available Not available 06/18/2020 4337 RxNorm Kelly Danni RN null, [address] 1 10:38:29 Medications Name Sig Start [...] Not Available Not Available No t Available bupropion HCl SR 200 mg tablet,12 [...] ne ER 200 mg capsule,ext ended release [id number] TAKE 1 CAPSULE BY MOUTH TWICE DAILY [...] Available No t Available Vitals Date Recorded Body height Heart rate Body mass index (BMI) Body weight Pain severity - 0-10 verbal numeric rating [Score] - Reported Systolic And Diastolic Provider Name and Address Organization Details Last Updated DateTime 5 167.64 cm 92 /min 34.2 kg/m2 66359.5 8 g 3 117/64 mm[Hg] Alejandrina Pelayo [address] 5 16:12:32 Social History Question Answer Notes LastModified by Organizat ion Details LastModified Time Tobacco Smoking Status Current Every Day Smoker [facility] Jeronimo, [address] 03/26/2020 14:57:41 How Much Tobacco Do [...] HAVE YOU BEEN HOSPITALIZED OR SEEN IN [facility] ER IN THE PAST YEAR ? Y HYPERTENSION Y Gynecological HistoryNo gynecological history recorded. Obstetrics History GPAL:G 0 P 0 0 0 0 Past Encounters Encounter ID Performer Location Encounter Start Date Encounter Closed Date Diagnosis/Indication Diagnosis SNOMED-CT Code Diagnosis ICD10 Code Diagnosis IMO Codes Diagnosis Note [id number] STEPHANIE CERVANTES [facility] [address] [place] [address] 03/11/2025 13:29:42 03/11/2025 14:54:03 Pain of right wrist 3832967254 20141 M25.531 448755 Closed fra cture of scaphoid bone 87311970 S62.014A [id number] STEPHANIE CERVANTES [facility] [address] [place] [address] 03/23/2025 15:55:08 03/23/2025 17:13:06 Closed fracture of scaphoid bone 71784144 S62.014A [id number] STEPHANIE CERVANTES [facility] [address] [place] [address] 04/03/2025 15:26:05 04/03/2025 16:28:09 Closed fracture of scaphoid bone 06740753 S62.014A [id number] Health Concerns Section Related Observation LastModified by Organization Detai ls LastModified Time None Recorded Concern Status LastModified by Organization Details LastModified Time None Recorded Payers Encounter Date Sequence Insurance Name Policy Number Policy [place] Covered Member ID [place] Member ID Guarantor Name 04/03/2025 1 JORGE-[place]AL[place] (PPO) [id number] 1 Reggie Cody [id number] Reggie Cody Notes Date Note Type Note Provider Name and Address Organization Details Recorded Time 04/03/2025 text/html 39-year-old female seen in office today for recheck of right wrist injury. Patient states that on 01/21/2025 she fell and caught herself with her right hand. She states she had a lot of swelling and pain in the wrist after the fall. She was seen by me on 03/11/2025 and diagnosed with distal avulsion scaphoid fracture of the wrist. She was placed in a short arm cast. She comes in today now over 2 months from injury, but one month from immobilization. She reports improvement in her pain in the wrist. She reports stiffness. Denies any neurosensory changes. Rates her pain today a 08/04. STEPHANIE CERVANTES [address] [place], [address], [place] [facility] [place] 04/03/2025 16:24:54 OBGyn Episode No OBEpisode recorded.
--- OUTSIDE RECORDS SUMMARY | 2025-04-06 06:10 | XMS_ITS | Encounter Summary ---
Author Organization [facility] Address [address] [place] [address] Care Team Providers Care Technical Services Specialist Name Role Phone Teddy Regan Primary Care Provider [phone] Encounter Details Date Type Department Care Team (Late st Contact Info) Description 10/28/2020 Orders Only [facility] [address] [facility] [facility] [place], [place] [id number] Denisa Birch, CANOPY INSPECTOR Gastroesophageal reflux disease, unspecified whether esophagitis present [...] as of this encounter Care Teams Technical Services Specialist Relationship Specialty Start Date End Date Teddy Regan [address] [place] [address] PCP - General 01/31/24 documented as of this encounter
--- OUTSIDE RECORDS SUMMARY | 2025-04-06 06:10 | XMS_ITS | Encounter Summary ---
Author Organization [facility] Address [address] [place] [address] Care Team Providers Care Senior Payroll Administrator Name Role Phone Shereen Teddy Alan Primary Care Provider [phone] Reason for Visit * Reason Comments Med Refill Encounter Details Date Type Department Care Team (Late st Contact Info) Description 12/25/2022 Refill [facility] - Behavioral Health [address] [facility] [address] [place] [address] Baylee Herring APRN [address] [facility] [address] [place] [address] Bipolar disorder, current episode mixed, severe, with [...] documented as of this encounter Care Teams Senior Payroll Administrator Relationship Specialty Start Date End Date Teddy Regan [address] [place] [address] PCP - General 01/31/24 documented as of this encounter
--- OUTSIDE RECORDS SUMMARY | 2025-04-06 06:10 | XMS_ITS | Data Portability ---
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 [email or web address] Not available 03/11/2025 15:50:53 03/23/2025 03/23/2025 Nondisplaced rig ht distal scaphoid fracture. Patient's cast loosened. At this time she still requires immobilization of the wrist for healing. I placed her in a new short arm cast today. A short arm cast was applied by me to the RIGHT arm with 2 rolls of fiberglass and neurovascular check was performed by me prior to discharge. I recommended she keep the cast clean, dry and intact. She is to continue nonweightbearing on the arm. I am going to see her back at her already scheduled appointment for repeat x-rays out of the cast and likely transition to a wrist brace. She was advised to call sooner with any issues or concerns. [email or web address] Not available 03/23/2025 17:20:11 04/03/2025 04/03/2025 X-rays performed today of the [...] 4 weeks for final recheck and xrays. [email or web address] Not available 04/03/2025 16:24:48 Plan of Treatment Reminders Order Date Submit Date Provider Last Modified By Organization Details Last Modified Time Details Appointments Establish ed Patient 2024 03:30P [email or web address] ROMAN Not available Not available Not available Lab None recorded. Referral None recorded. Procedures None recorded. Surgeries None recorded. Imaging XR, wrist, 3 or more view 2024 025 [facility] (Radiology), [address], [place], [address], 04/03/2025 16:28:09 XR, wrist, 3 or more view 2024 025 KITA [facility] (Radiology), [address], [place], [address], 03/16/2025 09:54:49 Medication Orders None recorded. Patient TargetsNo targets recorded. Patient Instructions Encounter Date Encounter Id Patient Instructions Last Modified By Organization Details Last Modified Time 03/11/2025 [id number] work status report* - patient may work with cast. May NOT lift, push or pull while cast is on until further notice. [email or web address] Not available 03/11/2025 16:38:36 Reason for Referral None Reported. Results Created Date Observation Date Name Description Value Unit Range Abnormal Flag Note LastModifiedBy Organization Detail LastModifiedTime 07/30/19 21 06/30/[address] [facility] ry M54.5 PAIN CLINIC . EPIDUR AL [...] DIRECT OR 886Ove rsight Rad Dir Isidro ting Provid er(s): Deepthi priest Provid er: Result Copies To: Attend ing Doctor : ETTA CELIS Referr ing Doctor : Caio gallego Doctor : Dane bronson Doctor : Other Health care Provid er: haily [facility] (Radiology) [address], [place], [address], 08/02/2020 08:55:48 03/16/20 25 03/11/2025 XR, wrist , 3 or more view [facility] [address] [place] [address]- Josue t: OTONIELWALTERREGGIE WEISS MRN:[id number] : 1984 Sex:Fe male Locati on: [facility] Deepthi priest Physic yaenlis: JAKE OTOOLE stic Radiol ogy Access ion Exam Date/T [...] malinda Signat ure): 2024 08:54 am CDT [email or web address] [facility] (Radiology) [address] [facility], [place], [address], 03/16/2025 10:11:26 Result Notes Documentation Provider Name and Address Organization Details Recorded Time Xr, Wrist, 3 Or More View : [facility] [address] [place] [address]- Patient: REGGIE CODY : 1985 Sex:Female Location: [facility] Ordering Physician: JAKE OTOOLE Diagnostic Radiology Accession Exam Date/Time [id number] 03/11/2025 13:05 CDT Reason for Exam pain [...] Signature): 03/16/2025 08:54 am CDT STEPHANIE CERVANTES [address] [place], [address], [place] - [address] 03/16/2025 10:11:26 Problems Name Problem SNOMED Code Status Onset Date Resolution Date Notes Provider Name and Address Organization Details Recorded Time Chronic pain 54348827 Active 2020 Danni RN null, [place] [facility] [place] 10:47:49 Hypercholester olemia 36839957 Active 2020 Danni RN [place] [facility] [place] 10:47:57 Diabetes mellitus 62062048 Active 2020 Danni RN [place] [facility] [place] 10:48:05 Depressive disorder 73018263 Active 2020 Danni RN [place], [place] [facility] [place] 10:48:19 Bipolar disorder 47970409 Active 2020 Danni RN [place], [place] [facility] [place] 10:48:33 Asthma 356971925 Active 2020 Danni RN null, [place] [facility] [place] 10:49:03 Problem Notes None recorded. Procedures Surgical History Date Name Laterality Status Provider Name and Address Organization Details Recorded Time 06/30/19 21 Lumbar Interlaminar Epidural Steroid Injection completed Etta Mancia MD [address] [place], [address], [place] - [facility] [place] 06/30/2020 12:35:00 Back Surgery completed Hermila Emmanuel LP N [place] - [facility] [place] 03/26/2020 14:55:18 Tonsillectomy completed Hermila Emmanuel LP N [place] [facility] [place] 03/26/2020 14:55:33 Cholecystectomy completed Hermila Emmanuel LP N [place] [place] 03/26/2020 14:55:45 Hysterectomy completed Hermila Emmanuel LP N [address] 03/26/2020 14:55:55 Imaging Results None recorded. Procedure Notes None recorded. Medical Equipment None Reported. Allergies Allergen ID Allergen Name Allergen Category Reaction Reaction Severity Criticality Documentation Date Start Date Code Code System Note Provider Name and Address Organization Details Recorded Time 42611 clindamyc in Not available Not available Not available Not available 03/26/2020 2582 RxNorm EMMA Jeronimo, [address] 0 14:53:53 36452 wasp venoms environme nt Not available Not available Not available 03/26/2020 28347 RxNorm EMMA Jeronimo, [address] 0 14:54:06 81746 Dilaudid medicatio n Not available Not available Not available 06/18/2020 56142 3 RxNorm Kelly Altamiranopaul [place] eric, [address] 1 10:38:20 16409 fentanyl medicatio n Not available Not available Not available 06/18/2020 4337 RxNorm Kelly Altamiranopaul [place] eric, [address] 1 10:38:29 Medications Name Sig Start [...] ne ER 200 mg capsule,ext ended release [id number] TAKE 1 CAPSULE BY MOUTH TWICE DAILY 06/18 completed Not Available Not Available Not Available aspirin 81mg 06/30 completed Not Available Not Available Not Available bupropion HCl 300mg 06/30 completed Not Available Not Available Not Available gabapentin 400mg 01/22 /2021 completed Not Available Not Available Not Available Spiriva with HandiHaler 06/18 completed Not Available Not Available Not Available BD Ultra-Fine Short Pen Needle 31 gauge x /16 USE DIRECTED WITH VICTOZA INJECTION S active [...] Vitals Date Recorded Body height Heart rate Oxygen saturation Oxygen saturation in Arterial blood by Pulse oximetry Respiratory rate Body temperature Body mass index (BMI) Body weight Systolic And Diastolic Provider Name and Address Organization Details Last Updated DateTime 1 172.72 cm 88 /min 92 % 92 % 12 /min 97.7 [degF] 25.4 kg/m2 38585.9 3 g 154/82 mm[Hg] Vanita Burrell RN [place] [facility] [place] 1 15:23:33 Date Recorded Body height Body mass index (BMI) Body weight Body temperature Heart rate Systolic And Diastolic Provider Name and Address Organization Details Last Updated DateTime 1 172.72 cm 40 kg/m2 409107. 79 g 98 [degF] 88 /min 121/85 mm[Hg] Antonietta John LPN [place] [facility] [place] 1 10:55:05 Date Recorded Body height Heart rate Body mass index (BMI) Body weight Pain severity - 0-10 verbal numeric rating [Score] - Reported Systolic And Diastolic Provider Name and Address Organization Details Last Updated DateTime 5 167.64 cm 93 /min 34.2 kg/m2 05892.5 8 g 7 105/67 mm[Hg] Alejandrina Pelayo [address] 5 14:15:09 Date Recorded Body height Heart rate Body mass index (BMI) Body weight Pain severity - 0-10 verbal numeric rating [Score] - Reported Systolic And Diastolic Provider Name and Address Organization Details Last Updated DateTime 5 167.64 cm 98 /min 34.2 kg/m2 13428.5 8 g 0 120/76 mm[Hg] Alejandrina Pelayo [address] 5 16:17:11 Date Recorded Body height Heart rate Body mass index (BMI) Body weight Pain severity - 0-10 verbal numeric rating [Score] - Reported Systolic And Diastolic Provider Name and Address Organization Details Last Updated DateTime 5 167.64 cm 92 /min 34.2 kg/m2 18672.5 8 g 3 117/64 mm[Hg] Alejandrina Pelayo [address] 5 16:12:32 Social History Question Answer Notes LastModified by Organizat ion Details LastModified Time Tobacco Smoking Status Current Every Day Smoker EMMA Jeronimo, [address] 03/26/2020 14:57:41 How Much Tobacco Do [...] Y PULMONARY DISEASE Y HIGH CHOLESTEROL Y BACK / NECK PROBLEMS Y SLEEP DISORDER Y HAVE YOU BEEN HOSPITALIZED OR SEEN IN [facility] ER IN THE PAST YEAR ? Y HYPERTENSION Y Gynecological HistoryNo gynecological history recorded. Obstetrics History GPAL:G 0 P 0 0 0 0 Past Encounters Encounter ID Performer Location Encounter Start Date Encounter Closed Date Diagnosis/Indication Diagnosis SNOMED-CT Code Diagnosis ICD10 Code Diagnosis IMO Codes Diagnosis Note [id number] Etta Mancia MD [facility] [address] [place] [facility] [place] [address] 06/18/2020 09:27:50 06/18/2020 11:56:40 Chronic low back pain 526432636 M54.5 Her history of prior fusion surgery [...] well. Long-term current use of anxiolytic medication 9957261535 8260511 Z79.899 Unfortunat sanaz, she has a considerab le psychiatri c/behavior al history, and has been on anxiolytic s long-term. Just as with opioids, there can be a paradoxica l hyper response to chronic benzodiaze pines. Additional ly, benzodiaze pines contraindi ariadna opioids if co administer ed. Long-term current use of antidepressant medication 6374593176 0662424 Z79.899 Her depression unfortunat sanaz increases the subjective sensation of pain. Doxepin may help block pain as well, while S Citalopram generally has no impact on pain. Chronic anxiety 95697590 9 F41.9 At the time of this evaluation , her anxiety appeared to be reasonably well controlled . She denied significan t depression , or thoughts of self injury or suicide. Meralgia p aresthetica of right leg 1064820060 25865 G57.11 The decreased sensation over the anterior [...] nerve of the thigh. Lumbar post-laminectomy syndrome 129886327 M96.1 unfortunat sanaz, the prior surgery, including laminectom y and fusion increase the risk for adjacent segment degenerati on and nociceptiv e. We will evaluate images when they are available, and this could lead to possible facet injections , or epidural steroid injections . Worse case scenario, a spinal cord stimulator may be required. [id number] Etta Mancia MD [facility] [address] [place] [address] 06/30/2020 10:00:19 06/30/2020 12:30:24 Chronic low back pain 480923514 M54.5 Depending on the results of the epidural, we may consider adding evaluation of the myofascial components .There are several postural issues that contribute to the pain as well. Myofascial contributo rs would be expected in the low back , gluteals, as well as upper back and shoulders. physical therapy may be considered in the near future as well. Chronic anxiety 65544210 9 F41.9 At the time of this evaluation , her anxiety appeared to be reasonably well controlled . She denied significan t depression , or thoughts of self injury or suicide. Long-term current use of anxiolytic medication 2643559106 2808057 Z79.899 Unfortunat sanaz, she has a considerab le psychiatri c/behavior al history, and has been on anxiolytic s long-term. Just as with opioids, there can be a paradoxica l hyper response to chronic benzodiaze pines. Additional ly, benzodiaze pines contraindi ariadna opioids if co administer ed. Long-term current use of antidepressant medication 5093864229 5597001 Z79.899 Her depression unfortunat sanaz increases the subjective sensation of pain. Doxepin may help block pain as well, while S Citalopram generally has no impact on pain. Meralgia p aresthetica of right leg 4362003393 65557 G57.11 The decreased sensation over the anterior [...] nerve of the thigh. Lumbar post-laminectomy syndrome 517654641 M96.1 unfortunat sanaz, the prior surgery, including laminectom y and fusion increase the risk for adjacent segment degenerati on and nociceptiv e. We will evaluate images when they are available, and this could lead to possible facet injections , or epidural steroid injections . Worse case scenario, a spinal cord stimulator may be required. Closed tra umatic dislocation of coccyx 01216138 S33.2XXS this is evident based on the fluoroscop y views as well as physical exam. We will have her return in [facility] 1 week, and if she continues to [...] that marked sensitivit y to the area. [id number] Etta Mancia MD [facility] [address] [facility] [place] [address] 07/01/2020 15:03:17 07/01/2020 17:36:47 Chronic low back pain 097143962 M54.5 Depending on the results of the [...] le Behavioral overlay. Lumbago with sciatica 20 2026940 M54.41 while the imaging suggests the possibilit y of a radiculopa thy, her symptom magnificat ion as well as multiple attempts to miss lead us argue against a true illness. It appears that she was actually attempting to seek opioids. Long-term current use of opiate analgesic drug 2636334924 03495 Z79.891 we have had concerns that she [...] somatoform pain disorder. 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 It was explained to her that a treatment [facility] ip is heavily dependent on honesty Malingering 27884501 Z76 .5 Falsifying symptoms in order to obtain medication s or compensati on appears to be an issue for this patient. Given this in Croatian min, we may not have anything else to offer her. [id number] Karthik Sheldon MD [facility] [address] [place] [address] 11/10/2020 10:42:15 11/10/2020 15:28:48 Hidradenitis suppurativa 08331061 L73.2 35y/o female with extensive hidradenit is suppurativ a [id number] STEPHANIE CERVANTES [facility] [address] [place] [address] 03/11/2025 13:29:42 03/11/2025 14:54:03 Pain of right wrist 9514347682 63354 M25.531 815426 Closed fra cture of scaphoid bone 45983589 S62.014A 654029223 [id number] STEPHANIE CERVANTES [facility] [address] [place] [address] 03/23/2025 15:55:08 03/23/2025 17:13:06 Closed fracture of scaphoid bone 29594821 S62.014A 797130495 [id number] STEPHANIE CERVANTES [facility] [address] [place] [address] 04/03/2025 15:26:05 04/03/2025 16:28:09 Closed fracture of scaphoid bone 67511753 S62.014A 526308025 Health Concerns Section Related Observation LastModified by Organization Detai ls LastModified Time None Recorded Concern Status LastModified by Organization Details LastModified Time None Recorded Advance Directives Directive None Recorded Payers Insurance Date Sequence Insurance Name Policy Number Policy [place] Covered Member ID [place] Member ID Guarantor Name 03/11/2025 1 [place] Reggie Cody [id number] Reggie Cody 03/11/2025 1 [place] Reggie Cody [id number] Reggie Cody 04/03/2025 1 [place] [id number] 1 Reggie Cody [id number] Reggie Cody 03/11/2025 1 [facility] (MEDICARE REPLACEMENT/A DVANTAGE - HMO) MODSNP Reggie oCdy [id number] Reggie Cody 03/11/2025 1 [place] Reggie Cody [id number] Reggie Cody Notes Date Note Type Note Provider Name and Address Organization Details Recorded Time 07/01/2020 text/html This patient called the office [...] gabapentin as she described. Etta Mancia MD [address] [place] [address], [address], [place] [facility] [place] 07/01/2020 20:15:27 11/10/2020 text/html ROS as noted [...] 1ppd smoker, no EtOH/illicit substancesFH: Diabetes, HTN, AL, COPD Karthik Sheldon MD [address] [place] [address], [address], [facility] [place] 11/10/2020 12:14:09 03/11/2025 text/html 39-year-old female seen in office today for evaluation treatment of right wrist injury. Patient states that on 01/21/2025 she fell and caught herself with her right hand. She states she had a lot of swelling and pain in the wrist after the fall. She was seen at [facility] urgent [facility] and had x-rays performed. [...] tingling in the right hand. STEPHANIE CERVANTES [address] [place] [address], [address], [place] [facility] [place] 03/11/2025 15:51:08 03/23/2025 text/html 39-year-old female seen in office today for recheck of right wrist injury. Patient states that on 01/21/2025 she fell and caught herself with her right hand. She states she had a lot of swelling and pain in the wrist after the fall. She was seen at [facility] urgent care and had x-rays performed. She states she was told that the radiologist read the x-rays as no fracture. Patient was then seen by me on 03/11/2025 and diagnosed with a nondisplaced distal scaphoid fracture. She was placed in a short arm cast. Patient comes in today stating that the wrist feels better, however, her cast has loosened and is starting to move around. She states that it is shifting around and rubbing her thumb. She denies any other complaints or concerns today. STEPHANIE CERVANTES [address] [place] [address], [place], [address], [place] - [facility] [place] 03/23/2025 17:20:14 04/03/2025 text/html 39-year-old female seen in office [...] neurosensory changes. Rates her pain today a /10. STEPHANIE CERVANTES [address] [place], [place] [address], [address], [place] [facility] [place] 04/03/2025 16:24:54 OBGyn Episode No OBEpisode recorded.
--- NOTE | 2025-04-06 06:14 | ECG_ITS ---
[facility] Test Date: 2025-04-06 Pat Name: Mare Cody Department: Room: Gender: Female Etl [employer] Architect: : 1985 Requested By: Rober Aquino Order Number: [id number] Meliton MD: Melissa Dunham M.D. Measurements Intervals [place] Rate: 90 P: 55 CT: 165 QRS: -38 QRSD: 94 T: 42 QT: 369 QTc: 453 Interpretive Statements SINUS RHYTHM LEFT AXIS DEVIATION [QRS AXIS < -30] PATTERN CONSISTENT WITH PULMONARY DISEASE Compared to ECG 09/21/2023 09:59:02 Left-axis deviation now present Left anterior fascicular block no longer present Electronically Signed On 04-06-2025 18:12:52 BANKRUPTCY ASSISTANT by Melissa Dunham M.D. [email or web address]
--- NOTE | 2025-04-06 06:29 | XRR_ITS ---
PROCEDURE INFORMATION: Exam: XR Chest Exam date and time: 04/06/2025 06:41 AM Age: 40 years old Clinical indication: Cough and shortness of breath; Cough with SOB; Additional info: Dyspnea/cough TECHNIQUE: Imaging protocol: Radiologic exam of the chest. Views: 1 view. COMPARISON: CR XR chest 1V portable [id number] 10/24/2023 12:20 AM FINDINGS: Lungs: Low lung volumes with possible bibasilar atelectasis. Pleural spaces: Unremarkable. No pleural effusion. No pneumothorax. Heart/Mediastinum: Cardiac size and configuration is stable. Bones/joints: Unremarkable. XR/XR chest 1V portable [id number] IMPRESSION: Low lung volumes with possible bibasilar atelectasis.
--- NOTE | 2025-04-06 06:30 | W.ED.SOB ---
HPI - SOB/Dyspnea General: Chief Complaint: Shortness of Breath/Dyspnea Stated Complaint: SHORTNESS OF BREATH Time Seen by Provider: 04/06/25 06:13 History of Present Illness: HPI Narrative: 40-year-old female presents emergency room complaining of right sided jaw pain shortness of breath. Had sudden pain in the right side in her mid back as well. She is a daily smoker. She does have type 1 diabetes she has no known history of coronary disease she has had difficulty with her lungs in the past overstates there is no final diagnosis for manage she lost some weight and uses CPAP and here she is 88% on Associated symptoms: Reports chest congestion; Deny abdominal pain, chest pain or fever(s) Related Data Home Medications ?Medication ?Instructions ?Recorded ?Confirmed gabapentin 800 mg tablet 800 mg PO TID 09/21/23 04/06/25 metformin 1,000 mg tablet 1,000 mg PO BID 09/21/23 04/06/25 Previous Rx's ?Medication ?Instructions ?Recorded paliperidone palmitate 234 mg/1.5 234 mg (1.5 mL) IM Q30D #1.5 mL 06/02/19 [facility] tizanidine 4 mg tablet 4 mg PO Q6H PRN muscle spasticity 03/21/25 #20 tabs aspirin 81 mg tablet,delayed 81 mg PO DAILY #30 tabs 04/06/25 release Allergies Allergy/AdvReac Type Severity Reaction Status Date / Time azithromycin Allergy Severe ALGY-Hives Verified 04/06/25 06:15 milk AdvReac Mild ADR-Diarrhe Verified 04/06/25 06:15 a clindamycin AdvReac Unknown ALGY-Hives Verified 04/06/25 06:15 hydromorphone (From Dilaudid) AdvReac Unknown ALGY-Difficulty Verified 04/06/25 06:15 Breathing venom-wasp AdvReac Unknown ALGY-Hives Verified 04/06/25 06:15 Review of Systems Const: Denies: fever(s) or chills Card: Denies: chest pain Resp: Reports: dyspnea, non-productive cough and chest congestion GI: Denies: abdominal pain : Denies: dysuria, urinary frequency or urinary urgency Musc: Denies: neck pain or back pain Skin/Breast: Denies: rash PFSH ED PFSH: Medical History Elevated lactic acid level COVID Hyperglycemia due to diabetes mellitus 2018 novel coronavirus-infected pneumonia (NCIP) Obstructive Sleep Apnea-Hypopnea Syndrome Urolithiasis Small left distal ureteral stone that required endoscopic stone manipulation for removal November 2020. Calculus of distal left ureter November 2020 4 mm stone required endoscopic removal. Temporary stented. Did well Thoracic degenerative disc disease Nicotine dependence with current use Chronic post-traumatic stress disorder (PTSD) chronic nightmares; anniversary date of accident coming up; able to wake up and go back to sleep afterward. She expresses no reports of hypervigilance, avoidance behavior, or intrusive thought process. Bipolar disorder, most recent episode depressed GERD (gastroesophageal reflux disease) Dysphasia Nasal septal deformity Chronic otitis externa Lumbar post-laminectomy syndrome Chronic bronchitis Tobacco abuse Sleep apnea Sebaceous cyst Asthmatic bronchitis Falls Right hip joint effusion Back pain Obesity Depression Otalgia Otitis externa Hyperlipemia Sleep apnea Tobacco abuse Surgical History Status post arthrodesis 01/18/2019 Dr. Kwame Torres Right SI joint. 05/05/2016 Left SI joint History of tonsillectomy and adenoidectomy History of cholecystectomy History of hysterectomy H/O spinal fusion 07/15/2015 Dr. Kwame Torres [place]: L5-S1 posterior laminectomy/fusion/fixation Family History Mother Diabetes Heart attack Lung disease Grandmother Diabetes Hypertension Lung disease Sister Diabetes Hypertension Father Heart attack Family/Other Heart attack Brother Hypertension Social History Smoking and tobacco/nicotine status: never used tobacco/nicotine Quit status (tobacco/nicotine): considering quitting Second hand smoke exposure: Yes Alcohol intake: former Year of sobriety/quit date alcohol: 2018 Substance/Drug Use: never Lives independently: Yes Household members: none Marital status: Single Current occupational status: disabled Do you think of yourself as: Straight/Heterosexual Current gender identity: Female Physical Exam Const: GENERAL APPEARANCE: cooperative ORIENTATION/CONSCIOUSNESS: Yes awake, Yes oriented to person, Yes oriented to place and Yes oriented to time HENMT: COMMON NORMALS: normocephalic, atraumatic and hearing grossly normal bilaterally HEAD & SCALP: normocephalic and atraumatic Resp: COMMON NORMALS: normal respiratory effort, No retractions, No use of accessory muscles and clear to auscultation bilaterally AUSCULTATION: clear to auscultation bilaterally Cardio: COMMON NORMALS: regular rate, regular rhythm and No murmurs present (Cardio) RATE: regular rate RHYTHM: regular rhythm GI: COMMON NORMALS: Soft to palpation and No hepatosplenomegaly present AUSCULTATION: Yes normoactive bowel sounds PALPATION: Yes Soft to palpation, No Tenderness to palpation present (GI), No Guarding due to palpation present (GI) and Yes No hepatosplenomegaly present Extremity: COMMON NORMALS: normal to inspection, capillary refill normal, no clubbing, cyanosis or edema, no calf tenderness and no pedal edema Neuro: SENSORIUM/ORIENTATION: Yes oriented to person, Yes oriented to place and Yes oriented to time Skin: COMMON NORMALS: no rashes or lesions noted GENERAL SKIN EXAM: no rashes or lesions noted Course Vital Signs: Vital signs: Vital Signs Temperature 97.8 F 04/06/25 06:06 Pulse Rate 82 04/06/25 11:15 Respiratory Rate 13 04/06/25 11:06 Blood Pressure 102/64 04/06/25 11:15 Pulse Oximetry 94 04/06/25 11:15 Oxygen Delivery Me thod Room Air 04/06/25 11:06 Oxygen Flow Rate 2 04/06/25 07:56 MDM - SOB/Dyspnea Medical Decision Making Cardiac enzymes and EKG are normal no acute coronary syndrome. CTA of the chest is negative. When she first arrived at time she needed some oxygen we were able to take her off of that she has not needed any further oxygen her sats are maintaining in the mid 90s. She is no longer short of breath. She had some circumoral numbness that is resolved her CO2 was not significantly elevated she has not been tachypneic at all since she arrived here. No pneumonia no pneumothorax no sign of aneurysm widening of the mediastinum or PE on the CTA. Will discharge patient home set up for an outpatient stress test she is asymptomatic at this time. Follow-up with primary care doctor return if she has further problems. Medical Records I reviewed the patient's medical records. Lab Data I reviewed the patient's lab results. 04/06/25 06:22 04/06/25 06:22 Labs/Radiology: Radiology Impressions Chest X-Ray 04/06/25 06:29 IMPRESSION: Low lung volumes with possible bibasilar atelectasis. Chest CTA 04/06/25 09:59 IMPRESSION: 1. No pulmonary embolism. 2. Numerous pulmonary nodules are stable and negative on PET/CT from 10/09/2023. There is a single nodule which is new measuring 5.5 mm in the posterior RIGHT upper lobe. Consider follow-up chest CT in 6 months. 3. Mild cardiomegaly. 4. Mediastinal and hilar lymphadenopathy are stable. This may be reactive lymphadenopathy. No significant uptake noted on PET/CT imaging. 5. Hepatomegaly and splenomegaly. Similar to 10/24/2023. Liver and spleen are incompletely included on this study but they are enlarged. Laboratory Results WBC 9.83 10^3/uL (3.29-11.43) 04/06/25 06:22 RBC 5.75 10^6/uL (3.85-5.65) H 04/06/25 06:22 Hgb 15.40 g/dL (11.27-16.99) 04/06/25 06:22 Hct 48.9 % (36-47) H 04/06/25 06:22 MCV 85.0 fl (85-98) 04/06/25 06:22 MCH 26.8 pg (27-33) L 04/06/25 06:22 MCHC 31.5 g/dL (30-55) 04/06/25 06:22 RDW 14.6 % (12.1-15.1) 04/06/25 06:22 Plt Count 181 10^3/cmm (157-399) 04/06/25 06:22 MPV 11.9 fL (7.4-10.4) H 04/06/25 06:22 Neut % (Auto) 72.8 % 04/06/25 06:22 Lymph % (Auto) 21.5 % 04/06/25 06:22 [place]cl[place] % (Auto) 3.7 % 04/06/25 06:22 Eos % (Auto) 1.1 % 04/06/25 06:22 Baso % (Auto) 0.4 % 04/06/25 06:22 Neut # (Auto) 7.16 10^3/uL (1.8-7.7) 04/06/25 06:22 Lymph # (Auto) 2.1 10^3/uL (0.8-4.8) 04/06/25 06:22 [place]clennan # (Auto) 0.4 10^3/uL (0.2-0.9) 04/06/25 06:22 Eos # (Auto) 0.1 10^3/uL (0.0-0.8) 04/06/25 06:22 Baso # (Auto) 0.0 10^3/uL (0.0-0.1) 04/06/25 06:22 Nucleated RBC % (auto) 0 % 04/06/25 06:22 Nucleated RBCs # 0.0 /100WBC 04/06/25 06:22 Sodium 140 mmol/L (136-145) 04/06/25 06:22 Potassium 4.1 mmol/L (3.5-5.1) 04/06/25 06:22 Chloride 103 mmol/L (98-107) 04/06/25 06:22 Carbon Dioxide 23 mmol/L (22-29) 04/06/25 06:22 Anion Gap 18.1 (5-19) 04/06/25 06:22 BUN 8 mg/dL (6-20) 04/06/25 06:22 Creatinine 0.5 mg/dL (0.5-0.9) 04/06/25 06:22 GFR Calculation 136.0 mL/min (90-130) H 04/06/25 06:22 Glucose 192 mg/dL (65-115) H 04/06/25 06:22 Calculated Osmolality 294 mOsm/kg (285-295) 04/06/25 06:22 Calcium 9.6 mg/dL (8.5-10.5) 04/06/25 06:22 Total Bilirubin 0.3 mg/dL (0.15-1.2) 04/06/25 06:22 AST 17 U/L (0-32) 04/06/25 06:22 ALT 24 U/L (0-33) 04/06/25 06:22 Alkaline Phosphatase 65 U/L (35-105) 04/06/25 06:22 Troponin T Baseline < 6 ng/L (0-10) 04/06/25 06:22 Troponin T 120 Minute < 6.0 ng/L (0-10) 04/06/25 09:18 Delta Troponin T 0 ABS# (0-10) 04/06/25 09:18 Total Protein 7.2 g/dL (6.6-8.7) 04/06/25 06:22 Albumin 4.3 g/dL (3.5-5.2) 04/06/25 06:22 Globulin 2.9 g/dL (1.3-4.6) 04/06/25 06:22 Urine Color Yellow (Yellow) 04/06/25 06:30 Urine Appearance Clear (CLEAR) 04/06/25 06:30 Urine pH 5.5 (5-7) 04/06/25 06:30 Ur Specific [place] 1.012 (1.005-1.030) 04/06/25 06:30 Urine Protein Negative (Negative) 04/06/25 06:30 Urine Glucose (UA) Negative (Normal) 04/06/25 06:30 Urine Ketones Negative (Negative) 04/06/25 06:30 Urine Blood Negative (Negative) 04/06/25 06:30 Urine Nitrate Negative (Negative) 04/06/25 06:30 Urine Bilirubin Negative (Negative) 04/06/25 06:30 Urine Urobilinogen 0.2 mg/dL (Negative) 04/06/25 06:30 Ur Leukocyte Esterase Negative (Negative) 04/06/25 06:30 Urine RBC 0-2 /hpf (0-2) 04/06/25 06:30 Urine WBC 0-5 /hpf (0-5) 04/06/25 06:30 Ur Squamous Epith Cells 0-5 /hpf (0-5) 04/06/25 06:30 Amorphous Sediment Not Reportable 04/06/25 06:30 Urine Bacteria None seen /hpf (NONE) 04/06/25 06:30 Hyaline Casts 0-4 /lpf H 04/06/25 06:30 Influenza A (PCR) Negative (Negative) 04/06/25 07:15 Influenza Type B (PCR) Negative (Negative) 04/06/25 07:15 RSV (PCR) Negative (Negative) 04/06/25 07:15 SARS-CoV-2 (PCR) Negative (Negative) 04/06/25 07:15 All radiology interpretation(s) finalized by discharge EKG Data EKG 1: I personally reviewed and interpreted this EKG as follows: Prior EKG tracings: available for review Interpretation: EKG 04/06/2025 6:12 AM. Sinus rhythm rate of 90 FL interval 165 QTc 417. Poor R wave progression in the lateral leads no acute ST elevation. Compared to EKG done 09/21/2023 there is no significant change Discharge Plan Discharge Patient Disposition: Home Clinical Impression: Atypical chest pain, Dyspnea Condition: Stable Prescriptions: New aspirin 81 mg tablet,delayed release (DR/EC) 81 mg PO DAILY Qty: 30 0RF No Action Invega Sustenna 234 mg/1.5 mL syringe 234 mg IM Q30D Qty: 1.5 4RF tizanidine 4 mg tablet 4 mg PO Q6H PRN (Reason: muscle spasticity) Qty: 20 0RF Rx Instructions: do not exceed 3 doses per 24 hrs gabapentin 800 mg tablet 800 mg PO TID metformin 1,000 mg tablet 1,000 mg PO BID Discharge Orders: Discharge ED (Routine); Ordered 04/06/25 Ordered By: Rober Hickman Referrals: Teddy Regan MD [Primary Care Provider, Family Practice] Discharge Diet: Usual diet Discharge Activity: Increase activity as tolerated Patient Instructions: Opioid Safety, Pain Management, Patient Portal & Trudy Instructions Activity Restrictions/Additional Instructions: Thank you for choosing [facility] for your healthcare needs today. It is very important that you follow up as instructed or that you return to the Emergency Department should you have concerns or if your condition changes or worsens in any way. Emergency department visits are focused on emergent conditions, in some cases you may require further evaluation on an outpatient basis. You were seen in the emergency room with complaints of shortness of breath and chest comfort EKGs cardiac enzymes chest x-ray and CTA of your chest were all negative for any acute findings. The rest of your exam was also normal your lungs sounded clear. Will discharge you home and set up an outpatient stress test. Recommend you take a baby aspirin daily. (Please note that included in your discharge packet is information concerning opioid safety and pain management. This information is given to all patients were discharged from the ER regardless of their discharge diagnosis or the medicines they usually take or are prescribed.) Print Language: Cook Islander Coding Level of Care Code ED Residential Case Manager for Mario Santiago
[2025-04-06 06:36] LABS: Hematocrit 48.9 % (36-47); Hemoglobin 15.40 g/dL (11.27-16.99); Mean Corpuscular HGB Conc 31.5 g/dL (30-55); Mean Corpuscular Hemoglobin 26.8 pg (27-33); Mean Corpuscular Volume 85.0 fl (85-98); Nucleated Red Blood Cells % 0 %; Platelet Count 181 10^3/cmm (157-399); Red Blood Count 5.75 10^6/uL (3.85-5.65); White Blood Count 9.83 10^3/uL (3.29-11.43)
[2025-04-06 06:42] LABS: Glucose Urine UA Negative (Normal); Nitrate Urine Negative (Negative); Specific Gravity, Urine 1.012 (1.005-1.030)
[2025-04-06 06:47] LABS: Add Urine Microscopic? YES
[2025-04-06 06:50] LABS: Alanine Aminotransferase 24 U/L (0-33); Albumin Level 4.3 g/dL (3.5-5.2); Alkaline Phosphatase 65 U/L (35-105); Blood Urea Nitrogen 8 mg/dL (6-20); Calcium 9.6 mg/dL (8.5-10.5); Carbon Dioxide 23 mmol/L (22-29); Chloride 103 mmol/L (98-107); Creatinine Clr Calc Pharmacy 178.6822; Globulin 2.9 g/dL (1.3-4.6); Glucose 192 mg/dL (65-115); Osmolality Calculated 294 mOsm/kg (285-295); Sodium 140 mmol/L (136-145); Total Protein 7.2 g/dL (6.6-8.7)
[2025-04-06 06:54] LABS: Anion Gap 18.1 (5-19); Aspartate Amino Transferase 17 U/L (0-32); Potassium 4.1 mmol/L (3.5-5.1)
[2025-04-06 07:01] LABS: Troponin(5th) Baseline < 6 ng/L (0-10)
--- NOTE | 2025-04-06 07:59 | PC.PHAR ---
Pt had a long list of medications she no longer takes. Current med list verified.
[2025-04-06 08:06] LABS: Respiratory Syncytial Virus Ce NEGATIVE (Negative); SARS-CoV-2 PCR NEGATIVE (Negative)
[2025-04-06 09:44] LABS: Troponin 5 2HR < 6.0 ng/L (0-10); Troponin 5 2HR Delta 0 ABS# (0-10)
--- NOTE | 2025-04-06 09:45 | ECG_ITS ---
[facility]25[facility]06 Pat Name: Mare Cody Department: Room: Gender: Female Bottom Scrubber: : 1985 Requested By: Rober Aquino Order Number: [id number] Mel[place] MD: Melissa Dunham M.D. Measurements Intervals [place] Rate: 63 P: 73 CO: 176 QRS: 20 QRSD: 91 T: 53 QT: 402 QTc: 415 Interpretive Statements SINUS RHYTHM INDETERMINATE AXIS Compared to ECG 04/06/2025 06:12:36 Indeterminate axis now present Left-axis deviation no longer present Electronically Signed On 04-06-2025 18:14:30 HEALTH SERVICES INFORMATION SPECIALIST by Melissa Dunham M.D. [email or web address]
--- NOTE | 2025-04-06 09:59 | CT_ITS ---
WS: [id number] CT CHEST ANGIOGRAPHY WITH REFORMATS HISTORY: Dyspnea hypoxia TECHNIQUE: Contiguous axial images are obtained through the chest during arterial injection of intravenous contrast. Images are reconstructed to evaluate the pulmonary arteries. MIP imaging also reviewed. All CT scans at [facility] use at least one of these dose optimization techniques: automated exposure control; mA and/or kV adjustment per patient size (includes targeted exams where dose is matched to clinical indication); or iterative reconstruction. CONTRAST: Omnipaque 350; 100 mL IV. DLP: 431.76 mGy.cm COMPARISON: 06/26/2023, 03/31/2019, PET/CT 10/09/2023 Good opacification of the pulmonary artery. Pulmonary artery is dilated. No pulmonary embolism identified. Normal size thoracic aorta. Minimal atherosclerotic plaque. Mild cardiomegaly. No pericardial or pleural effusions. Well-circumscribed 10 mm nodule in the RIGHT upper lobe has been previously described. Negative on PET/CT. There are additional smaller smaller pulmonary nodules identified. 1 of these nodules is new. This is a 5.5 mm nodule in the posterior RIGHT upper lobe. Mediastinal and hilar lymphadenopathy. Lymp hadenopathy was present on the prior study of 06/26/2023. Hilar lymph nodes measure up to 12 mm in diameter. No obvious progression in adenopathy. Stable periaortic and paratracheal lymph nodes. Small axillary lymph nodes. Liver is enlarged with hepatic steatosis. Spleen also appears enlarged but is incompletely included on this exam. Spleen measures greater than 13 cm in length. 8 mm stable LEFT adrenal adenoma. CT/CT angio chest PE protcl [id number] IMPRESSION: 1. No pulmonary embolism. 2. Numerous pulmonary nodules are stable and negative on PET/CT from 10/09/2023 . There is a single nodule which is new measuring 5.5 mm in the posterior RIGHT upper lobe. Consider follow-up chest CT in 6 months. 3. Mild cardiomegaly. 4. Mediastinal and hilar lymphadenopathy are stable. This may be reactive lymp hadenopathy. No significant uptake noted on PET/CT imaging. 5. Hepatomegaly and splenomegaly. Similar to 10/24/2023. Liver and spleen are i ncompletely included on this study but they are enlarged.
[2025-04-06] MEDS: iohexol 350 mg/mL 500 mL Btl (per mL) IV (10:17)
--- NOTE | 2025-04-06 14:17 | DCPLANNER ---
faxed outpatient lexiscan to scheduling
== END 2025-04-06 11:17 | disposition home or self-care (01) ==
PROVIDERS: Emergency Provider Family Medicine; PCP Family Medicine
DX: R07.89 Other chest pain (principal); R06.00 Dyspnea, unspecified; Z79.84 Long term (current) use of oral hypoglycemic drugs; Z11.52 Encounter for screening for COVID-19; E78.5 Hyperlipidemia, unspecified
CPT/HCPCS: 36415; 71045; 71275; 80053; 81001; 84484; 85025; 87637; 93005; 99285

== ENCOUNTER → 2025-04-24 13:11 | Outpatient (BNVA) | payer BC, SELFPAY | PROVIDERS: PCP Family Medicine; Visit Provider Emergency Medicine | DX: M89.8X2 Other specified disorders of bone, upper arm (principal); M25.531 Pain in right wrist; W19.XXXA Unspecified fall, initial encounter | CPT/HCPCS: 73060; 73110 ==